=== PATIENT | female | born 1950 | race Caucasian/White ===

== ENCOUNTER 2016-06-28 10:01 | Inpatient (IN) | payer MEDICARE, MEDICAID ==
[~2016-06-28] VITALS: Ht 152.4 cm; Wt 51.6 kg
[~2016-06-28 10:01] MED LIST: /ALEN7SOL; /BACL20TA; /BACL20TA OR; /CARB20TAB; /CARB20TAB PO; /CARBXR20T PO; /LORA10TA PO; /PANT40TA; ACET650S; BACL10TA PO; BISA10SU PR; CALCCHW12; CALCCHW12 PO; CARB PO; CARB300C; CLAR5CHW OR; DULCOLAX; DULCOLAX SUPP PR; FERR325T; FERR325T OR; FLEEENE4; FLEETS ENEMA PR; JANU100T PO; KEPP250T PO; KEPPRA; KEPPRA PO; LACT10SO8; MILKSUS; MILKSUS OR; MIRALAX; MIRALEX PO; MULTTAB4 PO; MVI OR; PREV30CA6 PO; PREVACID SOLUTAB PO; SENN8.6T14; SENO8.6T5 PO; SYNT75TA; SYNT75TA OR; TETR250C; TETR250C OR; THERGRAN; VITA400C29 PO; VITAMIN D; VYTO10TA5; VYTO10TA5 OR; ZANA4CAP; ZANA4CAP OR; [UNRECOGNIZED DRUG - OTHER]; [UNRECOGNIZED DRUG - OTHER] OR
[2016-06-28 10:45] VITALS: BP 173/89
[2016-06-28] MEDS ORDERED: ONDANSETRON 4MG/2ML VIAL (J2405) IV PRN (11:30)
[2016-06-28] MEDS ORDERED: ACETAMINOPHEN TAB 650MG DOSE (2X325MG) PO PRN (11:30)
[2016-06-28] MEDS ORDERED: NORC5TAB PO (12:23)
[2016-06-28] MEDS ORDERED: LANS30CA PO (12:23)
[2016-06-28] MEDS ORDERED: LORATAB PO (12:23)
[2016-06-28] MEDS ORDERED: FERR325T PO (12:23)
[2016-06-28] MEDS ORDERED: AQUAOIN2 TOP (12:23)
[2016-06-28] MEDS ORDERED: CARB10TACH PO ×2 (12:23)
[2016-06-28] MEDS ORDERED: MIRA33504 PO (12:23)
[2016-06-28] MEDS ORDERED: DOXY100T PO (12:23)
[2016-06-28] MEDS ORDERED: FLEEENE4 PR (12:23)
[2016-06-28] MEDS ORDERED: ZETI10TA2 PO (12:23)
[2016-06-28] MEDS ORDERED: CRES20TA PO (12:23)
[2016-06-28] MEDS ORDERED: CALCTAB43 PO (12:23)
[2016-06-28] MEDS ORDERED: LEVO100T5 PO (12:23)
[2016-06-28] MEDS ORDERED: VITMTA PO (12:23)
[2016-06-28 12:43] LABS: BASO % 0.6 % (0.0-1.0); EOS # 0.2 K/mm3 (0.0-0.50); EOS % 3.9 % (0.0-3.0); LARGE UNSTAINED CELL # 0.1 K/mm3 (0.0-0.4); LARGE UNSTAINED CELL % 1.4 % (0.0-4.0); LYMPH # 1.3 K/mm3 (1.5-4.5); LYMPH % 32.7 % (24.0-44.0); MEAN CORPUSCULAR HEMOGLOBIN 30.3 pg (27.0-33.0); MEAN CORPUSCULAR HGB CONC 32.3 g/dl (32.0-36.5); MEAN CORPUSCULAR VOLUME 93.7 fl (80.0-96.0); MONO # 0.2 K/mm3 (0.0-0.8); MONO % 4.4 % (0.0-5.0); NEUTROPHILS # 2.3 K/mm3 (1.8-7.7); RED CELL DISTRIBUTION WIDTH 14.6 % (11.5-14.5)
[2016-06-28 12:55] LABS: PLATELET COUNT, AUTOMATED 51 k/mm3 (150-450)
[2016-06-28] MEDS: BACLOFEN 10 MG TAB PO SCH ×3 (13:00→20:38)
[2016-06-28 13:09] LABS: INR 0.99
[2016-06-28 13:09] LABS: ALBUMIN 3.2 GM/DL (3.2-5.2); ALBUMIN/GLOBULIN RATIO 0.76 (1.00-1.93); ALKALINE PHOSPHATASE 128 U/L (45-117); ALT/SGPT 103 U/L (12-78); ANION GAP 8 MEQ/L (8-16); AST/SGOT 93 U/L (15-37); BILIRUBIN,TOTAL 0.2 MG/DL (0.2-1.0); BLOOD UREA NITROGEN 23 MG/DL (7-18); CALCIUM LEVEL 9.2 MG/DL (8.8-10.2); CARBON DIOXIDE LEVEL 32 MEQ/L (21-32); CHLORIDE LEVEL 106 MEQ/L (98-107); CHOLESTEROL LEVEL 161 MG/DL (< 200); CREATININE FOR GFR 0.53 MG/DL (0.55-1.02); GLOMERULAR FILTRATION RATE > 60.0 (>45); GLUCOSE, FASTING 83 MG/DL (80-110); MAGNESIUM LEVEL 2.1 MG/DL (1.8-2.4); POTASSIUM SERUM 3.8 MEQ/L (3.5-5.1); SODIUM LEVEL 146 MEQ/L (136-145); TOTAL PROTEIN 7.4 GM/DL (6.4-8.2); TRIGLYCERIDES LEVEL 49 MG/DL (<150)
--- NOTE | 2016-06-28 13:12 | REP ---
Head CT without contrast: History: Anorexia. Comparison study February 28, 2016. Findings: Digital banquet server radiograph plus axial CT images at bone window settings demonstrate marked diffuse calvarial thickening. There is over pneumatization of the frontal and to a lesser extent ethmoid and sphenoid sinuses. There is extensive benign plaque-like dural calcification bilaterally. These findings are all unchanged. Soft tissue windows demonstrate marked diffuse cerebral atrophy. This is most pronounced in the left occipital lobe. There is marked dilation of the occipital horn of the left lateral ventricle and moderate dilation of the lateral ventricles is seen bilaterally. The third ventricle and fourth ventricles are somewhat dilated. There is no evidence of midline shift. No intracranial mass, new extra-axial fluid collection, or midline shift is seen. Impression: Extensive chronic and developmental changes as above. Findings are status well from the February 28, 2016 prior study. No acute intracranial abnormality is seen. Signed by Sony Mckay MD 06/28/2016 02:43 P
[2016-06-28] MEDS ORDERED: DRIS50002 PO (13:26)
[2016-06-28] MEDS: NS 1,000 ML IV SCH ×2 (13:28→20:37)
[2016-06-28] MEDS ORDERED: [UNRECOGNIZED DRUG - CODE] TOP (13:29)
[2016-06-28] MEDS ORDERED: BACL-67 PO (13:30)
[2016-06-28] MEDS ORDERED: TIZA4CAP3 PO (13:30)
[2016-06-28] MEDS ORDERED: DANT25CA2 PO (13:32)
[2016-06-28] MEDS ORDERED: MILKSUS PO (13:35)
[2016-06-28] MEDS ORDERED: SENO8.6T2 PO (13:35)
[2016-06-28] MEDS ORDERED: KEPP250T5 PO (13:35)
[2016-06-28] MEDS ORDERED: DULC10SU2 PR (13:36)
[2016-06-28] MEDS ORDERED: ENEM1ENE4 PR (13:37)
[2016-06-28 14:00] VITALS: BP 102/56
--- NOTE | 2016-06-28 15:00 | REP ---
SINGLE SUPINE AP VIEW OF THE ABDOMEN: Comparison is a CT abdomen and pelvis dated 02/28/2016. There is a large fecal bolus in the rectal ampulla, likely an impaction. There is mild distension of large and small bowel loops in a nonspecific pattern. There are no unusual calcifications. There is lumbar scoliosis convex right, unchanged. IMPRESSION: Probable fecal impaction. Unreviewed
[2016-06-28] MEDS ORDERED: carBAMazepine 200 MG TAB PO SCH (16:00)
[2016-06-28] MEDS: DANTROLENE 25 MG CAP PO SCH ×2 (16:14→20:38)
[2016-06-28] MEDS: carBAMazepine 200 MG TAB PO SCH ×2 (16:14→20:39)
[2016-06-28 18:00] VITALS: BP 151/74
[2016-06-28] MEDS: LEVETIRACETAM IV SCH (20:37)
[2016-06-28] MEDS: D5W MINI IV SCH (20:37)
[2016-06-28] MEDS: SENNA 8.6 MG TAB (SENOKOT) PO SCH (20:38)
[2016-06-28] MEDS: ROSUVASTATIN 10 MG TAB (CRESTOR) PO SCH (20:38)
[2016-06-28] MEDS ORDERED: levETIRAcetam 250MG TABLET (KEPPRA) PO SCH (21:00)
[2016-06-28 22:00] VITALS: BP 100/52
[2016-06-29 02:00] VITALS: BP 151/68
[2016-06-29 04:18] LABS: CALCIUM OXALATE CRYSTALS SMALL
[2016-06-29] MEDS ORDERED: cefTRIAXone SOD 1 GM in D5W MINI-BAG PLUS 50 ML IV ONE (04:45)
[2016-06-29] MEDS: NS 1,000 ML IV SCH ×3 (05:00→23:50)
[2016-06-29] MEDS: LEVOTHYROXINE 0.1 MG TAB (100 MCG) PO SCH (05:00)
[2016-06-29 06:00] VITALS: BP 145/61
[2016-06-29 06:39] LABS: MEAN CORPUSCULAR HEMOGLOBIN 30.5 pg (27.0-33.0); MEAN CORPUSCULAR HGB CONC 32.4 g/dl (32.0-36.5); MEAN CORPUSCULAR VOLUME 94.3 fl (80.0-96.0); RED CELL DISTRIBUTION WIDTH 15.5 % (11.5-14.5); WHITE BLOOD COUNT 6.4 K/mm3 (4.0-10.0)
[2016-06-29 06:56] LABS: ALBUMIN 2.7 GM/DL (3.2-5.2); ALBUMIN/GLOBULIN RATIO 0.73 (1.00-1.93); ALKALINE PHOSPHATASE 122 U/L (45-117); ALT/SGPT 99 U/L (12-78); ANION GAP 7 MEQ/L (8-16); AST/SGOT 87 U/L (15-37); BILIRUBIN,TOTAL 0.1 MG/DL (0.2-1.0); BLOOD UREA NITROGEN 21 MG/DL (7-18); CALCIUM LEVEL 8.7 MG/DL (8.8-10.2); CARBON DIOXIDE LEVEL 30 MEQ/L (21-32); CHLORIDE LEVEL 111 MEQ/L (98-107); CREATININE FOR GFR 0.51 MG/DL (0.55-1.02); GLOMERULAR FILTRATION RATE > 60.0 (>45); GLUCOSE, FASTING 84 MG/DL (80-110); POTASSIUM SERUM 4.2 MEQ/L (3.5-5.1); SODIUM LEVEL 148 MEQ/L (136-145); TOTAL PROTEIN 6.4 GM/DL (6.4-8.2)
[2016-06-29 07:10] LABS: EOSINOPHILS 2 % (0-5)
[2016-06-29] MEDS: LANSOPRAZOLE SUSPENSION 30 MG/10 ML ORAL SYRINGE (FIRST-LANSOPRAZOLE) PO SCH (09:00)
[2016-06-29] MEDS: BACLOFEN 10 MG TAB PO SCH ×4 (09:00→21:00)
[2016-06-29] MEDS: SENNA 8.6 MG TAB (SENOKOT) PO SCH ×2 (09:00→21:00)
[2016-06-29] MEDS: DANTROLENE 25 MG CAP PO SCH ×3 (09:00→21:00)
[2016-06-29] MEDS: carBAMazepine 200 MG TAB PO SCH ×3 (09:00→21:00)
[2016-06-29] MEDS: LEVETIRACETAM IV SCH ×2 (09:36→23:49)
[2016-06-29] MEDS: D5W MINI IV SCH ×2 (09:36→23:49)
[2016-06-29 10:00] VITALS: BP 158/71
[2016-06-29 14:00] VITALS: BP 162/77
--- NOTE | 2016-06-29 14:03 | IPNPDOC ---
Assessment/Plan Date Seen The patient was seen on 06/29/16. Problems Problems: (1) Hypothermia Status: Chronic Response to Treatment: Stable Problem Text: Presented with temp of 91.5. Chronic hypothermia with temp usually 94-96. No signs of infection. Poss due to chronic anorexia. -TSH -Swallow eval -dietary consulted with recommendations for ST and attempt at adequate PO within 5 days - consider TPN vs feeding tube if not improving (2) Thrombocytopenia Status: Chronic Problem Text: Baseline is near 100. Pt not on heparin. No signs of bleeding or acute clot. - monitor - no heparin (3) Macroglossia Status: Chronic Problem Text: Acute vs chronic. May be contributory to feeding difficulty. Pt not taking good PO. Losing wt. Presented with hypothermia. - TSH, B12 - swallow eval pending - TPN vs tube feed if pt not improving (4) Anorexia Status: Chronic Problem Text: See above (5) Dysphagia Status: Acute Problem Specific Plan: Consult Specialist Problem Text: Swallow eval pending. (6) Seizure disorder Status: Acute Problem Text: IV carbamazepine. Pt unable to take her oral medications. - lorazepam 2 mg IV once for seizure activity Plan / VTE VTE Prophylaxis Ordered?: Yes VTE Exclusion Pharmacological: Bleeding Risk Plan IVF: Continue Medications: Change to IV Diagnostics: Check Labs Disposition Cont inpt care for swallow eval and poss feeding tube Subjective Review of Systems CC/HPI The patient is a 65-year-old female admitted with a reason for visit of Dehydration, Anorexia. Events since last encounter Unable to obtain a hx as pt is non-verbal. Per pts PCP, pt has been eating very little and losing wt. Direct admit for hypothermia. General: Reports: ROS Unobtainable Constitutional: Denies: Fever Pulmonary: Denies: Cough Objective Physical Examination General Exam: Positive: Alert, Negative: No Acute Distress Eye Exam: Positive: Conjunctiva & lids normal ENT Exam: Positive: Atraumatic, Mucous membr. moist/pink, Other ENT ( macroglossia), Tongue Midline Neck Exam: Positive: Supple, Negative: JVD, thyromegaly Chest Exam: Positive: Clear to auscultation, Diminished, Normal air movement, Negative: Rales, Rhonchi, Wheezing Heart Exam: Positive: Normal S1, Normal S2, Rate Normal, Negative: Murmurs, Rubs Abdomen Exam: Positive: Normal bowel sounds, Soft, Negative: Hepatospenomegaly, Tenderness Extremity Exam: Negative: Clubbing, Cyanosis, Edema Skin Exam: Positive: Nl turgor and temperature, Negative: Breakdown, Rash Vital Signs/I&O Vital Signs Date Time Temp Pulse Resp B/P Pulse Ox O2 Delivery O2 Flow Rate FiO2 06/29/16 10:00 96.0 79 18 158/71 99 06/29/16 09:35 Room Air I&O- Last 24 Hours up to 6 AM 06/29/16 06:00 Intake Total 102.5 ml Output Total 0 ml Balance 102.5 ml Laboratory Data Labs 24H Laboratory Tests 2 06/29/16 03:53: Urine Amorphous Sediment , Urine Appearance HAZY, Urine Color YELLOW, Urine pH 6.0, Urine Specific [place] 1.014, Urine Protein NEGATIVE, Urine Glucose (UA) NEGATIVE, Urine Ketones NEGATIVE, Urine Urobilinogen 0.2, Urine Bilirubin NEGATIVE, Urine Leukocyte Esterase 1+H, Urine Bacteria (Auto) 1+H, Urine Blood NEGATIVE, Urine Calcium Carbonate Cryst(Auto) , Urine Calcium Oxalate Cryst ( Auto) SMALL, Urine Calcium Phosphate [place] (Auto) , Urine Cellular Casts , Urine Cystine Crystals , Urine Granular Casts (Auto) , Urine Hyaline Casts (Auto) 0, Urine Leucine Crystals , Urine Mucus (Auto) SMALL, Urine Nitrite POSITIVE, Urine Oval Fat Bodies (Auto) , Urine RBC (Auto) 4H, Urine Renal Epithelial Cells , Urine Sperm (Auto) , Urine Squamous Epithelial Cells 0, Urine Transitional Epithelial Cells , Urine Trichomonas (Auto) , Urine Triple Phosphate Cryst (Auto) , Urine Tyrosine Crystals , Urine Uric Acid Crystals ( Auto) , Urine WBC (Auto) 12H, Urine Waxy Casts (Auto) , Urine Yeast-Like Cells ( Auto) 06/29/16 06:04: Blood Urea Nitrogen 21H, Creatinine 0.51L, Sodium Level 148H, Potassium Level 4.2, Chloride Level 111H, Carbon Dioxide Level 30, Calcium Level 8.7L, Aspartate Amino Transf (AST/SGOT) 87H, Alanine Aminotransferase (ALT/SGPT) 99H, Alkaline Phosphatase 122H, Total Bilirubin 0.1L, Total Protein 6.4, Albumin 2.7L , Albumin/Globulin Ratio 0.73L, Anion Gap 7L, Eosinophils (Manual) 2, Glomerular Filtration Rate > 60.0, Lymphocytes (Manual) 27, Monocytes (Manual) 2 , Neutrophils 69, Platelet Estimate DECREASED, Red Blood Cell Morphology NORMAL CBC/BMP Laboratory Tests 06/29/16 06:04 Calcium Level 8.7 L, Aspartate Amino Transf (AST/SGOT) 87 H, Alanine Aminotransferase (ALT/SGPT) 99 H, Alkaline Phosphatase 122 H, Total Bilirubin 0.1 L, Total Protein 6.4, Albumin 2.7 L Microbiology Microbiology 06/28/16 Blood Culture - Preliminary, Resulted No growth after 24 hours . All specim... 06/28/16 Blood Culture - Preliminary, Resulted No growth after 24 hours . All specim... 06/29/16 Urine Culture, Received Pending HU DOAN MD Jun 29, 2016 14:03
[2016-06-29] MEDS ORDERED: LORazepam 2 MG/ML VIAL (J2060) IV PRN (15:00)
--- NOTE | 2016-06-29 15:00 | ECGEPIP ---
Stationary ECG Study [facility] Test Date: 2016-06-28 Pat Name: NIDIA JOY Department: Room: [place] [address] Gender: F [employer]ician: [place] : 1950 Requested By: Xavier ROMERO Order Number: [id number] Reading MD: Binu Jordan Measurements Intervals [place] Rate: 66 P: 64 IA: 180 QRS: 38 QRSD: 100 T: 93 QT: 372 QTc: 390 Interpretive Statements SINUS RHYTHM NONSPECIFIC T-WAVE ABNORMALITY NO PRIOR TRACING ON THE SYSTEM Electronically Signed On 06-29-2016 14:59:58 EST by Binu Jordan
[2016-06-29 16:31] LABS: FREE T4 1.05 NG/DL (0.76-1.46)
[2016-06-29 18:00] VITALS: BP 152/68
[2016-06-29] MEDS: ROSUVASTATIN 10 MG TAB (CRESTOR) PO SCH (21:00)
[2016-06-29 22:00] VITALS: BP 154/76
[2016-06-30] VITALS (8 sets, daily range): BP systolic 140–198; BP diastolic 70–95
[2016-06-30] MEDS: LEVOTHYROXINE 0.1 MG TAB (100 MCG) PO SCH (07:32)
--- NOTE | 2016-06-30 08:31 | IPNPDOC ---
Assessment/Plan Date Seen The patient was seen on 06/30/16. Problems Problems: (1) Hypothermia Status: Chronic Response to Treatment: Stable Problem Text: Presented with temp of 91.5. Chronic hypothermia with temp usually 94-96. No signs of infection. Poss due to chronic anorexia. -TSH -Swallow eval -dietary consulted with recommendations for ST and attempt at adequate PO within 5 days - consider TPN vs feeding tube if not improving (2) Thrombocytopenia Status: Chronic Problem Text: Baseline is near 100. Pt not on heparin. No signs of bleeding or acute clot. - monitor - no heparin (3) Macroglossia Status: Chronic Problem Text: Acute vs chronic. May be contributory to feeding difficulty. Pt not taking good PO. Losing wt. Presented with hypothermia. - TSH, B12 - swallow eval pending - TPN vs tube feed if pt not improving (4) Anorexia Status: Chronic Problem Text: See above (5) Dysphagia Status: Acute Problem Specific Plan: Consult Specialist Problem Text: Swallow eval pending. (6) Seizure disorder Status: Acute Problem Text: IV carbamazepine. Pt unable to take her oral medications. - lorazepam 2 mg IV once for seizure activity Plan / VTE VTE Prophylaxis Ordered?: Yes VTE Exclusion Pharmacological: Bleeding Risk Plan IVF: Continue Medications: Change to IV Diagnostics: Check Labs Subjective Review of Systems CC/HPI The patient is a 65-year-old female admitted with a reason for visit of Dehydration, Anorexia. Events since last encounter Pt nonverbal. [facility] staff member at bedside. General: Reports: ROS Unobtainable Objective Physical Examination General Exam: Positive: Alert, Negative: No Acute Distress Eye Exam: Positive: Conjunctiva & lids normal ENT Exam: Positive: Atraumatic, Mucous membr. moist/pink, Other ENT ( macroglossia), Tongue Midline Neck Exam: Positive: Supple, Negative: JVD, thyromegaly Chest Exam: Positive: Clear to auscultation, Diminished, Normal air movement, Negative: Rales, Rhonchi, Wheezing Heart Exam: Positive: Normal S1, Normal S2, Rate Normal, Negative: Murmurs, Rubs Abdomen Exam: Positive: Normal bowel sounds, Soft, Negative: Hepatospenomegaly, Tenderness Extremity Exam: Negative: Clubbing, Cyanosis, Edema Skin Exam: Positive: Nl turgor and temperature, Negative: Breakdown, Rash Vital Signs/I&O Vital Signs Date Time Temp Pulse Resp B/P Pulse Ox O2 Delivery O2 Flow Rate FiO2 06/30/16 06:00 96.0 66 16 157/76 92 Room Air I&O- Last 24 Hours up to 6 AM 06/30/16 05:59 Intake Total 3754 ml Output Total 0 ml Balance 3754 ml Laboratory Data Labs 24H Laboratory Tests 2 06/29/16 15:42: Free Thyroxine 1.05, Thyroid Stimulating Hormone (TSH) 1.600 Microbiology Microbiology 06/28/16 Blood Culture - Preliminary, Resulted No growth after 24 hours . All specim... 06/28/16 Blood Culture - Preliminary, Resulted No growth after 24 hours . All specim... 06/29/16 Urine Culture, Received Pending Alvaro Joshi Jun 30, 2016 08:31
[2016-06-30] MEDS: carBAMazepine 200 MG TAB PO SCH ×3 (09:00→21:00)
[2016-06-30] MEDS: BACLOFEN 10 MG TAB PO SCH ×4 (09:00→21:00)
[2016-06-30] MEDS: DANTROLENE 25 MG CAP PO SCH ×3 (09:00→21:00)
[2016-06-30] MEDS: SENNA 8.6 MG TAB (SENOKOT) PO SCH ×2 (09:00→21:00)
[2016-06-30] MEDS: LANSOPRAZOLE SUSPENSION 30 MG/10 ML ORAL SYRINGE (FIRST-LANSOPRAZOLE) PO SCH (09:00)
[2016-06-30] MEDS: NS 1,000 ML IV SCH ×3 (09:06→21:40)
[2016-06-30] MEDS: LEVETIRACETAM IV SCH ×2 (09:06→21:40)
[2016-06-30] MEDS: D5W MINI IV SCH ×2 (09:06→21:40)
[2016-06-30] MEDS: ROSUVASTATIN 10 MG TAB (CRESTOR) PO SCH (21:00)
[2016-07-01 02:00] VITALS: BP 146/60
[2016-07-01 06:00] VITALS: BP 140/62
[2016-07-01] MEDS: LEVOTHYROXINE 0.1 MG TAB (100 MCG) PO SCH (06:00)
[2016-07-01 06:01] LABS: BASO % 0.5 % (0.0-1.0); EOS # 0.2 K/mm3 (0.0-0.50); EOS % 4.6 % (0.0-3.0); LARGE UNSTAINED CELL # 0.1 K/mm3 (0.0-0.4); LARGE UNSTAINED CELL % 2.3 % (0.0-4.0); LYMPH # 1.3 K/mm3 (1.5-4.5); MEAN CORPUSCULAR HEMOGLOBIN 30.6 pg (27.0-33.0); MEAN CORPUSCULAR HGB CONC 32.9 g/dl (32.0-36.5); MEAN CORPUSCULAR VOLUME 92.8 fl (80.0-96.0); MONO # 0.2 K/mm3 (0.0-0.8); MONO % 4.3 % (0.0-5.0); NEUTROPHILS # 3.4 K/mm3 (1.8-7.7); NEUTROPHILS % 63.3 % (36.0-66.0); RED CELL DISTRIBUTION WIDTH 14.6 % (11.5-14.5); WHITE BLOOD COUNT 5.3 K/mm3 (4.0-10.0)
[2016-07-01 06:03] LABS: PLATELET COUNT, AUTOMATED 54 k/mm3 (150-450)
[2016-07-01 06:20] LABS: ALBUMIN 2.7 GM/DL (3.2-5.2); ALBUMIN/GLOBULIN RATIO 0.77 (1.00-1.93); ALKALINE PHOSPHATASE 117 U/L (45-117); ALT/SGPT 62 U/L (12-78); ANION GAP 9 MEQ/L (8-16); AST/SGOT 52 U/L (15-37); BILIRUBIN,TOTAL 0.3 MG/DL (0.2-1.0); BLOOD UREA NITROGEN 5 MG/DL (7-18); CARBON DIOXIDE LEVEL 27 MEQ/L (21-32); CHLORIDE LEVEL 110 MEQ/L (98-107); CREATININE FOR GFR 0.36 MG/DL (0.55-1.02); GLOMERULAR FILTRATION RATE > 60.0 (>45); GLUCOSE, FASTING 68 MG/DL (80-110); POTASSIUM SERUM 3.5 MEQ/L (3.5-5.1); SODIUM LEVEL 146 MEQ/L (136-145); TOTAL PROTEIN 6.2 GM/DL (6.4-8.2)
[2016-07-01] MEDS: NS 1,000 ML IV SCH ×3 (06:39→20:28)
--- NOTE | 2016-07-01 07:40 | IPNPDOC ---
Assessment/Plan Date Seen The patient was seen on 07/01/16. Problems Problems: (1) Hypothermia Status: Chronic Response to Treatment: Stable Problem Text: Presented with temp of 91.5. Chronic hypothermia with temp usually 94-96. No signs of infection. Poss due to chronic anorexia. -TSH -Swallow eval -dietary consulted with recommendations for ST and attempt at adequate PO within 5 days - consider TPN vs feeding tube if not improving 07/01/16 - Temps have been stable around 96 for past several days. Pt NPO. Swallow eval pending. (2) Thrombocytopenia Status: Chronic Problem Text: Baseline is near 100. Pt not on heparin. No signs of bleeding or acute clot. - monitor - no heparin (3) Macroglossia Status: Chronic Problem Text: Acute vs chronic. May be contributory to feeding difficulty. Pt not taking good PO. Losing wt. Presented with hypothermia. - TSH, B12 - swallow eval pending - TPN vs tube feed if pt not improving (4) Anorexia Status: Chronic Problem Text: See above (5) Dysphagia Status: Acute Problem Specific Plan: Consult Specialist Problem Text: Swallow eval pending. (6) Seizure disorder Status: Acute Problem Text: IV levetiracetam. Pt unable to take her oral medications - Tegretol. - lorazepam 2 mg IV once for seizure activity Plan / VTE VTE Prophylaxis Ordered?: Yes VTE Exclusion Pharmacological: Bleeding Risk Plan IVF: Continue Medications: Change to IV Diagnostics: Check Labs Plan Text Attending attestation: I saw and evaluated the patient, and agree with the plan of care as discussed and documented above. Subjective Review of Systems CC/HPI The patient is a 65-year-old female admitted with a reason for visit of Dehydration, Anorexia. Events since last encounter Pt nonverbal. General: Reports: ROS Unobtainable Objective Physical Examination General Exam: Positive: Alert, Negative: No Acute Distress Eye Exam: Positive: Conjunctiva & lids normal ENT Exam: Positive: Atraumatic, Mucous membr. moist/pink, Other ENT ( macroglossia), Tongue Midline Neck Exam: Positive: Supple, Negative: JVD, thyromegaly Chest Exam: Positive: Clear to auscultation, Diminished, Normal air movement, Negative: Rales, Rhonchi, Wheezing Heart Exam: Positive: Normal S1, Normal S2, Rate Normal, Negative: Murmurs, Rubs Abdomen Exam: Positive: Normal bowel sounds, Soft, Negative: Hepatospenomegaly, Tenderness Extremity Exam: Negative: Clubbing, Cyanosis, Edema Skin Exam: Positive: Nl turgor and temperature, Negative: Breakdown, Rash Vital Signs/I&O Vital Signs Date Time Temp Pulse Resp B/P Pulse Ox O2 Delivery O2 Flow Rate FiO2 07/01/16 06:00 96.5 88 19 140/62 100 Room Air I&O- Last 24 Hours up to 6 AM 07/01/16 06:00 Intake Total 3130 ml Output Total 0 ml Balance 3130 ml Laboratory Data Labs 24H Laboratory Tests 2 07/01/16 05:32: Blood Urea Nitrogen 5#L, Creatinine 0.36L, Sodium Level 146H, Potassium Level 3.5, Chloride Level 110H, Carbon Dioxide Level 27, Calcium Level 8.0L, Aspartate Amino Transf (AST/SGOT) 52H, Alanine Aminotransferase (ALT/SGPT) 62, Alkaline Phosphatase 117, Total Bilirubin 0.3#, Total Protein 6.2L, Albumin 2.7L , Albumin/Globulin Ratio 0.77L, Anion Gap 9, White Blood Count 5.3, Red Blood Count 3.91L, Hemoglobin 11.9L, Hematocrit 36.3, Mean Corpuscular Volume 92.8, Mean Corpuscular Hemoglobin 30.6, Mean Corpuscular Hemoglobin Concent 32.9, Red Cell Distribution Width 14.6H, Platelet Count 54L, Neutrophils (%) (Auto) 63.3, Lymphocytes (%) (Auto) 25.0, Monocytes (%) (Auto) 4.3, Eosinophils (%) (Auto) 4.6H, Basophils (%) (Auto) 0.5, Neutrophils # (Auto) 3.4, Lymphocytes # (Auto) 1.3L, Monocytes # (Auto) 0.2, Eosinophils # (Auto) 0.2, Basophils # (Auto) 0.0, Glomerular Filtration Rate > 60.0, Large Unclassified Cells # 0.1, Large Unclassified Cells % 2.3 CBC/BMP Laboratory Tests 07/01/16 05:32 Calcium Level 8.0 L, Aspartate Amino Transf (AST/SGOT) 52 H, Alanine Aminotransferase (ALT/SGPT) 62, Alkaline Phosphatase 117, Total Bilirubin 0.3 # , Total Protein 6.2 L, Albumin 2.7 L, Red Blood Count 3.91 L, Mean Corpuscular Volume 92.8, Mean Corpuscular Hemoglobin 30.6, Mean Corpuscular Hemoglobin Concent 32.9, Red Cell Distribution Width 14.6 H, Neutrophils (%) (Auto) 63.3, Lymphocytes (%) (Auto) 25.0, Monocytes (%) (Auto) 4.3, Eosinophils (%) (Auto) 4.6 H, Basophils (%) (Auto) 0.5, Neutrophils # (Auto) 3.4, Lymphocytes # (Auto) 1.3 L, Monocytes # (Auto) 0.2, Eosinophils # (Auto) 0.2, Basophils # (Auto) 0.0 Microbiology Microbiology 06/28/16 Blood Culture - Preliminary, Resulted No Growth after 48 hours. All Specime... 06/28/16 Blood Culture - Preliminary, Resulted No Growth after 48 hours. All Specime... 06/29/16 Urine Culture, Received Pending Alvaro Joshi Jul 01, 2016 07:40 HU DOAN MD Jul 01, 2016 12:12
[2016-07-01] MEDS: DANTROLENE 25 MG CAP PO SCH ×3 (07:55→20:16)
[2016-07-01] MEDS: carBAMazepine 200 MG TAB PO SCH ×3 (07:56→20:17)
[2016-07-01] MEDS: BACLOFEN 10 MG TAB PO SCH ×4 (07:56→20:17)
[2016-07-01] MEDS: SENNA 8.6 MG TAB (SENOKOT) PO SCH ×2 (07:56→20:17)
[2016-07-01] MEDS: LANSOPRAZOLE SUSPENSION 30 MG/10 ML ORAL SYRINGE (FIRST-LANSOPRAZOLE) PO SCH (07:56)
[2016-07-01] MEDS: LEVETIRACETAM IV SCH ×2 (08:00→20:28)
[2016-07-01] MEDS: D5W MINI IV SCH ×2 (08:00→20:28)
[2016-07-01 11:04] VITALS: BP 140/76
[2016-07-01] MEDS: cefTRIAXone SOD 1 GM in D5W MINI-BAG PLUS 50 ML IV SCH (13:43)
[2016-07-01 14:00] VITALS: BP 149/77
[2016-07-01 18:00] VITALS: BP 134/92
[2016-07-01] MEDS: ROSUVASTATIN 10 MG TAB (CRESTOR) PO SCH (20:16)
[2016-07-01] MEDS: PANTOPRAZOLE 40MG INJ (PROTONIX) (C9113) IV SCH (21:40)
[2016-07-01 22:00] VITALS: BP 150/61
[2016-07-02] VITALS (7 sets, daily range): BP systolic 130–194; BP diastolic 68–82
[2016-07-02] MEDS: NS 1,000 ML IV SCH ×3 (03:33→20:01)
[2016-07-02 06:31] LABS: BASO % 0.4 % (0.0-1.0); EOS # 0.2 K/mm3 (0.0-0.50); LARGE UNSTAINED CELL # 0.2 K/mm3 (0.0-0.4); LARGE UNSTAINED CELL % 2.3 % (0.0-4.0); LYMPH # 1.3 K/mm3 (1.5-4.5); LYMPH % 17.6 % (24.0-44.0); MEAN CORPUSCULAR HEMOGLOBIN 30.2 pg (27.0-33.0); MEAN CORPUSCULAR HGB CONC 31.9 g/dl (32.0-36.5); MEAN CORPUSCULAR VOLUME 94.6 fl (80.0-96.0); MONO # 0.3 K/mm3 (0.0-0.8); NEUTROPHILS # 5.5 K/mm3 (1.8-7.7); NEUTROPHILS % 72.8 % (36.0-66.0); RED CELL DISTRIBUTION WIDTH 14.5 % (11.5-14.5); WHITE BLOOD COUNT 7.6 K/mm3 (4.0-10.0)
[2016-07-02 06:32] LABS: PLATELET COUNT, AUTOMATED 54 k/mm3 (150-450)
[2016-07-02 06:53] LABS: ALBUMIN 2.7 GM/DL (3.2-5.2); ALBUMIN/GLOBULIN RATIO 0.73 (1.00-1.93); ALKALINE PHOSPHATASE 123 U/L (45-117); ALT/SGPT 65 U/L (12-78); ANION GAP 10 MEQ/L (8-16); AST/SGOT 59 U/L (15-37); BILIRUBIN,TOTAL 0.4 MG/DL (0.2-1.0); BLOOD UREA NITROGEN 4 MG/DL (7-18); CALCIUM LEVEL 8.2 MG/DL (8.8-10.2); CARBON DIOXIDE LEVEL 25 MEQ/L (21-32); CHLORIDE LEVEL 110 MEQ/L (98-107); CREATININE FOR GFR 0.42 MG/DL (0.55-1.02); GLOMERULAR FILTRATION RATE > 60.0 (>45); GLUCOSE, FASTING 67 MG/DL (80-110); SODIUM LEVEL 145 MEQ/L (136-145); TOTAL PROTEIN 6.4 GM/DL (6.4-8.2)
[2016-07-02] MEDS: BACLOFEN 10 MG TAB PO SCH ×4 (08:00→19:42)
[2016-07-02] MEDS: DANTROLENE 25 MG CAP PO SCH ×3 (08:00→19:41)
[2016-07-02] MEDS: SENNA 8.6 MG TAB (SENOKOT) PO SCH ×2 (08:00→19:42)
[2016-07-02] MEDS: carBAMazepine 200 MG TAB PO SCH ×3 (08:01→19:42)
[2016-07-02] MEDS: D5W MINI IV SCH ×2 (08:19→20:01)
[2016-07-02] MEDS: LEVOTHYROXINE 100 MCG (0.1MG) VIAL IV SCH (08:19)
[2016-07-02] MEDS: LEVETIRACETAM IV SCH ×2 (08:19→20:01)
--- NOTE | 2016-07-02 09:49 | IPNPDOC ---
Assessment/Plan Date Seen The patient was seen on 07/02/16. Problems Problems: (1) Dysphagia Status: Acute Problem Specific Plan: Consult Specialist Problem Text: 07/02 - Swallow eval recommends NPO, PEG placement pending. (2) Anorexia Status: Chronic Problem Text: See above (3) Hypothermia Status: Chronic Response to Treatment: Stable Problem Text: Presented with temp of 91.5. Chronic hypothermia with temp usually 94-96. No signs of infection. Poss due to chronic anorexia. -TSH -Swallow eval -dietary consulted with recommendations for ST and attempt at adequate PO within 5 days - consider TPN vs feeding tube if not improving 07/01/16 - Temps have been stable around 96 for past several days. Pt NPO. Swallow eval pending. 07/02 - Swallow eval recommends NPO, have spoken with Luis Pedersen's Nephew/Guardian he consents to placement of PEG for feedings and hydration. Will consult IR for PEG placement. (4) Thrombocytopenia Status: Chronic Problem Text: Baseline is near 100. Pt not on heparin. No signs of bleeding or acute clot. - monitor - no heparin (5) Macroglossia Status: Chronic Problem Text: Chronic. May be contributory to feeding difficulty. Pt not taking good PO. Losing wt. Presented with hypothermia. - TSH and B12 normal - IV levothyroxine until PEG placed (6) Seizure disorder Status: Acute Problem Text: IV levetiracetam. Pt unable to take her oral medications - Tegretol. - lorazepam 2 mg IV once for seizure activity Plan / VTE VTE Prophylaxis Ordered?: Yes VTE Exclusion Pharmacological: Bleeding Risk Plan IVF: Continue Medications: Change to IV Diagnostics: Check Labs Plan Text Attending Note: I saw and evaluated the patient, and I agree with the plan of care as discussed and documented above. Health proxy to consent for PEG. Discharge planning after PEG. Suraj Hernandez MD Subjective Review of Systems CC/HPI Nursing without new concerns. Events since last encounter Health proxy would like to proceed with PEG. Pt not taking PO. Did not pass swallow eval. General: Reports: ROS Unobtainable Objective Physical Examination General Exam: Positive: Alert, Negative: No Acute Distress ENT Exam: Positive: Atraumatic, Mucous membr. moist/pink, Other ENT ( macroglossia) Neck Exam: Positive: Supple, Negative: JVD, thyromegaly Chest Exam: Positive: Clear to auscultation, Diminished, Normal air movement, Negative: Rales, Rhonchi, Wheezing Heart Exam: Positive: Normal S1, Normal S2, Rate Normal, Negative: Murmurs, Rubs Abdomen Exam: Positive: Normal bowel sounds, Soft, Negative: Hepatospenomegaly, Tenderness Extremity Exam: Negative: Clubbing, Cyanosis, Edema Skin Exam: Positive: Nl turgor and temperature, Negative: Breakdown, Rash Vital Signs/I&O Vital Signs Date Time Temp Pulse Resp B/P Pulse Ox O2 Delivery O2 Flow Rate FiO2 07/02/16 08:30 Room Air 07/02/16 06:00 96.9 62 19 149/72 96 I&O- Last 24 Hours up to 6 AM 07/02/16 06:00 Intake Total 1477.5 ml Balance 1477.5 ml Laboratory Data Labs 24H Laboratory Tests 2 07/02/16 05:56: Blood Urea Nitrogen 4L, Creatinine 0.42L, Sodium Level 145, Potassium Level 4.0 , Chloride Level 110H, Carbon Dioxide Level 25, Calcium Level 8.2L, Aspartate Amino Transf (AST/SGOT) 59H, Alanine Aminotransferase (ALT/SGPT) 65, Alkaline Phosphatase 123H, Total Bilirubin 0.4, Total Protein 6.4, Albumin 2.7L, Albumin/ Globulin Ratio 0.73L, Anion Gap 10, White Blood Count 7.6, Red Blood Count 4.03 , Hemoglobin 12.2, Hematocrit 38.1, Mean Corpuscular Volume 94.6, Mean Corpuscular Hemoglobin 30.2, Mean Corpuscular Hemoglobin Concent 31.9L, Red Cell Distribution Width 14.5, Platelet Count 54L, Neutrophils (%) (Auto) 72.8H, Lymphocytes (%) (Auto) 17.6L, Monocytes (%) (Auto) 4.0, Eosinophils (%) (Auto) 3.0, Basophils (%) (Auto) 0.4, Neutrophils # (Auto) 5.5, Lymphocytes # (Auto) 1.3L, Monocytes # (Auto) 0.3, Eosinophils # (Auto) 0.2, Basophils # (Auto) 0.0, Glomerular Filtration Rate > 60.0, Large Unclassified Cells # 0.2, Large Unclassified Cells % 2.3 CBC/BMP Laboratory Tests 07/02/16 05:56 Calcium Level 8.2 L, Aspartate Amino Transf (AST/SGOT) 59 H, Alanine Aminotransferase (ALT/SGPT) 65, Alkaline Phosphatase 123 H, Total Bilirubin 0.4 , Total Protein 6.4, Albumin 2.7 L, Red Blood Count 4.03, Mean Corpuscular Volume 94.6, Mean Corpuscular Hemoglobin 30.2, Mean Corpuscular Hemoglobin Concent 31.9 L, Red Cell Distribution Width 14.5, Neutrophils (%) (Auto) 72.8 H , Lymphocytes (%) (Auto) 17.6 L, Monocytes (%) (Auto) 4.0, Eosinophils (%) (Auto ) 3.0, Basophils (%) (Auto) 0.4, Neutrophils # (Auto) 5.5, Lymphocytes # (Auto) 1.3 L, Monocytes # (Auto) 0.3, Eosinophils # (Auto) 0.2, Basophils # (Auto) 0.0 Microbiology Microbiology 06/28/16 Blood Culture - Preliminary, Resulted No Growth after 72 hours. All specime... 06/28/16 Blood Culture - Preliminary, Resulted No Growth after 72 hours. All specime... 06/29/16 Urine Culture - Final, Complete Escherichia Coli HENRY SOTOMAYOR PA-C Jul 02, 2016 09:49 SURAJ HERNANDEZ MD Jul 02, 2016 09:55
[2016-07-02] MEDS ORDERED: SODIUM BICARBONATE 8.4% INJ 50MEQ 50 ML VIAL As Ordered ONE (12:28)
[2016-07-02] MEDS ORDERED: ISOVUE-300 61% 50ML VIAL (Q9967) As Ordered ONE (12:29)
[2016-07-02] MEDS: cefTRIAXone SOD 1 GM in D5W MINI-BAG PLUS 50 ML IV SCH (13:09)
--- NOTE | 2016-07-02 17:11 | REPKIM ---
CLINICAL HISTORY: Patient with macroglossia and dysphagia was referred to IR for a percutaneous gastrostomy feeding tube placement. PROCEDURE: FLUOROSCOPY Single supine AP view of the abdomen IMPRESSION: Preprocedure fluoroscopy of the abdomen demonstrates distension of small and large bowel in a nonspecific pattern. Air filled small and large bowel obscuring the percutaneous gastrostomy window. For this reason percutaneous gastrostomy tube cannot be placed safely at this time. Findings discussed via phone with clinical staff managing the patient. cc: JESUS Reed
[2016-07-02] MEDS: ROSUVASTATIN 10 MG TAB (CRESTOR) PO SCH (19:41)
[2016-07-02] MEDS: PANTOPRAZOLE 40MG INJ (PROTONIX) (C9113) IV SCH (20:02)
[2016-07-03 02:00] VITALS: BP 154/82
[2016-07-03] MEDS: D5W/0.9% SODIUM CHLORIDE 1,000 ML IV SCH ×3 (02:45→18:54)
[2016-07-03] MEDS ORDERED: DEXTROSE 50% 50 ML SYRINGE IV ONE (02:45)
[2016-07-03 06:00] VITALS: BP 159/88
--- NOTE | 2016-07-03 07:24 | IPNPDOC ---
Assessment/Plan Date Seen The patient was seen on 07/03/16. Problems Problems: (1) Dysphagia Status: Acute Problem Specific Plan: Consult Specialist Problem Text: - Swallow eval recommends NPO, PEG placement pending. 07/03/2016 -- NG tube ordered as radiology anticipated it could be a few days before her PEG could be performed (2) Anorexia Status: Chronic Problem Text: See above (3) Hypothermia Status: Chronic Response to Treatment: Stable Problem Text: Presented with temp of 91.5. Chronic hypothermia with temp usually 94-96. No signs of infection. Poss due to chronic anorexia. -TSH -Swallow eval -dietary consulted with recommendations for ST and attempt at adequate PO within 5 days - consider TPN vs feeding tube if not improving 07/01/16 - Temps have been stable around 96 for past several days. Pt NPO. Swallow eval pending. 07/02 - Swallow eval recommends NPO, have spoken with Luis Briellerakesh Peedrsen's Nephew/Guardian he consents to placement of PEG for feedings and hydration. Will consult IR for PEG placement. 07/03/2015: PEG not placed secondary to air in abdomen. Scheduled for repeat KUB this am (4) Thrombocytopenia Status: Chronic Problem Text: Baseline is near 100. Pt not on heparin. No signs of bleeding or acute clot. - monitor - no heparin (5) Macroglossia Status: Chronic Problem Text: Chronic. May be contributory to feeding difficulty. Pt not taking good PO. Losing wt. Presented with hypothermia. - TSH and B12 normal - IV levothyroxine until PEG placed (6) Seizure disorder Status: Acute Problem Text: IV levetiracetam. Pt unable to take her oral medications - Tegretol. - lorazepam 2 mg IV once for seizure activity (7) Functional quadriplegia Status: Chronic Problem Text: [facility] client. Routine equipment, wheechair in room. (8) Severe protein-calorie malnutrition Status: Acute Problem Specific Plan: Monitor Clinically (9) Profound mental handicap Status: Chronic (10) Diabetes mellitus type 2 in nonobese Status: Chronic Problem Text: Well-controlled per last A1C (11) Constipation Status: Acute Problem Text: Fleet's enemas ordered Plan / VTE VTE Prophylaxis Ordered?: Yes VTE Exclusion Pharmacological: Bleeding Risk Plan IVF: Continue Medications: Change to IV Diagnostics: Check Labs Subjective Review of Systems CC/HPI The patient is a 65-year-old female admitted with a reason for visit of Dehydration, Anorexia. Events since last encounter PEG not placed secondary to air in abdomen. Scheduled for repeat KUB this am. General: Reports: ROS Unobtainable Objective Physical Examination General Exam: Positive: Alert, Negative: No Acute Distress ENT Exam: Positive: Atraumatic, Mucous membr. moist/pink, Other ENT ( macroglossia) Neck Exam: Positive: Supple, Negative: JVD, thyromegaly Chest Exam: Positive: Clear to auscultation, Normal air movement, Negative: Rales, Rhonchi, Wheezing Heart Exam: Positive: Normal S1, Normal S2, Rate Normal, Negative: Murmurs, Rubs Abdomen Exam: Positive: Normal bowel sounds, Soft, Negative: Hepatospenomegaly, Tenderness Extremity Exam: Negative: Clubbing, Cyanosis, Edema Skin Exam: Positive: Nl turgor and temperature, Negative: Breakdown, Rash Vital Signs/I&O Vital Signs Date Time Temp Pulse Resp B/P Pulse Ox O2 Delivery O2 Flow Rate FiO2 07/03/16 06:00 97.3 79 15 159/88 93 Room Air I&O- Last 24 Hours up to 6 AM 07/03/16 06:00 Intake Total 3069 ml Balance 3069 ml Laboratory Data Labs 24H Laboratory Tests 2 07/03/16 01:22: Bedside Glucose (Misc Panel) 65L 07/03/16 03:32: Bedside Glucose (Misc Panel) 179H 07/03/16 06:08: Bedside Glucose (Misc Panel) 160H FSBS Laboratory Tests Test 07/03/16 01:22 07/03/16 03:32 07/03/16 06:08 Range/Units Bedside Glucose (Misc Panel) 65 179 160 80-115 MG/DL Microbiology Microbiology 06/28/16 Blood Culture - Preliminary, Resulted No Growth after 72 hours. All specime... 06/28/16 Blood Culture - Preliminary, Resulted No Growth after 72 hours. All specime... 06/29/16 Urine Culture - Final, Complete Escherichia Coli Martha JorgeP Jul 03, 2016 07:24 [place]AN[place] ARANA DO Jul 03, 2016 10:44
[2016-07-03] MEDS: DANTROLENE 25 MG CAP PO SCH ×3 (09:00→20:51)
[2016-07-03] MEDS: BACLOFEN 10 MG TAB PO SCH ×4 (09:00→20:53)
[2016-07-03] MEDS: SENNA 8.6 MG TAB (SENOKOT) PO SCH ×2 (09:00→20:53)
[2016-07-03] MEDS: carBAMazepine 200 MG TAB PO SCH ×3 (09:00→20:51)
--- NOTE | 2016-07-03 09:19 | REP ---
KUB ABDOMEN AND PELVIS: KUB film of the abdomen and pelvis is performed and compared to a prior study of 06/28/2016. A large amount of fecal material is again see in the rectum. Air is scattered throughout the colon. There appear to be a few mildly dilated small bowel loops in the left abdomen. The bowel gas pattern is nonspecific. The findings are similar to the prior exam of 06/28/2016. There is curvature of the spine towards the right. IMPRESSION: Large amount of fecal material in the rectum. Nonspecific bowel gas pattern similar to the prior exam of 06/28/2016. Signed by Hardy Isabel MD 07/03/2016 05:19 P
[2016-07-03 10:00] VITALS: BP 125/60
[2016-07-03] MEDS ORDERED: FLEET ENEMA PR PRN (10:15)
[2016-07-03] MEDS: LEVETIRACETAM IV SCH ×2 (10:18→20:54)
[2016-07-03] MEDS: D5W MINI IV SCH ×2 (10:18→20:54)
[2016-07-03] MEDS: LEVOTHYROXINE 100 MCG (0.1MG) VIAL IV SCH (10:19)
[2016-07-03] MEDS: cefTRIAXone SOD 1 GM in D5W MINI-BAG PLUS 50 ML IV SCH (13:13)
[2016-07-03 14:00] VITALS: BP 167/73
--- NOTE | 2016-07-03 15:12 | REP ---
Chest one-view HISTORY: Feeding tube placement Comparison: 02:40 p.m. 07/03/16 The lungs are clear. The heart is normal in size. The pulmonary vasculature is normal in appearance. A feeding tube is present in the region of the fundus of the stomach. Impression: A feeding tube is present in the region of the fundus of the stomach. Signed by Dean August MD 07/03/2016 03:04 P
--- NOTE | 2016-07-03 15:12 | REP ---
PORTABLE CHEST, 2:40 P.M.: AP portable view of the chest is performed. COMPARISON: 02/12/2016 There is a nasogastric tube. The distal end is coiled in the region of the stomach. No acute infiltrate is seen in either lung. The heart appears normal in size. IMPRESSION: Nasogastric tube, distal end coiled in the region of the stomach. Signed by Hardy Isabel MD 07/03/2016 05:23 P
[2016-07-03 18:00] VITALS: BP 141/75
[2016-07-03] MEDS: ROSUVASTATIN 10 MG TAB (CRESTOR) PO SCH (20:51)
[2016-07-03] MEDS: PANTOPRAZOLE 40MG INJ (PROTONIX) (C9113) IV SCH (20:53)
[2016-07-03 22:00] VITALS: BP 153/76
[2016-07-04 02:00] VITALS: BP 138/70
[2016-07-04] MEDS: D5W/0.9% SODIUM CHLORIDE 1,000 ML IV SCH (02:49)
[2016-07-04 06:00] VITALS: BP 149/70
[2016-07-04 07:22] LABS: BASO % 0.3 % (0.0-1.0); EOS # 0.3 K/mm3 (0.0-0.50); EOS % 6.9 % (0.0-3.0); LARGE UNSTAINED CELL # 0.1 K/mm3 (0.0-0.4); LYMPH % 20.2 % (24.0-44.0); MEAN CORPUSCULAR HEMOGLOBIN 30.1 pg (27.0-33.0); MEAN CORPUSCULAR HGB CONC 32.6 g/dl (32.0-36.5); MEAN CORPUSCULAR VOLUME 92.1 fl (80.0-96.0); MONO # 0.3 K/mm3 (0.0-0.8); NEUTROPHILS # 3.2 K/mm3 (1.8-7.7); NEUTROPHILS % 64.5 % (36.0-66.0); RED CELL DISTRIBUTION WIDTH 14.9 % (11.5-14.5); WHITE BLOOD COUNT 4.9 K/mm3 (4.0-10.0)
[2016-07-04 07:23] LABS: PLATELET COUNT, AUTOMATED 66 k/mm3 (150-450)
[2016-07-04 07:25] LABS: ALBUMIN 2.5 GM/DL (3.2-5.2); ALBUMIN/GLOBULIN RATIO 0.71 (1.00-1.93); ALKALINE PHOSPHATASE 119 U/L (45-117); ALT/SGPT 106 U/L (12-78); ANION GAP 10 MEQ/L (8-16); AST/SGOT 146 U/L (15-37); BILIRUBIN,TOTAL 0.4 MG/DL (0.2-1.0); BLOOD UREA NITROGEN 5 MG/DL (7-18); CARBON DIOXIDE LEVEL 26 MEQ/L (21-32); CHLORIDE LEVEL 112 MEQ/L (98-107); CREATININE FOR GFR 0.39 MG/DL (0.55-1.02); GLOMERULAR FILTRATION RATE > 60.0 (>45); GLUCOSE, FASTING 125 MG/DL (80-110); POTASSIUM SERUM 2.9 MEQ/L (3.5-5.1); SODIUM LEVEL 148 MEQ/L (136-145)
--- NOTE | 2016-07-04 07:37 | IPNPDOC ---
Assessment/Plan Date Seen The patient was seen on 07/04/16. Problems Problems: (1) Dysphagia Status: Acute Problem Specific Plan: Consult Specialist Problem Text: - Swallow eval recommends NPO, PEG placement pending. 07/03/2016 -- NG tube ordered as radiology anticipated it could be a few days before her PEG could be performed 07/04/2015: noted rhonchi on exam to left lung. Will deep suction prn with respiratory. Eval CXR to r/o aspiration. Continue with bowel meds. (2) Anorexia Status: Chronic Problem Text: See above (3) Hypothermia Status: Chronic Response to Treatment: Stable Problem Text: Presented with temp of 91.5. Chronic hypothermia with temp usually 94-96. No signs of infection. Poss due to chronic anorexia. -TSH -Swallow eval -dietary consulted with recommendations for ST and attempt at adequate PO within 5 days - consider TPN vs feeding tube if not improving 07/01/16 - Temps have been stable around 96 for past several days. Pt NPO. Swallow eval pending. 07/02 - Swallow eval recommends NPO, have spoken with Luis Pedersen's Nephew/Guardian he consents to placement of PEG for feedings and hydration. Will consult IR for PEG placement. 07/03/2015: PEG not placed secondary to air in abdomen. Scheduled for repeat KUB this am (4) Thrombocytopenia Status: Chronic Problem Text: Baseline is near 100. Pt not on heparin. No signs of bleeding or acute clot. - monitor - no heparin (5) Macroglossia Status: Chronic Problem Text: Chronic. May be contributory to feeding difficulty. Pt not taking good PO. Losing wt. Presented with hypothermia. - TSH and B12 normal - IV levothyroxine until PEG placed (6) Seizure disorder Status: Acute Problem Text: IV levetiracetam. Pt unable to take her oral medications - Tegretol. - lorazepam 2 mg IV once for seizure activity (7) Functional quadriplegia Status: Chronic Problem Text: [facility] client. Routine equipment, wheechair in room. (8) Severe protein-calorie malnutrition Status: Acute Problem Specific Plan: Monitor Clinically (9) Profound mental handicap Status: Chronic (10) Diabetes mellitus type 2 in nonobese Status: Chronic Problem Text: Well-controlled per last A1C (11) Constipation Status: Acute Problem Text: Fleet's enemas ordered (12) Hypokalemia Status: Acute Problem Text: K+ 2.9 this am. will order supplementation. Plan / VTE VTE Prophylaxis Ordered?: Yes VTE Exclusion Pharmacological: Bleeding Risk Plan IVF: Continue Medications: Change to IV Diagnostics: Check Labs Subjective Review of Systems CC/HPI The patient is a 65-year-old female admitted with a reason for visit of Dehydration, Anorexia. Events since last encounter NGT for tube feeds placed. Found this am laying flat with adventitious breath sounds. General: Reports: ROS Unobtainable Objective Physical Examination General Exam: Positive: Alert, Cooperative, Negative: No Acute Distress ENT Exam: Positive: Atraumatic, Mucous membr. moist/pink, Other ENT ( macroglossia) Neck Exam: Positive: Supple, Negative: JVD, thyromegaly Chest Exam: Positive: Clear to auscultation, Normal air movement, Rhonchi ( LEFT mid lobe), Negative: Rales, Wheezing Heart Exam: Positive: Normal S1, Normal S2, Rate Normal, Negative: Murmurs, Rubs Abdomen Exam: Positive: Normal bowel sounds, Soft, Negative: Hepatospenomegaly, Tenderness Extremity Exam: Negative: Clubbing, Cyanosis, Edema Skin Exam: Positive: Nl turgor and temperature, Negative: Breakdown, Rash Vital Signs/I&O Vital Signs Date Time Temp Pulse Resp B/P Pulse Ox O2 Delivery O2 Flow Rate FiO2 07/04/16 06:00 98.4 67 18 149/70 95 07/03/16 21:00 Room Air I&O- Last 24 Hours up to 6 AM 07/04/16 06:00 Intake Total 875 ml Output Total 0 ml Balance 875 ml Laboratory Data Labs 24H Laboratory Tests 2 07/03/16 12:29: Bedside Glucose (Misc Panel) 132H 07/03/16 18:26: Bedside Glucose (Misc Panel) 119H 07/03/16 23:40: Bedside Glucose (Misc Panel) 113 07/04/16 05:44: Bedside Glucose (Misc Panel) 152H 07/04/16 06:25: Blood Urea Nitrogen 5L, Creatinine 0.39L, Sodium Level 148H, Potassium Level 2.9 #*L, Chloride Level 112H, Carbon Dioxide Level 26, Calcium Level 7.0L, Aspartate Amino Transf (AST/SGOT) 146H, Alanine Aminotransferase (ALT/SGPT) 106H , Alkaline Phosphatase 119H, Total Bilirubin 0.4, Total Protein 6.0L, Albumin 2.5L, Albumin/Globulin Ratio 0.71L, Anion Gap 10, White Blood Count 4.9, Red Blood Count 3.76L, Hemoglobin 11.3L, Hematocrit 34.7L, Mean Corpuscular Volume 92.1, Mean Corpuscular Hemoglobin 30.1, Mean Corpuscular Hemoglobin Concent 32.6 , Red Cell Distribution Width 14.9H, Platelet Count 66L, Neutrophils (%) (Auto) 64.5, Lymphocytes (%) (Auto) 20.2L, Monocytes (%) (Auto) 6.0H, Eosinophils (%) ( Auto) 6.9H, Basophils (%) (Auto) 0.3, Neutrophils # (Auto) 3.2, Lymphocytes # ( Auto) 1.0L, Monocytes # (Auto) 0.3, Eosinophils # (Auto) 0.3, Basophils # (Auto ) 0.0, Glomerular Filtration Rate > 60.0, Large Unclassified Cells # 0.1, Large Unclassified Cells % 2.0 CBC/BMP Laboratory Tests 07/04/16 06:25 Calcium Level 7.0 L, Aspartate Amino Transf (AST/SGOT) 146 H, Alanine Aminotransferase (ALT/SGPT) 106 H, Alkaline Phosphatase 119 H, Total Bilirubin 0.4, Total Protein 6.0 L, Albumin 2.5 L, Red Blood Count 3.76 L, Mean Corpuscular Volume 92.1, Mean Corpuscular Hemoglobin 30.1, Mean Corpuscular Hemoglobin Concent 32.6, Red Cell Distribution Width 14.9 H, Neutrophils (%) ( Auto) 64.5, Lymphocytes (%) (Auto) 20.2 L, Monocytes (%) (Auto) 6.0 H, Eosinophils (%) (Auto) 6.9 H, Basophils (%) (Auto) 0.3, Neutrophils # (Auto) 3.2 , Lymphocytes # (Auto) 1.0 L, Monocytes # (Auto) 0.3, Eosinophils # (Auto) 0.3, Basophils # (Auto) 0.0 FSBS Laboratory Tests Test 07/03/16 12:29 07/03/16 18:26 07/03/16 23:40 07/04/16 05:44 Range/Units Bedside Glucose (Misc Panel) 132 119 113 152 80-115 MG/DL Microbiology Microbiology 06/28/16 Blood Culture - Final, Complete NO GROWTH AFTER 5 DAYS 06/28/16 Blood Culture - Final, Complete NO GROWTH AFTER 5 DAYS 06/29/16 Urine Culture - Final, Complete Escherichia Coli Martha Jorge [facility] Jul 04, 2016 07:37
[2016-07-04] MEDS: KCL 10MEQ IN 100ML SWI (KRUN) 10 MEQ in APPROPRIATE DILUENT 1 EA IV SCH ×4 (07:51→09:09)
[2016-07-04] MEDS: SENNA 8.6 MG TAB (SENOKOT) PO SCH ×2 (09:00→21:21)
[2016-07-04] MEDS: LEVOTHYROXINE 100 MCG (0.1MG) VIAL IV SCH (09:09)
[2016-07-04] MEDS: DANTROLENE 25 MG CAP PO SCH ×3 (09:09→21:19)
[2016-07-04] MEDS: carBAMazepine 200 MG TAB PO SCH ×3 (09:09→21:20)
[2016-07-04] MEDS: BACLOFEN 10 MG TAB PO SCH ×4 (09:09→21:20)
[2016-07-04 10:00] VITALS: BP 136/80
[2016-07-04] MEDS: D5W MINI IV SCH ×2 (10:38→21:19)
[2016-07-04] MEDS: LEVETIRACETAM IV SCH ×2 (10:38→21:19)
--- NOTE | 2016-07-04 10:40 | REP ---
Chest two views HISTORY: Rhonchi Comparison: 07/03/2016 The lungs are clear. The heart is normal in size. The pulmonary vasculature is normal in appearance. Degenerative changes present in the left shoulder. IMPRESSION: No acute disease. Signed by Dean August MD 07/04/2016 10:32 A
[2016-07-04 11:20] LABS: ANION GAP 8 MEQ/L (8-16); BLOOD UREA NITROGEN 5 MG/DL (7-18); CALCIUM LEVEL 7.3 MG/DL (8.8-10.2); CARBON DIOXIDE LEVEL 28 MEQ/L (21-32); CHLORIDE LEVEL 113 MEQ/L (98-107); CREATININE FOR GFR 0.39 MG/DL (0.55-1.02); GLOMERULAR FILTRATION RATE > 60.0 (>45); GLUCOSE, FASTING 101 MG/DL (80-110); POTASSIUM SERUM 3.8 MEQ/L (3.5-5.1); SODIUM LEVEL 149 MEQ/L (136-145)
[2016-07-04] MEDS: cefTRIAXone SOD 1 GM in D5W MINI-BAG PLUS 50 ML IV SCH (12:26)
[2016-07-04] MEDS ORDERED: D5W/0.45% SODIUM CHLORIDE 1,000 ML IV SCH (13:30)
[2016-07-04 14:00] VITALS: BP 143/69
--- NOTE | 2016-07-04 15:07 | REP ---
Chest one-view HISTORY: Feeding tube placement Comparison: 08:50 a.m. 07/04/2016 The lungs are clear. The heart is normal in size. The pulmonary vasculature is normal in appearance. A feeding tube is present in the region of the fundus of the stomach. Impression: A feeding tube is present in the region of the fundus of the stomach. Signed by Dean August MD 07/04/2016 02:58 P
[2016-07-04 18:00] VITALS: BP 138/73
[2016-07-04] MEDS: PANTOPRAZOLE 40MG INJ (PROTONIX) (C9113) IV SCH (21:19)
[2016-07-04] MEDS: ROSUVASTATIN 10 MG TAB (CRESTOR) PO SCH (21:21)
[2016-07-04 22:00] VITALS: BP 130/75
[2016-07-05 02:00] VITALS: BP 130/76
[2016-07-05 06:00] VITALS: BP 100/52
[2016-07-05 06:39] LABS: BASO % 0.2 % (0.0-1.0); EOS # 0.3 K/mm3 (0.0-0.50); EOS % 3.9 % (0.0-3.0); LARGE UNSTAINED CELL # 0.1 K/mm3 (0.0-0.4); LARGE UNSTAINED CELL % 1.1 % (0.0-4.0); LYMPH # 0.8 K/mm3 (1.5-4.5); LYMPH % 10.4 % (24.0-44.0); MEAN CORPUSCULAR HEMOGLOBIN 30.9 pg (27.0-33.0); MEAN CORPUSCULAR HGB CONC 33.5 g/dl (32.0-36.5); MEAN CORPUSCULAR VOLUME 92.3 fl (80.0-96.0); MONO # 0.3 K/mm3 (0.0-0.8); MONO % 4.1 % (0.0-5.0); NEUTROPHILS % 80.4 % (36.0-66.0); WHITE BLOOD COUNT 7.5 K/mm3 (4.0-10.0)
[2016-07-05 06:57] LABS: PLATELET COUNT, AUTOMATED 74 k/mm3 (150-450)
[2016-07-05 06:58] LABS: ALBUMIN 2.3 GM/DL (3.2-5.2); ALKALINE PHOSPHATASE 123 U/L (45-117); ALT/SGPT 97 U/L (12-78); ANION GAP 7 MEQ/L (8-16); AST/SGOT 85 U/L (15-37); BILIRUBIN,TOTAL 0.3 MG/DL (0.2-1.0); BLOOD UREA NITROGEN 8 MG/DL (7-18); CALCIUM LEVEL 7.2 MG/DL (8.8-10.2); CARBON DIOXIDE LEVEL 30 MEQ/L (21-32); CHLORIDE LEVEL 110 MEQ/L (98-107); CREATININE FOR GFR 0.45 MG/DL (0.55-1.02); GLOMERULAR FILTRATION RATE > 60.0 (>45); GLUCOSE, FASTING 143 MG/DL (80-110); POTASSIUM SERUM 3.5 MEQ/L (3.5-5.1); SODIUM LEVEL 147 MEQ/L (136-145); TOTAL PROTEIN 5.6 GM/DL (6.4-8.2)
[2016-07-05 09:36] VITALS: BP 123/69
--- NOTE | 2016-07-05 09:42 | IPNPDOC ---
Assessment/Plan Date Seen The patient was seen on 07/05/16. Problems Problems: (1) Dysphagia Status: Acute Problem Specific Plan: Consult Specialist Problem Text: - Swallow eval recommends NPO, PEG placement pending. 07/03/2016 -- NG tube ordered as radiology anticipated it could be a few days before her PEG could be performed 07/04/2015: noted rhonchi on exam to left lung. Will deep suction prn with respiratory. Eval CXR to r/o aspiration. Continue with bowel meds. 07/05 - NG tube appears to be in place. Lung sounds are clear and without rhonchi today. Continue NG tube feedings at this time. Awaiting IR to place a PEG tube, likely will not be done before friday. (2) Anorexia Status: Chronic Problem Text: See above (3) Hypothermia Status: Chronic Response to Treatment: Stable Problem Text: Presented with temp of 91.5. Chronic hypothermia with temp usually 94-96. No signs of infection. Poss due to chronic anorexia. -TSH -Swallow eval -dietary consulted with recommendations for ST and attempt at adequate PO within 5 days - consider TPN vs feeding tube if not improving 07/01/16 - Temps have been stable around 96 for past several days. Pt NPO. Swallow eval pending. 07/02 - Swallow eval recommends NPO, have spoken with Luis Brielle Nuvia's Nephew/Guardian he consents to placement of PEG for feedings and hydration. Will consult IR for PEG placement. 07/03/2015: PEG not placed secondary to air in abdomen. Scheduled for repeat KUB this am 07/05 - Temp dropped to 96.2 once in last 24 hours, otherwise has stayed in the 98.x range. Will continue to monitor. (4) Thrombocytopenia Status: Chronic Problem Text: Baseline is near 100. Pt not on heparin. No signs of bleeding or acute clot. - monitor - no heparin (5) Macroglossia Status: Chronic Problem Text: Chronic. May be contributory to feeding difficulty. Pt not taking good PO. Losing wt. Presented with hypothermia. - TSH and B12 normal - IV levothyroxine until PEG placed (6) Seizure disorder Status: Acute Problem Text: IV levetiracetam. Pt unable to take her oral medications - Tegretol. - lorazepam 2 mg IV once for seizure activity (7) Functional quadriplegia Status: Chronic Problem Text: [facility] client. Routine equipment, wheechair in room. (8) Severe protein-calorie malnutrition Status: Acute Problem Specific Plan: Monitor Clinically (9) Profound mental handicap Status: Chronic (10) Diabetes mellitus type 2 in nonobese Status: Chronic Problem Text: Well-controlled per last A1C (11) Constipation Status: Acute Problem Text: Fleet's enemas ordered (12) Hypokalemia Status: Acute Problem Text: K+ 2.9 this am. will order supplementation. Plan / VTE VTE Prophylaxis Ordered?: Yes VTE Exclusion Pharmacological: Bleeding Risk Plan IVF: Continue Medications: Change to IV Diagnostics: Check Labs Subjective Review of Systems CC/HPI The patient is a 65-year-old female admitted with a reason for visit of Dehydration, Anorexia. Events since last encounter Patient seen at bedside today. There is no [facility] staff member at bedside to provide history or discussion. General: Reports: ROS Unobtainable Objective Physical Examination General Exam: Positive: No Acute Distress, Negative: Alert, Cooperative Eye Exam: Negative: Sclera icteric ENT Exam: Positive: Atraumatic, Mucous membr. moist/pink, Other ENT ( macroglossia, NG tube present) Neck Exam: Positive: Supple, Negative: JVD, thyromegaly Chest Exam: Positive: Clear to auscultation, Normal air movement, Negative: Rales, Rhonchi, Wheezing Heart Exam: Positive: Normal S1, Normal S2, Rate Normal, Negative: Murmurs, Rubs Abdomen Exam: Positive: Normal bowel sounds, Soft, Negative: Hepatospenomegaly, Tenderness Extremity Exam: Negative: Clubbing, Cyanosis, Edema Skin Exam: Positive: Nl turgor and temperature, Negative: Breakdown, Rash Vital Signs/I&O Vital Signs Date Time Temp Pulse Resp B/P Pulse Ox O2 Delivery O2 Flow Rate FiO2 07/05/16 06:00 99.7 75 18 100/52 94 07/04/16 21:20 Room Air I&O- Last 24 Hours up to 6 AM 07/05/16 06:00 Intake Total 2430 ml Output Total 0 ml Balance 2430 ml Laboratory Data Labs 24H Laboratory Tests 2 07/04/16 10:47: Anion Gap 8, Blood Urea Nitrogen 5L, Creatinine 0.39L, Sodium Level 149H, Potassium Level 3.8#, Chloride Level 113H, Carbon Dioxide Level 28, Calcium Level 7.3L, Glomerular Filtration Rate > 60.0 07/04/16 11:42: Bedside Glucose (Misc Panel) 100 07/04/16 18:04: Bedside Glucose (Misc Panel) 63L 07/04/16 23:51: Bedside Glucose (Misc Panel) 116H 07/05/16 06:17: Blood Urea Nitrogen 8#, Creatinine 0.45L, Sodium Level 147H, Potassium Level 3.5 , Chloride Level 110H, Carbon Dioxide Level 30, Calcium Level 7.2L, Aspartate Amino Transf (AST/SGOT) 85H, Alanine Aminotransferase (ALT/SGPT) 97H, Alkaline Phosphatase 123H, Total Bilirubin 0.3, Total Protein 5.6L, Albumin 2.3L, Albumin /Globulin Ratio 0.70L, Anion Gap 7L, White Blood Count 7.5, Red Blood Count 3.76L, Hemoglobin 11.6L, Hematocrit 34.7L, Mean Corpuscular Volume 92.3, Mean Corpuscular Hemoglobin 30.9, Mean Corpuscular Hemoglobin Concent 33.5, Red Cell Distribution Width 15.0H, Platelet Count 74L, Neutrophils (%) (Auto) 80.4H, Lymphocytes (%) (Auto) 10.4L, Monocytes (%) (Auto) 4.1, Eosinophils (%) (Auto) 3.9H, Basophils (%) (Auto) 0.2, Neutrophils # (Auto) 6.0, Lymphocytes # (Auto) 0.8L, Monocytes # (Auto) 0.3, Eosinophils # (Auto) 0.3, Basophils # (Auto) 0.0, Glomerular Filtration Rate > 60.0, Large Unclassified Cells # 0.1, Large Unclassified Cells % 1.1 CBC/BMP Laboratory Tests 07/04/16 10:47 Calcium Level 7.3 L 07/05/16 06:17 Calcium Level 7.2 L, Aspartate Amino Transf (AST/SGOT) 85 H, Alanine Aminotransferase (ALT/SGPT) 97 H, Alkaline Phosphatase 123 H, Total Bilirubin 0.3, Total Protein 5.6 L, Albumin 2.3 L, Red Blood Count 3.76 L, Mean Corpuscular Volume 92.3, Mean Corpuscular Hemoglobin 30.9, Mean Corpuscular Hemoglobin Concent 33.5, Red Cell Distribution Width 15.0 H, Neutrophils (%) ( Auto) 80.4 H, Lymphocytes (%) (Auto) 10.4 L, Monocytes (%) (Auto) 4.1, Eosinophils (%) (Auto) 3.9 H, Basophils (%) (Auto) 0.2, Neutrophils # (Auto) 6.0 , Lymphocytes # (Auto) 0.8 L, Monocytes # (Auto) 0.3, Eosinophils # (Auto) 0.3, Basophils # (Auto) 0.0 FSBS Laboratory Tests Test 07/04/16 11:42 07/04/16 18:04 07/04/16 23:51 Range/Units Bedside Glucose (Misc Panel) 100 63 116 80-115 MG/DL Microbiology Microbiology 06/28/16 Blood Culture - Final, Complete NO GROWTH AFTER 5 DAYS 06/28/16 Blood Culture - Final, Complete NO GROWTH AFTER 5 DAYS 06/29/16 Urine Culture - Final, Complete Escherichia Coli GME ATTESTATION GME ATTESTATION My preceptor for this patient encounter was physically present in the building during the encounter and was fully available. As needed, all aspects of the patient interview, examination, medical decision making process, and medical care plan development were reviewed and approved by the preceptor. Preceptor is aware and concurs with the plan as stated in the body of this note and will attest to such by his/her cosignature. CINDY FAJARDO DO Jul 05, 2016 09:42
[2016-07-05] MEDS: D5W MINI IV SCH ×2 (10:04→22:39)
[2016-07-05] MEDS: DANTROLENE 25 MG CAP PO SCH ×3 (10:04→22:38)
[2016-07-05] MEDS: LEVETIRACETAM IV SCH ×2 (10:04→22:39)
[2016-07-05] MEDS: carBAMazepine 200 MG TAB PO SCH ×3 (10:04→22:39)
[2016-07-05] MEDS: LEVOTHYROXINE 100 MCG (0.1MG) VIAL IV SCH (10:04)
[2016-07-05] MEDS: SENNA 8.6 MG TAB (SENOKOT) PO SCH ×2 (10:04→22:38)
[2016-07-05] MEDS: BACLOFEN 10 MG TAB PO SCH ×4 (10:05→22:39)
[2016-07-05] MEDS: cefTRIAXone SOD 1 GM in D5W MINI-BAG PLUS 50 ML IV SCH (12:42)
[2016-07-05 14:00] VITALS: BP 108/51
[2016-07-05 18:00] VITALS: BP 102/58
[2016-07-05 22:00] VITALS: BP 119/57
[2016-07-05] MEDS: ROSUVASTATIN 10 MG TAB (CRESTOR) PO SCH (22:38)
[2016-07-05] MEDS: PANTOPRAZOLE 40MG INJ (PROTONIX) (C9113) IV SCH (22:39)
[2016-07-06 02:00] VITALS: BP 117/72
[2016-07-06 06:00] VITALS: BP 132/61
[2016-07-06 06:55] LABS: BASO % 0.1 % (0.0-1.0); EOS # 0.2 K/mm3 (0.0-0.50); EOS % 2.8 % (0.0-3.0); LARGE UNSTAINED CELL # 0.2 K/mm3 (0.0-0.4); LARGE UNSTAINED CELL % 2.5 % (0.0-4.0); LYMPH % 13.6 % (24.0-44.0); MEAN CORPUSCULAR HEMOGLOBIN 30.5 pg (27.0-33.0); MEAN CORPUSCULAR HGB CONC 32.9 g/dl (32.0-36.5); MEAN CORPUSCULAR VOLUME 92.7 fl (80.0-96.0); MONO # 0.4 K/mm3 (0.0-0.8); MONO % 5.9 % (0.0-5.0); NEUTROPHILS # 5.3 K/mm3 (1.8-7.7); NEUTROPHILS % 75.1 % (36.0-66.0); RED CELL DISTRIBUTION WIDTH 15.1 % (11.5-14.5)
[2016-07-06 07:01] LABS: PLATELET COUNT, AUTOMATED 88 k/mm3 (150-450)
[2016-07-06 07:11] LABS: ALBUMIN 2.2 GM/DL (3.2-5.2); ALBUMIN/GLOBULIN RATIO 0.63 (1.00-1.93); ALKALINE PHOSPHATASE 117 U/L (45-117); ALT/SGPT 74 U/L (12-78); ANION GAP 8 MEQ/L (8-16); AST/SGOT 57 U/L (15-37); BILIRUBIN,TOTAL 0.3 MG/DL (0.2-1.0); BLOOD UREA NITROGEN 13 MG/DL (7-18); CALCIUM LEVEL 7.5 MG/DL (8.8-10.2); CARBON DIOXIDE LEVEL 27 MEQ/L (21-32); CHLORIDE LEVEL 110 MEQ/L (98-107); CREATININE FOR GFR 0.32 MG/DL (0.55-1.02); GLOMERULAR FILTRATION RATE > 60.0 (>45); GLUCOSE, FASTING 95 MG/DL (80-110); POTASSIUM SERUM 3.4 MEQ/L (3.5-5.1); SODIUM LEVEL 145 MEQ/L (136-145); TOTAL PROTEIN 5.7 GM/DL (6.4-8.2)
[2016-07-06 09:45] VITALS: BP 132/68
[2016-07-06] MEDS: LEVOTHYROXINE 100 MCG (0.1MG) VIAL IV SCH (09:45)
[2016-07-06] MEDS: LEVETIRACETAM IV SCH ×2 (09:45→21:48)
[2016-07-06] MEDS: D5W MINI IV SCH ×2 (09:45→21:48)
[2016-07-06] MEDS: SENNA 8.6 MG TAB (SENOKOT) PO SCH ×2 (09:46→21:47)
[2016-07-06] MEDS: carBAMazepine 200 MG TAB PO SCH ×3 (09:46→21:46)
[2016-07-06] MEDS: DANTROLENE 25 MG CAP PO SCH ×3 (09:46→21:47)
[2016-07-06] MEDS: BACLOFEN 10 MG TAB PO SCH ×4 (09:46→21:47)
[2016-07-06] MEDS ORDERED: POTASSIUM CHLORIDE 10% LIQ 20 MEQ/15 ML UDC PO ONE (11:00)
--- NOTE | 2016-07-06 12:15 | REP ---
Portable chest x-ray: Sitting AP view. History: Hypoxia. Check NG tube placement. Comparison chest x-ray is from July 04, 2016. Findings: A nasogastric feeding tube is seen with its metallic tip in the gastric fundus. The course of the catheter and its appearance in position are unchanged from 07/03/2016 study. Heart size is borderline. Vascular and interstitial markings are diffusely prominent consistent with pulmonary vascular congestion. No pleural effusion is seen. Signed by Sony Mckay MD 07/06/2016 02:06 P
[2016-07-06] MEDS: cefTRIAXone SOD 1 GM in D5W MINI-BAG PLUS 50 ML IV SCH (12:34)
[2016-07-06 14:00] VITALS: BP 127/81
--- NOTE | 2016-07-06 14:49 | IPNPDOC ---
Assessment/Plan Date Seen The patient was seen on 07/06/16. Problems Problems: (1) Dysphagia Status: Acute Problem Specific Plan: Consult Specialist Problem Text: - Swallow eval recommends NPO, PEG placement pending. 07/03/2016 -- NG tube ordered as radiology anticipated it could be a few days before her PEG could be performed 07/04/2015: noted rhonchi on exam to left lung. Will deep suction prn with respiratory. Eval CXR to r/o aspiration. Continue with bowel meds. 07/05 - NG tube appears to be in place. Lung sounds are clear and without rhonchi today. Continue NG tube feedings at this time. Awaiting IR to place a PEG tube, likely will not be done before friday. 07/06 - Tube feedings were stopped this morning after she had an episode of vomiting. Over night her residuals had been around 20cc. She was checked again at noon and found to have no residual. Tube feedings were restarted at noon with no adverse events over the last two hours. Will continue with tube feedings at this time. Awaiting PEG tube placement by IR, hopefully on friday. (2) Anorexia Status: Chronic Problem Text: See above (3) Hypothermia Status: Chronic Response to Treatment: Stable Problem Text: Presented with temp of 91.5. Chronic hypothermia with temp usually 94-96. No signs of infection. Poss due to chronic anorexia. -TSH -Swallow eval -dietary consulted with recommendations for ST and attempt at adequate PO within 5 days - consider TPN vs feeding tube if not improving 07/01/16 - Temps have been stable around 96 for past several days. Pt NPO. Swallow eval pending. 07/02 - Swallow eval recommends NPO, have spoken with Luis Pedersen's Nephew/Guardian he consents to placement of PEG for feedings and hydration. Will consult IR for PEG placement. 07/03/2015: PEG not placed secondary to air in abdomen. Scheduled for repeat KUB this am 07/05 - Temp dropped to 96.2 once in last 24 hours, otherwise has stayed in the 98.x range. Will continue to monitor. (4) Thrombocytopenia Status: Chronic Problem Text: Baseline is near 100. Pt not on heparin. No signs of bleeding or acute clot. - monitor - no heparin (5) Macroglossia Status: Chronic Problem Text: Chronic. May be contributory to feeding difficulty. Pt not taking good PO. Losing wt. Presented with hypothermia. - TSH and B12 normal - IV levothyroxine until PEG placed (6) Seizure disorder Status: Acute Problem Text: IV levetiracetam. Pt unable to take her oral medications - Tegretol. - lorazepam 2 mg IV once for seizure activity (7) Functional quadriplegia Status: Chronic Problem Text: [facility] [place] client. Routine equipment, wheechair in room. (8) Severe protein-calorie malnutrition Status: Acute Problem Specific Plan: Monitor Clinically (9) Profound mental handicap Status: Chronic (10) Diabetes mellitus type 2 in nonobese Status: Chronic Problem Text: Well-controlled per last A1C (11) Constipation Status: Acute Problem Text: Fleet's enemas ordered (12) Hypokalemia Status: Acute Problem Text: 3.4 on 07/06/16. 20 mEq KCl liquid ordered. Plan / VTE VTE Prophylaxis Ordered?: Yes VTE Exclusion Pharmacological: Bleeding Risk Plan IVF: Continue Medications: Change to IV Diagnostics: Check Labs Subjective Review of Systems CC/HPI The patient is a 65-year-old female admitted with a reason for visit of Dehydration, Anorexia. Events since last encounter Patient is nonverbal, ROS unobtainable. Patient discussed with her nurse. This morning she vomited quite a bit around 0830. General: Reports: ROS Unobtainable Objective Physical Examination General Exam: Positive: No Acute Distress, Negative: Alert, Cooperative Eye Exam: Negative: Sclera icteric ENT Exam: Positive: Atraumatic, Mucous membr. moist/pink, Other ENT ( macroglossia, NG tube present) Neck Exam: Positive: Supple, Negative: JVD, thyromegaly Chest Exam: Positive: Normal air movement, Rhonchi (RLL/RML), Negative: Rales, Wheezing Heart Exam: Positive: Normal S1, Normal S2, Rate Normal, Negative: Murmurs, Rubs Abdomen Exam: Positive: Normal bowel sounds, Soft, Negative: Hepatospenomegaly, Tenderness Extremity Exam: Negative: Clubbing, Cyanosis, Edema Skin Exam: Positive: Nl turgor and temperature, Negative: Breakdown, Rash Vital Signs/I&O Vital Signs Date Time Temp Pulse Resp B/P Pulse Ox O2 Delivery O2 Flow Rate FiO2 1/7/17 14:00 96.6 70 16 127/81 93 Room Air I&O- Last 24 Hours up to 6 AM 07/06/16 06:00 Intake Total 817.5 ml Output Total 0 ml Balance 817.5 ml Laboratory Data Labs 24H Laboratory Tests 2 07/05/16 16:42: Bedside Glucose (Misc Panel) 118H 07/06/16 00:26: Bedside Glucose (Misc Panel) 169H 07/06/16 06:23: Blood Urea Nitrogen 13#, Creatinine 0.32L, Sodium Level 145, Potassium Level 3.4L, Chloride Level 110H, Carbon Dioxide Level 27, Calcium Level 7.5L, Aspartate Amino Transf (AST/SGOT) 57H, Alanine Aminotransferase (ALT/SGPT) 74, Alkaline Phosphatase 117, Total Bilirubin 0.3, Total Protein 5.7L, Albumin 2.2L , Albumin/Globulin Ratio 0.63L, Anion Gap 8, White Blood Count 7.0, Red Blood Count 3.63L, Hemoglobin 11.1L, Hematocrit 33.6L, Mean Corpuscular Volume 92.7, Mean Corpuscular Hemoglobin 30.5, Mean Corpuscular Hemoglobin Concent 32.9, Red Cell Distribution Width 15.1H, Platelet Count 88L, Neutrophils (%) (Auto) 75.1H , Lymphocytes (%) (Auto) 13.6L, Monocytes (%) (Auto) 5.9H, Eosinophils (%) (Auto ) 2.8, Basophils (%) (Auto) 0.1, Neutrophils # (Auto) 5.3, Lymphocytes # (Auto) 1.0L, Monocytes # (Auto) 0.4, Eosinophils # (Auto) 0.2, Basophils # (Auto) 0.0, Glomerular Filtration Rate > 60.0, Large Unclassified Cells # 0.2, Large Unclassified Cells % 2.5 07/06/16 12:05: Bedside Glucose (Misc Panel) 158H CBC/BMP Laboratory Tests 07/06/16 06:23 Calcium Level 7.5 L, Aspartate Amino Transf (AST/SGOT) 57 H, Alanine Aminotransferase (ALT/SGPT) 74, Alkaline Phosphatase 117, Total Bilirubin 0.3, Total Protein 5.7 L, Albumin 2.2 L, Red Blood Count 3.63 L, Mean Corpuscular Volume 92.7, Mean Corpuscular Hemoglobin 30.5, Mean Corpuscular Hemoglobin Concent 32.9, Red Cell Distribution Width 15.1 H, Neutrophils (%) (Auto) 75.1 H , Lymphocytes (%) (Auto) 13.6 L, Monocytes (%) (Auto) 5.9 H, Eosinophils (%) ( Auto) 2.8, Basophils (%) (Auto) 0.1, Neutrophils # (Auto) 5.3, Lymphocytes # ( Auto) 1.0 L, Monocytes # (Auto) 0.4, Eosinophils # (Auto) 0.2, Basophils # (Auto ) 0.0 FSBS Laboratory Tests Test 07/05/16 16:42 07/06/16 00:26 07/06/16 12:05 Range/Units Bedside Glucose (Misc Panel) 118 169 158 80-115 MG/DL Microbiology Microbiology 06/28/16 Blood Culture - Final, Complete NO GROWTH AFTER 5 DAYS 06/28/16 Blood Culture - Final, Complete NO GROWTH AFTER 5 DAYS 06/29/16 Urine Culture - Final, Complete Escherichia Coli GME ATTESTATION GME ATTESTATION My preceptor for this patient encounter was physically present in the building during the encounter and was fully available. As needed, all aspects of the patient interview, examination, medical decision making process, and medical care plan development were reviewed and approved by the preceptor. Preceptor is aware and concurs with the plan as stated in the body of this note and will attest to such by his/her cosignature. CINDY FAJARDO DO Jul 06, 2016 14:49
[2016-07-06 18:00] VITALS: BP 130/78
[2016-07-06] MEDS: PANTOPRAZOLE 40MG INJ (PROTONIX) (C9113) IV SCH (21:46)
[2016-07-06] MEDS: ROSUVASTATIN 10 MG TAB (CRESTOR) PO SCH (21:47)
[2016-07-06 22:00] VITALS: BP 118/55
[2016-07-07 02:00] VITALS: BP 113/54
[2016-07-07 06:00] VITALS: BP 127/57
[2016-07-07 06:58] LABS: BASO % 0.4 % (0.0-1.0); EOS # 0.3 K/mm3 (0.0-0.50); EOS % 4.7 % (0.0-3.0); LARGE UNSTAINED CELL # 0.1 K/mm3 (0.0-0.4); LARGE UNSTAINED CELL % 2.4 % (0.0-4.0); LYMPH # 1.7 K/mm3 (1.5-4.5); LYMPH % 26.1 % (24.0-44.0); MEAN CORPUSCULAR HEMOGLOBIN 30.6 pg (27.0-33.0); MEAN CORPUSCULAR HGB CONC 32.7 g/dl (32.0-36.5); MEAN CORPUSCULAR VOLUME 93.6 fl (80.0-96.0); MONO # 0.3 K/mm3 (0.0-0.8); MONO % 5.1 % (0.0-5.0); NEUTROPHILS # 3.7 K/mm3 (1.8-7.7); NEUTROPHILS % 61.3 % (36.0-66.0); PLATELET COUNT, AUTOMATED 119 k/mm3 (150-450)
[2016-07-07 07:21] LABS: ALBUMIN 2.1 GM/DL (3.2-5.2); ALBUMIN/GLOBULIN RATIO 0.72 (1.00-1.93); ALKALINE PHOSPHATASE 110 U/L (45-117); ALT/SGPT 68 U/L (12-78); ANION GAP 8 MEQ/L (8-16); AST/SGOT 50 U/L (15-37); BILIRUBIN,TOTAL 0.2 MG/DL (0.2-1.0); BLOOD UREA NITROGEN 10 MG/DL (7-18); CALCIUM LEVEL 7.5 MG/DL (8.8-10.2); CARBON DIOXIDE LEVEL 28 MEQ/L (21-32); CHLORIDE LEVEL 110 MEQ/L (98-107); CREATININE FOR GFR 0.37 MG/DL (0.55-1.02); GLOMERULAR FILTRATION RATE > 60.0 (>45); GLUCOSE, FASTING 180 MG/DL (80-110); POTASSIUM SERUM 3.8 MEQ/L (3.5-5.1); SODIUM LEVEL 146 MEQ/L (136-145)
[2016-07-07] MEDS: D5W MINI IV SCH ×2 (09:12→20:18)
[2016-07-07] MEDS: LEVOTHYROXINE 100 MCG (0.1MG) VIAL IV SCH (09:12)
[2016-07-07] MEDS: LEVETIRACETAM IV SCH ×2 (09:12→20:18)
[2016-07-07] MEDS: SENNA 8.6 MG TAB (SENOKOT) PO SCH ×2 (09:12→20:19)
[2016-07-07] MEDS: carBAMazepine 200 MG TAB PO SCH ×3 (09:13→20:19)
[2016-07-07] MEDS: BACLOFEN 10 MG TAB PO SCH ×4 (09:13→20:19)
[2016-07-07] MEDS: DANTROLENE 25 MG CAP PO SCH ×3 (09:14→20:19)
[2016-07-07 10:00] VITALS: BP 101/53
[2016-07-07] MEDS: cefTRIAXone SOD 1 GM in D5W MINI-BAG PLUS 50 ML IV SCH (13:57)
[2016-07-07 14:00] VITALS: BP 122/63
--- NOTE | 2016-07-07 15:18 | IPNPDOC ---
Assessment/Plan Date Seen The patient was seen on 07/07/16. Problems Problems: (1) Dysphagia Status: Acute Problem Specific Plan: Consult Specialist Problem Text: Swallow eval recommends NPO, PEG placement pending. NG tube was placed 07/03/2016 due to delay in placement of PEG. Patient continues to have tube feeds, and has had some episodes of aspiration. However, she continues to remain stable, and is breathing room air. Nursing is checking residuals, and these have been minimal. -Awaiting IR to place a PEG tube 07/08/2016 -Discharge planning after PEG tube placement (2) Anorexia Status: Chronic Problem Text: See above (3) Hypothermia Status: Chronic Response to Treatment: Stable Problem Text: Presented with temp of 91.5. Chronic hypothermia with temp usually 94-96. No signs of infection. Poss due to chronic anorexia. TSH was normal. Speech therapy was recommending PEG tube for nutrition. Patient continues to wait for iron replacement PEG tube. - Hypothermia resolved, and chronic reduced body temperature has been stable around 96 (4) Thrombocytopenia Status: Chronic Problem Text: Baseline is near 100. Pt not on heparin. No signs of bleeding or acute clot. Platelets have been improving since admission, now currently 119. - monitor - no heparin (5) Macroglossia Status: Chronic Problem Text: Chronic. May be contributory to feeding difficulty. Pt not taking good PO. Losing wt. Presented with hypothermia. - TSH and B12 normal - IV levothyroxine until PEG placed (6) Seizure disorder Status: Acute Problem Text: IV levetiracetam. Pt unable to take her oral medications - Tegretol. - lorazepam 2 mg IV once for seizure activity (7) Functional quadriplegia Status: Chronic Problem Text: [facility] client. Routine equipment, wheechair in room. (8) Severe protein-calorie malnutrition Status: Acute Problem Specific Plan: Monitor Clinically (9) Profound mental handicap Status: Chronic (10) Diabetes mellitus type 2 in nonobese Status: Chronic Problem Text: Well-controlled per last A1C (11) Constipation Status: Acute Problem Text: Fleet's enemas ordered (12) Hypokalemia Status: Resolved Problem Text: Current resolved. -Monitor Plan / VTE VTE Prophylaxis Ordered?: Yes VTE Exclusion Pharmacological: Bleeding Risk Plan IVF: Continue Medications: Change to IV Diagnostics: Check Labs Disposition Plan for IR placement of PEG tube 07/08/2016, with discharge planning to follow Subjective Review of Systems CC/HPI The patient is a 65-year-old female admitted with a reason for visit of Dehydration, Anorexia. Events since last encounter Per nursing, patient has been doing well. They have not been getting residuals after tube feeds. Patient is still awaiting IR placement of PEG tube. No new concerns by nursing. Family is not present. General: Reports: ROS Unobtainable Constitutional: Denies: Fever Pulmonary: Denies: Cough, Dyspnea Gastrointestinal: Denies: Vomiting Other systems Review of systems is otherwise unobtainable Objective Physical Examination General Exam: Positive: No Acute Distress, Negative: Alert, Cooperative Eye Exam: Negative: Sclera icteric ENT Exam: Positive: Atraumatic, Mucous membr. moist/pink, Other ENT ( macroglossia, NG tube present) Neck Exam: Positive: Supple, Negative: JVD, thyromegaly Chest Exam: Positive: Normal air movement, Other (upper airway rhonchi), Negative: Rales, Rhonchi, Wheezing Heart Exam: Positive: Normal S1, Normal S2, Rate Normal, Negative: Murmurs, Rubs Abdomen Exam: Positive: Normal bowel sounds, Soft, Negative: Hepatospenomegaly, Tenderness Extremity Exam: Negative: Clubbing, Cyanosis, Edema Skin Exam: Positive: Nl turgor and temperature, Negative: Breakdown, Rash Vital Signs/I&O Vital Signs Date Time Temp Pulse Resp B/P Pulse Ox O2 Delivery O2 Flow Rate FiO2 07/07/16 14:00 99.9 78 16 122/63 95 Room Air I&O- Last 24 Hours up to 6 AM 07/07/16 06:00 Intake Total 1544.5 ml Output Total 0 ml Balance 1544.5 ml Laboratory Data Labs 24H Laboratory Tests 2 07/06/16 16:29: Bedside Glucose (Misc Panel) 129H 07/07/16 00:15: Bedside Glucose (Misc Panel) 139H 07/07/16 06:32: Blood Urea Nitrogen 10, Creatinine 0.37L, Sodium Level 146H, Potassium Level 3.8 , Chloride Level 110H, Carbon Dioxide Level 28, Calcium Level 7.5L, Aspartate Amino Transf (AST/SGOT) 50H, Alanine Aminotransferase (ALT/SGPT) 68, Alkaline Phosphatase 110, Total Bilirubin 0.2, Total Protein 5.0L, Albumin 2.1L, Albumin/ Globulin Ratio 0.72L, Anion Gap 8, White Blood Count 6.0, Red Blood Count 3.46L , Hemoglobin 10.6L, Hematocrit 32.4L, Mean Corpuscular Volume 93.6, Mean Corpuscular Hemoglobin 30.6, Mean Corpuscular Hemoglobin Concent 32.7, Red Cell Distribution Width 16.0H, Platelet Count 119L, Neutrophils (%) (Auto) 61.3, Lymphocytes (%) (Auto) 26.1, Monocytes (%) (Auto) 5.1H, Eosinophils (%) (Auto) 4.7H, Basophils (%) (Auto) 0.4, Neutrophils # (Auto) 3.7, Lymphocytes # (Auto) 1.7, Monocytes # (Auto) 0.3, Eosinophils # (Auto) 0.3, Basophils # (Auto) 0.0, Glomerular Filtration Rate > 60.0, Large Unclassified Cells # 0.1, Large Unclassified Cells % 2.4 07/07/16 11:38: Bedside Glucose (Misc Panel) 151H CBC/BMP Laboratory Tests 07/07/16 06:32 Calcium Level 7.5 L, Aspartate Amino Transf (AST/SGOT) 50 H, Alanine Aminotransferase (ALT/SGPT) 68, Alkaline Phosphatase 110, Total Bilirubin 0.2, Total Protein 5.0 L, Albumin 2.1 L, Red Blood Count 3.46 L, Mean Corpuscular Volume 93.6, Mean Corpuscular Hemoglobin 30.6, Mean Corpuscular Hemoglobin Concent 32.7, Red Cell Distribution Width 16.0 H, Neutrophils (%) (Auto) 61.3, Lymphocytes (%) (Auto) 26.1, Monocytes (%) (Auto) 5.1 H, Eosinophils (%) (Auto) 4.7 H, Basophils (%) (Auto) 0.4, Neutrophils # (Auto) 3.7, Lymphocytes # (Auto) 1.7, Monocytes # (Auto) 0.3, Eosinophils # (Auto) 0.3, Basophils # (Auto) 0.0 FSBS Laboratory Tests Test 07/06/16 16:29 07/07/16 00:15 07/07/16 11:38 Range/Units Bedside Glucose (Misc Panel) 129 139 151 80-115 MG/DL Microbiology Microbiology 06/28/16 Blood Culture - Final, Complete NO GROWTH AFTER 5 DAYS 06/28/16 Blood Culture - Final, Complete NO GROWTH AFTER 5 DAYS 06/29/16 Urine Culture - Final, Complete Escherichia Coli HU DOAN MD Jul 07, 2016 15:18
[2016-07-07 18:00] VITALS: BP 116/67
[2016-07-07] MEDS: PANTOPRAZOLE 40MG INJ (PROTONIX) (C9113) IV SCH (20:18)
[2016-07-07] MEDS: ROSUVASTATIN 10 MG TAB (CRESTOR) PO SCH (20:19)
[2016-07-07 22:00] VITALS: BP 138/65
[2016-07-08 02:00] VITALS: BP 147/64
[2016-07-08 06:00] VITALS: BP 126/58
[2016-07-08 07:03] LABS: BASO % 0.3 % (0.0-1.0); EOS # 0.3 K/mm3 (0.0-0.50); EOS % 4.7 % (0.0-3.0); LARGE UNSTAINED CELL # 0.2 K/mm3 (0.0-0.4); LYMPH # 1.8 K/mm3 (1.5-4.5); LYMPH % 29.3 % (24.0-44.0); MEAN CORPUSCULAR HEMOGLOBIN 31.4 pg (27.0-33.0); MEAN CORPUSCULAR HGB CONC 33.7 g/dl (32.0-36.5); MEAN CORPUSCULAR VOLUME 93.2 fl (80.0-96.0); MONO # 0.3 K/mm3 (0.0-0.8); NEUTROPHILS # 3.6 K/mm3 (1.8-7.7); NEUTROPHILS % 57.8 % (36.0-66.0); PLATELET COUNT, AUTOMATED 156 k/mm3 (150-450); RED CELL DISTRIBUTION WIDTH 15.1 % (11.5-14.5); WHITE BLOOD COUNT 6.3 K/mm3 (4.0-10.0)
[2016-07-08 07:25] LABS: ALBUMIN 2.3 GM/DL (3.2-5.2); ALBUMIN/GLOBULIN RATIO 0.58 (1.00-1.93); ALKALINE PHOSPHATASE 115 U/L (45-117); ALT/SGPT 65 U/L (12-78); ANION GAP 7 MEQ/L (8-16); AST/SGOT 43 U/L (15-37); BILIRUBIN,TOTAL 0.4 MG/DL (0.2-1.0); BLOOD UREA NITROGEN 7 MG/DL (7-18); CALCIUM LEVEL 8.3 MG/DL (8.8-10.2); CARBON DIOXIDE LEVEL 29 MEQ/L (21-32); CHLORIDE LEVEL 108 MEQ/L (98-107); CREATININE FOR GFR 0.39 MG/DL (0.55-1.02); GLOMERULAR FILTRATION RATE > 60.0 (>45); GLUCOSE, FASTING 96 MG/DL (80-110); POTASSIUM SERUM 4.5 MEQ/L (3.5-5.1); SODIUM LEVEL 144 MEQ/L (136-145); TOTAL PROTEIN 6.3 GM/DL (6.4-8.2)
[2016-07-08] MEDS: SENNA 8.6 MG TAB (SENOKOT) PO SCH ×2 (08:21→21:40)
[2016-07-08] MEDS: DANTROLENE 25 MG CAP PO SCH ×3 (08:21→21:40)
[2016-07-08] MEDS: BACLOFEN 10 MG TAB PO SCH ×4 (08:21→21:40)
[2016-07-08] MEDS: LEVOTHYROXINE 100 MCG (0.1MG) VIAL IV SCH (08:22)
[2016-07-08] MEDS: carBAMazepine 200 MG TAB PO SCH ×3 (08:22→21:40)
--- NOTE | 2016-07-08 09:19 | REP ---
KUB: Single view. HISTORY: Possible peg tube placement. FINDINGS: Supine view of the abdomen is presented. A nasogastric feeding tube tip is seen in the upper abdomen. Not all of the stomach is included in the field of view. There is a moderate dextroconvex curvature in the lumbar spine. There is formed stool distending the rectum consistent with some degree of constipation. Scattered small and large bowel loops are seen. IMPRESSION: Constipation obstipation pattern. NG feeding tube noted in the stomach at the very top of the imaging field of view. Not all of the gastric silhouette is included in the field of view. Signed by Sony Mckay MD 07/08/2016 10:31 A
[2016-07-08] MEDS: D5W MINI IV SCH ×2 (09:44→21:39)
[2016-07-08] MEDS: LEVETIRACETAM IV SCH ×2 (09:44→21:39)
[2016-07-08 10:00] VITALS: BP 147/67
--- NOTE | 2016-07-08 10:24 | IPNPDOC ---
Assessment/Plan Date Seen The patient was seen on 07/08/16. Family Medicine Attending Note: Patient seen and examined; d/w GENEVIEVE Reed and I agree with her note below. Patient is currently stable and awaiting PEG placement. I d/w Dr. Mccullough this morning, who states that based on today's KUB, she should be able to have her PEG placed tomorrow morning. I restarted her NG tube feeds today and made her NPO after midnight for PEG placement tomorrow. ( KES) Problems Problems: (1) Dysphagia Status: Acute Problem Specific Plan: Consult Specialist Problem Text: Swallow eval recommends NPO, PEG placement pending. NG tube was placed 07/03/2016 due to delay in placement of PEG. Patient continues to have tube feeds, and has had some episodes of aspiration. However, she continues to remain stable, and is breathing room air. Nursing is checking residuals, and these have been minimal. -Awaiting IR to place a PEG tube 07/08/2016 -Discharge planning after PEG tube placement 07/08 KUB today, will await whether Dr Mccullough feels a PEG can be placed. (2) Anorexia Status: Chronic Problem Text: See above (3) Hypothermia Status: Chronic Response to Treatment: Stable Problem Text: Presented with temp of 91.5. Chronic hypothermia with temp usually 94-96. No signs of infection. Poss due to chronic anorexia. TSH was normal. Speech therapy was recommending PEG tube for nutrition. Patient continues to wait for iron replacement PEG tube. 07/08/16: Hypothermia resolved, and chronic reduced body temperature has been stable around 96 (4) Thrombocytopenia Status: Chronic Problem Text: Baseline is near 100. Pt not on heparin. No signs of bleeding or acute clot. Platelets have been improving since admission, now currently 156. - monitor - no heparin (5) Macroglossia Status: Chronic Problem Text: Chronic. May be contributory to feeding difficulty. Pt not taking good PO. Losing wt. Presented with hypothermia. - TSH and B12 normal - IV levothyroxine until PEG placed (6) Seizure disorder Status: Chronic Problem Text: IV levetiracetam. Pt unable to take her oral medications - Tegretol. - lorazepam 2 mg IV once for seizure activity (7) Functional quadriplegia Status: Chronic Problem Text: [facility] client. Routine equipment, wheechair in room. (8) Severe protein-calorie malnutrition Status: Acute Problem Specific Plan: Monitor Clinically (9) Profound mental handicap Status: Chronic (10) Diabetes mellitus type 2 in nonobese Status: Chronic Problem Text: Well-controlled per last A1C (11) Constipation Status: Acute Problem Text: Fleet's enemas ordered (12) Hypokalemia Status: Resolved Problem Text: Current resolved. -Monitor Plan / VTE VTE Prophylaxis Ordered?: Yes VTE Exclusion Pharmacological: Bleeding Risk Plan IVF: Continue Medications: Change to IV Diagnostics: Check Labs Subjective Review of Systems CC/HPI Pt nonverbal. Await window for placement of PEG tube. General: Reports: ROS Unobtainable Objective Physical Examination General Exam: Positive: Alert, No Acute Distress Eye Exam: Negative: Sclera icteric ENT Exam: Positive: Atraumatic, Mucous membr. moist/pink, Other ENT ( macroglossia, NG tube present) Neck Exam: Positive: Supple, Negative: JVD, thyromegaly Chest Exam: Positive: Normal air movement, Other (upper airway rhonchi), Negative: Rales, Rhonchi, Wheezing Heart Exam: Positive: Normal S1, Normal S2, Rate Normal, Negative: Murmurs, Rubs Abdomen Exam: Positive: Normal bowel sounds, Soft, Negative: Hepatospenomegaly, Tenderness Extremity Exam: Negative: Clubbing, Cyanosis, Edema Skin Exam: Positive: Nl turgor and temperature, Negative: Breakdown, Rash Vital Signs/I&O Vital Signs Date Time Temp Pulse Resp B/P Pulse Ox O2 Delivery O2 Flow Rate FiO2 07/08/16 06:00 96.9 63 18 126/58 99 Room Air I&O- Last 24 Hours up to 6 AM 07/08/16 06:00 Intake Total 242.5 ml Output Total 0 ml Balance 242.5 ml Laboratory Data Labs 24H Laboratory Tests 2 07/07/16 11:38: Bedside Glucose (Misc Panel) 151H 07/07/16 16:33: Bedside Glucose (Misc Panel) 124H 07/08/16 02:59: Bedside Glucose (Misc Panel) 83 07/08/16 06:33: Bedside Glucose (Misc Panel) 83 07/08/16 06:44: Blood Urea Nitrogen 7, Creatinine 0.39L, Sodium Level 144, Potassium Level 4.5, Chloride Level 108H, Carbon Dioxide Level 29, Calcium Level 8.3L, Aspartate Amino Transf (AST/SGOT) 43H, Alanine Aminotransferase (ALT/SGPT) 65, Alkaline Phosphatase 115, Total Bilirubin 0.4#, Total Protein 6.3#L, Albumin 2.3L, Albumin/Globulin Ratio 0.58L, Anion Gap 7L, White Blood Count 6.3, Red Blood Count 3.66L, Hemoglobin 11.5L, Hematocrit 34.1L, Mean Corpuscular Volume 93.2, Mean Corpuscular Hemoglobin 31.4, Mean Corpuscular Hemoglobin Concent 33.7, Red Cell Distribution Width 15.1H, Platelet Count 156, Neutrophils (%) (Auto) 57.8, Lymphocytes (%) (Auto) 29.3, Monocytes (%) (Auto) 5.0, Eosinophils (%) (Auto) 4.7H, Basophils (%) (Auto) 0.3, Neutrophils # (Auto) 3.6, Lymphocytes # (Auto) 1.8, Monocytes # (Auto) 0.3, Eosinophils # (Auto) 0.3, Basophils # (Auto) 0.0, Glomerular Filtration Rate > 60.0, Large Unclassified Cells # 0.2, Large Unclassified Cells % 3.0 CBC/BMP Laboratory Tests 07/08/16 06:44 Calcium Level 8.3 L, Aspartate Amino Transf (AST/SGOT) 43 H, Alanine Aminotransferase (ALT/SGPT) 65, Alkaline Phosphatase 115, Total Bilirubin 0.4 # , Total Protein 6.3 #L, Albumin 2.3 L, Red Blood Count 3.66 L, Mean Corpuscular Volume 93.2, Mean Corpuscular Hemoglobin 31.4, Mean Corpuscular Hemoglobin Concent 33.7, Red Cell Distribution Width 15.1 H, Neutrophils (%) (Auto) 57.8, Lymphocytes (%) (Auto) 29.3, Monocytes (%) (Auto) 5.0, Eosinophils (%) (Auto) 4.7 H, Basophils (%) (Auto) 0.3, Neutrophils # (Auto) 3.6, Lymphocytes # (Auto) 1.8, Monocytes # (Auto) 0.3, Eosinophils # (Auto) 0.3, Basophils # (Auto) 0.0 FSBS Laboratory Tests Test 1/8/17 11:38 07/07/16 16:33 07/08/16 02:59 07/08/16 06:33 Range/Units Bedside Glucose (Misc Panel) 151 124 83 83 80-115 MG/DL Microbiology Microbiology 06/28/16 Blood Culture - Final, Complete NO GROWTH AFTER 5 DAYS 06/28/16 Blood Culture - Final, Complete NO GROWTH AFTER 5 DAYS 06/29/16 Urine Culture - Final, Complete Escherichia Coli HENRY SOTOMAYOR PA-C Jul 08, 2016 10:24 JAZZ ZULUAGA MD Jul 08, 2016 12:58
[2016-07-08] MEDS: cefTRIAXone SOD 1 GM in D5W MINI-BAG PLUS 50 ML IV SCH (13:30)
[2016-07-08 14:00] VITALS: BP 148/67
[2016-07-08 18:00] VITALS: BP 144/66
[2016-07-08] MEDS: PANTOPRAZOLE 40MG INJ (PROTONIX) (C9113) IV SCH (21:38)
[2016-07-08] MEDS: ROSUVASTATIN 10 MG TAB (CRESTOR) PO SCH (21:39)
[2016-07-08 22:00] VITALS: BP 131/58
[2016-07-09 02:00] VITALS: BP 121/56
[2016-07-09 06:00] VITALS: BP 125/58
[2016-07-09 06:54] LABS: BASO % 0.3 % (0.0-1.0); EOS # 0.3 K/mm3 (0.0-0.50); EOS % 5.1 % (0.0-3.0); LARGE UNSTAINED CELL # 0.1 K/mm3 (0.0-0.4); LARGE UNSTAINED CELL % 2.1 % (0.0-4.0); LYMPH # 1.5 K/mm3 (1.5-4.5); LYMPH % 26.7 % (24.0-44.0); MEAN CORPUSCULAR HGB CONC 33.3 g/dl (32.0-36.5); MEAN CORPUSCULAR VOLUME 93.1 fl (80.0-96.0); MONO # 0.3 K/mm3 (0.0-0.8); MONO % 5.4 % (0.0-5.0); NEUTROPHILS # 3.4 K/mm3 (1.8-7.7); NEUTROPHILS % 60.3 % (36.0-66.0); PLATELET COUNT, AUTOMATED 190 k/mm3 (150-450); WHITE BLOOD COUNT 5.6 K/mm3 (4.0-10.0)
[2016-07-09 07:15] LABS: ALBUMIN 2.3 GM/DL (3.2-5.2); ALBUMIN/GLOBULIN RATIO 0.59 (1.00-1.93); ALKALINE PHOSPHATASE 125 U/L (45-117); ALT/SGPT 58 U/L (12-78); ANION GAP 8 MEQ/L (8-16); AST/SGOT 38 U/L (15-37); BILIRUBIN,TOTAL 0.3 MG/DL (0.2-1.0); BLOOD UREA NITROGEN 9 MG/DL (7-18); CALCIUM LEVEL 8.5 MG/DL (8.8-10.2); CARBON DIOXIDE LEVEL 28 MEQ/L (21-32); CHLORIDE LEVEL 108 MEQ/L (98-107); CREATININE FOR GFR 0.34 MG/DL (0.55-1.02); GLOMERULAR FILTRATION RATE > 60.0 (>45); GLUCOSE, FASTING 92 MG/DL (80-110); POTASSIUM SERUM 4.1 MEQ/L (3.5-5.1); SODIUM LEVEL 144 MEQ/L (136-145); TOTAL PROTEIN 6.2 GM/DL (6.4-8.2)
[2016-07-09] MEDS: D5W MINI IV SCH ×2 (08:49→20:32)
[2016-07-09] MEDS: LEVETIRACETAM IV SCH ×2 (08:49→20:32)
[2016-07-09] MEDS: LEVOTHYROXINE 100 MCG (0.1MG) VIAL IV SCH (08:50)
[2016-07-09] MEDS: SENNA 8.6 MG TAB (SENOKOT) PO SCH ×2 (08:50→17:54)
[2016-07-09] MEDS: DANTROLENE 25 MG CAP PO SCH ×3 (08:50→17:56)
[2016-07-09] MEDS: carBAMazepine 200 MG TAB PO SCH ×3 (08:50→17:55)
[2016-07-09] MEDS: BACLOFEN 10 MG TAB PO SCH ×4 (08:50→17:56)
--- NOTE | 2016-07-09 11:07 | IPNPDOC ---
Assessment/Plan Date Seen The patient was seen on 07/09/16. Problems Problems: (1) E. coli UTI Status: Acute Response to Treatment: Improving Problem Text: Tim Kothari# 9 - D/C abx tomorrow (2) Dysphagia Status: Acute Problem Specific Plan: Consult Specialist Problem Text: Swallow eval recommends NPO, PEG placement pending. NG tube was placed 07/03/2016 due to delay in placement of PEG. Patient continues to have tube feeds, and has had some episodes of aspiration. However, she continues to remain stable, and is breathing room air. Nursing is checking residuals, and these have been minimal. -Awaiting IR to place a PEG tube 07/08/2016 -Discharge planning after PEG tube placement 07/08 KUB today, will await whether Dr Mccullough feels a PEG can be placed. 07/09 - plan for PEG today through IR (3) Anorexia Status: Chronic Problem Text: See above (4) Hypothermia Status: Chronic Response to Treatment: Stable Problem Text: Presented with temp of 91.5. Chronic hypothermia with temp usually 94-96. No signs of infection. Poss due to chronic anorexia. TSH was normal. Speech therapy was recommending PEG tube for nutrition. Patient continues to wait for iron replacement PEG tube. 07/08/16: Hypothermia resolved, and chronic reduced body temperature has been stable around 96 (5) Thrombocytopenia Status: Resolved Problem Text: Baseline is near 100. Pt not on heparin. No signs of bleeding or acute clot. Platelets have been improving since admission, now currently 156. - monitor - no heparin (6) Macroglossia Status: Chronic Problem Text: Chronic. May be contributory to feeding difficulty. Pt not taking good PO. Losing wt. Presented with hypothermia. - TSH and B12 normal - IV levothyroxine until PEG placed (7) Seizure disorder Status: Chronic Response to Treatment: Stable Problem Text: IV levetiracetam. Pt unable to take her oral medications - Tegretol. - lorazepam 2 mg IV once for seizure activity (8) Functional quadriplegia Status: Chronic Problem Text: [facility] client. Routine equipment, wheechair in room. (9) Severe protein-calorie malnutrition Status: Acute Problem Specific Plan: Monitor Clinically (10) Profound mental handicap Status: Chronic (11) Diabetes mellitus type 2 in nonobese Status: Chronic Problem Text: Well-controlled per last A1C (12) Constipation Status: Acute Problem Text: Fleet's enemas ordered (13) Hypokalemia Status: Resolved Problem Text: Current resolved. -Monitor Plan / VTE VTE Prophylaxis Ordered?: Yes VTE Exclusion Pharmacological: Bleeding Risk Plan IVF: Continue Medications: Change to IV Diagnostics: Check Labs Disposition D/C back to [facility] once PEG placed if tolerating feedings Subjective Review of Systems CC/HPI The patient is a 65-year-old female admitted with a reason for visit of Dehydration, Anorexia. Events since last encounter No new issues per nursing Constitutional: Denies: Chills, Fever Pulmonary: Denies: Cough, Dyspnea Cardiovascular: Denies: Chest Pain, Palpitations Gastrointestinal: Denies: Abdominal Pain, Constipation, Diarrhea, Nausea, Vomiting Objective Physical Examination General Exam: Positive: Alert, No Acute Distress Eye Exam: Negative: Sclera icteric ENT Exam: Positive: Atraumatic, Mucous membr. moist/pink, Other ENT ( macroglossia, NG tube present) Neck Exam: Positive: Supple, Negative: JVD, thyromegaly Chest Exam: Positive: Clear to auscultation, Normal air movement, Other, Negative: Rales, Rhonchi, Wheezing Heart Exam: Positive: Normal S1, Normal S2, Rate Normal, Negative: Murmurs, Rubs Abdomen Exam: Positive: Normal bowel sounds, Soft, Negative: Hepatospenomegaly, Tenderness Extremity Exam: Negative: Clubbing, Cyanosis, Edema Skin Exam: Positive: Nl turgor and temperature, Negative: Breakdown, Rash Vital Signs/I&O Vital Signs Date Time Temp Pulse Resp B/P Pulse Ox O2 Delivery O2 Flow Rate FiO2 07/09/16 08:50 Room Air 07/09/16 06:00 97.5 68 15 125/58 96 I&O- Last 24 Hours up to 6 AM 07/09/16 06:00 Intake Total 665.5 ml Balance 665.5 ml Laboratory Data Labs 24H Laboratory Tests 2 07/09/16 00:09: Bedside Glucose (Misc Panel) 103 07/09/16 05:54: Blood Urea Nitrogen 9, Creatinine 0.34L, Sodium Level 144, Potassium Level 4.1, Chloride Level 108H, Carbon Dioxide Level 28, Calcium Level 8.5L, Aspartate Amino Transf (AST/SGOT) 38H, Alanine Aminotransferase (ALT/SGPT) 58, Alkaline Phosphatase 125H, Total Bilirubin 0.3, Total Protein 6.2L, Albumin 2.3L, Albumin /Globulin Ratio 0.59L, Anion Gap 8, White Blood Count 5.6, Red Blood Count 3.57L , Hemoglobin 11.1L, Hematocrit 33.2L, Mean Corpuscular Volume 93.1, Mean Corpuscular Hemoglobin 31.0, Mean Corpuscular Hemoglobin Concent 33.3, Red Cell Distribution Width 15.0H, Platelet Count 190, Neutrophils (%) (Auto) 60.3, Lymphocytes (%) (Auto) 26.7, Monocytes (%) (Auto) 5.4H, Eosinophils (%) (Auto) 5.1H, Basophils (%) (Auto) 0.3, Neutrophils # (Auto) 3.4, Lymphocytes # (Auto) 1.5, Monocytes # (Auto) 0.3, Eosinophils # (Auto) 0.3, Basophils # (Auto) 0.0, Glomerular Filtration Rate > 60.0, Large Unclassified Cells # 0.1, Large Unclassified Cells % 2.1 CBC/BMP Laboratory Tests 07/09/16 05:54 Calcium Level 8.5 L, Aspartate Amino Transf (AST/SGOT) 38 H, Alanine Aminotransferase (ALT/SGPT) 58, Alkaline Phosphatase 125 H, Total Bilirubin 0.3 , Total Protein 6.2 L, Albumin 2.3 L, Red Blood Count 3.57 L, Mean Corpuscular Volume 93.1, Mean Corpuscular Hemoglobin 31.0, Mean Corpuscular Hemoglobin Concent 33.3, Red Cell Distribution Width 15.0 H, Neutrophils (%) (Auto) 60.3, Lymphocytes (%) (Auto) 26.7, Monocytes (%) (Auto) 5.4 H, Eosinophils (%) (Auto) 5.1 H, Basophils (%) (Auto) 0.3, Neutrophils # (Auto) 3.4, Lymphocytes # (Auto) 1.5, Monocytes # (Auto) 0.3, Eosinophils # (Auto) 0.3, Basophils # (Auto) 0.0 FSBS Laboratory Tests Test 07/09/16 00:09 Range/Units Bedside Glucose (Misc Panel) 103 80-115 MG/DL Microbiology Microbiology 06/29/16 Urine Culture - Final, Complete Escherichia Coli GLORIA DORADO PA-C Jul 09, 2016 11:06
[2016-07-09] MEDS: cefTRIAXone SOD 1 GM in D5W MINI-BAG PLUS 50 ML IV SCH (12:39)
[2016-07-09 14:00] VITALS: BP 118/59
[2016-07-09] MEDS ORDERED: SODIUM BICARBONATE 8.4% INJ 50MEQ 50 ML VIAL As Ordered ONE (15:45)
[2016-07-09] MEDS ORDERED: ISOVUE-300 61% 50ML VIAL (Q9967) As Ordered ONE ×2 (15:45→17:02)
[2016-07-09] MEDS ORDERED: LIDOCAINE 2% MDV 20 ML VIAL As Ordered ONE (15:45)
[2016-07-09] MEDS: ROSUVASTATIN 10 MG TAB (CRESTOR) PO SCH (17:54)
[2016-07-09] MEDS: PANTOPRAZOLE 40MG INJ (PROTONIX) (C9113) IV SCH (20:32)
[2016-07-09 22:00] VITALS: BP 132/59
[2016-07-10] VITALS (7 sets, daily range): BP systolic 121–133; BP diastolic 58–71
[2016-07-10 07:00] LABS: BASO % 0.1 % (0.0-1.0); EOS # 0.1 K/mm3 (0.0-0.50); EOS % 0.9 % (0.0-3.0); LARGE UNSTAINED CELL # 0.1 K/mm3 (0.0-0.4); LARGE UNSTAINED CELL % 1.2 % (0.0-4.0); LYMPH # 1.1 K/mm3 (1.5-4.5); LYMPH % 11.2 % (24.0-44.0); MEAN CORPUSCULAR HGB CONC 33.6 g/dl (32.0-36.5); MONO # 0.4 K/mm3 (0.0-0.8); MONO % 3.8 % (0.0-5.0); NEUTROPHILS # 7.9 K/mm3 (1.8-7.7); NEUTROPHILS % 82.8 % (36.0-66.0); PLATELET COUNT, AUTOMATED 236 k/mm3 (150-450); RED CELL DISTRIBUTION WIDTH 14.9 % (11.5-14.5); WHITE BLOOD COUNT 9.5 K/mm3 (4.0-10.0)
[2016-07-10 07:11] LABS: ALBUMIN 2.5 GM/DL (3.2-5.2); ALBUMIN/GLOBULIN RATIO 0.71 (1.00-1.93); ALKALINE PHOSPHATASE 118 U/L (45-117); ALT/SGPT 44 U/L (12-78); ANION GAP 8 MEQ/L (8-16); AST/SGOT 23 U/L (15-37); BILIRUBIN,TOTAL 0.5 MG/DL (0.2-1.0); BLOOD UREA NITROGEN 9 MG/DL (7-18); CALCIUM LEVEL 8.2 MG/DL (8.8-10.2); CARBON DIOXIDE LEVEL 28 MEQ/L (21-32); CHLORIDE LEVEL 105 MEQ/L (98-107); CREATININE FOR GFR 0.45 MG/DL (0.55-1.02); GLOMERULAR FILTRATION RATE > 60.0 (>45); GLUCOSE, FASTING 98 MG/DL (80-110); POTASSIUM SERUM 3.9 MEQ/L (3.5-5.1); SODIUM LEVEL 141 MEQ/L (136-145)
[2016-07-10] MEDS: LEVETIRACETAM IV SCH ×2 (09:44→21:56)
[2016-07-10] MEDS: D5W MINI IV SCH ×2 (09:44→21:56)
[2016-07-10] MEDS: BACLOFEN 10 MG TAB PO SCH ×4 (09:44→21:56)
[2016-07-10] MEDS: DANTROLENE 25 MG CAP PO SCH ×3 (09:45→21:56)
[2016-07-10] MEDS: SENNA 8.6 MG TAB (SENOKOT) PO SCH ×2 (09:45→21:56)
[2016-07-10] MEDS: carBAMazepine 200 MG TAB PO SCH ×3 (09:45→21:56)
[2016-07-10] MEDS: LEVOTHYROXINE 100 MCG (0.1MG) VIAL IV SCH (09:46)
--- NOTE | 2016-07-10 11:55 | IPN ---
DATE: 07/10/2016 Nuvia is seen [facility]. Had a PEG tube placed by interventional radiology yesterday. Dr. Mccullough ordered tube feedings started today. PHYSICAL EXAMINATION: VITAL SIGNS: Stable. GENERAL APPEARANCE: Resting comfortably in no distress. LUNGS: Clear. HEART: Regular rate and rhythm. ABDOMEN: Soft, nontender. LABORATORIES: CBC stable. CMP unremarkable. PLAN: 1. Dysphagia status post PEG tube. Tube feedings start today. Could be discharged tomorrow if tolerated. 2. E. coli urinary tract infection. Stop the Rocephin today. The rest of her medical problems are stable.
[2016-07-10] MEDS ORDERED: cefTRIAXone SOD 1 GM in D5W MINI-BAG PLUS 50 ML IV SCH (13:00)
[2016-07-10] MEDS: cefTRIAXone SOD 1 GM in D5W MINI-BAG PLUS 50 ML IV SCH (13:37)
--- NOTE | 2016-07-10 16:55 | REPKIM ---
PROCEDURE: Placement of percutaneous gastrostomy feeding tube under fluoroscopic guidance MEDICAL DIAGNOSIS/INDICATION: Patient with macroglossia and dysphagia was referred to IR for a percutaneous gastrostomy feeding tube placement. INTERVENTIONALIST: Edmund Mccullough MD MEDICATIONS: Local Lidocaine CONTRAST: 70 mL Isovue 300 EBL: 5 mL FLUORO TIME: 18.7 minutes DEVICE USED: 12F Matamoros Anderson Gastrostomy Catheter Lot#[id number] PROCEDURE: After the risks, benefits and alternatives of the procedure and associated intravenous sedation were discussed with Mr. Luis Hannah who is the legal guardian, informed phone consent was obtained and witnessed. The patient was brought to the interventional suite where a timeout procedure was performed. The patient was prepped and draped in sterile fashion. Air was introduced into the stomach through existing NG tube. Under real-time fluoroscopic guidance, a single gastropexy suture was utilized. Intragastric positing of the needle was confirmed with contrast. Following guide wire placement, puncture site dilation and catheter manipulation, access into the stomach was accomplished and a 12-German Matamoros Anderson gastrostomy tube was inserted successfully. Contrast was injected into the gastric port to confirm satisfactory course and position. The gastrostomy tube was secured to the abdominal wall using 2-0 prolene suture. The stomach was decompressed. The exiting nasogastric tube was removed. The patient tolerated the procedure well with no immediate complications. This procedure was performed using fluoroscopy. Dr. Mccullough was present. IMPRESSION: The gastrostomy tube is in an appropriate position. There is no leakage of contrast material into the peritoneal cavity. There is relatively significant hiatal hernia present. Plan: Because of hiatal hernia, keep the head of bed elevated for feeding. Flush the gastric port of the catheter with 30 mL of water TID and before/after each use. The feeding tube can be used starting tomorrow AM if no abdominal pain and bowel sounds are present. Post procedure orders were written. G to GJ conversion could be considered if clinically concerned. cc: MD NINFA Santos
[2016-07-10] MEDS: PANTOPRAZOLE 40MG INJ (PROTONIX) (C9113) IV SCH (21:55)
[2016-07-10] MEDS: ROSUVASTATIN 10 MG TAB (CRESTOR) PO SCH (21:56)
[2016-07-11 02:00] VITALS: BP 130/64
[2016-07-11 06:00] VITALS: BP 98/50
[2016-07-11] MEDS: DANTROLENE 25 MG CAP PO SCH (09:47)
[2016-07-11] MEDS: D5W MINI IV SCH (09:47)
[2016-07-11] MEDS: BACLOFEN 10 MG TAB PO SCH (09:47)
[2016-07-11] MEDS: LEVETIRACETAM IV SCH (09:47)
[2016-07-11] MEDS: carBAMazepine 200 MG TAB PO SCH (09:47)
[2016-07-11] MEDS: SENNA 8.6 MG TAB (SENOKOT) PO SCH (09:47)
[2016-07-11] MEDS: LEVOTHYROXINE 100 MCG (0.1MG) VIAL IV SCH (09:47)
[2016-07-11 10:00] VITALS: BP 121/54
--- NOTE | 2016-07-11 13:13 | DSES ---
DATE OF ADMISSION: 06/28/2016 DATE OF DISCHARGE: 07/11/2016 ATTENDING PHYSICIAN: Juan López MD BRIEF HISTORY AND PHYSICAL: The patient was evaluated by Dr. Coker at the office for poor by mouth. Took only 100-200 mL daily and no solids for the week leading up to the visit. Weight down 41 pounds since March of 2015. No vomiting, diarrhea, abdominal pain. Bowel movements were at baseline. The patient was admitted for dysphagia with poor oral intake and weight loss, and this was felt to be secondary to advanced dementia. She is normally on honey-thickened liquids with pureed solids but was not taking enough to sustain herself and so was admitted for intravenous (IV) fluid hydration with anticipation for percutaneous endoscopic gastrostomy (PEG) tube placement during the admission. PERTINENT LABORATORIES ON ADMISSION: White count 6, hemoglobin 12.6, platelets 63,000. Sodium 146, potassium 3.8, BUN 23, creatinine 0.5, glucose 183. HOSPITAL COURSE: The patient was admitted for dysphagia with poor oral intake and need for feeding tube placement, as well as incidental finding of hypothermia. 1. Dysphagia. Interventional radiology was consulted after swallowing evaluation, recommended nothing by mouth. Nasogastric (NG) tube was placed temporarily due to delay in PEG tube placement, and feedings were initiated through the NG. Interventional radiology placed a PEG tube on 07/09/2016. PEG tube feedings with Jevity 1.5 neymar at 40 an hour with 100 mL of free water every 4 hours has been initiated. She is tolerating it well without significant residuals, and her PEG site is clean. She will be discharged back to [facility] ([facility]) on that above-mentioned PEG tube feeding rate. 2. Escherichia (E.) coli urinary tract infection (UTI). She completed 10 days of Rocephin. She was somewhat hypothermic on admission, possibly related to the poor oral intake or the UTI, but her temperatures have normalized. 3. Thrombocytopenia. She has chronic thrombocytopenia with a baseline platelet count of 100. She was not on heparin. No signs of active bleeding. Her platelet count improved with nutrition and has actually normalized. 4. Macroglossia, chronic, likely contributing to some of her dysphagia. Thyroid-stimulating hormone (TSH) and B12 level are normal. 5. History of seizure disorder, chronic, stable on her usual medications. 6. Functional quadriplegia. She is a [facility] client and has regular equipment that they utilize, and this is unchanged. 7. Severe protein-calorie malnutrition secondary to poor oral intake. I suspect that this will improve with feedings. DISPOSITION: She is stable for discharge back to [facility]. Followup with Dr. Coker next week. Activity ad richard as previous. Diet: She is nothing by mouth, getting PEG tube feedings with Jevity 1.5 neymar at 40 an hour with 118 mL every 4 hours of free water. MEDICATIONS: Aquaphor ointment topically twice a day, baclofen 20 mg four times a day, Dulcolax 10 mg as directed for constipation, calcium plus D one tablet twice a day, carbamazepine 200 mg twice a day and 300 mg at bedtime, dantrolene sodium 25 mg three times a day diaper rash cream topically twice a day, enema as needed for constipation, lansoprazole 30 mg daily, Keppra 250 mg twice a day, levothyroxine 100 mcg daily, loratadine 10 mg daily, milk of magnesia 30 mL daily as needed for constipation, multivitamin daily, MiraLAX 17 grams daily, Crestor 20 mg at bedtime, senna two tablets twice a day, vitamin D 50,000 international units weekly. She has really not required much for pain, and so her hydrocodone was not giving during the hospitalization. DISCHARGE DIAGNOSES: 1. Dysphagia with secondary severe protein-calorie malnutrition and weight loss. 2. Severe protein-calorie malnutrition. 3. Weight loss. 4. Macroglossia 5. Escherichia (E.) coli urinary tract infection. 6. Advanced dementia. 7. Functional quadriplegia. 8. Seizure disorder. 9. Hypothyroidism.
== END 2016-07-11 12:15 | disposition home or self-care (01) | DRG 640 ==
LOC: M MSPAV 10:23
PROVIDERS: ADMIT Family Medicine; ATTEND Family Medicine
PROC: 0DH63UZ Insertion of Feeding Device into Stomach, Percutaneous Approach (ICD-10-PCS; principal; 2016-07-09)
DX: E43 Unspecified severe protein-calorie malnutrition (principal); R53.2 Functional quadriplegia; N39.0 Urinary tract infection, site not specified; F73 Profound intellectual disabilities; T68.XXXA Hypothermia, initial encounter; E11.9 Type 2 diabetes mellitus without complications; R13.10 Dysphagia, unspecified; K59.00 Constipation, unspecified; B96.20 Unspecified Escherichia coli [E. coli] as the cause of diseases classified elsewhere; F03.90 Unspecified dementia, unspecified severity, without behavioral disturbance, psychotic disturbance, mood disturbance, and anxiety; D69.6 Thrombocytopenia, unspecified; Q38.2 Macroglossia; G40.909 Epilepsy, unspecified, not intractable, without status epilepticus; E03.9 Hypothyroidism, unspecified; Z79.899 Other long term (current) drug therapy; E87.6 Hypokalemia

== ENCOUNTER 2016-07-12 09:13 | Emergency (ER) | payer MEDICARE, MEDICAID ==
[~2016-07-12 09:13] MED LIST changes: +AQUAOIN2 TOP; +BACL-67 PO; +CALCTAB43 PO; +CARB10TACH PO; +CRES20TA PO; +DANT25CA2 PO; +DOXY100T PO; +DRIS50002 PO; +DULC10SU2 PR; +ENEM1ENE4 PR; +FERR325T PO; +FLEEENE4 PR; +KEPP250T5 PO; +LANS30CA PO; +LEVO100T5 PO; +LORATAB PO; +MILKSUS PO; +MIRA33504 PO; +NORC5TAB PO; +SENO8.6T2 PO; +TIZA4CAP3 PO; +VITMTA PO; +ZETI10TA2 PO; +[UNRECOGNIZED DRUG - CODE] TOP
--- NOTE | 2016-07-12 10:37 | EDDOCDS ---
Physician Documentation [facility] Name: Nuvia Hannah Age: 65 yrs Sex: Female : 1950 Arrival Date: 07/12/2016 Time: 09:13 Bed I6 / 28 Private MD: Xavier Coker E. Disposition: 07/12/16 10:29 Discharged to Home/Self Care. 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 - Condition is Stable. - Discharge Instructions: PEG, Home Care, [id number]. - Medication Reconciliation, Local Pharmacy Hours form. - Follow up: Emergency Department; When: As needed; Reason: Worsening of conditions. Follow up: Xavier Coker; When: 2 - 3 days; Reason: Wound/Symptom Recheck, Recheck today's complaints, Continuance of care. - Problem is new. - Symptoms are resolved. - Notes: FOLLOW UP WITH DR. CASTELLANOS AT YOUR SCHEDULED VISIT. RETURN TO THE ER WITH ANY WORSENING SYMPTOMS. Historical: - Allergies: valporic acid; QUINOLONES; - Home Meds: 1. baclofen 20 mg Oral tab 1 tab 4 times per day 2. Calcium + Vitamin D Oral 600 mg daily 3. Claritin 10 mg Oral tab 1 tab once daily 4. Crestor 20 mg Oral tab 1 tab once daily 5. dantrolene 25 mg oral cap 1 cap once daily 6. Drisdol 50,000 unit Oral cap every other week 7. Keppra 250 mg Oral tab 2 times per day 8. Levoxyl 100 mcg Oral tab 1 tab once daily 9. Tegretol 200 mg Oral tab 1 tab twice a day 10. Tegretol 300mg Oral nightly 11. Prevacid 30 mg Oral cpDR 1 cap once daily 12. multivitamin Oral tab 1 tab daily 13. Miralax 17 gram/dose Oral powd once daily 14. Senna-Gen 8.6 mg oral tab 2 tabs once daily 15. enema as needed 16. Dulcolax (bisacodyl) 10 mg Rectal supp 1 suppository as needed 17. Milk of Magnesia 30ml Oral prn as directed - PMHx: Constipation, Chronic; Diabetes - NIDDM: controlled; GERD; Hypercholesterolemia; mental retardation; Seizure Disorder; difficulty swallowing; anorexia; - PSHx: peg tube placement; - Social history: Smoking status: Patient states was never smoker of tobacco. non verbal. - : The pt / caregiver states he / she is not on anticoagulants. Home medication list is obtained from the caregiver. - Exposure Risk Screening:: None identified. Vital Signs: 07/12 09:15 BP 149 / 73; Pulse 56; Resp 18; Temp 97.3(O); Pulse Ox 99% on R/A; Weight 53.52 kg / ct3 117.99 lbs (R); MDM: 10:18 ED course: SPOKE WITH DR. CASTELLANOS AT THIS TIME. STATES HE WILL COME DOWN SOON HE CAN dt4 TO SEE THIS PT. ADVISED NOT TO TAMPER WITH THE TUBING, IT WAS JUST PLACED 2 DAYS AGO AND THE TRACK IS TOO NEW TO TRY TO REPLACE. PT LAYING SUPINE IN EXAM BED AT THIS TIME IN NAD. STAFF MEMBER THAT PRESENTED TO THE ER WITH PT IN ROOM WITH PT AT THIS TIME. . 10:27 ED course: DR. CASTELLANOS IN TO SEE PT. STATES WHEN THE ADAPTER IS IN PLACE, IS CANNOT CREATE dt4 GOOD PRESSURE TO FLUSH TUBING. HE REMOVED THE ADAPTER AND WAS ABLE TO FLUSH THE TUBING SUCCESSFULLY. PT TOLERATED WELL.. Signatures: Misael Joshi,RN Elvira Graham RN Barbi Santos PA-C PA-C dt4 NINFA
--- NOTE | 2016-07-12 10:37 | EDDOCDS ---
Nurse's Notes [facility] Name: Nuvia Hannah Age: 65 yrs Sex: Female : 1950 Arrival Date: 07/12/2016 Time: 09:13 Bed I6 / 28 Private MD: Xavier Coker E. 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 just srm discharged from here yesterday. Adult Sepsis Screening: The patient does not have new or worsening altered mentation. Patient's respiratory rate is less than 22. Systolic blood pressure is greater than 100. Patient has a qSOFA score of 0- Negative Sepsis Screen. Suicide/Homicide risk assessment- the patient denies having any suicidal and/or homicidal ideations and does not present with any other emotional, behavioral or mental health complaints. Status: Patient is not a information services assistant or dependent. Transition of care: patient was received from [facility]. 09:16 Acuity: HARVINDER Level 4 [facility] 09:16 Method Of Arrival: Wheelchair [facility] Triage Assessment: 09:26 General: Appears in no apparent distress, Behavior is appropriate for age, cooperative. srm Pain: Unable to use pain scale. FLACC scale score is 0 out of 10. Historical: - Allergies: valporic acid; QUINOLONES; - Home Meds: 1. baclofen 20 mg Oral tab 1 tab 4 times per day 2. Calcium + Vitamin D Oral 600 mg daily 3. Claritin 10 mg Oral tab 1 tab once daily 4. Crestor 20 mg Oral tab 1 tab once daily 5. dantrolene 25 mg oral cap 1 cap once daily 6. Drisdol 50,000 unit Oral cap every other week 7. Keppra 250 mg Oral tab 2 times per day 8. Levoxyl 100 mcg Oral tab 1 tab once daily 9. Tegretol 200 mg Oral tab 1 tab twice a day 10. Tegretol 300mg Oral nightly 11. Prevacid 30 mg Oral cpDR 1 cap once daily 12. multivitamin Oral tab 1 tab daily 13. Miralax 17 gram/dose Oral powd once daily 14. Senna-Gen 8.6 mg oral tab 2 tabs once daily 15. enema as needed 16. Dulcolax (bisacodyl) 10 mg Rectal supp 1 suppository as needed 17. Milk of Magnesia 30ml Oral prn as directed - PMHx: Constipation, Chronic; Diabetes - NIDDM: controlled; GERD; Hypercholesterolemia; mental retardation; Seizure Disorder; difficulty swallowing; anorexia; - PSHx: peg tube placement; - Social history: Smoking status: Patient states was never smoker of tobacco. non verbal. - : The pt / caregiver states he / she is not on anticoagulants. Home medication list is obtained from the caregiver. - Exposure Risk Screening:: None identified. Screenin:35 Screening information is obtained from the caregiver. Fall risk: At risk due to [facility] apparent cognitive impairment. Assistance ADL's: Requires assistance with meal preparation, this assistance is provided by residence staff, bathing, assistance is provided by residence staff, dressing, assistance is provided by residence staff, toileting, assistance is provided by residence staff, ambulation, assistance is provided by residence staff, housework, assistance is provided by residence staff, medication administration, assistance is provided by residence staff. Abuse/DV Screen: The patient / caregiver reports he/she is: not in a situation that causes fear, pain or injury. Nutritional screening: No deficits noted. home support is adequate. Assessment: 09:59 General: attempted to irrigate with miri vito- not able to. milked what little tubing srm there is. cant feel any obstruction. PA aware. 10:13 General: Appears contently resting on stretcher. abd soft and non distended with bowel jmk sounds present x 4. [facility] worker attentive at side.. 10:28 General: Appears Dr abraham at bedside. Patency of tube accomplished by same.. [facility] Vital Signs: 09:15 BP 149 / 73; Pulse 56; Resp 18; Temp 97.3(O); Pulse Ox 99% on R/A; Weight 53.52 kg (R); ct3 Vitals: 09:15 Log In Time: July 12, 2016 at 09:12. ct3 ED Course: 09:15 Patient visited by Viviana Crockett PCA. ct3 09:15 Xavier Coker is Private Physician. ct3 09:15 Patient moved to Waiting ct3 09:16 Patient moved to Pre RCE ct3 09:17 Triage Initiated srm 09:27 Patient moved to Triage 2 srm 09:40 [facility] Sierra [facility] dt4 09:40 Tabby Vargas MD is Attending Physician. dt4 09:40 Patient visited by Barbi Sierra PA-C. dt4 09:50 Patient moved to dt4 10:14 Patient visited by Misael Joshi,RN. k 10:28 Xavier Coker is Referral Physician. dt4 Order Results: There are currently no results for this order. Outcome: 10:29 Discharge ordered by Provider. dt4 10:34 Discharge Assessment: Patient awake, alert and oriented x 3. No cognitive and/or k functional deficits noted. Patient verbalized understanding of disposition instructions. patient administered narcotics - no. The following High Risk Discharge criteria are identified: None. Discharged to home ambulatory. Condition: good. Discharge instructions given to accounts receivable manager, Instructed on discharge instructions, follow up and referral plans. medication usage, Demonstrated understanding of instructions, medications, No special radiology studies were completed. Property :Personal belongings accompany Pt. 10:36 Patient left the ED. [facility] Signatures: Misael Joshi,RN RN Elvira Hooper, LLOYD RN srm Crockett, Viviana, STOCK FEEDER STOCK FEEDER ct3 Barbi Sierra PA-C PA-C dt4 MTDD
--- NOTE | 2016-07-14 11:36 | EDDOCDS ---
Nurse's Notes [facility] Name: Nuvia Hannah Age: 65 yrs Sex: Female : 1950 Arrival Date: 07/12/2016 Time: 09:13 Bed I6 / 28 Private MD: Xavier Coker E. 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 just srm discharged from here yesterday. Adult Sepsis Screening: The patient does not have new or worsening altered mentation. Patient's respiratory rate is less than 22. Systolic blood pressure is greater than 100. Patient has a qSOFA score of 0- Negative Sepsis Screen. Suicide/Homicide risk assessment- the patient denies having any suicidal and/or homicidal ideations and does not present with any other emotional, behavioral or mental health complaints. 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 Transition of care: patient was received from [facility]. 09:16 Acuity: HARVINDER Level 4 [facility] 09:16 Method Of Arrival: Wheelchair [facility] Triage Assessment: 09:26 General: Appears in no apparent distress, Behavior is appropriate for age, cooperative. srm Pain: Unable to use pain scale. FLACC scale score is 0 out of 10. Historical: - Allergies: valporic acid; QUINOLONES; - Home Meds: 1. baclofen 20 mg Oral tab 1 tab 4 times per day 2. Calcium + Vitamin D Oral 600 mg daily 3. Claritin 10 mg Oral tab 1 tab once daily 4. Crestor 20 mg Oral tab 1 tab once daily 5. dantrolene 25 mg oral cap 1 cap once daily 6. Drisdol 50,000 unit Oral cap every other week 7. Keppra 250 mg Oral tab 2 times per day 8. Levoxyl 100 mcg Oral tab 1 tab once daily 9. Tegretol 200 mg Oral tab 1 tab twice a day 10. Tegretol 300mg Oral nightly 11. Prevacid 30 mg Oral cpDR 1 cap once daily 12. multivitamin Oral tab 1 tab daily 13. Miralax 17 gram/dose Oral powd once daily 14. Senna-Gen 8.6 mg oral tab 2 tabs once daily 15. enema as needed 16. Dulcolax (bisacodyl) 10 mg Rectal supp 1 suppository as needed 17. Milk of Magnesia 30ml Oral prn as directed - PMHx: Constipation, Chronic; Diabetes - NIDDM: controlled; GERD; Hypercholesterolemia; mental retardation; Seizure Disorder; difficulty swallowing; anorexia; - PSHx: peg tube placement; - Social history: Smoking status: Patient states was never smoker of tobacco. non verbal. - : The pt / caregiver states he / she is not on anticoagulants. Home medication list is obtained from the caregiver. - Exposure Risk Screening:: None identified. Screenin:35 Screening information is obtained from the caregiver. Fall risk: At risk due to [facility] apparent cognitive impairment. Assistance ADL's: Requires assistance with meal preparation, this assistance is provided by residence staff, bathing, assistance is provided by residence staff, dressing, assistance is provided by residence staff, toileting, assistance is provided by residence staff, ambulation, assistance is provided by residence staff, housework, assistance is provided by residence staff, medication administration, assistance is provided by residence staff. Abuse/DV Screen: The patient / caregiver reports he/she is: not in a situation that causes fear, pain or injury. Nutritional screening: No deficits noted. home support is adequate. Assessment: 09:59 General: attempted to irrigate with miri vito- not able to. milked what little tubing srm there is. cant feel any obstruction. PA aware. 10:13 General: Appears contently resting on stretcher. abd soft and non distended with bowel jmk sounds present x 4. [facility] worker attentive at side.. 10:28 General: Appears Dr abraham at bedside. Patency of tube accomplished by same.. [facility] Vital Signs: 09:15 BP 149 / 73; Pulse 56; Resp 18; Temp 97.3(O); Pulse Ox 99% on R/A; Weight 53.52 kg (R); ct3 Vitals: 09:15 Log In Time: July 12, 2016 at 09:12. ct3 ED Course: 09:15 Patient visited by Viviana Crockett PCA. ct3 09:15 Xavier Coker is Private Physician. ct3 09:15 Patient moved to Waiting ct3 09:16 Patient moved to Pre RCE ct3 09:17 Triage Initiated srm 09:27 Patient moved to Triage 2 srm 09:40 [facility] Sierra [facility]. dt4 09:40 Tabby Vargas MD is Attending Physician. dt4 09:40 Patient visited by Barbi Sierra PA-C. dt4 09:50 Patient moved to I dt4 10:14 Patient visited by Misael Joshi,RN. [email or web address] 10:28 Xavier Coker is Referral Physician. dt4 10:47 Patient name changed from Nuvia\S\\S\Brielle\S\ to Nuvia\S\ \S\Brielle. EDMS 14:26 T-Sheet-- Draft Copy was scanned into [employer] and attached to record. Order Results: There are currently no results for this order. Outcome: 10:29 Discharge ordered by Provider. dt4 10:34 Discharge Assessment: Patient awake, alert and oriented x 3. No cognitive and/or k functional deficits noted. Patient verbalized understanding of disposition instructions. patient administered narcotics - no. The following High Risk Discharge criteria are identified: None. Discharged to home ambulatory. Condition: good. Discharge instructions given to ski maker, Instructed on discharge instructions, follow up and referral plans. medication usage, Demonstrated understanding of instructions, medications, No special radiology studies were completed. Property :Personal belongings accompany Pt. 10:36 Patient left the ED. stacey Signatures: Dispatcher [employer] EDKY Misael Joshi,RN Elvira Graham RN RN [facility], Katina, Reg Reg gb Crockett, Viviana, DINING ROOM HOST DINING ROOM HOST ct3 Brabi Sierra PA-C PA-C dt4 Chart Complete MTDD
--- NOTE | 2016-07-14 11:36 | EDDOCDS ---
Physician Documentation [facility] Name: Nuvia Hannah Age: 65 yrs Sex: Female : 1950 Arrival Date: 07/12/2016 Time: 09:13 Bed I6 / 28 Private MD: Xavier Coker E. Disposition: 07/12/16 10:29 Discharged to Home/Self Care. 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 - Condition is Stable. - Discharge Instructions: PEG, Home Care, [id number]. - Medication Reconciliation, Local Pharmacy Hours form. - Follow up: Emergency Department; When: As needed; Reason: Worsening of conditions. Follow up: Xavier Coker; When: 2 - 3 days; Reason: Wound/Symptom Recheck, Recheck today's complaints, Continuance of care. - Problem is new. - Symptoms are resolved. - Notes: FOLLOW UP WITH DR. CASTELLANOS AT YOUR SCHEDULED VISIT. RETURN TO THE ER WITH ANY WORSENING SYMPTOMS. Historical: - Allergies: valporic acid; QUINOLONES; - Home Meds: 1. baclofen 20 mg Oral tab 1 tab 4 times per day 2. Calcium + Vitamin D Oral 600 mg daily 3. Claritin 10 mg Oral tab 1 tab once daily 4. Crestor 20 mg Oral tab 1 tab once daily 5. dantrolene 25 mg oral cap 1 cap once daily 6. Drisdol 50,000 unit Oral cap every other week 7. Keppra 250 mg Oral tab 2 times per day 8. Levoxyl 100 mcg Oral tab 1 tab once daily 9. Tegretol 200 mg Oral tab 1 tab twice a day 10. Tegretol 300mg Oral nightly 11. Prevacid 30 mg Oral cpDR 1 cap once daily 12. multivitamin Oral tab 1 tab daily 13. Miralax 17 gram/dose Oral powd once daily 14. Senna-Gen 8.6 mg oral tab 2 tabs once daily 15. enema as needed 16. Dulcolax (bisacodyl) 10 mg Rectal supp 1 suppository as needed 17. Milk of Magnesia 30ml Oral prn as directed - PMHx: Constipation, Chronic; Diabetes - NIDDM: controlled; GERD; Hypercholesterolemia; mental retardation; Seizure Disorder; difficulty swallowing; anorexia; - PSHx: peg tube placement; - Social history: Smoking status: Patient states was never smoker of tobacco. non verbal. - : The pt / caregiver states he / she is not on anticoagulants. Home medication list is obtained from the caregiver. - Exposure Risk Screening:: None identified. Vital Signs: 07/12 09:15 BP 149 / 73; Pulse 56; Resp 18; Temp 97.3(O); Pulse Ox 99% on R/A; Weight 53.52 kg / ct3 117.99 lbs (R); MDM: 10:18 ED course: SPOKE WITH DR. CASTELLANOS AT THIS TIME. STATES HE WILL COME DOWN SOON HE CAN dt4 TO SEE THIS PT. ADVISED NOT TO TAMPER WITH THE TUBING, IT WAS JUST PLACED 2 DAYS AGO AND THE TRACK IS TOO NEW TO TRY TO REPLACE. PT LAYING SUPINE IN EXAM BED AT THIS TIME IN NAD. STAFF MEMBER THAT PRESENTED TO THE ER WITH PT IN ROOM WITH PT AT THIS TIME. . 10:27 ED course: DR. CASTELLANOS IN TO SEE PT. STATES WHEN THE ADAPTER IS IN PLACE, IS CANNOT CREATE dt4 GOOD PRESSURE TO FLUSH TUBING. HE REMOVED THE ADAPTER AND WAS ABLE TO FLUSH THE TUBING SUCCESSFULLY. PT TOLERATED WELL.. 14:26 T-Sheet-- Draft Copy was scanned into [employer] and attached to record. 15:02 Financial registration complete. mm15 Signatures: Misael Joshi RN RN jmk Michelson, Staci, RN RN [facility] Katina Dye, Reg Reg gb Audelia Sheldon mm15 Barbi Sierra PA-C PA-C dt4 The chart was reviewed and I authenticate all verbal orders and agree with the evaluation and treatment provided.Attachments: 14:26 T-Sheet-- Draft Copy gb Chart Complete MTDD
--- NOTE | 2016-07-14 11:36 | EDDOCDS ---
Physician Documentation [facility] Name: Nuvia Hannah Age: 65 yrs Sex: Female : 1950 Arrival Date: 07/12/2016 Time: 09:13 Bed I6 / 28 Private MD: Xavier Coker E. Disposition: 07/12/16 10:29 Discharged to Home/Self Care. 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 - Condition is Stable. - Discharge Instructions: PEG, Home Care, [id number]. - Medication Reconciliation, Local Pharmacy Hours form. - Follow up: Emergency Department; When: As needed; Reason: Worsening of conditions. Follow up: Xavier Coker; When: 2 - 3 days; Reason: Wound/Symptom Recheck, Recheck today's complaints, Continuance of care. - Problem is new. - Symptoms are resolved. - Notes: FOLLOW UP WITH DR. CASTELLANOS AT YOUR SCHEDULED VISIT. RETURN TO THE ER WITH ANY WORSENING SYMPTOMS. Historical: - Allergies: valporic acid; QUINOLONES; - Home Meds: 1. baclofen 20 mg Oral tab 1 tab 4 times per day 2. Calcium + Vitamin D Oral 600 mg daily 3. Claritin 10 mg Oral tab 1 tab once daily 4. Crestor 20 mg Oral tab 1 tab once daily 5. dantrolene 25 mg oral cap 1 cap once daily 6. Drisdol 50,000 unit Oral cap every other week 7. Keppra 250 mg Oral tab 2 times per day 8. Levoxyl 100 mcg Oral tab 1 tab once daily 9. Tegretol 200 mg Oral tab 1 tab twice a day 10. Tegretol 300mg Oral nightly 11. Prevacid 30 mg Oral cpDR 1 cap once daily 12. multivitamin Oral tab 1 tab daily 13. Miralax 17 gram/dose Oral powd once daily 14. Senna-Gen 8.6 mg oral tab 2 tabs once daily 15. enema as needed 16. Dulcolax (bisacodyl) 10 mg Rectal supp 1 suppository as needed 17. Milk of Magnesia 30ml Oral prn as directed - PMHx: Constipation, Chronic; Diabetes - NIDDM: controlled; GERD; Hypercholesterolemia; mental retardation; Seizure Disorder; difficulty swallowing; anorexia; - PSHx: peg tube placement; - Social history: Smoking status: Patient states was never smoker of tobacco. non verbal. - : The pt / caregiver states he / she is not on anticoagulants. Home medication list is obtained from the caregiver. - Exposure Risk Screening:: None identified. Vital Signs: 07/12 09:15 BP 149 / 73; Pulse 56; Resp 18; Temp 97.3(O); Pulse Ox 99% on R/A; Weight 53.52 kg / ct3 117.99 lbs (R); MDM: 10:18 ED course: SPOKE WITH DR. CASTELLANOS AT THIS TIME. STATES HE WILL COME DOWN SOON HE CAN dt4 TO SEE THIS PT. ADVISED NOT TO TAMPER WITH THE TUBING, IT WAS JUST PLACED 2 DAYS AGO AND THE TRACK IS TOO NEW TO TRY TO REPLACE. PT LAYING SUPINE IN EXAM BED AT THIS TIME IN NAD. STAFF MEMBER THAT PRESENTED TO THE ER WITH PT IN ROOM WITH PT AT THIS TIME. . 10:27 ED course: DR. CASTELLANOS IN TO SEE PT. STATES WHEN THE ADAPTER IS IN PLACE, IS CANNOT CREATE dt4 GOOD PRESSURE TO FLUSH TUBING. HE REMOVED THE ADAPTER AND WAS ABLE TO FLUSH THE TUBING SUCCESSFULLY. PT TOLERATED WELL.. 14:26 T-Sheet-- Draft Copy was scanned into [employer] and attached to record. 15:02 Financial registration complete. mm15 Signatures: Misael Joshi RN RN jmk Michelson, Staci, RN RN [facility] Katina Dye, Reg Reg gb Audelia Sheldon mm15 Barbi Sierra PA-C PA-C dt4 The chart was reviewed and I authenticate all verbal orders and agree with the evaluation and treatment provided.Attachments: 14:26 T-Sheet-- Draft Copy gb Chart Complete MTDD
== END 2016-07-12 10:36 | disposition home or self-care (01) ==
LOC: M ED 09:13
DX: K94.29 Other complications of gastrostomy (principal); E11.9 Type 2 diabetes mellitus without complications; G40.909 Epilepsy, unspecified, not intractable, without status epilepticus; R63.0 Anorexia; K59.09 Other constipation; F79 Unspecified intellectual disabilities; K21.9 Gastro-esophageal reflux disease without esophagitis; E78.00 Pure hypercholesterolemia, unspecified; Z79.899 Other long term (current) drug therapy; Z88.8 Allergy status to other drugs, medicaments and biological substances

== ENCOUNTER → 2016-07-19 | Outpatient (REF) | payer MEDICARE, MEDICAID ==
[2016-07-19 15:53] LABS: BASO # 0.1 K/mm3 (0.0-0.2); BASO % 1.4 % (0.0-1.0); EOS # 0.5 K/mm3 (0.0-0.50); EOS % 5.3 % (0.0-3.0); LARGE UNSTAINED CELL # 0.2 K/mm3 (0.0-0.4); LARGE UNSTAINED CELL % 1.7 % (0.0-4.0); LYMPH # 2.4 K/mm3 (1.5-4.5); MEAN CORPUSCULAR HEMOGLOBIN 30.4 pg (27.0-33.0); MEAN CORPUSCULAR HGB CONC 32.9 g/dl (32.0-36.5); MEAN CORPUSCULAR VOLUME 92.5 fl (80.0-96.0); MONO # 0.4 K/mm3 (0.0-0.8); MONO % 4.1 % (0.0-5.0); NEUTROPHILS # 5.6 K/mm3 (1.8-7.7); NEUTROPHILS % 62.6 % (36.0-66.0); PLATELET COUNT, AUTOMATED 227 k/mm3 (150-450); RED CELL DISTRIBUTION WIDTH 15.9 % (11.5-14.5); WHITE BLOOD COUNT 8.9 K/mm3 (4.0-10.0)
[2016-07-19 16:10] LABS: ALBUMIN 3.3 GM/DL (3.2-5.2); ALBUMIN/GLOBULIN RATIO 0.87 (1.00-1.93); ALKALINE PHOSPHATASE 122 U/L (45-117); ALT/SGPT 60 U/L (12-78); ANION GAP 11 MEQ/L (8-16); AST/SGOT 42 U/L (15-37); BILIRUBIN,TOTAL 0.3 MG/DL (0.2-1.0); BLOOD UREA NITROGEN 17 MG/DL (7-18); CALCIUM LEVEL 8.7 MG/DL (8.8-10.2); CARBAMAZEPINE (TEGRETOL) LEVEL 7.4 UG/ML (4.0-10.0); CARBON DIOXIDE LEVEL 27 MEQ/L (21-32); CHLORIDE LEVEL 102 MEQ/L (98-107); CHOLESTEROL LEVEL 176 MG/DL (<200); CREATININE FOR GFR 0.41 MG/DL (0.55-1.02); FREE T4 1.08 NG/DL (0.76-1.46); GLOMERULAR FILTRATION RATE > 60.0 (>45); GLUCOSE, FASTING 82 MG/DL (80-110); POTASSIUM SERUM 4.2 MEQ/L (3.5-5.1); SODIUM LEVEL 140 MEQ/L (136-145); TOTAL PROTEIN 7.1 GM/DL (6.4-8.2); TRIGLYCERIDES LEVEL 117 MG/DL (<150)
== END ==
LOC: M SFHCPLAZ 13:14
PROVIDERS: ATTEND Family Medicine
DX: G40.909 Epilepsy, unspecified, not intractable, without status epilepticus (principal); E03.9 Hypothyroidism, unspecified; E78.2 Mixed hyperlipidemia; E55.9 Vitamin D deficiency, unspecified
CPT/HCPCS: 36415; 80053; 80061; 80156; 80180; 82306; 83970; 84439; 84443; 85025; G0463

== ENCOUNTER 2016-07-27 14:20 | Emergency (ER) | payer MEDICARE, MEDICAID ==
[2016-07-27 15:32] LABS: BASO # 0.1 K/mm3 (0.0-0.2); BASO % 1.1 % (0.0-1.0); EOS # 0.4 K/mm3 (0.0-0.50); EOS % 5.6 % (0.0-3.0); LARGE UNSTAINED CELL # 0.1 K/mm3 (0.0-0.4); LARGE UNSTAINED CELL % 1.4 % (0.0-4.0); LYMPH # 1.5 K/mm3 (1.5-4.5); LYMPH % 19.9 % (24.0-44.0); MEAN CORPUSCULAR HEMOGLOBIN 30.7 pg (27.0-33.0); MEAN CORPUSCULAR HGB CONC 33.1 g/dl (32.0-36.5); MEAN CORPUSCULAR VOLUME 92.7 fl (80.0-96.0); MONO # 0.4 K/mm3 (0.0-0.8); NEUTROPHILS # 4.7 K/mm3 (1.8-7.7); PLATELET COUNT, AUTOMATED 170 k/mm3 (150-450)
[2016-07-27 15:44] LABS: ANION GAP 6 MEQ/L (8-16); BLOOD UREA NITROGEN 17 MG/DL (7-18); CALCIUM LEVEL 8.7 MG/DL (8.8-10.2); CARBON DIOXIDE LEVEL 33 MEQ/L (21-32); CHLORIDE LEVEL 102 MEQ/L (98-107); CREATININE FOR GFR 0.46 MG/DL (0.55-1.02); GLOMERULAR FILTRATION RATE > 60.0 (>45); GLUCOSE, FASTING 87 MG/DL (80-110); SODIUM LEVEL 141 MEQ/L (136-145)
--- NOTE | 2016-07-27 18:42 | EDDOCDS ---
Nurse's Notes [facility] Name: Nuvia Hannah Age: 65 yrs Sex: Female : 1950 Arrival Date: 07/27/2016 Time: 14:20 Bed 17 Private MD: Diagnosis: Tremor, unspecified Presentation: 07/27 14:25 Presenting complaint: EMS states: [facility] staff called EMS for possible stroke. L leg rs3 switching, tongue swtiching. Adult Sepsis Screening: The patient does not have new or worsening altered mentation. Patient's respiratory rate is less than 22. Systolic blood pressure is greater than 100. Patient has a qSOFA score of 0- Negative Sepsis Screen. Suicide/Homicide risk assessment- the patient denies having any suicidal and/or homicidal ideations and does not present with any other emotional, behavioral or mental health complaints. Status: Patient is not a technical services assistant or dependent. Transition of care: patient was not received from another setting of care. 14:25 Acuity: HARVINDER Level 3 rs3 14:25 Method Of Arrival: Ambulance rs3 Triage Assessment: 14:30 The patient is triaged at the bedside. See Assessment in Nurses Notes section of ED kc3 record. Neurological: Level of Consciousness is awake, Oriented to none pt is non-verbal. Respiratory: Airway is patent Respiratory effort is even, unlabored. Derm: Skin is pink, warm & dry. 15:36 General: Appears in no apparent distress, Behavior is cooperative. Pain: Unable to use kc3 pain scale. Does not appear to understand pain scale. Historical: - Allergies: QUINOLONES; valporic acid; - Home Meds: 1. Calcium + Vitamin D Oral 600 mg twice a day 2. Miralax 17 gram/dose Oral powd once daily 3. multivitamin Oral tab 1 tab daily 4. Levoxyl 100 mcg Oral tab 1 tab once daily 5. Tegretol 300mg Oral nightly 6. Tegretol 200 mg Oral tab 1 tab twice a day 7. baclofen 20 mg Oral tab 1 tab 4 times per day 8. dantrolene 25 mg oral cap 1 cap 3 times per day 9. Keppra 250 mg Oral tab 2 times per day 10. Senna-Gen 8.6 mg oral tab 2 tabs once daily 11. Drisdol 50,000 unit Oral cap every other week 12. Milk of Magnesia 30ml Oral prn as directed 13. Dulcolax (bisacodyl) 10 mg Rectal supp 1 suppository as needed 14. enema as needed 15. Claritin 10 mg Oral tab 1 tab once daily 16. Crestor 20 mg Oral tab 1 tab once daily 17. Prevacid 30 mg Oral cpDR 1 cap once daily - PMHx: anorexia; Constipation, Chronic; Diabetes - NIDDM: controlled; difficulty swallowing; GERD; Hypercholesterolemia; mental retardation; Seizure Disorder; - PSHx: peg tube placement; - Social history: Smoking status: Patient states was never smoker of tobacco. No barriers to communication noted, Speaks appropriately for age. - Family history: Not pertinent. - : The pt / caregiver states he / she is not on anticoagulants. Home medication list is obtained from the facility MAR. - Exposure Risk Screening:: None identified. Screenin:24 Screening information is obtained from the caregiver. Fall risk: At risk due to kc3 apparent cognitive impairment, gait disturbance, immobility, The following interventions are performed due to a positive Fall Risk Screen: Fall Risk is added to Special Handling on the patient Summary Screen. A Fall Risk Bracelet was applied to the patient. Side Rails are placed in the up position. A Call [place] is given with instruction to call for help when getting out of bed. Fall Alert bracelet is placed on the patient. Assistance ADL's: Requires assistance with meal preparation, this assistance is provided by residence staff, bathing, assistance is provided by residence staff, dressing, assistance is provided by residence staff, toileting, assistance is provided by residence staff, ambulation, assistance is provided by residence staff, housework, assistance is provided by residence staff, medication administration, assistance is provided by residence staff. Abuse/DV Screen: The patient / caregiver reports he/she is: not in a situation that causes fear, pain or injury. Nutritional screening: No deficits noted. home support is adequate. 18:38 Advance Directives: Currently, there is no health care proxy. kc3 Assessment: 15:40 General: Appears in no apparent distress, Caregiver at bedside. . Neurological: Level kc3 of Consciousness is awake, Pt is non-verbal. . Respiratory: Respiratory effort is even, unlabored, Respiratory pattern is regular, symmetrical. Derm: Skin is pink, warm & dry. Pt with upper and lower contractures to bilateral extremities. 16:35 General: Appears in no apparent distress, Caregiver at bedside. Updated on plan of kc3 care. Pt is awake and non-verbal. Respiratory effort even and unlabored. Skin is pink warm and dry. No change in pt status. . 17:48 General: Appears in no apparent distress, Caregiver at bedside. Pt is awake. Pt is kc3 non-verbal. Respiratory effort is even and unlabored. Skin is pink, warm and dry. No change in pt status. . 18:38 General: Appears in no apparent distress, Caregiver at bedside. Pt is awake and kc3 non-verbal. Respiratory effort is even and unlabored. Skin is pink, warm and dry. No change in pt status. . Vital Signs: 14:31 BP 134 / 78 LA Supine (auto/reg); Pulse 64; Resp 18; Temp 97.8; Pulse Ox 95% on R/A; jrd Weight 65.77 kg (R); Height 5 ft. 1 in. (154.94 cm) (R); 17:35 BP 158 / 90; Pulse 75; Resp 18; Temp 97.6(TE); Pulse Ox 96% ; nb2 18:40 BP 113 / 56; Pulse 60; Resp 18; Temp 97.3(TE); Pulse Ox 98% on R/A; kc3 14:31 Body Mass Index 27.40 (65.77 kg, 154.94 cm) jrd 14:31 Patient is unable to give pain scale rating jrd Vitals: 16:26 Log In Time N/A - ambulance arrival. kc3 ED Course: 14:21 Patient visited by Emmy Denson, Information Systems Professor. deg 14:21 Bernice Felix,LLOYD is Primary Nurse. deg 14:21 Patient moved to Waiting deg 14:21 Patient moved to 17 deg 14:27 Triage Initiated rs3 14:28 Coco Heaton MD is Attending Physician. fg 14:32 Patient visited by Juan Baron PCA. jrd 14:45 Patient visited by Coco Heaton MD. fg 15:10 Inserted saline lock: 20 gauge in right hand and blood collected. The patient tolerated kc3 the procedure well. 15:14 Patient visited by Bernice Felix RN. kc3 15:14 Keppra (short red top tube) Sent. kc3 15:14 CBC with Diff Sent. kc3 15:14 MED Profile Sent. kc3 15:14 Urinalysis Sent. kc3 15:30 Straight cath inserted 16 Fr. Specimen obtained. returned clear yellow urine. Patient kc3 tolerated well. 15:43 Patient visited by Bernice Felix RN. kc3 16:26 The patient / caregiver is instructed regarding the plan of care and ED course. kc3 16:27 Patient visited by Bernice Felix RN. kc3 16:52 [facility] Payment Agreement was scanned into [employer] and attached to record. zo 16:58 Patient name changed from Nuvia\S\\S\Brielle\S\ to Nuvia\S\ \S\Brielle. EDMS 17:12 Patient visited by Bernice Felix RN. kc3 17:35 Patient visited by Keila George. nb2 17:50 Patient visited by Bernice Felix RN. kc3 18:22 Christy Shine is Referral Physician. fg 18:39 Discontinued IV lock intact, bleeding controlled, pressure dressing applied, No kc3 redness/swelling at site. No procedures done that require assistance. Point of Care Testing: Blood Glucose: 16:26 Blood Glucose: 88 mg/dL; kc3 Ranges: Order Results: Lab Order: CBC with Diff; SPEC'M 07/27/16 15:10 Test: WHITE BLOOD COUNT; Value: 7.0; Range: 4.0-10.0; Units: K/mm3; Status: F Test: RED BLOOD COUNT; Value: 4.18; Range: 4.00-5.40; Units: M/mm3; Status: F Test: HEMOGLOBIN; Value: 12.8; Range: 12.0-16.0; Units: g/dl; Status: F Test: HEMATOCRIT; Value: 38.7; Range: 36.0-47.0; Units: %; Status: F Test: MEAN CORPUSCULAR VOLUME; Value: 92.7; Range: 80.0-96.0; Units: fl; Status: F Test: MEAN CORPUSCULAR HEMOGLOBIN; Value: 30.7; Range: 27.0-33.0; Units: pg; Status: F Test: MEAN CORPUSCULAR HGB CONC; Value: 33.1; Range: 32.0-36.5; Units: g/dl; Status: F Test: RED CELL DISTRIBUTION WIDTH; Value: 16.0; Range: 11.5-14.5; Abnormal: Above high normal; Units: %; Status: F Test: PLATELET COUNT, AUTOMATED; Value: 170; Range: 150-450; Units: k/mm3; Status: F Test: NEUTROPHILS %; Value: 67.0; Range: 36.0-66.0; Abnormal: Above high normal; Units: %; Status: F Test: LYMPH %; Value: 19.9; Range: 24.0-44.0; Abnormal: Below low normal; Units: %; Status: F Test: MONO %; Value: 5.0; Range: 0.0-5.0; Units: %; Status: F Test: EOS %; Value: 5.6; Range: 0.0-3.0; Abnormal: Above high normal; Units: %; Status: F Test: BASO %; Value: 1.1; Range: 0.0-1.0; Abnormal: Above high normal; Units: %; Status: F Test: LARGE UNSTAINED CELL %; Value: 1.4; Range: 0.0-4.0; Units: %; Status: F Test: NEUTROPHILS #; Value: 4.7; Range: 1.8-7.7; Units: K/mm3; Status: F Test: LYMPH #; Value: 1.5; Range: 1.5-4.5; Units: K/mm3; Status: F Test: MONO #; Value: 0.4; Range: 0.0-0.8; Units: K/mm3; Status: F Test: EOS #; Value: 0.4; Range: 0.0-0.50; Units: K/mm3; Status: F Test: BASO #; Value: 0.1; Range: 0.0-0.2; Units: K/mm3; Status: F Test: LARGE UNSTAINED CELL #; Value: 0.1; Range: 0.0-0.4; Units: K/mm3; Status: F Lab Order: [facility] Profile; SPEC'M 07/27/16 15:10 Test: GLUCOSE, FASTING; Value: 87; Range: 80-110; Units: MG/DL; Status: F Test: BLOOD UREA NITROGEN; Value: 17; Range: 7-18; Units: MG/DL; Status: F Test: CREATININE FOR GFR; Value: 0.46; Range: 0.55-1.02; Abnormal: Below low normal; Units: MG/DL; Status: F Test: GLOMERULAR FILTRATION RATE; Value: > 60.0; Range: >45; Status: F Test: SODIUM LEVEL; Value: 141; Range: 136-145; Units: MEQ/L; Status: F Test: POTASSIUM SERUM; Value: 4.0; Range: 3.5-5.1; Units: MEQ/L; Status: F Test: CHLORIDE LEVEL; Value: 102; Range: 98-107; Units: MEQ/L; Status: F Test: CARBON DIOXIDE LEVEL; Value: 33; Range: 21-32; Abnormal: Above high normal; Units: MEQ/L; Status: F Test: ANION GAP; Value: 6; Range: 8-16; Abnormal: Below low normal; Units: MEQ/L; Status: F Test: CALCIUM LEVEL; Value: 8.7; Range: 8.8-10.2; Abnormal: Below low normal; Units: MG/DL; Status: F Test Note: ; Units are mL/min/1.73 m2 Chronic Kidney Disease Staging per NKF: Stage I & II GFR >=60 Normal to Mildly Decreased Stage III GFR 30-59 Moderately Decreased Stage IV GFR 15-29 Severely Decreased Stage V GFR <15 Very Little GFR Left ESRD GFR <15 on GROMMET MAN Lab Order: Urinalysis; SPEC'M 07/27/16 15:10 Test: APPEARANCE, URINE; Value: TURBID; Range: CLEAR; Abnormal: Above high normal; Status: F Test: COLOR, URINE; Value: YELLOW; Range: YELLOW; Status: F Test: PH,URINE; Value: 8.0; Range: 5.0-9.0; Units: UNITS; Status: F Test: SPECIFIC GRAVITY URINE AUTO; Value: 1.013; Range: 1.002-1.035; Status: F Test: PROTEIN, URINE AUTO; Value: NEGATIVE; Range: NEGATIVE; Units: mg/dL; Status: F Test: GLUCOSE, URINE (UA) AUTO; Value: NEGATIVE; Range: NEGATIVE; Units: mg/dL; Status: F Test: KETONE, URINE AUTO; Value: NEGATIVE; Range: NEGATIVE; Units: mg/dL; Status: F Test: UROBILINOGEN, URINE AUTO; Value: 0.2; Range: 0.0-2.0; Units: mg/dL; Status: F Test: BILIRUBIN, URINE AUTO; Value: NEGATIVE; Range: NEGATIVE; Status: F Test: NITRITE, URINE AUTO; Value: NEGATIVE; Range: NEGATIVE; Status: F Test: LEUKOCYTE ESTERASE, URINE AUTO; Value: NEGATIVE; Range: NEGATIVE; Status: F Test: BLOOD, URINE BLOOD; Value: NEGATIVE; Range: NEGATIVE; Status: F Test: WBC, URINE AUTO; Value: 1; Range: 0-3; Units: /HPF; Status: F Test: RBC, URINE AUTO; Value: 0; Range: 0-3; Units: /HPF; Status: F Test: BACTERIA, URINE AUTO; Value: 1+; Range: NEGATIVE; Abnormal: Above high normal; Status: F Test: SQUAMOUS EPITHELIAL CELL UR AU; Value: 0; Range: 0-6; Units: /HPF; Status: F Test: MUCUS, URINE; Value: SMALL; Range: NEGATIVE; Status: F Test: HYALINE CAST, URINE AUTO; Value: 0; Range: 0-1; Units: /LPF; Status: F Test: AMORPHOUS SEDIMENT; Value: MODERATE; Range: NEGATIVE; Abnormal: Above high normal; Status: F Lab Order: Fingerstick Blood Sugar; SPEC'M 07/27/16 15:07 Test: BEDSIDE GLUCOSE; Value: 88; Range: 80-115; Units: MG/DL; Status: F Outcome: 16:26 CT Study completed. kc3 18:23 Discharge ordered by Provider. fg 18:39 Discharge Assessment: Patient awake, alert and oriented x 3. No cognitive and/or kc3 functional deficits noted. Patient verbalized understanding of disposition instructions. patient administered narcotics - no. The following High Risk Discharge criteria are identified: None. Discharged to home via wheelchair, with caregiver. Condition: stable. Discharge instructions given to patient, Instructed on discharge instructions, follow up and referral plans. Demonstrated understanding of instructions, Pt was receptive of discharge instructions/ teaching. Property :Personal belongings accompany Pt. 18:41 Patient left the ED. kc3 Signatures: Dispatcher [employer] EDMS Emmy Denson, Information Systems Professor [employer] Tierney RosemaryRN RN rs3 Juan Baron, ASSOCIATE PROFESSOR OF ANTHROPOLOGY ASSOCIATE PROFESSOR OF ANTHROPOLOGY d Coco Heaton MD MD fg Bernice Felix RN RN kc3 Keila George2 MTDD
--- NOTE | 2016-07-27 18:42 | EDDOCDS ---
Physician Documentation [facility] Name: Nuvia Hannah Age: 65 yrs Sex: Female : 1950 Arrival Date: 07/27/2016 Time: 14:20 Bed 17 Private MD: Disposition: 07/27/16 18:23 Discharged to Home/Self Care. Impression: Tremor, unspecified. - Condition is Stable. - Discharge Instructions: Tremor. - Medication Reconciliation, Local Pharmacy Hours form. - Follow up: Christy Shine; When: Call to arrange an appointment; Reason: Continuance of care. - Problem is chronic. - Symptoms are unchanged. Historical: - Allergies: QUINOLONES; valporic acid; - Home Meds: 1. Calcium + Vitamin D Oral 600 mg twice a day 2. Miralax 17 gram/dose Oral powd once daily 3. multivitamin Oral tab 1 tab daily 4. Levoxyl 100 mcg Oral tab 1 tab once daily 5. Tegretol 300mg Oral nightly 6. Tegretol 200 mg Oral tab 1 tab twice a day 7. baclofen 20 mg Oral tab 1 tab 4 times per day 8. dantrolene 25 mg oral cap 1 cap 3 times per day 9. Keppra 250 mg Oral tab 2 times per day 10. Senna-Gen 8.6 mg oral tab 2 tabs once daily 11. Drisdol 50,000 unit Oral cap every other week 12. Milk of Magnesia 30ml Oral prn as directed 13. Dulcolax (bisacodyl) 10 mg Rectal supp 1 suppository as needed 14. enema as needed 15. Claritin 10 mg Oral tab 1 tab once daily 16. Crestor 20 mg Oral tab 1 tab once daily 17. Prevacid 30 mg Oral cpDR 1 cap once daily - PMHx: anorexia; Constipation, Chronic; Diabetes - NIDDM: controlled; difficulty swallowing; GERD; Hypercholesterolemia; mental retardation; Seizure Disorder; - PSHx: peg tube placement; - Social history: Smoking status: Patient states was never smoker of tobacco. No barriers to communication noted, Speaks appropriately for age. - Family history: Not pertinent. - : The pt / caregiver states he / she is not on anticoagulants. Home medication list is obtained from the facility AUG. - Exposure Risk Screening:: None identified. Vital Signs: 01/28 14:31 BP 134 / 78 LA Supine (auto/reg); Pulse 64; Resp 18; Temp 97.8; Pulse Ox 95% on R/A; jrd Weight 65.77 kg / 145 lbs (R); Height 5 ft. 1 in. (154.94 cm) (R); 17:35 BP 158 / 90; Pulse 75; Resp 18; Temp 97.6(TE); Pulse Ox 96% ; nb2 18:40 BP 113 / 56; Pulse 60; Resp 18; Temp 97.3(TE); Pulse Ox 98% on R/A; kc3 14:31 Body Mass Index 27.40 (65.77 kg, 154.94 cm) jrd 14:31 Patient is unable to give pain scale rating jrd MDM: 14:47 Accucheck ordered. fg 14:47 IV Saline Lock ordered. fg 14:47 Oxygen at 4L/Min NC or Home dosage ordered. fg 14:48 CBC with Diff Ordered. EDMS 14:48 MED Profile Ordered. EDMS 14:48 Urinalysis Ordered. EDMS 14:48 Keppra (short red top tube) Ordered. EDMS 14:48 CT Head Without Contrast Ordered. EDMS 14:49 Chest, 1 View Ordered. EDMS 15:20 Fingerstick Blood Sugar Ordered. EDMS 15:25 Straight cath ordered. kc3 16:27 Financial registration complete. zo 16:52 [facility] Payment Agreement was scanned into [employer] and attached to record. zo Point of Care Testing: Blood Glucose: 16:26 Blood Glucose: 88 mg/dL; kc3 Ranges: Signatures: Dispatcher [employer] EDMS Shaw Galvin Rosemary, RN RN rs3 Coco Heaton MD MD Bernice Felix RN RN kc3 The chart was reviewed and I authenticate all verbal orders and agree with the evaluation and treatment provided.Corrections: (The following items were deleted from the chart) 15:19 14:47 Rhythm Strip to chart ordered. fg kc3 Attachments: 16:52 [facility] [place] Agreement zo MTDD
--- NOTE | 2016-07-29 11:03 | REP ---
CT of the brain without IV contrast: Comparisons of 06/28/2016 and 01/31/2015. Marked dilatation of the lateral ventricles is again noted, asymmetrically involving the occipital horn of the left lateral ventricle, unchanged. The third and fourth ventricles are mildly dilated. This is unchanged. Diffuse cerebral atrophy is again noted, unchanged. There is no hemorrhage, mass effect or midline shift. Chronic bilateral dural calcifications are again noted. Unchanged. Chronic diffuse calvarial thickening is again noted, unchanged. Impression: Extensive chronic changes. No change 2014. No acute intracranial abnormality is identified. Signed by Hardy Mora MD 07/27/2016 04:18 P
--- NOTE | 2016-07-29 11:04 | REP ---
Portable chest, single AP view, the patient supine: Comparison is 07/06/2016. Lung hardy are clear. The prominent interstitial markings that were present on the previous study are no longer present. There is a pigtail catheter superimposed over the upper abdomen, likely a drainage catheter, not present previously. The previous a feeding tube has been removed. Cardiac size is normal for positioning. Impression: No acute cardiopulmonary findings. There is catheter in the upper abdomen. Signed by Hardy Mora MD 07/27/2016 04:27 P
--- NOTE | 2016-07-29 19:42 | EDDOCDS ---
Nurse's Notes [facility] Name: Nuvia Hannah Age: 65 yrs Sex: Female : 1950 Arrival Date: 07/27/2016 Time: 14:20 Bed 17 Private MD: Diagnosis: Tremor, unspecified Presentation: 07/27 14:25 Presenting complaint: EMS states: [facility] staff called EMS for possible stroke. L leg rs3 switching, tongue swtiching. Adult Sepsis Screening: The patient does not have new or worsening altered mentation. Patient's respiratory rate is less than 22. Systolic blood pressure is greater than 100. Patient has a qSOFA score of 0- Negative Sepsis Screen. Suicide/Homicide risk assessment- the patient denies having any suicidal and/or homicidal ideations and does not present with any other emotional, behavioral or mental health complaints. 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 Transition of care: patient was not received from another setting of care. 14:25 Acuity: HARVINDER Level 3 rs3 14:25 Method Of Arrival: Ambulance rs3 Triage Assessment: 14:30 The patient is triaged at the bedside. See Assessment in Nurses Notes section of ED kc3 record. Neurological: Level of Consciousness is awake, Oriented to none pt is non-verbal. Respiratory: Airway is patent Respiratory effort is even, unlabored. Derm: Skin is pink, warm & dry. 15:36 General: Appears in no apparent distress, Behavior is cooperative. Pain: Unable to use kc3 pain scale. Does not appear to understand pain scale. Historical: - Allergies: QUINOLONES; valporic acid; - Home Meds: 1. Calcium + Vitamin D Oral 600 mg twice a day 2. Miralax 17 gram/dose Oral powd once daily 3. multivitamin Oral tab 1 tab daily 4. Levoxyl 100 mcg Oral tab 1 tab once daily 5. Tegretol 300mg Oral nightly 6. Tegretol 200 mg Oral tab 1 tab twice a day 7. baclofen 20 mg Oral tab 1 tab 4 times per day 8. dantrolene 25 mg oral cap 1 cap 3 times per day 9. Keppra 250 mg Oral tab 2 times per day 10. Senna-Gen 8.6 mg oral tab 2 tabs once daily 11. Drisdol 50,000 unit Oral cap every other week 12. Milk of Magnesia 30ml Oral prn as directed 13. Dulcolax (bisacodyl) 10 mg Rectal supp 1 suppository as needed 14. enema as needed 15. Claritin 10 mg Oral tab 1 tab once daily 16. Crestor 20 mg Oral tab 1 tab once daily 17. Prevacid 30 mg Oral cpDR 1 cap once daily - PMHx: anorexia; Constipation, Chronic; Diabetes - NIDDM: controlled; difficulty swallowing; GERD; Hypercholesterolemia; mental retardation; Seizure Disorder; - PSHx: peg tube placement; - Social history: Smoking status: Patient states was never smoker of tobacco. No barriers to communication noted, Speaks appropriately for age. - Family history: Not pertinent. - : The pt / caregiver states he / she is not on anticoagulants. Home medication list is obtained from the facility MAR. - Exposure Risk Screening:: None identified. Screenin:24 Screening information is obtained from the caregiver. Fall risk: At risk due to kc3 apparent cognitive impairment, gait disturbance, immobility, The following interventions are performed due to a positive Fall Risk Screen: Fall Risk is added to Special Handling on the patient Summary Screen. A Fall Risk Bracelet was applied to the patient. Side Rails are placed in the up position. A Call [place] is given with instruction to call for help when getting out of bed. Fall Alert bracelet is placed on the patient. Assistance ADL's: Requires assistance with meal preparation, this assistance is provided by residence staff, bathing, assistance is provided by residence staff, dressing, assistance is provided by residence staff, toileting, assistance is provided by residence staff, ambulation, assistance is provided by residence staff, housework, assistance is provided by residence staff, medication administration, assistance is provided by residence staff. Abuse/DV Screen: The patient / caregiver reports he/she is: not in a situation that causes fear, pain or injury. Nutritional screening: No deficits noted. home support is adequate. 18:38 Advance Directives: Currently, there is no health care proxy. kc3 Assessment: 15:40 General: Appears in no apparent distress, Caregiver at bedside. . Neurological: Level kc3 of Consciousness is awake, Pt is non-verbal. . Respiratory: Respiratory effort is even, unlabored, Respiratory pattern is regular, symmetrical. Derm: Skin is pink, warm & dry. Pt with upper and lower contractures to bilateral extremities. 16:35 General: Appears in no apparent distress, Caregiver at bedside. Updated on plan of kc3 care. Pt is awake and non-verbal. Respiratory effort even and unlabored. Skin is pink warm and dry. No change in pt status. . 17:48 General: Appears in no apparent distress, Caregiver at bedside. Pt is awake. Pt is kc3 non-verbal. Respiratory effort is even and unlabored. Skin is pink, warm and dry. No change in pt status. . 18:38 General: Appears in no apparent distress, Caregiver at bedside. Pt is awake and kc3 non-verbal. Respiratory effort is even and unlabored. Skin is pink, warm and dry. No change in pt status. . Vital Signs: 14:31 BP 134 / 78 LA Supine (auto/reg); Pulse 64; Resp 18; Temp 97.8; Pulse Ox 95% on R/A; jrd Weight 65.77 kg (R); Height 5 ft. 1 in. (154.94 cm) (R); 17:35 BP 158 / 90; Pulse 75; Resp 18; Temp 97.6(TE); Pulse Ox 96% ; nb2 18:40 BP 113 / 56; Pulse 60; Resp 18; Temp 97.3(TE); Pulse Ox 98% on R/A; kc3 14:31 Body Mass Index 27.40 (65.77 kg, 154.94 cm) jrd 14:31 Patient is unable to give pain scale rating jrd Vitals: 16:26 Log In Time N/A - ambulance arrival. kc3 ED Course: 14:21 Patient visited by Emmy Denson, Bible Teacher. deg 14:21 Bernice Felix,LLOYD is Primary Nurse. deg 14:21 Patient moved to Waiting deg 14:21 Patient moved to 17 deg 14:27 Triage Initiated rs3 14:28 Coco Heaton MD is Attending Physician. fg 14:32 Patient visited by Juan Baron PCA. jrd 14:45 Patient visited by Coco Heaton MD. fg 15:10 Inserted saline lock: 20 gauge in right hand and blood collected. The patient tolerated kc3 the procedure well. 15:14 Patient visited by Bernice Felix RN. kc3 15:14 Keppra (short red top tube) Sent. kc3 15:14 CBC with Diff Sent. kc3 15:14 MED Profile Sent. kc3 15:14 Urinalysis Sent. kc3 15:30 Straight cath inserted 16 Fr. Specimen obtained. returned clear yellow urine. Patient kc3 tolerated well. 15:43 Patient visited by Bernice Felix RN. kc3 16:26 The patient / caregiver is instructed regarding the plan of care and ED course. kc3 16:27 Patient visited by Bernice Felix RN. kc3 16:52 [facility] Agreement was scanned into [employer] and attached to record. zo 16:58 Patient name changed from Nuvia\S\\S\Brielle\S\ to Nuvia\S\ \S\Brielle. EDMS 17:12 Patient visited by Bernice Felix RN. kc3 17:35 Patient visited by Keila George. nb2 17:50 Patient visited by Bernice Felix RN. kc3 18:22 Christy Shine is Referral Physician. fg 18:39 Discontinued IV lock intact, bleeding controlled, pressure dressing applied, No kc3 redness/swelling at site. No procedures done that require assistance. 07/28 21:36 T-Sheet-- Draft Copy was scanned into [employer] and attached to record. klr 07/29 11:19 CT Head Without Contrast Returned. EDMS 11:19 Chest, 1 View Returned. EDMS Point of Care Testing: Blood Glucose: 07/27 16:26 Blood Glucose: 88 mg/dL; kc3 Ranges: Order Results: Lab Order: CBC with Diff; SPEC'M 07/27/16 15:10 Test: WHITE BLOOD COUNT; Value: 7.0; Range: 4.0-10.0; Units: K/mm3; Status: F Test: RED BLOOD COUNT; Value: 4.18; Range: 4.00-5.40; Units: M/mm3; Status: F Test: HEMOGLOBIN; Value: 12.8; Range: 12.0-16.0; Units: g/dl; Status: F Test: HEMATOCRIT; Value: 38.7; Range: 36.0-47.0; Units: %; Status: F Test: MEAN CORPUSCULAR VOLUME; Value: 92.7; Range: 80.0-96.0; Units: fl; Status: F Test: MEAN CORPUSCULAR HEMOGLOBIN; Value: 30.7; Range: 27.0-33.0; Units: pg; Status: F Test: MEAN CORPUSCULAR HGB CONC; Value: 33.1; Range: 32.0-36.5; Units: g/dl; Status: F Test: RED CELL DISTRIBUTION WIDTH; Value: 16.0; Range: 11.5-14.5; Abnormal: Above high normal; Units: %; Status: F Test: PLATELET COUNT, AUTOMATED; Value: 170; Range: 150-450; Units: k/mm3; Status: F Test: NEUTROPHILS %; Value: 67.0; Range: 36.0-66.0; Abnormal: Above high normal; Units: %; Status: F Test: LYMPH %; Value: 19.9; Range: 24.0-44.0; Abnormal: Below low normal; Units: %; Status: F Test: MONO %; Value: 5.0; Range: 0.0-5.0; Units: %; Status: F Test: EOS %; Value: 5.6; Range: 0.0-3.0; Abnormal: Above high normal; Units: %; Status: F Test: BASO %; Value: 1.1; Range: 0.0-1.0; Abnormal: Above high normal; Units: %; Status: F Test: LARGE UNSTAINED CELL %; Value: 1.4; Range: 0.0-4.0; Units: %; Status: F Test: NEUTROPHILS #; Value: 4.7; Range: 1.8-7.7; Units: K/mm3; Status: F Test: LYMPH #; Value: 1.5; Range: 1.5-4.5; Units: K/mm3; Status: F Test: MONO #; Value: 0.4; Range: 0.0-0.8; Units: K/mm3; Status: F Test: EOS #; Value: 0.4; Range: 0.0-0.50; Units: K/mm3; Status: F Test: BASO #; Value: 0.1; Range: 0.0-0.2; Units: K/mm3; Status: F Test: LARGE UNSTAINED CELL #; Value: 0.1; Range: 0.0-0.4; Units: K/mm3; Status: F Lab Order: MED Profile; SPEC'M 07/27/16 15:10 Test: GLUCOSE, FASTING; Value: 87; Range: 80-110; Units: MG/DL; Status: F Test: BLOOD UREA NITROGEN; Value: 17; Range: 7-18; Units: MG/DL; Status: F Test: CREATININE FOR GFR; Value: 0.46; Range: 0.55-1.02; Abnormal: Below low normal; Units: MG/DL; Status: F Test: GLOMERULAR FILTRATION RATE; Value: > 60.0; Range: >45; Status: F Test: SODIUM LEVEL; Value: 141; Range: 136-145; Units: MEQ/L; Status: F Test: POTASSIUM SERUM; Value: 4.0; Range: 3.5-5.1; Units: MEQ/L; Status: F Test: CHLORIDE LEVEL; Value: 102; Range: 98-107; Units: MEQ/L; Status: F Test: CARBON DIOXIDE LEVEL; Value: 33; Range: 21-32; Abnormal: Above high normal; Units: MEQ/L; Status: F Test: ANION GAP; Value: 6; Range: 8-16; Abnormal: Below low normal; Units: MEQ/L; Status: F Test: CALCIUM LEVEL; Value: 8.7; Range: 8.8-10.2; Abnormal: Below low normal; Units: MG/DL; Status: F Test Note: ; Units are mL/min/1.73 m2 Chronic Kidney Disease Staging per NKF: Stage I & II GFR >=60 Normal to Mildly Decreased Stage III GFR 30-59 Moderately Decreased Stage IV GFR 15-29 Severely Decreased Stage V GFR <15 Very Little GFR Left ESRD GFR <15 on SLAB INSTALLER Lab Order: Urinalysis; SPEC'M 07/27/16 15:10 Test: APPEARANCE, URINE; Value: TURBID; Range: CLEAR; Abnormal: Above high normal; Status: F Test: COLOR, URINE; Value: YELLOW; Range: YELLOW; Status: F Test: PH,URINE; Value: 8.0; Range: 5.0-9.0; Units: UNITS; Status: F Test: SPECIFIC GRAVITY URINE AUTO; Value: 1.013; Range: 1.002-1.035; Status: F Test: PROTEIN, URINE AUTO; Value: NEGATIVE; Range: NEGATIVE; Units: mg/dL; Status: F Test: GLUCOSE, URINE (UA) AUTO; Value: NEGATIVE; Range: NEGATIVE; Units: mg/dL; Status: F Test: KETONE, URINE AUTO; Value: NEGATIVE; Range: NEGATIVE; Units: mg/dL; Status: F Test: UROBILINOGEN, URINE AUTO; Value: 0.2; Range: 0.0-2.0; Units: mg/dL; Status: F Test: BILIRUBIN, URINE AUTO; Value: NEGATIVE; Range: NEGATIVE; Status: F Test: NITRITE, URINE AUTO; Value: NEGATIVE; Range: NEGATIVE; Status: F Test: LEUKOCYTE ESTERASE, URINE AUTO; Value: NEGATIVE; Range: NEGATIVE; Status: F Test: BLOOD, URINE BLOOD; Value: NEGATIVE; Range: NEGATIVE; Status: F Test: WBC, URINE AUTO; Value: 1; Range: 0-3; Units: /HPF; Status: F Test: RBC, URINE AUTO; Value: 0; Range: 0-3; Units: /HPF; Status: F Test: BACTERIA, URINE AUTO; Value: 1+; Range: NEGATIVE; Abnormal: Above high normal; Status: F Test: SQUAMOUS EPITHELIAL CELL UR AU; Value: 0; Range: 0-6; Units: /HPF; Status: F Test: MUCUS, URINE; Value: SMALL; Range: NEGATIVE; Status: F Test: HYALINE CAST, URINE AUTO; Value: 0; Range: 0-1; Units: /LPF; Status: F Test: AMORPHOUS SEDIMENT; Value: MODERATE; Range: NEGATIVE; Abnormal: Above high normal; Status: F Lab Order: Fingerstick Blood Sugar; SPEC'M 07/27/16 15:07 Test: BEDSIDE GLUCOSE; Value: 88; Range: 80-115; Units: MG/DL; Status: F Radiology Order: CT Head Without Contrast Test: CT Head Without Contrast REASON FOR EXAMINATION: ams vs seizure; CT of the brain without IV contrast:; ; Comparisons of 06/28/2016 and 01/31/2015.; ; Marked dilatation of the lateral ventricles is again noted, asymmetrically; involving the occipital horn of the left lateral ventricle, unchanged. The third; and fourth ventricles are mildly dilated. This is unchanged. Diffuse cerebral; atrophy is again noted, unchanged.; ; There is no hemorrhage, mass effect or midline shift.; ; Chronic bilateral dural calcifications are again noted. Unchanged.; ; Chronic diffuse calvarial thickening is again noted, unchanged.; ; Impression:; ; Extensive chronic changes. No change 2014. No acute intracranial; abnormality is identified.; ; ; Signed by; Hardy Mora MD 07/27/2016 04:18 P; Radiology Order: Chest, 1 View Test: Chest, 1 View REASON FOR EXAMINATION: Cough; Portable chest, single AP view, the patient supine:; ; Comparison is 07/06/2016.; ; Lung hardy are clear. The prominent interstitial markings that were present on; the previous study are no longer present.; ; There is a pigtail catheter superimposed over the upper abdomen, likely a; drainage catheter, not present previously.; ; The previous a feeding tube has been removed.; ; Cardiac size is normal for positioning.; ; Impression:; ; No acute cardiopulmonary findings.; ; There is catheter in the upper abdomen.; ; ; Signed by; Hardy Mora MD 07/27/2016 04:27 P; Outcome: 16:26 CT Study completed. kc3 18:23 Discharge ordered by Provider. fg 18:39 Discharge Assessment: Patient awake, alert and oriented x 3. No cognitive and/or kc3 functional deficits noted. Patient verbalized understanding of disposition instructions. patient administered narcotics - no. The following High Risk Discharge criteria are identified: None. Discharged to home via wheelchair, with caregiver. Condition: stable. Discharge instructions given to patient, Instructed on discharge instructions, follow up and referral plans. Demonstrated understanding of instructions, Pt was receptive of discharge instructions/ teaching. Property :Personal belongings accompany Pt. 18:41 Patient left the ED. kc3 Signatures: Dispatcher [employer] EDEmmy Lieberman, Bible Teacher Unit deg Shaw Galvin Rosemary,RN RN rs3 Juan Baron, GIOVANNA TAX ATTORNEY Coco Chaudhry MD MD fg Crane, Kelsi, RN RN kc3 Mojgan Leo Nicole nb2 Chart Complete MTDD
--- NOTE | 2016-07-29 19:42 | EDDOCDS ---
Physician Documentation [facility] Name: Nuvia Hannah Age: 65 yrs Sex: Female : 1950 Arrival Date: 07/27/2016 Time: 14:20 Bed 17 Private MD: Disposition: 07/27/16 18:23 Discharged to Home/Self Care. Impression: Tremor, unspecified. - Condition is Stable. - Discharge Instructions: Tremor. - Medication Reconciliation, Local Pharmacy Hours form. - Follow up: Christy Shine; When: Call to arrange an appointment; Reason: Continuance of care. - Problem is chronic. - Symptoms are unchanged. Historical: - Allergies: QUINOLONES; valporic acid; - Home Meds: 1. Calcium + Vitamin D Oral 600 mg twice a day 2. Miralax 17 gram/dose Oral powd once daily 3. multivitamin Oral tab 1 tab daily 4. Levoxyl 100 mcg Oral tab 1 tab once daily 5. Tegretol 300mg Oral nightly 6. Tegretol 200 mg Oral tab 1 tab twice a day 7. baclofen 20 mg Oral tab 1 tab 4 times per day 8. dantrolene 25 mg oral cap 1 cap 3 times per day 9. Keppra 250 mg Oral tab 2 times per day 10. Senna-Gen 8.6 mg oral tab 2 tabs once daily 11. Drisdol 50,000 unit Oral cap every other week 12. Milk of Magnesia 30ml Oral prn as directed 13. Dulcolax (bisacodyl) 10 mg Rectal supp 1 suppository as needed 14. enema as needed 15. Claritin 10 mg Oral tab 1 tab once daily 16. Crestor 20 mg Oral tab 1 tab once daily 17. Prevacid 30 mg Oral cpDR 1 cap once daily - PMHx: anorexia; Constipation, Chronic; Diabetes - NIDDM: controlled; difficulty swallowing; GERD; Hypercholesterolemia; mental retardation; Seizure Disorder; - PSHx: peg tube placement; - Social history: Smoking status: Patient states was never smoker of tobacco. No barriers to communication noted, Speaks appropriately for age. - Family history: Not pertinent. - : The pt / caregiver states he / she is not on anticoagulants. Home medication list is obtained from the facility AUG. - Exposure Risk Screening:: None identified. Vital Signs: 07/27 14:31 BP 134 / 78 LA Supine (auto/reg); Pulse 64; Resp 18; Temp 97.8; Pulse Ox 95% on R/A; jrd Weight 65.77 kg / 145 lbs (R); Height 5 ft. 1 in. (154.94 cm) (R); 17:35 BP 158 / 90; Pulse 75; Resp 18; Temp 97.6(TE); Pulse Ox 96% ; nb2 18:40 BP 113 / 56; Pulse 60; Resp 18; Temp 97.3(TE); Pulse Ox 98% on R/A; kc3 14:31 Body Mass Index 27.40 (65.77 kg, 154.94 cm) jrd 14:31 Patient is unable to give pain scale rating jrd MDM: 14:47 Accucheck ordered. fg 14:47 IV Saline Lock ordered. fg 14:47 Oxygen at 4L/Min NC or Home dosage ordered. fg 14:48 CBC with Diff Ordered. EDMS 14:48 MED Profile Ordered. EDMS 14:48 Urinalysis Ordered. EDMS 14:48 Keppra (short red top tube) Ordered. EDMS 14:48 CT Head Without Contrast Ordered. EDMS 14:49 Chest, 1 View Ordered. EDMS 15:20 Fingerstick Blood Sugar Ordered. EDMS 15:25 Straight cath ordered. kc3 16:27 Financial registration complete. zo 16:52 [facility] Payment Agreement was scanned into [email or web address] and attached to record. zo 07/28 21:36 T-Sheet-- Draft Copy was scanned into [email or web address] and attached to record. klr Point of Care Testing: Blood Glucose: 07/27 16:26 Blood Glucose: 88 mg/dL; kc3 Ranges: Signatures: Dispatcher [employer] EDMS Shaw Galvin RosemaryRN RN rs3 oCco Heaton MD MD fg Crane, Kelsi, RN RN kc3 Mojgan Leo The chart was reviewed and I authenticate all verbal orders and agree with the evaluation and treatment provided.Corrections: (The following items were deleted from the chart) 15:19 14:47 Rhythm Strip to chart ordered. fg kc3 Attachments: 16:52 [facility] [place] Payment Agreement zo 07/28 21:36 T-Sheet-- Draft Copy klr Chart Complete MTDD
--- NOTE | 2016-07-29 19:42 | EDDOCDS ---
Physician Documentation [facility] Name: Nuvia Hannah Age: 65 yrs Sex: Female : 1950 Arrival Date: 07/27/2016 Time: 14:20 Bed 17 Private MD: Disposition: 07/27/16 18:23 Discharged to Home/Self Care. Impression: Tremor, unspecified. - Condition is Stable. - Discharge Instructions: Tremor. - Medication Reconciliation, Local Pharmacy Hours form. - Follow up: Christy Shine; When: Call to arrange an appointment; Reason: Continuance of care. - Problem is chronic. - Symptoms are unchanged. Historical: - Allergies: QUINOLONES; valporic acid; - Home Meds: 1. Calcium + Vitamin D Oral 600 mg twice a day 2. Miralax 17 gram/dose Oral powd once daily 3. multivitamin Oral tab 1 tab daily 4. Levoxyl 100 mcg Oral tab 1 tab once daily 5. Tegretol 300mg Oral nightly 6. Tegretol 200 mg Oral tab 1 tab twice a day 7. baclofen 20 mg Oral tab 1 tab 4 times per day 8. dantrolene 25 mg oral cap 1 cap 3 times per day 9. Keppra 250 mg Oral tab 2 times per day 10. Senna-Gen 8.6 mg oral tab 2 tabs once daily 11. Drisdol 50,000 unit Oral cap every other week 12. Milk of Magnesia 30ml Oral prn as directed 13. Dulcolax (bisacodyl) 10 mg Rectal supp 1 suppository as needed 14. enema as needed 15. Claritin 10 mg Oral tab 1 tab once daily 16. Crestor 20 mg Oral tab 1 tab once daily 17. Prevacid 30 mg Oral cpDR 1 cap once daily - PMHx: anorexia; Constipation, Chronic; Diabetes - NIDDM: controlled; difficulty swallowing; GERD; Hypercholesterolemia; mental retardation; Seizure Disorder; - PSHx: peg tube placement; - Social history: Smoking status: Patient states was never smoker of tobacco. No barriers to communication noted, Speaks appropriately for age. - Family history: Not pertinent. - : The pt / caregiver states he / she is not on anticoagulants. Home medication list is obtained from the facility AUG. - Exposure Risk Screening:: None identified. Vital Signs: 07/27 14:31 BP 134 / 78 LA Supine (auto/reg); Pulse 64; Resp 18; Temp 97.8; Pulse Ox 95% on R/A; jrd Weight 65.77 kg / 145 lbs (R); Height 5 ft. 1 in. (154.94 cm) (R); 17:35 BP 158 / 90; Pulse 75; Resp 18; Temp 97.6(TE); Pulse Ox 96% ; nb2 18:40 BP 113 / 56; Pulse 60; Resp 18; Temp 97.3(TE); Pulse Ox 98% on R/A; kc3 14:31 Body Mass Index 27.40 (65.77 kg, 154.94 cm) jrd 14:31 Patient is unable to give pain scale rating jrd MDM: 14:47 Accucheck ordered. fg 14:47 IV Saline Lock ordered. fg 14:47 Oxygen at 4L/Min NC or Home dosage ordered. fg 14:48 CBC with Diff Ordered. EDMS 14:48 MED Profile Ordered. EDMS 14:48 Urinalysis Ordered. EDMS 14:48 Keppra (short red top tube) Ordered. EDMS 14:48 CT Head Without Contrast Ordered. EDMS 14:49 Chest, 1 View Ordered. EDMS 15:20 Fingerstick Blood Sugar Ordered. EDMS 15:25 Straight cath ordered. kc3 16:27 Financial registration complete. zo 16:52 [facility] Payment Agreement was scanned into [employer] and attached to record. zo 07/28 21:36 T-Sheet-- Draft Copy was scanned into [employer] and attached to record. klr Point of Care Testing: Blood Glucose: 07/27 16:26 Blood Glucose: 88 mg/dL; kc3 Ranges: Signatures: Dispatcher [employer] EDMS Shaw Galvin RosemaryRN RN rs3 Coco Heaton MD MD fg Crane, Kelsi, RN RN kc3 Mojgan Leo The chart was reviewed and I authenticate all verbal orders and agree with the evaluation and treatment provided.Corrections: (The following items were deleted from the chart) 15:19 14:47 Rhythm Strip to chart ordered. fg kc3 Attachments: 16:52 [facility] [place] Agreement zo 07/28 21:36 T-Sheet-- Draft Copy klr Chart Complete MTDD
== END 2016-07-27 18:41 | disposition home or self-care (01) ==
LOC: M ED 14:20
DX: R41.82 Altered mental status, unspecified (principal); R25.1 Tremor, unspecified; G40.909 Epilepsy, unspecified, not intractable, without status epilepticus; K59.00 Constipation, unspecified; E11.9 Type 2 diabetes mellitus without complications; K21.9 Gastro-esophageal reflux disease without esophagitis; E78.00 Pure hypercholesterolemia, unspecified; F79 Unspecified intellectual disabilities; R63.0 Anorexia; Z79.899 Other long term (current) drug therapy; Z88.8 Allergy status to other drugs, medicaments and biological substances

== ENCOUNTER → 2016-07-31 | Outpatient (CLI) | payer MEDICARE, MEDICAID ==
[~2016-07-31] MED LIST changes: +ISOVUE-300 61% 50ML VIAL (Q9967) As Ordered ONE; +LIDOCAINE 2% MDV 20 ML VIAL As Ordered ONE; +SODIUM BICARBONATE 8.4% INJ 50MEQ 50 ML VIAL As Ordered ONE
--- NOTE | 2016-07-31 17:41 | REPKIM ---
CLINICAL HISTORY: Patient with macroglossia and dysphagia has a 12F [place] Amanda gastrostomy tube because of inability to tolerate oral intake needing enteral support. The patient presents because of severe hiatal hernia/ aspiration precautions needing conversion of the percutaneous gastrostomy tube to a gastrojejunostomy tube. PROCEDURE PERFORMED: Conversion of Gastrostomy Tube to Gastrojejunostomy Tube INTERVENTIONALIST: Edmund Mccullough MD CONSENT: The risks, benefits and alternatives to the procedure were discussed with Mr. Luis Hannah who is the legal guardian, informed phone consent was obtained and witnessed. MEDICATIONS: Local Lidocaine 2% CONTRAST: 87 mL Isovue 300 EBL: 5 mL FLUORO TIME: 19.8 minutes DEVICE USED: 16.5F CAC Gastrojejunostomy Tube PROCEDURE/FINDINGS: The patient was brought to the interventional radiology suite where a timeout procedure was performed. The patient was placed in the supine position with head of bed elevated. The abdomen and indwelling catheter prepped and draped in a sterile fashion. Contrast was injected into the existing 12-Swiss gastrostomy tube showing its tip to be in the stomach. This also showed severe hiatal hernia. A guidewire was coaxially advanced through the tube and coiled within the stomach. The existing tube was removed and an 8-Swiss sheath was introduced over the guidewire. A Kumpe catheter was then coaxially advanced into the stomach. Then using a hydrophilic guidewire, the catheter-guidewire combination was advanced under fluoroscopy through the pyloric canal, duodenal sweep and into the proximal jejunum. Wire exchange was performed and a stiff guidewire was introduced. Over the guidewire, a 16.5-Swiss CAC gastrojejunostomy feeding tube was introduced and advanced after serial dilation of its tract. The Friction-Lock malecot was formed in the gastric lumen. The feeding tube butterfly wing was then secured to the abdominal wall using 0 silk suture. Contrast was injected into both the gastric and jejunal ports to confirm satisfactory course and position. Post procedure radiograph shows the tip of the feeding tube in the proximal jejunum. The patient tolerated the procedure well with no immediate complications. This procedure was performed using fluoroscopy. Dr. Mccullough was present. IMPRESSION: Successful conversion of 12-F gastrostomy tube to 16.5-Swiss CAC gastrojejunostomy feeding tube as discussed above. The gastrojejunostomy feeding tube tip is in the proximal jejunum. Plan: The feeding tube is ready for use. Flush the jejunal (red) port with 30 mL water every 6 hours during continuous feeding, before and after every intermittent or bolus feeding, or at least every 8 hours if the tube is not being used. When flushing a tube, use water and a 30cc catheter tip syringe. Please give medications via the gastric (white) port. The gastric port should also be flushed with 30mL water before and after administration of medications. The tube should be changed by Interventional Radiology in 6 months as part of preventive maintenance. cc: Xavier Coker MD [facility]
== END | disposition home or self-care (01) ==
LOC: M IRPRO 09:44
DX: R63.0 Anorexia (principal); E86.0 Dehydration; K44.9 Diaphragmatic hernia without obstruction or gangrene
CPT/HCPCS: 49446; C1729; C1769; C1887; C1894; Q9967

== ENCOUNTER 2016-08-05 11:58 | Emergency (ER) | payer MEDICARE, MEDICAID ==
[~2016-08-05 11:58] MED LIST changes: -ISOVUE-300 61% 50ML VIAL (Q9967) As Ordered ONE; -LIDOCAINE 2% MDV 20 ML VIAL As Ordered ONE; -SODIUM BICARBONATE 8.4% INJ 50MEQ 50 ML VIAL As Ordered ONE
--- NOTE | 2016-08-05 13:21 | EDDOCDS ---
Nurse's Notes 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 Presents with ead request for medical treatment stating "j-part is clogged, g-tue is flushing, have tried repositioning.". Adult Sepsis Screening: The patient does not have new or worsening altered mentation. Patient's respiratory rate is less than 22. Systolic blood pressure is greater than 100. Patient has a qSOFA score of 0- Negative Sepsis Screen. Suicide/Homicide risk assessment- Unable to assess, due to patient's chronic mental disability. Status: Patient is not a food service order clerk or dependent. Transition of care: patient was received from [facility]. 12:04 Acuity: HARVINDER Level 3 ead 12:04 Method Of Arrival: Wheelchair ead Triage Assessment: 12:10 General: Appears in no apparent distress, comfortable. Pain: Unable to use pain scale. ead Does not appear to understand pain scale. GI: Parent/caregiver reports the patient having [facility] staff report clogged tube feeding. Derm: Skin is pink, warm & dry. Historical: - Allergies: valporic acid; QUINOLONES; - Home Meds: 1. Calcium + Vitamin D 600/400 Oral 600 mg twice a day 2. Miralax 17 gram/dose Oral powd once daily 3. multivitamin Oral tab 1 tab daily 4. Levoxyl 100 mcg Oral tab 1 tab once daily 5. Tegretol 300 mg Oral tab 1 tab HS 6. Tegretol 300mg Oral 2 tablets crushed po in AM and noon 7. baclofen 20 mg Oral tab 1 tab 4 times per day 8. dantrolene 25 mg oral cap 1 cap 3 times per day 9. Keppra 250 mg Oral tab 2 times per day 10. Senna-Gen 8.6 mg oral tab 2 tabs once daily 11. Vitamin D Oral 50,000 unit one capsule every 2 weeks 12. Dulcolax (bisacodyl) 10 mg Rectal supp 1 suppository as needed 13. enema as needed 14. Claritin 10 mg Oral tab 1 tab once daily 15. Crestor 20 mg Oral tab 1 tab once daily 16. Prevacid 30 mg Oral cpDR 1 cap once daily 17. Milk of Magnesia 30ml Oral prn as directed - PMHx: Seizure Disorder; mental retardation; GERD; Diabetes - NIDDM: controlled; Constipation, Chronic; Hypercholesterolemia; difficulty swallowing; anorexia; - PSHx: peg tube placement; - Social history: Smoking status: unknown if patient ever smoked tobacco. Patient is speech impaired. - : The pt / caregiver states he / she is not on anticoagulants. Home medication list is obtained from the facility MAR. - Exposure Risk Screening:: None identified. Screenin:00 Fall Risk. jjr 13:18 Screening information is obtained from residence staff. Fall risk: At risk due to gait jjr disturbance, The following interventions are performed due to a positive Fall Risk Screen: added to special handling. Assistance ADL's: Requires assistance with bathing, assistance is provided by residence staff, dressing, assistance is provided by residence staff, toileting, assistance is provided by residence staff, housework, assistance is provided by residence staff, medication administration, assistance is provided by residence staff. Abuse/DV Screen: The patient / caregiver reports he/she is: pt cannot be assessed for living situation at this time. Nutritional screening: On tube feedings. Advance Directives: Advance directive information does not know if advance directives have been placed in a prior [facility] medical record. home support is adequate. Assessment: 12:57 General: Appears in no apparent distress, well nourished, well groomed, Behavior is jjr inappropriate for age. General: pt presents in wheelchair with employee of day program from [facility]. Neurological: Level of Consciousness is awake, Oriented to none. Respiratory: Airway is patent Respiratory effort is even, unlabored, Respiratory pattern is regular. GI: Abdomen is non- distended PEG tube in place, 2 ports, port labeled for medication administration flushes easily, red port for tube feedings not able to aspirate or flush with tap water. 13:19 General: MLowe RN able to flush port with gingerale and piston syringe. jjr Vital Signs: 12:00 BP 134 / 72; Pulse 62; Resp 18; Temp 98.5(T); Pulse Ox 97% on R/A; Weight 50.8 kg; dem1 Height 5 ft. 2 in. (157.48 cm); 12:00 Body Mass Index 20.48 (50.80 kg, 157.48 cm) dem1 Vitals: 12:00 Log In Time: August 05, 2016 at 11:58. dem1 ED Course: 11:59 Patient visited by Rui Olivas. dem1 11:59 Patient moved to Waiting dem1 12:00 Unknown, Family Dr is Private Physician. dem1 12:03 Patient visited by Rui Olivas. dem1 12:03 Patient moved to Pre RCE dem1 12:05 Triage Initiated ead 12:31 Miranda Pickett, RN is Primary Nurse. ar3 12:31 Patient moved to Triage 1 ar3 12:31 Patient moved to I5 / M5 ar3 12:53 Adam Mccall PA-C is PHCP. cc10 12:53 Elida Jarquin MD is Attending Physician. cc10 12:59 Patient visited by Adam Mccall PA-C. cc10 12:59 Patient visited by Adam Mccall PA-C. cc10 13:00 Patient visited by Miranda Pickett RN. jjr 13:00 The patient / caregiver is instructed regarding the plan of care and ED course. jjr 13:18 No IV's were initiated during this patient's visit. No procedures done that require jjr assistance. Order Results: There are currently no results for this order. Outcome: 13:10 Discharge ordered by Provider. cc10 13:19 Discharge Assessment: patient administered narcotics - no. The following High Risk jjr Discharge criteria are identified: None. Discharged to Extended Care Facility [facility] staff with patient. Condition: stable. Discharge instructions given to automotive accessory installer, Instructed on discharge instructions, follow up and referral plans. Demonstrated understanding of instructions. No special radiology studies were completed. Property sent home with patient. 13:20 Patient left the ED. jjr Signatures: Miranda Pickett, LLOYD RN jjr Mari Andrade, HOLTER TECHNICIAN HOLTER TECHNICIAN ar3 Rui Olivas dem1 Ravinder,Reba,RN RN ead Coniski, Adam, PA-C PA-C cc10 MTDD
--- NOTE | 2016-08-05 13:21 | EDDOCDS ---
Physician Documentation [facility] Name: Nuvia Hannah Age: 65 yrs Sex: Female : 1950 Arrival Date: 08/05/2016 Time: 11:58 Bed I5 / M5 Private MD: Unknown, Family Dr Disposition: 08/05/16 13:10 Discharged to Home/Self Care. 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 - Condition is Stable. - Discharge Instructions: Gastrostomy Tube Home Guide, Adult. - Medication Reconciliation form. - Follow up: Private Physician; When: As needed. - Problem is new. - Symptoms are resolved. Historical: - Allergies: valporic acid; QUINOLONES; - Home Meds: 1. Calcium + Vitamin D 600/400 Oral 600 mg twice a day 2. Miralax 17 gram/dose Oral powd once daily 3. multivitamin Oral tab 1 tab daily 4. Levoxyl 100 mcg Oral tab 1 tab once daily 5. Tegretol 300 mg Oral tab 1 tab HS 6. Tegretol 300mg Oral 2 tablets crushed po in AM and noon 7. baclofen 20 mg Oral tab 1 tab 4 times per day 8. dantrolene 25 mg oral cap 1 cap 3 times per day 9. Keppra 250 mg Oral tab 2 times per day 10. Senna-Gen 8.6 mg oral tab 2 tabs once daily 11. Vitamin D Oral 50,000 unit one capsule every 2 weeks 12. Dulcolax (bisacodyl) 10 mg Rectal supp 1 suppository as needed 13. enema as needed 14. Claritin 10 mg Oral tab 1 tab once daily 15. Crestor 20 mg Oral tab 1 tab once daily 16. Prevacid 30 mg Oral cpDR 1 cap once daily 17. Milk of Magnesia 30ml Oral prn as directed - PMHx: Seizure Disorder; mental retardation; GERD; Diabetes - NIDDM: controlled; Constipation, Chronic; Hypercholesterolemia; difficulty swallowing; anorexia; - PSHx: peg tube placement; - Social history: Smoking status: unknown if patient ever smoked tobacco. Patient is speech impaired. - : The pt / caregiver states he / she is not on anticoagulants. Home medication list is obtained from the facility AUG. - Exposure Risk Screening:: None identified. Vital Signs: 08/05 12:00 BP 134 / 72; Pulse 62; Resp 18; Temp 98.5(T); Pulse Ox 97% on R/A; Weight 50.8 kg / dem1 111.99 lbs; Height 5 ft. 2 in. (157.48 cm); 12:00 Body Mass Index 20.48 (50.80 kg, 157.48 cm) dem1 Signatures: Miranda Pickett RN RN Reba Monique RN RN ead Coniski, Colin, PAJenniC PA-C cc10 MTDD
--- NOTE | 2016-08-07 14:21 | EDDOCDS ---
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 Presents with ead request for medical treatment stating "j-part is clogged, g-tue is flushing, have tried repositioning.". Adult Sepsis Screening: The patient does not have new or worsening altered mentation. Patient's respiratory rate is less than 22. Systolic blood pressure is greater than 100. Patient has a qSOFA score of 0- Negative Sepsis Screen. Suicide/Homicide risk assessment- Unable to assess, due to patient's chronic mental disability. Status: Patient is not a branch service specialist or dependent. Transition of care: patient was received from [facility]. 12:04 Acuity: HARVINDER Level 3 ead 12:04 Method Of Arrival: Wheelchair ead Triage Assessment: 12:10 General: Appears in no apparent distress, comfortable. Pain: Unable to use pain scale. ead Does not appear to understand pain scale. GI: Parent/caregiver reports the patient having [facility] staff report clogged tube feeding. Derm: Skin is pink, warm & dry. Historical: - Allergies: valporic acid; QUINOLONES; - Home Meds: 1. Calcium + Vitamin D 600/400 Oral 600 mg twice a day 2. Miralax 17 gram/dose Oral powd once daily 3. multivitamin Oral tab 1 tab daily 4. Levoxyl 100 mcg Oral tab 1 tab once daily 5. Tegretol 300 mg Oral tab 1 tab HS 6. Tegretol 300mg Oral 2 tablets crushed po in AM and noon 7. baclofen 20 mg Oral tab 1 tab 4 times per day 8. dantrolene 25 mg oral cap 1 cap 3 times per day 9. Keppra 250 mg Oral tab 2 times per day 10. Senna-Gen 8.6 mg oral tab 2 tabs once daily 11. Vitamin D Oral 50,000 unit one capsule every 2 weeks 12. Dulcolax (bisacodyl) 10 mg Rectal supp 1 suppository as needed 13. enema as needed 14. Claritin 10 mg Oral tab 1 tab once daily 15. Crestor 20 mg Oral tab 1 tab once daily 16. Prevacid 30 mg Oral cpDR 1 cap once daily 17. Milk of Magnesia 30ml Oral prn as directed - PMHx: Seizure Disorder; mental retardation; GERD; Diabetes - NIDDM: controlled; Constipation, Chronic; Hypercholesterolemia; difficulty swallowing; anorexia; - PSHx: peg tube placement; - Social history: Smoking status: unknown if patient ever smoked tobacco. Patient is speech impaired. - : The pt / caregiver states he / she is not on anticoagulants. Home medication list is obtained from the facility MAR. - Exposure Risk Screening:: None identified. Screenin:00 Fall Risk. jjr 13:18 Screening information is obtained from residence staff. Fall risk: At risk due to gait jjr disturbance, The following interventions are performed due to a positive Fall Risk Screen: added to special handling. Assistance ADL's: Requires assistance with bathing, assistance is provided by residence staff, dressing, assistance is provided by residence staff, toileting, assistance is provided by residence staff, housework, assistance is provided by residence staff, medication administration, assistance is provided by residence staff. Abuse/DV Screen: The patient / caregiver reports he/she is: pt cannot be assessed for living situation at this time. Nutritional screening: On tube feedings. Advance Directives: Advance directive information does not know if advance directives have been placed in a prior [facility] medical record. home support is adequate. Assessment: 12:57 General: Appears in no apparent distress, well nourished, well groomed, Behavior is jjr inappropriate for age. General: pt presents in wheelchair with employee of day program from [facility]. Neurological: Level of Consciousness is awake, Oriented to none. Respiratory: Airway is patent Respiratory effort is even, unlabored, Respiratory pattern is regular. GI: Abdomen is non- distended PEG tube in place, 2 ports, port labeled for medication administration flushes easily, red port for tube feedings not able to aspirate or flush with tap water. 13:19 General: MLowe RN able to flush port with gingerale and piston syringe. jjr Vital Signs: 12:00 BP 134 / 72; Pulse 62; Resp 18; Temp 98.5(T); Pulse Ox 97% on R/A; Weight 50.8 kg; dem1 Height 5 ft. 2 in. (157.48 cm); 12:00 Body Mass Index 20.48 (50.80 kg, 157.48 cm) [facility] Vitals: 12:00 Log In Time: August 05, 2016 at 11:58. dem1 ED Course: 11:59 Patient visited by Rui Olivas. dem1 11:59 Patient moved to Waiting dem1 12:00 Unknown, Family is Private Physician. dem1 12:03 Patient visited by Rui Olivas. dem1 12:03 Patient moved to Pre RCE dem1 12:05 Triage Initiated ead 12:31 Miranda Pickett, RN is Primary Nurse. ar3 12:31 Patient moved to Triage 1 ar3 12:31 Patient moved to I5 / M5 ar3 12:53 Adam Mccall PA-C is PHCP. cc10 12:53 Elida Jarquin MD is Attending Physician. cc10 12:59 Patient visited by Adam Mccall PA-C. cc10 12:59 Patient visited by Adam Mccall PA-C. cc10 13:00 Patient visited by Miranda Pickett, LLOYD. jjr 13:00 The patient / caregiver is instructed regarding the plan of care and ED course. jjr 13:18 No IV's were initiated during this patient's visit. No procedures done that require jjr assistance. 13:29 [facility] Payment Agreement was scanned into [employer] and attached to record. jp5 15:38 Patient name changed from Nuvia\\S\\\\S\\Brielle\\S\\ to Nuvia\\S\\ \\S\\Mobile. EDMS 15:58 T-Sheet-- Draft Copy was scanned into [employer] and attached to record. klr Order Results: There are currently no results for this order. Outcome: 13:10 Discharge ordered by Provider. cc10 13:19 Discharge Assessment: patient administered narcotics - no. The following High Risk jjr Discharge criteria are identified: None. Discharged to Extended Care Facility [facility] staff with patient. Condition: stable. Discharge instructions given to fly worker, Instructed on discharge instructions, follow up and referral plans. Demonstrated understanding of instructions. No special radiology studies were completed. Property sent home with patient. 13:20 Patient left the ED. scarjr Signatures: Dispatcher [employer] Miranda Matt, RN RN Mari James, METEOROLOGIST LIAISON METEOROLOGIST LIAISON ar3 Rui Olivas1 Reba Castellon,RN RN Adam Levine PA-C PA-C cc10 Aileen Abernathy jp5 Mojgan Leo Chart Complete [facility]
--- NOTE | 2016-08-07 14:21 | EDDOCDS ---
Physician Documentation [facility] Name: Nuvia Hannah Age: 65 yrs Sex: Female : 1950 Arrival Date: 08/05/2016 Time: 11:58 Bed I5 / M5 Private MD: Unknown, Family Dr Disposition: 08/05/16 13:10 Discharged to Home/Self Care. 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 - Condition is Stable. - Discharge Instructions: Gastrostomy Tube Home Guide, Adult. - Medication Reconciliation form. - Follow up: Private Physician; When: As needed. - Problem is new. - Symptoms are resolved. Historical: - Allergies: valporic acid; QUINOLONES; - Home Meds: 1. Calcium + Vitamin D 600/400 Oral 600 mg twice a day 2. Miralax 17 gram/dose Oral powd once daily 3. multivitamin Oral tab 1 tab daily 4. Levoxyl 100 mcg Oral tab 1 tab once daily 5. Tegretol 300 mg Oral tab 1 tab HS 6. Tegretol 300mg Oral 2 tablets crushed po in AM and noon 7. baclofen 20 mg Oral tab 1 tab 4 times per day 8. dantrolene 25 mg oral cap 1 cap 3 times per day 9. Keppra 250 mg Oral tab 2 times per day 10. Senna-Gen 8.6 mg oral tab 2 tabs once daily 11. Vitamin D Oral 50,000 unit one capsule every 2 weeks 12. Dulcolax (bisacodyl) 10 mg Rectal supp 1 suppository as needed 13. enema as needed 14. Claritin 10 mg Oral tab 1 tab once daily 15. Crestor 20 mg Oral tab 1 tab once daily 16. Prevacid 30 mg Oral cpDR 1 cap once daily 17. Milk of Magnesia 30ml Oral prn as directed - PMHx: Seizure Disorder; mental retardation; GERD; Diabetes - NIDDM: controlled; Constipation, Chronic; Hypercholesterolemia; difficulty swallowing; anorexia; - PSHx: peg tube placement; - Social history: Smoking status: unknown if patient ever smoked tobacco. Patient is speech impaired. - : The pt / caregiver states he / she is not on anticoagulants. Home medication list is obtained from the facility AUG. - Exposure Risk Screening:: None identified. Vital Signs: 08/05 12:00 BP 134 / 72; Pulse 62; Resp 18; Temp 98.5(T); Pulse Ox 97% on R/A; Weight 50.8 kg / dem1 111.99 lbs; Height 5 ft. 2 in. (157.48 cm); 12:00 Body Mass Index 20.48 (50.80 kg, 157.48 cm) dem1 MDM: 13:29 [facility] Payment Agreement was scanned into [employer] and attached to record. 5 13:29 Financial registration complete. jp5 15:58 T-Sheet-- Draft Copy was scanned into [employer] and attached to record. klr Signatures: Miranda Pickett, RN RN Reba MoniqueRN RN Adam Levine, PAJenniC PA-C cc10 Aileen Abernathy Kathie klr The chart was reviewed and I authenticate all verbal orders and agree with the evaluation and treatment provided.Attachments: 13:29 [facility] Payment Agreement 5 :58 T-Sheet-- Draft Copy klr Chart Complete MTDD
--- NOTE | 2016-08-07 14:21 | EDDOCDS ---
Physician Documentation [facility] Name: Nuvia Hannah Age: 65 yrs Sex: Female : 1950 Arrival Date: 08/05/2016 Time: 11:58 Bed I5 / M5 Private MD: Unknown, Family Dr Disposition: 08/05/16 13:10 Discharged to Home/Self Care. 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 - Condition is Stable. - Discharge Instructions: Gastrostomy Tube Home Guide, Adult. - Medication Reconciliation form. - Follow up: Private Physician; When: As needed. - Problem is new. - Symptoms are resolved. Historical: - Allergies: valporic acid; QUINOLONES; - Home Meds: 1. Calcium + Vitamin D 600/400 Oral 600 mg twice a day 2. Miralax 17 gram/dose Oral powd once daily 3. multivitamin Oral tab 1 tab daily 4. Levoxyl 100 mcg Oral tab 1 tab once daily 5. Tegretol 300 mg Oral tab 1 tab HS 6. Tegretol 300mg Oral 2 tablets crushed po in AM and noon 7. baclofen 20 mg Oral tab 1 tab 4 times per day 8. dantrolene 25 mg oral cap 1 cap 3 times per day 9. Keppra 250 mg Oral tab 2 times per day 10. Senna-Gen 8.6 mg oral tab 2 tabs once daily 11. Vitamin D Oral 50,000 unit one capsule every 2 weeks 12. Dulcolax (bisacodyl) 10 mg Rectal supp 1 suppository as needed 13. enema as needed 14. Claritin 10 mg Oral tab 1 tab once daily 15. Crestor 20 mg Oral tab 1 tab once daily 16. Prevacid 30 mg Oral cpDR 1 cap once daily 17. Milk of Magnesia 30ml Oral prn as directed - PMHx: Seizure Disorder; mental retardation; GERD; Diabetes - NIDDM: controlled; Constipation, Chronic; Hypercholesterolemia; difficulty swallowing; anorexia; - PSHx: peg tube placement; - Social history: Smoking status: unknown if patient ever smoked tobacco. Patient is speech impaired. - : The pt / caregiver states he / she is not on anticoagulants. Home medication list is obtained from the facility AUG. - Exposure Risk Screening:: None identified. Vital Signs: 08/05 12:00 BP 134 / 72; Pulse 62; Resp 18; Temp 98.5(T); Pulse Ox 97% on R/A; Weight 50.8 kg / dem1 111.99 lbs; Height 5 ft. 2 in. (157.48 cm); 12:00 Body Mass Index 20.48 (50.80 kg, 157.48 cm) dem1 MDM: 13:29 [facility] Payment Agreement was scanned into [employer] and attached to record. 5 13:29 Financial registration complete. jp5 15:58 T-Sheet-- Draft Copy was scanned into [employer] and attached to record. klr Signatures: Miranda Pickett, RN RN Reba MoniqueRN RN dAam Levine, PAJenniC PA-C cc10 Aileen Abernathy Kathie klr The chart was reviewed and I authenticate all verbal orders and agree with the evaluation and treatment provided.Attachments: 13:29 [facility] Payment Agreement 5 :58 T-Sheet-- Draft Copy klr Chart Complete MTDD
== END 2016-08-05 13:20 | disposition home or self-care (01) ==
LOC: M ED 11:58
DX: K94.29 Other complications of gastrostomy (principal); F79 Unspecified intellectual disabilities; G40.909 Epilepsy, unspecified, not intractable, without status epilepticus; K21.9 Gastro-esophageal reflux disease without esophagitis; E11.9 Type 2 diabetes mellitus without complications; K59.09 Other constipation; E78.00 Pure hypercholesterolemia, unspecified; R13.10 Dysphagia, unspecified; R63.0 Anorexia; Z79.899 Other long term (current) drug therapy; Z88.8 Allergy status to other drugs, medicaments and biological substances; Z88.1 Allergy status to other antibiotic agents

== ENCOUNTER 2016-08-20 13:29 | Outpatient (CLI) | payer MEDICARE, MEDICAID ==
[~2016-08-20] VITALS: Ht 152.4 cm; Wt 52.3 kg
[~2016-08-20 13:29] MED LIST changes: +ZOLEDRONIC ACID 5 MG in APPROPRIATE DILUENT 1 EA IV ONE
== END 2016-08-20 14:45 | disposition home or self-care (01) ==
LOC: M INFU 13:29
PROVIDERS: ATTEND Physician Assistant Medical
DX: M81.0 Age-related osteoporosis without current pathological fracture (principal); Z79.899 Other long term (current) drug therapy; Z88.8 Allergy status to other drugs, medicaments and biological substances
CPT/HCPCS: 96365; J3489

== ENCOUNTER 2016-09-14 08:15 | Emergency (ER) | payer MEDICARE, MEDICAID ==
[~2016-09-14] VITALS: Ht 154.9 cm; Wt 58.1 kg
[~2016-09-14 08:15] MED LIST changes: -ZOLEDRONIC ACID 5 MG in APPROPRIATE DILUENT 1 EA IV ONE
== END 2016-09-14 09:31 | disposition home or self-care (01) ==
LOC: M ED 09:17
DX: K94.23 Gastrostomy malfunction (principal)

== ENCOUNTER 2016-10-08 08:09 | Emergency (ER) | payer MEDICARE, MEDICAID ==
[~2016-10-08] VITALS: Ht 160 cm; Wt 54.4 kg
[~2016-10-08 08:09] MED LIST changes: +NORC1TAB4 PO; -NORC5TAB PO
[2016-10-08 08:10] VITALS: BP 184/92
== END 2016-10-08 09:38 | disposition home or self-care (01) ==
LOC: M ED 09:33
DX: K94.23 Gastrostomy malfunction (principal)

== ENCOUNTER 2016-10-15 18:38 | Emergency (ER) | payer MEDICARE, MEDICAID ==
[2016-10-15 21:09] VITALS: BP 164/88
== END 2016-10-15 21:55 | disposition home or self-care (01) ==
LOC: M ED 20:06
DX: K94.23 Gastrostomy malfunction (principal); G80.9 Cerebral palsy, unspecified; G40.909 Epilepsy, unspecified, not intractable, without status epilepticus; Z79.899 Other long term (current) drug therapy; Z88.8 Allergy status to other drugs, medicaments and biological substances; Z88.1 Allergy status to other antibiotic agents

== ENCOUNTER → 2016-10-21 | Outpatient (CLI) | payer MEDICARE, MEDICAID ==
[~2016-10-21] MED LIST changes: +ISOVUE-300 61% 50ML VIAL (Q9967) As Ordered ONE; +LIDOCAINE 2% MDV 20 ML VIAL As Ordered ONE; +SODIUM BICARBONATE 8.4% INJ 50MEQ 50 ML VIAL As Ordered ONE
--- NOTE | 2016-10-21 15:55 | REPKIM ---
CLINICAL HISTORY: Patient with macroglossia, dysphagia, severe hiatal hernia, GERD and history of aspiration pneumonia has a gastrojejunostomy feeding tube. The jejunal port is clogged. PROCEDURE PERFORMED: Gastrojejunostomy Feeding Tube Change/Upsize INTERVENTIONALIST: Edmund Mccullough MD CONSENT: The risks, benefits and alternatives to the procedure were discussed with Mr. Luis Hannah who is the legal guardian, informed phone consent was obtained and witnessed. MEDICATIONS: Local Lidocaine CONTRAST: 40 mL Isovue 300 EBL: less than 10 mL DEVICE USED: 22F JEMIMA Gastrojejunostomy Tube Lot#[id number] FLUORO TIME: 3.4 minutes PROCEDURE/FINDINGS: The patient was brought to the interventional radiology suite where a timeout procedure was performed. Contrast injection showed the feeding tube is patent in a satisfactory course and position. A guidewire was advanced through the existing 16.5F CAC jejunal port into the small bowel. The jejunal port of the CAC tube was confirmed to be completely clogged. A new 22-Tajik [JEMIMA] gastrojejunostomy feeding tube was then advanced over the guidewire after serial dilation of its tract. The retention balloon was inflated in the gastric lumen with approximately 9 mL dilute contrast/saline and retention disc was snugly secured to the abdominal wall using 2-0 sutures. Contrast was injected into both the gastric and jejunal ports to confirm satisfactory course and position. Post procedure radiograph shows the tip of the feeding tube in the proximal jejunum. The patient tolerated the procedure well with no immediate complications. This procedure was performed using fluoroscopy. Dr. Mccullough was present. IMPRESSION: Successful 22F JEMIMA gastrojejunostomy feeding tube replacement as discussed above. Plan: The new GJ feeding tube is ready for use. Flush the jejunal feeding port with 50mL water every 6 hours during continuous feeding, before and after every intermittent or bolus feeding, or at least every 8 hours if the tube is not being used. When flushing a tube, use water and a 30cc-60cc plunger syringe. Please give medications via the gastric port. The gastric port should also be flushed with 30-40mL water before and after administration of medications and after checking for stomach residuals. cc: Xavier Coker MD [facility]
== END | disposition home or self-care (01) ==
LOC: M IRPRO 07:29
DX: K94.29 Other complications of gastrostomy (principal)
CPT/HCPCS: 49452; C1729; C1769; C1887; C1894; Q9967

== ENCOUNTER 2017-01-03 15:36 | Emergency (ER) | payer MEDICARE, MEDICAID ==
[~2017-01-03] VITALS: Ht 157.5 cm; Wt 64.0 kg
[~2017-01-03 15:36] MED LIST changes: -BACL-67 PO; +BACL1TAB9; +BACL1TAB9 GT; -CALCTAB43 PO; +CALCTAB74 GT; +CARB10TACH; +CARB10TACH GT; -CARB10TACH PO; +CRES20TA GT; -CRES20TA PO; +DANT25CA2; +DANT25CA2 GT; -DANT25CA2 PO; +DRIS50002 GT; -DRIS50002 PO; +FERR1TAB8 PO; -FERR325T PO; -ISOVUE-300 61% 50ML VIAL (Q9967) As Ordered ONE; +KEPP250T5 GT; -KEPP250T5 PO; +LEVE250T5; +LEVO100T5; +LEVO100T5 GT; -LEVO100T5 PO; -LIDOCAINE 2% MDV 20 ML VIAL As Ordered ONE; +MILKSUS GT; -MILKSUS PO; +MIRA33504 GT; -MIRA33504 PO; +SENN-22; -SENO8.6T2 PO; -SODIUM BICARBONATE 8.4% INJ 50MEQ 50 ML VIAL As Ordered ONE; +VITA1CAP40; +VITMTA GT; -VITMTA PO; -ZETI10TA2 PO; +ZETI10TA30 PO
[2017-01-03 20:39] VITALS: BP 187/87
[2017-01-10] MEDS ORDERED: TYLE325T5 GT ×2 (10:06)
[2017-01-10] MEDS ORDERED: SENN15UDC GT (10:06)
== END 2017-01-03 20:43 | disposition short-term general hospital (02) ==
LOC: EDBD 15:36 → M ED 15:36
DX: T85.518A Breakdown (mechanical) of other gastrointestinal prosthetic devices, implants and grafts, initial encounter (principal); Y92.9 Unspecified place or not applicable; Y93.9 Activity, unspecified; R13.10 Dysphagia, unspecified; Z79.899 Other long term (current) drug therapy; Z88.8 Allergy status to other drugs, medicaments and biological substances

== ENCOUNTER → 2017-01-07 | Outpatient (REF) | payer MEDICARE, MEDICAID ==
[~2017-01-07] MED LIST changes: +CLEO150C PO; +JEVILIQ10 JT; +SENN15UDC GT; +TYLE325T5 GT
[2017-01-07 18:02] LABS: ALBUMIN 3.1 GM/DL (3.2-5.2); ALBUMIN/GLOBULIN RATIO 0.84 (1.00-1.93); ALKALINE PHOSPHATASE 146 U/L (45-117); ALT/SGPT 64 U/L (12-78); ANION GAP 7 MEQ/L (8-16); AST/SGOT 49 U/L (15-37); BILIRUBIN,TOTAL 0.2 MG/DL (0.2-1.0); BLOOD UREA NITROGEN 11 MG/DL (7-18); CALCIUM LEVEL 8.8 MG/DL (8.8-10.2); CARBAMAZEPINE (TEGRETOL) LEVEL 11.4 UG/ML (4.0-10.0); CARBON DIOXIDE LEVEL 28 MEQ/L (21-32); CHLORIDE LEVEL 101 MEQ/L (98-107); CREATININE FOR GFR 0.31 MG/DL (0.55-1.02); FERRITIN 478 NG/ML (8-252); GLOMERULAR FILTRATION RATE > 60.0 (>45); GLUCOSE, FASTING 65 MG/DL (80-110); PERCENT SATURATION 10.9 % (13.2-37.4); POTASSIUM SERUM 4.4 MEQ/L (3.5-5.1); SODIUM LEVEL 136 MEQ/L (136-145); TOTAL IRON BINDING CAPACITY 303 UG/DL (250-450); TOTAL PROTEIN 6.8 GM/DL (6.4-8.2)
[2017-01-07 18:21] LABS: INR 0.92
[2017-01-07 19:54] LABS: VITAMIN B12 LEVEL 802 PG/ML (247-911)
== END ==
LOC: M SFHCPLAZ 16:01
PROVIDERS: ATTEND Family Medicine
DX: G40.909 Epilepsy, unspecified, not intractable, without status epilepticus (principal); K75.9 Inflammatory liver disease, unspecified
CPT/HCPCS: 36415; 80053; 80156; 82607; 82728; 83550; 85610; 85730; G0463

== ENCOUNTER → 2017-01-14 | Outpatient (CLI) | payer MEDICARE, MEDICAID ==
[2017-01-14 20:13] LABS: ADD MANUAL DIFFER YES; MEAN CORPUSCULAR VOLUME 99.9 fl (80.0-96.0); PLATELET COUNT, AUTOMATED 104 k/mm3 (150-450); RED CELL DISTRIBUTION WIDTH 13.7 % (11.5-14.5); WHITE BLOOD COUNT 7.2 K/mm3 (4.0-10.0)
[2017-01-14 20:38] LABS: EOSINOPHILS 5 % (0-5)
== END ==
LOC: M WUC 15:46
PROVIDERS: ATTEND Family Medicine
DX: G40.909 Epilepsy, unspecified, not intractable, without status epilepticus (principal)

== ENCOUNTER → 2017-01-22 | Day surgery (SDC) | payer MEDICARE, MEDICAID ==
[~2017-01-22] VITALS: Ht 154.9 cm; Wt 56.7 kg
[~2017-01-22] MED LIST changes: +GLYCOPYRROLATE INJ 0.2 MG/ML 2 ML VIAL As Ordered ONE; +LIDOCAINE 1% MDV 20ML VIAL SC ONE; +LIDOCAINE 2% W/ EPINEPHRINE 1.7 ML DENTAL INJ As Ordered ONE; +LR 1,000 ML IV ONE; +LR 1,000 ML IV SCH; +METOCLOPRAMIDE INJ 10MG/2ML VIAL (J2765) As Ordered ONE; +MIDAZOLAM INJ 2 MG/2 ML VIAL (J2250) As Ordered ONE; +NEOSTIGMINE 1MG/ML 5 ML SYRINGE (J2710) As Ordered ONE; +ONDANSETRON 4MG/2ML VIAL (J2405) As Ordered ONE; +ONDANSETRON 4MG/2ML VIAL (J2405) IV PRN; +PHENYLephrine HCL 500 MCG/5 ML (100MCG/ML) SYRINGE (J2370) As Ordered ONE; +PROPOFOL 200 MG/20 ML VIAL As Ordered ONE; +ROCURONIUM BROMIDE 50 MG/5 ML VIAL/SYRINGE As Ordered ONE; +ePHEDrine SULFATE 25 MG/5 ML(5MG/ML) SYRINGE As Ordered ONE; +fentaNYL 100 MCG/2 ML INJECTION (J3010) IV PRN; +fentaNYL 250 MCG/5 ML INJECTION (J3010) As Ordered ONE
[2017-01-22 11:45] VITALS: BP 139/60
--- NOTE | 2017-01-23 23:17 | RO ---
DATE OF PROCEDURE: 01/22/2017 PREOPERATIVE DIAGNOSIS: Dental caries. POSTOPERATIVE DIAGNOSIS: Dental caries. PROCEDURE: extractions, fillings SURGEON: Peng Castro DDS [employer] PREPARATION: ANESTHESIA: General DESCRIPTION OF PROCEDURE: The patient, Nuvia Hannah was brought to the operating room and placed onto the operating room table in the supine position. After all monitoring equipment was attached to patient, vital signs were checked and general anesthetic medicaments were delivered via inhalation. Nasal intubation proceeded, and tube extension was secured into position after breathing was monitored. The patient was then prepped and draped for dental surgical procedures. The intraoral cavity was inspected and suctioned free of gross secretions. One large moist throat pack was placed. Mouth prop also placed. Perio charting completed. Full mouth radiographs taken. Comprehensive exam completed. Decay removal followed by composite condensation was completed on the distal occlusal, buccal and lingual surface of tooth #21. Mesial, distal and buccal surface of tooth #29. Distal and occlusal surface of tooth #31. Three carpules of 2% lidocaine with 1:100,000 epinephrine was administered. Extraction of teeth #8, 19 and 20 completed with a straight elevator and #150 and #151 forceps. Surgical extraction of teeth #9, 15 and 18 completed with high speed hand piece, straight elevator and 150 and 151 forceps. Gelfoam and 3.0 chromic gut sutures applied to newly edentulous areas. Hemostasis obtained prior to dismissal. Scaling and root planing of three quadrants completed. Varnish application completed on remaining dentition. Final removal of all gross fluids from both intraoral and extraoral structures. Mouth prop removed. Patient then left by dental team in the care of presiding anesthesiologist. Note, there was continuous removal of all gross fluids throughout the duration of all performed dental procedures. NINFA
== END | disposition home or self-care (01) ==
LOC: M SDC 06:26
PROVIDERS: ATTEND Dentist General Practice
DX: K02.9 Dental caries, unspecified (principal); E03.9 Hypothyroidism, unspecified; E78.5 Hyperlipidemia, unspecified; K44.9 Diaphragmatic hernia without obstruction or gangrene; D53.9 Nutritional anemia, unspecified; F73 Profound intellectual disabilities; G80.9 Cerebral palsy, unspecified; Z79.899 Other long term (current) drug therapy

== ENCOUNTER 2017-01-24 16:09 | Inpatient (IN) | payer MEDICARE, MEDICAID ==
[~2017-01-24 16:09] MED LIST changes: -CLEO150C PO; -GLYCOPYRROLATE INJ 0.2 MG/ML 2 ML VIAL As Ordered ONE; -JEVILIQ10 JT; -LIDOCAINE 1% MDV 20ML VIAL SC ONE; -LIDOCAINE 2% W/ EPINEPHRINE 1.7 ML DENTAL INJ As Ordered ONE; -LR 1,000 ML IV ONE; -LR 1,000 ML IV SCH; -METOCLOPRAMIDE INJ 10MG/2ML VIAL (J2765) As Ordered ONE; -MIDAZOLAM INJ 2 MG/2 ML VIAL (J2250) As Ordered ONE; -NEOSTIGMINE 1MG/ML 5 ML SYRINGE (J2710) As Ordered ONE; -ONDANSETRON 4MG/2ML VIAL (J2405) As Ordered ONE; -ONDANSETRON 4MG/2ML VIAL (J2405) IV PRN; -PHENYLephrine HCL 500 MCG/5 ML (100MCG/ML) SYRINGE (J2370) As Ordered ONE; -PROPOFOL 200 MG/20 ML VIAL As Ordered ONE; -ROCURONIUM BROMIDE 50 MG/5 ML VIAL/SYRINGE As Ordered ONE; -ePHEDrine SULFATE 25 MG/5 ML(5MG/ML) SYRINGE As Ordered ONE; -fentaNYL 100 MCG/2 ML INJECTION (J3010) IV PRN; -fentaNYL 250 MCG/5 ML INJECTION (J3010) As Ordered ONE
[2017-01-24] MEDS ORDERED: CLINDAMYCIN 900 MG in APPROPRIATE DILUENT 1 EA IV ONE (17:00)
[2017-01-24 17:01] LABS: BASO % 0.3 % (0.0-1.0); EOS # 0.2 K/mm3 (0.0-0.50); EOS % 1.8 % (0.0-3.0); LARGE UNSTAINED CELL # 0.2 K/mm3 (0.0-0.4); LARGE UNSTAINED CELL % 1.3 % (0.0-4.0); LYMPH # 0.9 K/mm3 (1.5-4.5); LYMPH % 7.9 % (24.0-44.0); MEAN CORPUSCULAR HEMOGLOBIN 33.2 pg (27.0-33.0); MEAN CORPUSCULAR HGB CONC 34.4 g/dl (32.0-36.5); MEAN CORPUSCULAR VOLUME 96.6 fl (80.0-96.0); MONO # 0.6 K/mm3 (0.0-0.8); MONO % 4.7 % (0.0-5.0); NEUTROPHILS # 10.1 K/mm3 (1.8-7.7); RED CELL DISTRIBUTION WIDTH 13.7 % (11.5-14.5)
[2017-01-24 17:02] LABS: PLATELET COUNT, AUTOMATED 75 k/mm3 (150-450)
[2017-01-24 18:05] LABS: ALBUMIN 2.6 GM/DL (3.2-5.2); ALBUMIN/GLOBULIN RATIO 0.76 (1.00-1.93); ALKALINE PHOSPHATASE 124 U/L (45-117); ALT/SGPT 62 U/L (12-78); ANION GAP 10 MEQ/L (8-16); AST/SGOT 58 U/L (15-37); BILIRUBIN,DIRECT 0.2 MG/DL (0.0-0.2); BILIRUBIN,TOTAL 0.4 MG/DL (0.2-1.0); BLOOD UREA NITROGEN 7 MG/DL (7-18); CALCIUM LEVEL 8.3 MG/DL (8.8-10.2); CARBAMAZEPINE (TEGRETOL) LEVEL 11.1 UG/ML (4.0-10.0); CARBON DIOXIDE LEVEL 26 MEQ/L (21-32); CHLORIDE LEVEL 97 MEQ/L (98-107); CREATININE FOR GFR 0.32 MG/DL (0.55-1.02); GLOMERULAR FILTRATION RATE > 60.0 (>45); GLUCOSE, FASTING 86 MG/DL (80-110); POTASSIUM SERUM 4.3 MEQ/L (3.5-5.1); SODIUM LEVEL 133 MEQ/L (136-145)
[2017-01-24] MEDS ORDERED: JEVILIQ10 JT (18:27)
[2017-01-24] MEDS ORDERED: NS 1,000 ML IV SCH (18:57)
[2017-01-24] MEDS ORDERED: ONDANSETRON 4MG/2ML VIAL (J2405) IV PRN (19:00)
[2017-01-24] MEDS ORDERED: MOM 30ML SUSPENSION UDC GT PRN (19:15)
[2017-01-24] MEDS ORDERED: FLEET ENEMA PR PRN (19:15)
[2017-01-24] MEDS ORDERED: BISACODYL 10 MG SUPP PR PRN (19:15)
[2017-01-24] MEDS ORDERED: ISOVUE-370 76% 100ML VIAL (Q9967) As Ordered ONE (19:23)
[2017-01-24 19:38] LABS: INR 0.94
--- NOTE | 2017-01-24 20:02 | HPEPDOC ---
Medical History and Physical Date of Admission Jan 24, 2017 at 18:57 History and Physical PRIMARY CARE PROVIDER: Dr. Xavier Coker ATTENDING: Emily Hopper MD CHIEF COMPLAINT: Left facial swelling HISTORY OF PRESENT ILLNESS: This is a 66-year-old female past history of cerebral palsy, severe mental retardation, seizure disorder, functional quadriplegia, malnutrition who presents with left facial swelling. Patient's recently had 3 dental extractions in the left lower by Dr. Castro 2 days ago. Member of the [facility] at bedside notes that the patient had bleeding from the site on Friday, with increased soreness and left sided swelling that progressed throughout the day today. No fevers or chills were noted. The patient is not fed by mouth and has a GJ tube at baseline. The patient is nonverbal at baseline. The staff at [facility] he had apparently called Dr. Castro who advised them to send the patient to the ER for antibiotics. I have been attempting to contact Dr. Castro, however have not been successful. PAST MEDICAL HISTORY: As per HPI PAST SURGICAL HISTORY: Unknown SOCIAL HISTORY: No tobacco, alcohol, illicit drug use. Severe mental retardation , and lives at [facility] FAMILY HISTORY: Noncontributory ALLERGIES: Please see below. REVIEW OF SYSTEMS: HEENT: Denies sore throat/headache CARDIOVASCULAR: Denies chest pain/palpitations RESPIRATORY: Denies shortness of breath/cough GASTROINTESTINAL: denies nausea/vomiting GENITOURINARY: Denies dysuria/urinary urgency. MUSCULOSKELETAL: Denies myalgias/arthralgias NEUROLOGICAL: Denies any focal weakness HOME MEDICATIONS: Please see below. PHYSICAL EXAMINATION: Vitals: (see below) General: No acute distress, laying comfortably in bed. Non verbal. HEENT: Moist mucous membranes. Neck: No JVD. Swelling and induration of the left submandibular region. Mild tenderness. Airway patent. Cardiac: RRR, No murmurs Pulm: Clear to auscultation b/l. No wheezing, rhonchi Abd: NT/ND + BS. G-J tube. Ext: No edema or cyanosis LABORATORY DATA: See below. IMAGING: CT Neck pending. MICROBIOLOGY: Please see below. ASSESSMENT/PLAN: 1. Left facial swelling likely secondary to underlying dental infection with a possible abscess. Patient is afebrile however has a leukocytosis as well as a CRP of 13.7. Airway is patent, and the patient is able to manage her secretions. She is getting a CT of the neck at this points to determine if abscess formation was noted. I have attempted to contact Dr. Castro multiple times and have been unsuccessful. If an abscess is noted on CAT scan, the patient will need oral surgery consultation. In the meantime, we'll continue clindamycin and monitor for response to treatment. 2. History of seizure disorder- continue home meds 3. History of cervical palsy with quadriplegia 4. History of malnutrition- with GJ tube. On Jevity. 5. Hypothyroidism - on Synthroid 6. Thrombocytopenia - no acute bleeding at this time. Cont to monitor. ? related to underlying infection. DVT prophylaxis - SCDs Patient has been signed out to Dr. Collins will be following the patient. Vital Signs Vital Signs Date Time Temp Pulse Resp B/P (MAP) Pulse Ox O2 Delivery O2 Flow Rate FiO2 01/24/17 16:15 124/73 (90) 01/24/17 16:10 96.0 63 18 94 Room Air Laboratory Data Labs 24H Laboratory Tests 2 01/24/17 16:50: White Blood Count 12.0H, Red Blood Count 3.63L, Hemoglobin 12.1, Hematocrit 35.1L, Mean Corpuscular Volume 96.6H, Mean Corpuscular Hemoglobin 33.2H, Mean Corpuscular Hemoglobin Concent 34.4, Red Cell Distribution Width 13.7, Platelet Count 75L, Neutrophils (%) (Auto) 84.0H, Lymphocytes (%) (Auto) 7.9L, Monocytes (%) (Auto) 4.7, Eosinophils (%) (Auto) 1.8, Basophils (%) (Auto) 0.3, Neutrophils # (Auto) 10.1H, Lymphocytes # (Auto) 0.9L, Monocytes # (Auto) 0.6, Eosinophils # (Auto) 0.2, Basophils # (Auto) 0.0, Large Unclassified Cells % 1.3 , Large Unclassified Cells # 0.2 01/24/17 16:57: Anion Gap 10, Glomerular Filtration Rate > 60.0, Calcium Level 8.3L, Aspartate Amino Transf (AST/SGOT) 58H, Alanine Aminotransferase (ALT/SGPT) 62, Alkaline Phosphatase 124H, Total Bilirubin 0.4, Direct Bilirubin 0.2, C-Reactive Protein , Quantitative 13.70H, Total Protein 6.0L, Albumin 2.6L, Albumin/Globulin Ratio 0.76L, Carbamazepine (Tegretol) Level 11.1H 01/24/17 19:22: Prothrombin Time 12.7, Prothromb Time International Ratio 0.94 CBC/BMP Laboratory Tests 01/24/17 16:50 Red Blood Count 3.63 L, Mean Corpuscular Volume 96.6 H, Mean Corpuscular Hemoglobin 33.2 H, Mean Corpuscular Hemoglobin Concent 34.4, Red Cell Distribution Width 13.7, Neutrophils (%) (Auto) 84.0 H, Lymphocytes (%) (Auto) 7.9 L, Monocytes (%) (Auto) 4.7, Eosinophils (%) (Auto) 1.8, Basophils (%) (Auto ) 0.3, Neutrophils # (Auto) 10.1 H, Lymphocytes # (Auto) 0.9 L, Monocytes # ( Auto) 0.6, Eosinophils # (Auto) 0.2, Basophils # (Auto) 0.0 01/24/17 16:57 Microbiology Microbiology 01/24/17 Blood Culture, Received Pending 01/24/17 Blood Culture, Received Pending Home Medications Scheduled (Aquaphor) 1 Oin Oin, 1 OIN TOP BID APPLY TO FACE AFTER CLEANSING (Jevity 1.5 Garth) 1 Liq Liq, 4 LIQ JT QHS 80CC PER HOUR FOR 12 HOURS (1800 - 0600). FLUSH WITH WATER EVERY 4 HOURS. Baclofen (Baclofen) 20 Mg Tab, 20 MG GT QID CRUSHED Calcium/Vitamin D (Calcium 600+D 600-400 mg-Unit) 1 Tab Tab, 1 TAB GT BID CRUSHED Carbamazepine (Carbamazepine) 100 Mg Chew, 200 MG GT BID CRUSHED: AM AND NOON Carbamazepine (Carbamazepine) 100 Mg Chew, 300 MG GT QHS CRUSHED Dantrolene Sodium (Dantrolene Sodium) 25 Mg Cap, 25 MG GT TID OPEN CAPSULE AND DISSOLVE IN 30CC OF WATER: AM, 1530, HS Levetiracetam (Keppra) 250 Mg Tab, 250 MG GT BID CRUSHED Levothyroxine Sodium (Synthroid) 100 Mcg Tab, 100 MCG GT DAILY CRUSHED Multivitamins *[facility] STOCKED* (Thera M Plus *[facility] STOCKED*) 1 Tab Tab, 1 TAB GT DAILY CRUSHED Polyethylene Glycol (Miralax) 1 Pow Pow, 17 GM GT DAILY DISSOLVE IN 8OZ OF WATER Rosuvastatin Calcium (Crestor) 20 Mg Tab, 20 MG GT QHS CRUSHED Senna (Senna Syrup) 15 Ml Udc, 10 ML GT BID Vitamin D (Drisdol) 50,000 Unit Cap, 50,000 UNIT GT Q2WK EVERY OTHER LOGAN Scheduled PRN (Enema) 1 Leonila Leonila, 1 LEONILA OK ASDIRECTED PRN for CONSTIPATION ON DAY 5 OF NO BM Acetaminophen (Tylenol) 325 Mg Tab, 650 MG GT Q4H PRN for PAIN Bisacodyl (Dulcolax) 10 Mg Sup, 10 MG OK ASDIRECTED PRN for CONSTIPATION ON DAY 4 OF NO BM Milk Of Magnesia (Milk of Magnesia) 1,200 Mg/15 Ml Whitley, 30 ML GT ASDIRECTED PRN for CONSTIPATION ON DAY 3 OF NO BM: MIX WITH 8OZ WARM PRUNE JUICE Allergies Coded Allergies: Quinolones (Verified Adverse Reaction, Severe, SEIZURES, 01/10/17) Valproic Acid (Verified Adverse Reaction, Intermediate, THROMBOCYTOPENIA, 01/10/17) EMILY HOPPER MD Jan 24, 2017 20:02
--- NOTE | 2017-01-24 20:10 | REPUSA ---
CT of the soft tissues are that with contrast Clinical history: possible abscess. Technique: Multiple axial CT images were obtained from the base of the skull to the upper thorax afte r ministration of non-ionic intravenous contrast. Coronal and sagittal reconstructions were also obta ined. Findings: There is a small left-sided pleural effusion. Severe intracranial atrophy and chronic calci fications bilaterally are noted . The pterygopalatine fossa, pterygoid plates and pterygoid muscles a re unremarkable. The mucosa of the naso- and oropharynx appears unremarkable. The hypopharynx and lar ynx show no pathology. The visualized osseous structures are intact. Severe multilevel degenerative d isc disease is noted throughout the cervical spine. The airway is patent. No focal mass is appreciate d. There is no evidence of lymphadenopathy. The thyroid gland appears unremarkable. There is subcutan eous emphysema demonstrating the left maxillary region. No focal soft tissue mass or fluid collection is identified . Impression: 1. Subcutaneous emphysema with mild inflammatory stranding in the left maxillary region. This could r epresent cellulitis in the appropriate clinical setting. No evidence of abscess is identified. 2. No other loculated fluid collection or abscess is noted within the soft tissues of the neck. 3. Left maxillary sinusitis. 4. Severe spondylosis of the spine.
[2017-01-24 20:11] VITALS: BP 135/60
[2017-01-24] MEDS: SENNA SYRUP 15 ML UDC GT SCH ×2 (21:00→22:59)
[2017-01-24] MEDS: carBAMazepine 200 MG TAB GT SCH (22:57)
[2017-01-24] MEDS: ROSUVASTATIN 10 MG TAB (CRESTOR) GT SCH (22:58)
[2017-01-24] MEDS: levETIRAcetam 250MG TABLET (KEPPRA) GT SCH (22:58)
[2017-01-24] MEDS: DANTROLENE 25 MG CAP GT SCH (22:58)
[2017-01-24] MEDS: CALCIUM/VITAMIN D 500 MG TAB GT SCH (22:59)
[2017-01-24] MEDS: BACLOFEN 10 MG TAB GT SCH (22:59)
[2017-01-24] MEDS: CLINDAMYCIN 600 MG in APPROPRIATE DILUENT 1 EA IV SCH (22:59)
[2017-01-24] MEDS: AQUAPHOR **100GM** OINT TOP SCH (23:01)
[2017-01-25] VITALS (7 sets, daily range): BP systolic 108–162; BP diastolic 53–70
[2017-01-25 05:27] LABS: BASO % 0.2 % (0.0-1.0); EOS # 0.3 K/mm3 (0.0-0.50); EOS % 2.7 % (0.0-3.0); LARGE UNSTAINED CELL # 0.2 K/mm3 (0.0-0.4); LARGE UNSTAINED CELL % 1.3 % (0.0-4.0); LYMPH # 1.1 K/mm3 (1.5-4.5); LYMPH % 8.3 % (24.0-44.0); MEAN CORPUSCULAR HEMOGLOBIN 33.1 pg (27.0-33.0); MEAN CORPUSCULAR HGB CONC 34.4 g/dl (32.0-36.5); MEAN CORPUSCULAR VOLUME 96.2 fl (80.0-96.0); MONO # 0.6 K/mm3 (0.0-0.8); MONO % 5.5 % (0.0-5.0); NEUTROPHILS # 9.5 K/mm3 (1.8-7.7); RED CELL DISTRIBUTION WIDTH 13.9 % (11.5-14.5); WHITE BLOOD COUNT 11.6 K/mm3 (4.0-10.0)
[2017-01-25 05:31] LABS: PLATELET COUNT, AUTOMATED 82 k/mm3 (150-450)
[2017-01-25 05:35] LABS: ANION GAP 8 MEQ/L (8-16); BLOOD UREA NITROGEN 9 MG/DL (7-18); CALCIUM LEVEL 8.2 MG/DL (8.8-10.2); CARBON DIOXIDE LEVEL 27 MEQ/L (21-32); CHLORIDE LEVEL 100 MEQ/L (98-107); CREATININE FOR GFR 0.34 MG/DL (0.55-1.02); GLOMERULAR FILTRATION RATE > 60.0 (>45); GLUCOSE, FASTING 93 MG/DL (80-110); POTASSIUM SERUM 3.7 MEQ/L (3.5-5.1); SODIUM LEVEL 135 MEQ/L (136-145)
[2017-01-25 05:52] LABS: ERYTHROCYTE SEDIMENTATION RATE 63 mm/hr (0-30)
[2017-01-25] MEDS: LEVOTHYROXINE 100MCG TABLET (0.1MG) GT SCH (06:02)
[2017-01-25] MEDS: CLINDAMYCIN 600 MG in APPROPRIATE DILUENT 1 EA IV SCH ×3 (06:57→23:50)
[2017-01-25] MEDS: SENNA SYRUP 15 ML UDC GT SCH ×2 (09:00→20:40)
[2017-01-25] MEDS: MIRALAX *UNIT DOSE* 17GM PACKET GT SCH (09:00)
[2017-01-25] MEDS: carBAMazepine 200 MG TAB GT SCH ×3 (09:07→20:39)
[2017-01-25] MEDS: DANTROLENE 25 MG CAP GT SCH ×3 (09:07→20:40)
[2017-01-25] MEDS: CALCIUM/VITAMIN D 500 MG TAB GT SCH ×2 (09:07→20:39)
[2017-01-25] MEDS: levETIRAcetam 250MG TABLET (KEPPRA) GT SCH ×2 (09:09→20:39)
[2017-01-25] MEDS: MULTIVITAMINS/MINERALS THERAP 1 TAB GT SCH (09:09)
[2017-01-25] MEDS: BACLOFEN 10 MG TAB GT SCH ×4 (09:09→20:39)
[2017-01-25] MEDS: AQUAPHOR **100GM** OINT TOP SCH ×2 (09:11→20:41)
[2017-01-25] MEDS: ROSUVASTATIN 10 MG TAB (CRESTOR) GT SCH (20:40)
[2017-01-26 02:00] VITALS: BP 132/62
--- NOTE | 2017-01-26 03:17 | IPNPDOC ---
Subjective Date Seen The patient was seen on 01/25/17. Subjective Chief Complaint/HPI The patient is a 66-year-old female admitted with a reason for visit of Dental Infection,Swelling Of Left Side Of Face. Events since last encounter Nursing voices no complaints today, patient has appeared comfortable. General: Reports: ROS Unobtainable Objective Physical Examination General Exam: Positive: Alert, No Acute Distress, Negative: Cooperative Eye Exam: Positive: EOMI, Negative: Sclera icteric ENT Exam: Positive: Atraumatic, Other ENT (L lower jaw with visible external swelling) Chest Exam: Positive: Clear to auscultation, Normal air movement Heart Exam: Positive: Rate Normal Assessment /Plan Problems (1) Dental infection Status: Acute Problem Text: This is the first time I have evaluated this infection, but nursing feels that it is resolving. Continue current antibiotics. (2) Dysphagia Status: Chronic Problem Text: Nursing is confirming how she receives her tube feedings at [facility]. Plan/VTE VTE Prophylaxis Ordered?: Yes VS, I&O, 24H, Fishbone Vital Signs/I&O Vital Signs Date Time Temp Pulse Resp B/P (MAP) Pulse Ox O2 Delivery O2 Flow Rate FiO2 01/26/17 02:00 97.1 67 18 132/62 (85) 95 01/25/17 20:40 Room Air I&O- Last 24 Hours up to 6 AM 01/26/17 06:00 Intake Total 820 ml Output Total 0 ml Balance 820 ml Laboratory Data 24H LABS Laboratory Tests 2 01/25/17 04:59: White Blood Count 11.6H, Red Blood Count 3.43L, Hemoglobin 11.3L, Hematocrit 33.0L, Mean Corpuscular Volume 96.2H, Mean Corpuscular Hemoglobin 33.1H, Mean Corpuscular Hemoglobin Concent 34.4, Red Cell Distribution Width 13.9, Platelet Count 82L, Neutrophils (%) (Auto) 82.0H, Lymphocytes (%) (Auto) 8.3L, Monocytes (%) (Auto) 5.5H, Eosinophils (%) (Auto) 2.7, Basophils (%) (Auto) 0.2, Neutrophils # (Auto) 9.5H, Lymphocytes # (Auto) 1.1L, Monocytes # (Auto) 0.6, Eosinophils # (Auto) 0.3, Basophils # (Auto) 0.0, Large Unclassified Cells % 1.3 , Large Unclassified Cells # 0.2, Erythrocyte Sedimentation Rate 63H, Anion Gap 8, Glomerular Filtration Rate > 60.0, Blood Urea Nitrogen 9, Creatinine 0.34L, Sodium Level 135L, Potassium Level 3.7, Chloride Level 100, Carbon Dioxide Level 27, Calcium Level 8.2L, Magnesium Level 2.0, C-Reactive Protein, Quantitative 16.30H CBC/BMP Laboratory Tests 01/25/17 04:59 Red Blood Count 3.43 L, Mean Corpuscular Volume 96.2 H, Mean Corpuscular Hemoglobin 33.1 H, Mean Corpuscular Hemoglobin Concent 34.4, Red Cell Distribution Width 13.9, Neutrophils (%) (Auto) 82.0 H, Lymphocytes (%) (Auto) 8.3 L, Monocytes (%) (Auto) 5.5 H, Eosinophils (%) (Auto) 2.7, Basophils (%) ( Auto) 0.2, Neutrophils # (Auto) 9.5 H, Lymphocytes # (Auto) 1.1 L, Monocytes # ( Auto) 0.6, Eosinophils # (Auto) 0.3, Basophils # (Auto) 0.0, Calcium Level 8.2 L Microbiology Microbiology 01/24/17 Blood Culture - Preliminary, Resulted 01/24/17 Blood Culture - Preliminary, Resulted ALBANIA ARANA DO Jan 26, 2017 03:17
[2017-01-26] MEDS: LEVOTHYROXINE 100MCG TABLET (0.1MG) GT SCH (05:53)
[2017-01-26 06:00] VITALS: BP 138/65
[2017-01-26 06:11] LABS: BASO % 0.2 % (0.0-1.0); EOS # 0.3 K/mm3 (0.0-0.50); EOS % 3.7 % (0.0-3.0); LARGE UNSTAINED CELL # 0.2 K/mm3 (0.0-0.4); LARGE UNSTAINED CELL % 2.4 % (0.0-4.0); LYMPH # 1.5 K/mm3 (1.5-4.5); LYMPH % 16.7 % (24.0-44.0); MEAN CORPUSCULAR HEMOGLOBIN 32.9 pg (27.0-33.0); MEAN CORPUSCULAR HGB CONC 34.3 g/dl (32.0-36.5); MEAN CORPUSCULAR VOLUME 95.7 fl (80.0-96.0); MONO # 0.7 K/mm3 (0.0-0.8); MONO % 8.7 % (0.0-5.0); NEUTROPHILS # 5.2 K/mm3 (1.8-7.7); NEUTROPHILS % 68.4 % (36.0-66.0); RED CELL DISTRIBUTION WIDTH 13.7 % (11.5-14.5); WHITE BLOOD COUNT 7.6 K/mm3 (4.0-10.0)
[2017-01-26 06:14] LABS: PLATELET COUNT, AUTOMATED 87 k/mm3 (150-450)
[2017-01-26 06:25] LABS: ANION GAP 6 MEQ/L (8-16); BLOOD UREA NITROGEN 10 MG/DL (7-18); CARBON DIOXIDE LEVEL 27 MEQ/L (21-32); CHLORIDE LEVEL 103 MEQ/L (98-107); CREATININE FOR GFR 0.34 MG/DL (0.55-1.02); GLOMERULAR FILTRATION RATE > 60.0 (>45); GLUCOSE, FASTING 90 MG/DL (80-110); POTASSIUM SERUM 4.1 MEQ/L (3.5-5.1); SODIUM LEVEL 136 MEQ/L (136-145)
[2017-01-26 06:36] LABS: ERYTHROCYTE SEDIMENTATION RATE 66 mm/hr (0-30)
[2017-01-26] MEDS: levETIRAcetam 250MG TABLET (KEPPRA) GT SCH ×2 (09:20→21:35)
[2017-01-26] MEDS: DANTROLENE 25 MG CAP GT SCH ×3 (09:20→21:36)
[2017-01-26] MEDS: carBAMazepine 200 MG TAB GT SCH ×3 (09:20→21:36)
[2017-01-26] MEDS: CLINDAMYCIN 600 MG in APPROPRIATE DILUENT 1 EA IV SCH ×3 (09:20→23:34)
[2017-01-26] MEDS: BACLOFEN 10 MG TAB GT SCH ×4 (09:21→21:36)
[2017-01-26] MEDS: CALCIUM/VITAMIN D 500 MG TAB GT SCH ×2 (09:21→21:36)
[2017-01-26] MEDS: MULTIVITAMINS/MINERALS THERAP 1 TAB GT SCH (09:21)
[2017-01-26] MEDS: AQUAPHOR **100GM** OINT TOP SCH ×2 (09:21→21:37)
[2017-01-26] MEDS: MIRALAX *UNIT DOSE* 17GM PACKET GT SCH (09:21)
[2017-01-26] MEDS: SENNA SYRUP 15 ML UDC GT SCH ×2 (09:22→21:00)
[2017-01-26 10:00] VITALS: BP 135/66
[2017-01-26 14:00] VITALS: BP 149/65
[2017-01-26 18:00] VITALS: BP 116/53
--- NOTE | 2017-01-26 20:09 | IPNPDOC ---
Subjective Date Seen The patient was seen on 01/26/17. Subjective Chief Complaint/HPI The patient is a 66-year-old female admitted with a reason for visit of Dental Infection,Swelling Of Left Side Of Face. Events since last encounter Patient resting quietly in bed. Nursing denies any problems or concerns. Patient is nonverbal. General: Reports: ROS Unobtainable Objective Physical Examination General Exam: Positive: Alert, No Acute Distress, Negative: Cooperative Eye Exam: Positive: EOMI, Negative: Sclera icteric ENT Exam: Positive: Atraumatic, Other ENT (visible swelling externally L lower jaw) Chest Exam: Positive: Clear to auscultation, Normal air movement Heart Exam: Positive: Rate Normal Abdomen Exam: Positive: Normal bowel sounds, Soft, Negative: Tenderness Extremity Exam: Negative: Edema Assessment /Plan Problems (1) Dental infection Problem Text: Swelling seems slightly less today. Continue current antibiotics. (2) Functional quadriplegia Status: Chronic Problem Text: Nursing frequently repositions and is padding her extremities with pillows. (3) Profound mental handicap Status: Chronic Problem Text: Nonverbal, receives care through [facility]. (4) Seizure disorder Status: Chronic Problem Text: Continue home antiepileptics. Seizure precautions ordered. (5) Dysphagia Status: Acute Problem Text: NPO, receiving tube feedings, with aspiration precautions. Plan/VTE VTE Prophylaxis Ordered?: Yes VS, I&O, [facility], [facility] Vital Signs/I&O Vital Signs Date Time Temp Pulse Resp B/P (MAP) Pulse Ox O2 Delivery O2 Flow Rate FiO2 01/26/17 18:00 98.1 72 16 116/53 (74) 96 Room Air I&O- Last 24 Hours up to 6 AM 01/26/17 06:00 Intake Total 2230 ml Output Total 0 ml Balance 2230 ml Laboratory Data 24H LABS Laboratory Tests 2 01/26/17 05:53: White Blood Count 7.6, Red Blood Count 3.33L, Hemoglobin 10.9L, Hematocrit 31.8L , Mean Corpuscular Volume 95.7, Mean Corpuscular Hemoglobin 32.9, Mean Corpuscular Hemoglobin Concent 34.3, Red Cell Distribution Width 13.7, Platelet Count 87L, Neutrophils (%) (Auto) 68.4H, Lymphocytes (%) (Auto) 16.7L, Monocytes (%) (Auto) 8.7H, Eosinophils (%) (Auto) 3.7H, Basophils (%) (Auto) 0.2 , Neutrophils # (Auto) 5.2, Lymphocytes # (Auto) 1.5, Monocytes # (Auto) 0.7, Eosinophils # (Auto) 0.3, Basophils # (Auto) 0.0, Large Unclassified Cells % 2.4 , Large Unclassified Cells # 0.2, Erythrocyte Sedimentation Rate 66H, Anion Gap 6L, Glomerular Filtration Rate > 60.0, Blood Urea Nitrogen 10, Creatinine 0.34L , Sodium Level 136, Potassium Level 4.1, Chloride Level 103, Carbon Dioxide Level 27, Calcium Level 8.0L, Magnesium Level 2.0, C-Reactive Protein, Quantitative 14.00H CBC/BMP Laboratory Tests 01/26/17 05:53 Red Blood Count 3.33 L, Mean Corpuscular Volume 95.7, Mean Corpuscular Hemoglobin 32.9, Mean Corpuscular Hemoglobin Concent 34.3, Red Cell Distribution Width 13.7, Neutrophils (%) (Auto) 68.4 H, Lymphocytes (%) (Auto) 16.7 L, Monocytes (%) (Auto) 8.7 H, Eosinophils (%) (Auto) 3.7 H, Basophils (%) (Auto) 0.2, Neutrophils # (Auto) 5.2, Lymphocytes # (Auto) 1.5, Monocytes # ( Auto) 0.7, Eosinophils # (Auto) 0.3, Basophils # (Auto) 0.0, Calcium Level 8.0 L Microbiology Microbiology 01/24/17 Blood Culture - Preliminary, Resulted 01/24/17 Blood Culture - Preliminary, Resulted ALBANIA ARANA DO Jan 26, 2017 20:09
[2017-01-26] MEDS: ROSUVASTATIN 10 MG TAB (CRESTOR) GT SCH (21:37)
[2017-01-26 22:00] VITALS: BP 163/61
[2017-01-27] MEDS: LEVOTHYROXINE 100MCG TABLET (0.1MG) GT SCH (05:36)
[2017-01-27 05:43] LABS: ADD MANUAL DIFFER YES; MEAN CORPUSCULAR HEMOGLOBIN 32.4 pg (27.0-33.0); MEAN CORPUSCULAR HGB CONC 33.6 g/dl (32.0-36.5); MEAN CORPUSCULAR VOLUME 96.4 fl (80.0-96.0); PLATELET COUNT, AUTOMATED 135 k/mm3 (150-450); RED CELL DISTRIBUTION WIDTH 13.4 % (11.5-14.5); WHITE BLOOD COUNT 9.3 K/mm3 (4.0-10.0)
[2017-01-27 06:00] VITALS: BP 151/65
[2017-01-27 06:05] LABS: ANION GAP 10 MEQ/L (8-16); BLOOD UREA NITROGEN 10 MG/DL (7-18); CALCIUM LEVEL 8.1 MG/DL (8.8-10.2); CARBON DIOXIDE LEVEL 24 MEQ/L (21-32); CHLORIDE LEVEL 105 MEQ/L (98-107); CREATININE FOR GFR 0.41 MG/DL (0.55-1.02); GLOMERULAR FILTRATION RATE > 60.0 (>45); GLUCOSE, FASTING 185 MG/DL (80-110); MAGNESIUM LEVEL 2.1 MG/DL (1.8-2.4); POTASSIUM SERUM 4.3 MEQ/L (3.5-5.1); SODIUM LEVEL 139 MEQ/L (136-145)
[2017-01-27 06:18] LABS: EOSINOPHILS 4 % (0-5)
[2017-01-27] MEDS: CLINDAMYCIN 600 MG in APPROPRIATE DILUENT 1 EA IV SCH (06:30)
[2017-01-27 08:45] VITALS: BP 130/68
[2017-01-27] MEDS: MIRALAX *UNIT DOSE* 17GM PACKET GT SCH (09:00)
[2017-01-27] MEDS: SENNA SYRUP 15 ML UDC GT SCH ×2 (09:00→21:24)
[2017-01-27] MEDS: MULTIVITAMINS/MINERALS THERAP 1 TAB GT SCH (09:36)
[2017-01-27] MEDS: CALCIUM/VITAMIN D 500 MG TAB GT SCH ×2 (09:36→21:21)
[2017-01-27] MEDS: DANTROLENE 25 MG CAP GT SCH ×3 (09:36→21:21)
[2017-01-27] MEDS: levETIRAcetam 250MG TABLET (KEPPRA) GT SCH ×2 (09:36→21:20)
[2017-01-27] MEDS: carBAMazepine 200 MG TAB GT SCH ×3 (09:36→21:19)
[2017-01-27] MEDS: BACLOFEN 10 MG TAB GT SCH ×4 (09:37→21:20)
[2017-01-27] MEDS: AQUAPHOR **100GM** OINT TOP SCH ×2 (09:38→21:22)
[2017-01-27 10:30] VITALS: BP 142/72
--- NOTE | 2017-01-27 10:32 | IPNPDOC ---
Subjective Date Seen The patient was seen on 01/27/17. Subjective Chief Complaint/HPI The patient is a 66-year-old female admitted with a reason for visit of Dental Infection,Swelling Of Left Side Of Face. Events since last encounter Pt non verbal. Nursing without new concerns. General: Reports: ROS Unobtainable Objective Physical Examination General Exam: Positive: Alert, No Acute Distress, Negative: Cooperative Eye Exam: Negative: Sclera icteric ENT Exam: Positive: Atraumatic, Other ENT (L lower jaw with mild/mod swelling) Chest Exam: Positive: Clear to auscultation, Normal air movement Heart Exam: Positive: Rate Normal Abdomen Exam: Positive: Normal bowel sounds, Soft, Negative: Tenderness Extremity Exam: Negative: Edema Assessment /Plan Problems (1) Dental infection Status: Acute Problem Text: D4 IV clinda (changed to po) 01/27 Tm 100.9, WBC 9.3 (9.3), ESR 106 (66), CRP 9 (14) On IV Clind, will change to G tube admin today, if she tolerates this, will plan for d/c in AM. 01/24 CT MF: Subcutaneous emphysema with mild inflammatory stranding in the left maxillary region. This could represent cellulitis in the appropriate clinical setting. No evidence of abscess is identified. (2) Dysphagia Status: Chronic Problem Text: Nursing is confirming how she receives her tube feedings at [facility]. Plan/VTE VTE Prophylaxis Ordered?: Yes VS, I&O, 24H, Fishbone Vital Signs/I&O Vital Signs Date Time Temp Pulse Resp B/P (MAP) Pulse Ox O2 Delivery O2 Flow Rate FiO2 01/27/17 06:00 97.8 76 20 151/65 (93) 96 01/27/17 00:57 Room Air I&O- Last 24 Hours up to 6 AM 01/27/17 05:59 Intake Total 1620 ml Balance 1620 ml Laboratory Data 24H LABS Laboratory Tests 2 01/27/17 05:14: Neutrophils 75, Lymphocytes (Manual) 15L, Monocytes (Manual) 6, Eosinophils ( Manual) 4, Platelet Estimate NORMAL, Red Blood Cell Morphology NORMAL, Anion Gap 10, Glomerular Filtration Rate > 60.0, Blood Urea Nitrogen 10, Creatinine 0.41L, Sodium Level 139, Potassium Level 4.3, Chloride Level 105, Carbon Dioxide Level 24, Calcium Level 8.1L, Magnesium Level 2.1, C-Reactive Protein, Quantitative 9.05H 01/27/17 06:14: Erythrocyte Sedimentation Rate 106H CBC/BMP Laboratory Tests 01/27/17 05:14 Red Blood Count 3.21 L, Mean Corpuscular Volume 96.4 H, Mean Corpuscular Hemoglobin 32.4, Mean Corpuscular Hemoglobin Concent 33.6, Red Cell Distribution Width 13.4, Calcium Level 8.1 L Microbiology Microbiology 01/24/17 Blood Culture - Final, Complete Acinetobacter Radioresistens 01/24/17 Blood Culture - Final, Complete Staphylococcus Haemolyticus HENRY SOTOMAYOR PA-C Jan 27, 2017 10:32 Xavier Coker M.D. Jan 27, 2017 15:43
[2017-01-27 13:47] VITALS: BP 132/63
[2017-01-27] MEDS: CLINDAMYCIN 150 MG CAP PO SCH ×2 (14:44→21:19)
[2017-01-27 18:00] VITALS: BP 135/60
[2017-01-27] MEDS: ROSUVASTATIN 10 MG TAB (CRESTOR) GT SCH (21:19)
[2017-01-27 22:00] VITALS: BP 117/58
[2017-01-28] MEDS: LEVOTHYROXINE 100MCG TABLET (0.1MG) GT SCH (05:54)
[2017-01-28] MEDS: CLINDAMYCIN 150 MG CAP PO SCH ×2 (05:54→13:38)
[2017-01-28 06:00] VITALS: BP 156/82
[2017-01-28 06:07] LABS: BASO % 0.4 % (0.0-1.0); EOS # 0.4 K/mm3 (0.0-0.50); EOS % 4.8 % (0.0-3.0); LARGE UNSTAINED CELL # 0.2 K/mm3 (0.0-0.4); LARGE UNSTAINED CELL % 2.1 % (0.0-4.0); LYMPH # 1.8 K/mm3 (1.5-4.5); LYMPH % 22.7 % (24.0-44.0); MEAN CORPUSCULAR HEMOGLOBIN 32.9 pg (27.0-33.0); MEAN CORPUSCULAR HGB CONC 33.9 g/dl (32.0-36.5); MEAN CORPUSCULAR VOLUME 97.1 fl (80.0-96.0); MONO # 0.5 K/mm3 (0.0-0.8); MONO % 6.6 % (0.0-5.0); NEUTROPHILS # 4.7 K/mm3 (1.8-7.7); NEUTROPHILS % 63.5 % (36.0-66.0); PLATELET COUNT, AUTOMATED 162 k/mm3 (150-450); RED CELL DISTRIBUTION WIDTH 13.5 % (11.5-14.5); WHITE BLOOD COUNT 7.4 K/mm3 (4.0-10.0)
[2017-01-28 06:25] LABS: ANION GAP 8 MEQ/L (8-16); BLOOD UREA NITROGEN 10 MG/DL (7-18); CALCIUM LEVEL 8.6 MG/DL (8.8-10.2); CARBON DIOXIDE LEVEL 27 MEQ/L (21-32); CHLORIDE LEVEL 103 MEQ/L (98-107); CREATININE FOR GFR 0.38 MG/DL (0.55-1.02); GLOMERULAR FILTRATION RATE > 60.0 (>45); GLUCOSE, FASTING 157 MG/DL (80-110); POTASSIUM SERUM 4.3 MEQ/L (3.5-5.1); SODIUM LEVEL 138 MEQ/L (136-145)
[2017-01-28 06:44] LABS: ERYTHROCYTE SEDIMENTATION RATE 90 mm/hr (0-30)
[2017-01-28] MEDS: MIRALAX *UNIT DOSE* 17GM PACKET GT SCH (09:00)
[2017-01-28] MEDS: SENNA SYRUP 15 ML UDC GT SCH (09:00)
[2017-01-28 10:00] VITALS: BP 138/63
[2017-01-28] MEDS: BACLOFEN 10 MG TAB GT SCH ×2 (10:03→13:39)
[2017-01-28] MEDS: carBAMazepine 200 MG TAB GT SCH ×2 (10:03→13:38)
[2017-01-28] MEDS: levETIRAcetam 250MG TABLET (KEPPRA) GT SCH (10:03)
[2017-01-28] MEDS: DANTROLENE 25 MG CAP GT SCH (10:03)
[2017-01-28] MEDS: MULTIVITAMINS/MINERALS THERAP 1 TAB GT SCH (10:03)
[2017-01-28] MEDS: AQUAPHOR **100GM** OINT TOP SCH (10:04)
[2017-01-28] MEDS: CALCIUM/VITAMIN D 500 MG TAB GT SCH (10:04)
[2017-01-28] MEDS ORDERED: CLEO150C PO (10:16)
[2017-01-28 14:00] VITALS: BP 143/63
--- NOTE | 2017-01-29 07:33 | DSES ---
DATE OF ADMISSION: 01/24/2017 DATE OF DISCHARGE: 01/28/2017 Primary care physician is Dr. Xavier Coker. Attending today is Dr. Coker. HISTORY: This is a 66-year-old patient who follows with Dr. Coker in the outpatient setting, who has cerebral palsy, severe mental retardation, functional quadriplegia and a seizure disorder, who presents with left facial swelling. She underwent three dental extractions in the left lower jaw with Dr. Castro 2 days prior to her presentation. [facility] staff noted bleeding from the site on Friday, soreness and swelling. She had not had any documented fevers and presented to the emergency room for further management. She was admitted to the hospital on intravenous (IV) clindamycin. During her hospitalization, she has remained medically stable. White blood cell count was 12,000. It has trended down to 7.4 this morning. Her sedimentation rate was 13.7 peaking at 16.3. She is at 8.97 this morning. Blood cultures; one grew out Staphylococcus hemolyticus, the second grew out acinetobacter radioresistens. She does have repeat blood cultures pending. Her discharge diagnoses include: 1. Dental infection. 2. Cerebral palsy. 3. Seizure disorder. 4. Functional quadriplegia. 5. Hypothyroidism. Discharge medications include: - clindamycin 600 mg every 8 hours for an additional 10 days - acetaminophen 650 mg gastrostomy (G) tube four times a day - Aquaphor topically twice daily - baclofen 20 mg four times daily - bisacodyl 10 mg per rectum daily as needed for constipation - calcium with D twice daily - carbamazepine 200 mg G-tube twice daily, 300 mg before bed - dantrolene 25 mg three times daily - Enema daily as needed for constipation - Jevity 1.5 neymar tube feeds - Keppra 250 mg G-tube twice daily - Synthroid 100 mcg daily - Milk of Magnesia 30 mL daily as needed for constipation - multivitamin one tablet daily - MiraLAX daily - Crestor 20 mg G-tube daily - senna 10 mL G-tube twice daily - vitamin D 50,000 units every other week Discharge plan will be to followup with Dr. Coker. Activity should be as tolerated. Diet is via feeding tube with Jevity 1.5 neymar.
== END 2017-01-28 15:10 | disposition home or self-care (01) | DRG 157 ==
LOC: M ED 16:09 → M ED INP 18:57 → M PCU 20:13 → M MSPAV 01-25 17:04
PROVIDERS: ADMIT Internal Medicine; ATTEND Family Medicine
DX: K04.7 Periapical abscess without sinus (principal); R53.2 Functional quadriplegia; F72 Severe intellectual disabilities; E46 Unspecified protein-calorie malnutrition; G80.9 Cerebral palsy, unspecified; E03.9 Hypothyroidism, unspecified; G40.909 Epilepsy, unspecified, not intractable, without status epilepticus; Z79.899 Other long term (current) drug therapy; Z93.1 Gastrostomy status; B95.7 Other staphylococcus as the cause of diseases classified elsewhere

== ENCOUNTER → 2017-01-29 | Outpatient (REF) | payer MEDICARE, MEDICAID ==
[~2017-01-29] MED LIST changes: +CLEO150C PO; +JEVILIQ10 JT
[2017-01-29 13:53] LABS: BASO % 0.3 % (0.0-1.0); EOS # 0.5 K/mm3 (0.0-0.50); EOS % 4.6 % (0.0-3.0); LARGE UNSTAINED CELL # 0.2 K/mm3 (0.0-0.4); LARGE UNSTAINED CELL % 1.6 % (0.0-4.0); LYMPH # 1.8 K/mm3 (1.5-4.5); MEAN CORPUSCULAR HEMOGLOBIN 33.1 pg (27.0-33.0); MEAN CORPUSCULAR HGB CONC 34.8 g/dl (32.0-36.5); MEAN CORPUSCULAR VOLUME 95.2 fl (80.0-96.0); MONO # 0.5 K/mm3 (0.0-0.8); MONO % 4.7 % (0.0-5.0); NEUTROPHILS # 8.3 K/mm3 (1.8-7.7); NEUTROPHILS % 72.8 % (36.0-66.0); PLATELET COUNT, AUTOMATED 193 k/mm3 (150-450); RED CELL DISTRIBUTION WIDTH 13.2 % (11.5-14.5); WHITE BLOOD COUNT 11.4 K/mm3 (4.0-10.0)
[2017-01-29 14:04] LABS: ANION GAP 8 MEQ/L (8-16); BLOOD UREA NITROGEN 10 MG/DL (7-18); CALCIUM LEVEL 8.8 MG/DL (8.8-10.2); CARBON DIOXIDE LEVEL 26 MEQ/L (21-32); CHLORIDE LEVEL 102 MEQ/L (98-107); CREATININE FOR GFR 0.38 MG/DL (0.55-1.02); GLOMERULAR FILTRATION RATE > 60.0 (>45); GLUCOSE, FASTING 77 MG/DL (80-110); POTASSIUM SERUM 4.5 MEQ/L (3.5-5.1); SODIUM LEVEL 136 MEQ/L (136-145)
== END ==
LOC: M SFHCPLAZ 11:33
PROVIDERS: ATTEND Physician Assistant Medical
DX: L02.415 Cutaneous abscess of right lower limb (principal)
CPT/HCPCS: 80048; 85025; G0463

== ENCOUNTER → 2017-03-06 | Outpatient (CLI) | payer MEDICARE, MEDICAID ==
[2017-03-06 13:35] LABS: BASO % 0.6 % (0.0-1.0); EOS # 0.4 K/mm3 (0.0-0.50); EOS % 6.5 % (0.0-3.0); LARGE UNSTAINED CELL # 0.1 K/mm3 (0.0-0.4); LARGE UNSTAINED CELL % 1.5 % (0.0-4.0); LYMPH # 1.5 K/mm3 (1.5-4.5); MEAN CORPUSCULAR HEMOGLOBIN 31.6 pg (27.0-33.0); MEAN CORPUSCULAR HGB CONC 32.5 g/dl (32.0-36.5); MEAN CORPUSCULAR VOLUME 97.3 fl (80.0-96.0); MONO # 0.3 K/mm3 (0.0-0.8); MONO % 4.6 % (0.0-5.0); NEUTROPHILS # 3.8 K/mm3 (1.8-7.7); NEUTROPHILS % 63.7 % (36.0-66.0); PLATELET COUNT, AUTOMATED 118 k/mm3 (150-450); RED CELL DISTRIBUTION WIDTH 13.5 % (11.5-14.5)
[2017-03-06 13:46] LABS: VITAMIN B12 LEVEL 1136 PG/ML (247-911)
[2017-03-07 04:37] LABS: ALBUMIN 3.6 GM/DL (3.2-5.2); ALKALINE PHOSPHATASE 92 U/L (45-117); ALT/SGPT 41 U/L (12-78); ANION GAP 10 MEQ/L (8-16); AST/SGOT 30 U/L (15-37); BILIRUBIN,TOTAL 0.2 MG/DL (0.2-1.0); BLOOD UREA NITROGEN 17 MG/DL (7-18); CALCIUM LEVEL 8.7 MG/DL (8.8-10.2); CARBON DIOXIDE LEVEL 28 MEQ/L (21-32); CHLORIDE LEVEL 102 MEQ/L (98-107); CREATININE FOR GFR 0.37 MG/DL (0.55-1.02); FERRITIN 260 NG/ML (8-252); FREE T4 1.22 NG/DL (0.76-1.46); GLOMERULAR FILTRATION RATE > 60.0 (>45); GLUCOSE, FASTING 84 MG/DL (80-110); POTASSIUM SERUM 4.5 MEQ/L (3.5-5.1); SODIUM LEVEL 140 MEQ/L (136-145); TOTAL IRON BINDING CAPACITY 289 UG/DL (250-450); TOTAL PROTEIN 7.2 GM/DL (6.4-8.2)
[2017-03-07 05:26] LABS: PERCENT SATURATION 20.8 % (13.2-45.0)
[2017-03-07 05:33] LABS: MAGNESIUM LEVEL 2.4 MG/DL (1.8-2.4)
[2017-03-07 11:33] LABS: PRETREATED FOLATE FOR RBCFOL 13.6 NG/ML
== END ==
LOC: M WUC 08:29
PROVIDERS: ATTEND Family Medicine
DX: D50.9 Iron deficiency anemia, unspecified (principal); E03.9 Hypothyroidism, unspecified

== ENCOUNTER → 2017-05-12 | Outpatient (CLI) | payer MEDICARE, MEDICAID ==
[2017-05-12 09:48] LABS: BASO % 0.3 % (0.0-1.0); EOS # 0.6 10^3/uL (0.0-0.50); EOS % 6.4 % (0.0-3.0); IMMATURE GRANULOCYTE % 0.5 % (0-0); LYMPH # 1.6 10^3/uL (1.5-4.5); LYMPH % 17.5 % (24.0-44.0); MEAN CORPUSCULAR HEMOGLOBIN 30.6 pg (27.0-33.0); MEAN CORPUSCULAR HGB CONC 33.2 g/dl (32.0-36.5); MEAN CORPUSCULAR VOLUME 92.3 fl (80.0-96.0); MONO # 0.5 10^3/uL (0.0-0.8); NEUTROPHILS # 6.1 10^3/uL (1.8-7.7); NEUTROPHILS % 69.3 % (36.0-66.0); PLATELET COUNT, AUTOMATED 138 10^3/uL (150-450); WHITE BLOOD COUNT 8.9 10^3/uL (4.0-10.0)
[2017-05-12 10:25] LABS: ALBUMIN 3.5 GM/DL (3.2-5.2); ALBUMIN/GLOBULIN RATIO 0.92 (1.00-1.93); ALKALINE PHOSPHATASE 85 U/L (45-117); ALT/SGPT 44 U/L (12-78); ANION GAP 6 MEQ/L (8-16); AST/SGOT 27 U/L (7-37); BILIRUBIN,TOTAL 0.2 MG/DL (0.2-1.0); BLOOD UREA NITROGEN 16 MG/DL (7-18); CALCIUM LEVEL 8.7 MG/DL (8.8-10.2); CARBAMAZEPINE (TEGRETOL) LEVEL 11.9 UG/ML (4.0-10.0); CARBON DIOXIDE LEVEL 30 MEQ/L (21-32); CHLORIDE LEVEL 97 MEQ/L (98-107); CREATININE FOR GFR 0.33 MG/DL (0.55-1.02); GLOMERULAR FILTRATION RATE > 60.0 (>45); GLUCOSE, FASTING 84 MG/DL (80-110); POTASSIUM SERUM 4.4 MEQ/L (3.5-5.1); SODIUM LEVEL 133 MEQ/L (136-145); TOTAL PROTEIN 7.3 GM/DL (6.4-8.2)
[2017-05-14 14:18] LABS: VITAMIN D 1,25 DIHYDROXY 25.6 pg/mL (19.9-79.3)
== END ==
LOC: M WUC 08:15
PROVIDERS: ATTEND Family Medicine
DX: E55.9 Vitamin D deficiency, unspecified (principal); G40.909 Epilepsy, unspecified, not intractable, without status epilepticus

== ENCOUNTER 2017-07-05 15:51 | Emergency (ER) | payer MEDICARE, MEDICAID ==
[2017-07-05 16:17] LABS: HEMATOCRIT 37.2 % (36.0-47.0); HEMOGLOBIN 12.4 g/dl (12.0-16.0); MEAN CORPUSCULAR HEMOGLOBIN 30.7 pg (27.0-33.0); MEAN CORPUSCULAR HGB CONC 33.3 g/dl (32.0-36.5); MEAN CORPUSCULAR VOLUME 92.1 fl (80.0-96.0); PLATELET COUNT, AUTOMATED 124 10^3/uL (150-450); RED BLOOD COUNT 4.04 10^6/uL (4.00-5.40); RED CELL DISTRIBUTION WIDTH 13.6 % (11.5-14.5); WHITE BLOOD COUNT 8.7 10^3/uL (4.0-10.0)
[2017-07-05 16:38] LABS: ALBUMIN 3.5 GM/DL (3.2-5.2); ALBUMIN/GLOBULIN RATIO 0.81 (1.00-1.93); ALKALINE PHOSPHATASE 119 U/L (45-117); ALT/SGPT 53 U/L (12-78); ANION GAP 6 MEQ/L (8-16); AST/SGOT 33 U/L (7-37); BILIRUBIN,TOTAL 0.3 MG/DL (0.2-1.0); BLOOD UREA NITROGEN 17 MG/DL (7-18); CALCIUM LEVEL 8.7 MG/DL (8.8-10.2); CARBON DIOXIDE LEVEL 31 MEQ/L (21-32); CHLORIDE LEVEL 102 MEQ/L (98-107); CREATININE FOR GFR 0.42 MG/DL (0.55-1.02); GLOMERULAR FILTRATION RATE > 60.0 (>45); GLUCOSE, FASTING 92 MG/DL (80-110); POTASSIUM SERUM 4.1 MEQ/L (3.5-5.1); SODIUM LEVEL 139 MEQ/L (136-145); TOTAL PROTEIN 7.8 GM/DL (6.4-8.2)
[2017-07-05 17:37] LABS: MAGNESIUM LEVEL 2.2 MG/DL (1.8-2.4)
[2017-07-05 17:45] LABS: CPK CREATINE PHOSPHOKINASE 39 U/L (26-192)
[2017-07-05] MEDS: LORazepam 0.5 MG TAB GT (18:29)
[2017-07-10 00:06] LABS: LEVETIRACETAM (KEPPRA) 6.6 ug/mL (10.0-40.0)
== END 2017-07-05 19:02 | disposition home or self-care (01) ==
LOC: M ED 15:51
DX: R25.2 Cramp and spasm (principal); J32.9 Chronic sinusitis, unspecified; E11.9 Type 2 diabetes mellitus without complications; I10 Essential (primary) hypertension; E03.9 Hypothyroidism, unspecified; G40.909 Epilepsy, unspecified, not intractable, without status epilepticus; F73 Profound intellectual disabilities; Z93.1 Gastrostomy status; Z79.899 Other long term (current) drug therapy; Z88.8 Allergy status to other drugs, medicaments and biological substances
CPT/HCPCS: 70450

== ENCOUNTER → 2017-11-21 | Outpatient (CLI) | payer MEDICARE, MEDICAID ==
[2017-11-21 11:51] LABS: BASO % 0.3 % (0.0-1.0); EOS # 0.3 10^3/uL (0.0-0.50); EOS % 3.2 % (0.0-3.0); HEMATOCRIT 39.4 % (36.0-47.0); HEMOGLOBIN 13.1 g/dl (12.0-15.5); IMMATURE GRANULOCYTE % 0.4 % (0-3.0); LYMPH # 1.4 10^3/uL (1.5-4.5); LYMPH % 13.6 % (24.0-44.0); MEAN CORPUSCULAR HEMOGLOBIN 31.2 pg (27.0-33.0); MEAN CORPUSCULAR HGB CONC 33.2 g/dl (32.0-36.5); MEAN CORPUSCULAR VOLUME 93.8 fl (80.0-96.0); MONO # 0.4 10^3/uL (0.0-0.8); MONO % 4.1 % (0.0-5.0); NEUTROPHILS # 7.8 10^3/uL (1.8-7.7); NEUTROPHILS % 78.4 % (36.0-66.0); PLATELET COUNT, AUTOMATED 117 10^3/uL (150-450); RED CELL DISTRIBUTION WIDTH 13.3 % (11.5-14.5); RETIC HEMOGLOBIN EQUIVALENT 36.3 pg (24-36); RETICULOCYTE # 81.9 10^9/L (17-77)
[2017-11-21 12:17] LABS: TOTAL 25(OH) VITAMIN D 54.3 NG/ML (30.0-100.0)
[2017-11-21 12:18] LABS: ALBUMIN 3.7 GM/DL (3.2-5.2); ALKALINE PHOSPHATASE 124 U/L (45-117); ALT/SGPT 52 U/L (12-78); ANION GAP 8 MEQ/L (8-16); AST/SGOT 34 U/L (7-37); BILIRUBIN,TOTAL 0.2 MG/DL (0.2-1.0); BLOOD UREA NITROGEN 14 MG/DL (7-18); CALCIUM LEVEL 8.4 MG/DL (8.8-10.2); CARBAMAZEPINE (TEGRETOL) LEVEL 7.6 UG/ML (4.0-10.0); CARBON DIOXIDE LEVEL 30 MEQ/L (21-32); CHLORIDE LEVEL 100 MEQ/L (98-107); CREATININE FOR GFR 0.42 MG/DL (0.55-1.30); FERRITIN 215 NG/ML (8-252); GLOMERULAR FILTRATION RATE > 60.0 (>45); GLUCOSE, FASTING 90 MG/DL (70-100); POTASSIUM SERUM 4.3 MEQ/L (3.5-5.1); SODIUM LEVEL 138 MEQ/L (136-145); TOTAL PROTEIN 7.4 GM/DL (6.4-8.2)
[2017-11-22 14:10] LABS: INSULIN LEVEL 15.5 uIU/mL (2.6-24.9)
== END ==
LOC: M WUC 08:52
DX: G40.909 Epilepsy, unspecified, not intractable, without status epilepticus (principal); E55.9 Vitamin D deficiency, unspecified; R73.01 Impaired fasting glucose; D50.9 Iron deficiency anemia, unspecified
CPT/HCPCS: 83525

== ENCOUNTER 2017-11-28 09:40 | Outpatient (CLI) | payer MEDICARE, MEDICAID ==
[2017-11-28] MEDS: ZOLEDRONIC ACID 5 MG in APPROPRIATE DILUENT 1 EA IV (10:40)
== END 2017-11-28 11:20 | disposition home or self-care (01) ==
LOC: M INFU 09:40
DX: M81.0 Age-related osteoporosis without current pathological fracture (principal); Z79.899 Other long term (current) drug therapy; Z88.8 Allergy status to other drugs, medicaments and biological substances
CPT/HCPCS: J3489

== ENCOUNTER → 2018-03-05 | Outpatient (REF) | payer MEDICARE, MEDICAID ==
[2018-03-05 16:12] LABS: BASO % 0.5 % (0.0-1.0); EOS # 0.5 10^3/uL (0.0-0.50); EOS % 5.9 % (0.0-3.0); HEMOGLOBIN 13.9 g/dl (12.0-15.5); IMMATURE GRANULOCYTE % 0.7 % (0-3.0); LYMPH # 2.1 10^3/uL (1.5-4.5); LYMPH % 25.7 % (24.0-44.0); MEAN CORPUSCULAR HEMOGLOBIN 31.6 pg (27.0-33.0); MEAN CORPUSCULAR HGB CONC 33.9 g/dl (32.0-36.5); MEAN CORPUSCULAR VOLUME 93.2 fl (80.0-96.0); MONO # 0.4 10^3/uL (0.0-0.8); MONO % 5.3 % (0.0-5.0); NEUTROPHILS % 61.9 % (36.0-66.0); PLATELET COUNT, AUTOMATED 150 10^3/uL (150-450); RED CELL DISTRIBUTION WIDTH 13.8 % (11.5-14.5); WHITE BLOOD COUNT 8.1 10^3/uL (4.0-10.0)
[2018-03-05 16:37] LABS: ALBUMIN/GLOBULIN RATIO 1.05 (1.00-1.93); ALKALINE PHOSPHATASE 86 U/L (45-117); ALT/SGPT 43 U/L (12-78); ANION GAP 12 MEQ/L (8-16); AST/SGOT 22 U/L (7-37); BILIRUBIN,TOTAL 0.3 MG/DL (0.2-1.0); BLOOD UREA NITROGEN 10 MG/DL (7-18); CALCIUM LEVEL 9.1 MG/DL (8.8-10.2); CARBAMAZEPINE (TEGRETOL) LEVEL 11.6 UG/ML (4.0-10.0); CARBON DIOXIDE LEVEL 27 MEQ/L (21-32); CHLORIDE LEVEL 96 MEQ/L (98-107); CREATININE FOR GFR 0.36 MG/DL (0.55-1.30); FREE T4 1.11 NG/DL (0.76-1.46); GLOMERULAR FILTRATION RATE > 60.0 (>45); GLUCOSE, FASTING 76 MG/DL (70-100); POTASSIUM SERUM 3.9 MEQ/L (3.5-5.1); SODIUM LEVEL 135 MEQ/L (136-145); THYROID STIMULATING HORMONE 0.896 uIU/ML (0.358-3.740); TOTAL PROTEIN 7.8 GM/DL (6.4-8.2)
[2018-03-05 16:46] LABS: VITAMIN B12 LEVEL 1053 PG/ML (247-911)
[2018-03-09 10:51] LABS: LEVETIRACETAM (KEPPRA) 9.9 ug/mL (10.0-40.0)
== END ==
LOC: M SFHCPLAZ 13:22
DX: E03.9 Hypothyroidism, unspecified (principal); D69.6 Thrombocytopenia, unspecified; G40.909 Epilepsy, unspecified, not intractable, without status epilepticus; D50.9 Iron deficiency anemia, unspecified
CPT/HCPCS: 84443

== ENCOUNTER → 2018-03-18 | Outpatient (REF) | payer MEDICARE, MEDICAID | LOC: M SFHCPLAZ 11:40 | DX: E03.9 Hypothyroidism, unspecified (principal); D69.6 Thrombocytopenia, unspecified; G40.909 Epilepsy, unspecified, not intractable, without status epilepticus; D50.9 Iron deficiency anemia, unspecified | CPT/HCPCS: 36415 ==

== ENCOUNTER 2018-05-07 05:07 | Emergency (ER) | payer MEDICARE, MEDICAID | END 2018-05-07 05:51 | disposition home or self-care (01) | LOC: M ED 05:07 | DX: Z43.1 Encounter for attention to gastrostomy (principal); G80.9 Cerebral palsy, unspecified; E11.9 Type 2 diabetes mellitus without complications; Z88.8 Allergy status to other drugs, medicaments and biological substances; Z79.899 Other long term (current) drug therapy | CPT/HCPCS: 99283 ==

== ENCOUNTER → 2018-05-07 | Outpatient (CLI) | payer MEDICARE, MEDICAID | LOC: M WHC 13:07 | DX: M81.0 Age-related osteoporosis without current pathological fracture (principal); M85.851 Other specified disorders of bone density and structure, right thigh; M85.852 Other specified disorders of bone density and structure, left thigh | CPT/HCPCS: 77080 ==

== ENCOUNTER → 2018-06-12 | Outpatient (CLI) | payer MEDICARE, MEDICAID ==
[2018-06-12 13:42] LABS: BASO % 0.5 % (0.0-1.0); EOS # 0.3 10^3/uL (0.0-0.50); EOS % 3.6 % (0.0-3.0); HEMATOCRIT 41.4 % (36.0-47.0); HEMOGLOBIN 13.4 g/dl (12.0-15.5); IMMATURE GRANULOCYTE % 0.2 % (0-3.0); LYMPH # 1.9 10^3/uL (1.5-4.5); LYMPH % 22.2 % (24.0-44.0); MEAN CORPUSCULAR HEMOGLOBIN 31.6 pg (27.0-33.0); MEAN CORPUSCULAR HGB CONC 32.4 g/dl (32.0-36.5); MEAN CORPUSCULAR VOLUME 97.6 fl (80.0-96.0); MONO # 0.4 10^3/uL (0.0-0.8); MONO % 4.7 % (0.0-5.0); NEUTROPHILS # 5.9 10^3/uL (1.8-7.7); NEUTROPHILS % 68.8 % (36.0-66.0); PLATELET COUNT, AUTOMATED 113 10^3/uL (150-450); RED BLOOD COUNT 4.24 10^6/uL (4.00-5.40); RETICULOCYTE # 75.9 10^9/L (17-77); RETICULOCYTE % 1.8 % (0.5-1.5); WHITE BLOOD COUNT 8.6 10^3/uL (4.0-10.0)
[2018-06-12 14:13] LABS: ALKALINE PHOSPHATASE 121 U/L (45-117); ALT/SGPT 51 U/L (12-78); ANION GAP 7 MEQ/L (8-16); AST/SGOT 32 U/L (7-37); BILIRUBIN,TOTAL 0.2 MG/DL (0.2-1.0); BLOOD UREA NITROGEN 15 MG/DL (7-18); C REACTIVE PROTEIN QUANTITATIV 0.64 MG/DL (0.00-0.30); CALCIUM LEVEL 9.7 MG/DL (8.8-10.2); CARBAMAZEPINE (TEGRETOL) LEVEL 7.6 UG/ML (4.0-10.0); CARBON DIOXIDE LEVEL 30 MEQ/L (21-32); CHLORIDE LEVEL 102 MEQ/L (98-107); CHOLESTEROL LEVEL 204 MG/DL (<200); CHOLESTEROL RISK RATIO 2.081 (<5); CPK CREATINE PHOSPHOKINASE 51 U/L (26-192); GLOMERULAR FILTRATION RATE > 60.0 (>45); GLUCOSE, FASTING 92 MG/DL (70-100); HDL CHOLESTEROL 98 MG/DL (>40); LDL CHOLESTEROL 96 MG/DL (<100); NON-HDL-C 106 MG/DL; POTASSIUM SERUM 4.4 MEQ/L (3.5-5.1); SODIUM LEVEL 139 MEQ/L (136-145); TRIGLYCERIDES LEVEL 49 MG/DL (<150)
[2018-06-12 15:16] LABS: TOTAL 25(OH) VITAMIN D 63.4 NG/ML (30.0-100.0)
[2018-06-16 00:07] LABS: LEVETIRACETAM (KEPPRA) 6.5 ug/mL (10.0-40.0)
== END ==
LOC: M WUC 08:47
DX: D69.6 Thrombocytopenia, unspecified (principal); E78.2 Mixed hyperlipidemia; G40.909 Epilepsy, unspecified, not intractable, without status epilepticus; E55.9 Vitamin D deficiency, unspecified
CPT/HCPCS: 82550

== ENCOUNTER → 2018-10-07 | Outpatient (REF) | payer MEDICARE, MEDICAID ==
[~2018-10-07] MED LIST changes: -/BACL20TA; -/BACL20TA OR; -/CARB20TAB; -/CARB20TAB PO; -/CARBXR20T PO; -/LORA10TA PO; -/PANT40TA; +BACL1TAB9 OR; -CARB PO; +CARB1SUS PO; +CARB1TAB20; +CARB1TAB20 PO; +CEFD250S26 GT; -CRES20TA GT; +CRES20TA2 GT; -DRIS50002 GT; +DRIS50003 GT; +GLIM4TAB PO; +LORA-385 PO; +MILK120011 GT; -MILKSUS GT; -NORC1TAB4 PO; +NORC1TAB7 PO; +PROT1TAB2; +TEGR1TAB PO; +TIZA4CAP PO; -TIZA4CAP3 PO; -VITA1CAP40; +VITA50005; +[UNRECOGNIZED DRUG - CODE]; +[UNRECOGNIZED DRUG - CODE] OR; -[UNRECOGNIZED DRUG - OTHER]; -[UNRECOGNIZED DRUG - OTHER] OR
[2018-10-07 16:43] LABS: HEMOGLOBIN A1c 5.5 %
[2018-10-07 17:02] LABS: FREE T4 1.09 NG/DL (0.76-1.46); THYROID STIMULATING HORMONE 2.21 uIU/ML (0.358-3.740)
== END ==
LOC: M SFHCPLAZ 14:48
PROVIDERS: ATTEND Physician Assistant Medical
DX: E11.9 Type 2 diabetes mellitus without complications (principal); E03.9 Hypothyroidism, unspecified
CPT/HCPCS: 36415; 83036; 84439; 84443; G0463

== ENCOUNTER 2018-10-17 17:58 | Emergency (ER) | payer MEDICARE, MEDICAID ==
[~2018-10-17] VITALS: Ht 154.9 cm; Wt 65.9 kg
[~2018-10-17 17:58] MED LIST changes: -CEFD250S26 GT
[2018-10-17 18:17] VITALS: BP 143/70
[2018-10-17] MEDS ORDERED: NS 1,000 ML IV ONE (18:30)
[2018-10-17 18:55] LABS: BASO % 0.2 % (0.0-1.0); EOS % 0.1 % (0.0-3.0); HEMATOCRIT 37.7 % (36.0-47.0); HEMOGLOBIN 12.6 g/dl (12.0-15.5); LYMPH % 5.7 % (24.0-44.0); MEAN CORPUSCULAR HGB CONC 33.4 g/dl (32.0-36.5); MEAN CORPUSCULAR VOLUME 92.9 fl (80.0-96.0); MONO # 1.7 10^3/uL (0.0-0.8); MONO % 9.9 % (0.0-5.0); NEUTROPHILS # 14.6 10^3/uL (1.8-7.7); NEUTROPHILS % 83.3 % (36.0-66.0); PLATELET COUNT, AUTOMATED 131 10^3/uL (150-450); RED BLOOD COUNT 4.06 10^6/uL (4.00-5.40); WHITE BLOOD COUNT 17.5 10^3/uL (4.0-10.0)
[2018-10-17 19:28] LABS: ALBUMIN 3.3 GM/DL (3.2-5.2); ALT/SGPT 33 U/L (12-78); BILIRUBIN,DIRECT 0.1 MG/DL (0.0-0.2); BILIRUBIN,TOTAL 0.5 MG/DL (0.2-1.0); BLOOD UREA NITROGEN 15 MG/DL (7-18); CALCIUM LEVEL 8.6 MG/DL (8.8-10.2); CARBON DIOXIDE LEVEL 29 MEQ/L (21-32); CHLORIDE LEVEL 98 MEQ/L (98-107); CREATININE FOR GFR 0.53 MG/DL (0.55-1.30); GLOMERULAR FILTRATION RATE > 60.0 (>45); GLUCOSE, FASTING 119 MG/DL (70-100); POTASSIUM SERUM 4.1 MEQ/L (3.5-5.1); SODIUM LEVEL 132 MEQ/L (136-145); TOTAL PROTEIN 6.8 GM/DL (6.4-8.2)
[2018-10-17 19:41] LABS: INFLUENZA A AMPLIFICATION NEGATIVE (NEGATIVE); INFLUENZA B AMPLIFICATION NEGATIVE (NEGATIVE)
[2018-10-17] MEDS ORDERED: cefTRIAXone SOD 1 GM in D5W MINI-BAG PLUS 50 ML IV ONE (20:15)
[2018-10-17] MEDS ORDERED: CEFD250S26 GT (20:32)
--- NOTE | 2018-10-18 09:42 | REP ---
REASON: Respiratory infection. COMPARISON: Multiple, the latest 07/27/2016. The technique utilized in obtaining the radiograph has magnified the cardiac silhouette and accentuated the interstitial markings. Cardiomediastinal silhouette and lung hardy are unchanged. No acute patchy parenchymal opacities or pleural effusions have developed. There is no change in the osseous structures. There is what appears to be chronic left shoulder subluxation which needs to be correlated clinically. IMPRESSION: No significant change from the prior exam. No acute cardiopulmonary disease. Electronically Signed by Elan Bailey DO 10/18/2018 01:45 P
== END 2018-10-17 21:29 | disposition home or self-care (01) ==
LOC: EDBD 17:58 → M ED 17:58
DX: E11.9 Type 2 diabetes mellitus without complications (principal); N39.0 Urinary tract infection, site not specified; Z88.1 Allergy status to other antibiotic agents; Z88.8 Allergy status to other drugs, medicaments and biological substances
CPT/HCPCS: 51701; 71045; 80048; 80076; 81001; 83605; 85025; 87040; 87088; 87186; 87502; 94760; 96365; 99284; J0696

== ENCOUNTER 2018-12-01 16:41 | Emergency (ER) | payer MEDICARE, MEDICAID ==
[~2018-12-01] VITALS: Ht 154.9 cm; Wt 73.2 kg
[~2018-12-01 16:41] MED LIST changes: +CEFD250S26 GT
[2018-12-01 16:42] VITALS: BP 173/96
--- NOTE | 2018-12-01 18:48 | REP ---
KUB, ONE VIEW: HISTORY: Partially pulled G tube. COMPARISON: 07/08/2016. The upper abdomen is not seen in the present radiograph. Air is present in small and large intestine. There is minimal dilatation of a segment of the colon. There are no air fluid levels or dilated loops of intestine. An NG tube is present, however, it is incompletely seen in the present examination. Impression: 1. Nonspecific bowel gas pattern.2. The G tube is incompletely seen in the present examination as the upper abdomen is not seen in the present radiograph. A repeat KUB i may be helpful for further evaluation. Electronically Signed by Dean August MD 12/01/2018 06:54 P
[2018-12-01] MEDS ORDERED: GASTROGRAFIN SOLUTION 30ML (Q9963) As Ordered ONE (20:53)
[2018-12-01] MEDS: GASTROGRAFIN SOLUTION 30ML (Q9963) PO SCH ×2 (21:12→21:51)
--- NOTE | 2018-12-01 23:21 | REPVR ---
EXAM: XR Abdomen, 1 View EXAM DATE/TIME: 12/01/2018 9:26 PM CLINICAL HISTORY: 68 years old, female; Screening exam; Other: Jg tube displaced; Additional info: Jg tube displaced, pls look for end TECHNIQUE: Imaging protocol: Frontal supine view of the abdomen/pelvis. Radiologist did not supervised or administere the oral contrast. COMPARISON: CR Abdomen,Flat Plate KUB 12/01/2018 6:11 PM FINDINGS: Limitations: Examination is limited to the left upper quadrant of the abdomen. Tubes, catheters and devices: Percutaneous feeding tube with the tip in the second part of the duodenum. Gastrointestinal tract: There is oral contrast in the duodenum and proximal jejunum. No definite oral contrast leak. There is no no oral contrast in the stomach. Distended stool and gas filled loops of colon are present. Bones/joints: Unremarkable for age. IMPRESSION: 1. Limited evaluation. 2. Percutaneous feeding tube with the tip in the second part of the duodenum. 3. There is oral contrast in the duodenum and proximal jejunum. 4. Distended stool and gas filled loops of colon are present. Similar to the prior study. Electronically signed by: Tess Mccullough On 12/01/2018 23:21:22 PM
== END 2018-12-01 22:35 | disposition home or self-care (01) ==
LOC: M ED 16:41
DX: K94.19 Other complications of enterostomy (principal); K94.29 Other complications of gastrostomy; I10 Essential (primary) hypertension; E78.5 Hyperlipidemia, unspecified; K59.09 Other constipation; G80.9 Cerebral palsy, unspecified; F79 Unspecified intellectual disabilities; K44.9 Diaphragmatic hernia without obstruction or gangrene; Z88.8 Allergy status to other drugs, medicaments and biological substances; Z79.899 Other long term (current) drug therapy

== ENCOUNTER → 2019-01-21 | Outpatient (REF) | payer MEDICARE, MEDICAID ==
[~2019-01-21] MED LIST changes: +AQUAOIN12 TOP; +ATIV1TAB7 PO; +BACT800T5 GT; +CALC600T66 GT; -GLIM4TAB PO; +GLIM4TAB5 PO; +HYOS125TA SL; +JEVILIQ7 GT; +LACT10SO29 GT; +LORA-622 GT; +MAGN400O50 GT; +MUPI2OI TOP; +Morphine Sulfate Oral Conc. SL; +ONDA4TAB6 GT; +RIOMSOL GT; +VITADRO5 GT; +ZETI10TA16 PO; -ZETI10TA30 PO
== END ==
LOC: EEVIPCON 13:29 → M SFHCPLAZ 13:29
PROVIDERS: ATTEND Physician Assistant Medical
DX: A49.02 Methicillin resistant Staphylococcus aureus infection, unspecified site (principal)
CPT/HCPCS: 87070; 87077; 87186; 87205; G0463

== ENCOUNTER 2019-02-12 07:06 | Inpatient (IN) | payer MEDICARE, MEDICAID ==
[~2019-02-12] VITALS: Ht 154.9 cm; Wt 80.1 kg
[~2019-02-12 07:06] MED LIST changes: -AQUAOIN12 TOP; -ATIV1TAB7 PO; -BACT800T5 GT; -CALC600T66 GT; +GLIM4TAB PO; -GLIM4TAB5 PO; -HYOS125TA SL; -JEVILIQ7 GT; -LACT10SO29 GT; -LORA-622 GT; -MAGN400O50 GT; -MUPI2OI TOP; -Morphine Sulfate Oral Conc. SL; -ONDA4TAB6 GT; -RIOMSOL GT; -VITADRO5 GT
[2019-02-12] MEDS ORDERED: RIOMSOL GT ×2 (07:50→15:04)
[2019-02-12] MEDS ORDERED: FLEET OIL RETENTION ENEMA PR ONE (08:00)
--- NOTE | 2019-02-12 08:37 | REP ---
Abdomen series: Five views. History: Small bowel obstruction. Comparison study: December 01, 2018. Findings: Chest x-ray which is apparently done supine demonstrates coarse linear plate-like atelectasis in the left lower lobe distribution. There is some increased density behind the heart on the right side which may reflect atelectasis in the right lower lobe. There is no evidence of free subdiaphragmatic air. Heart is not enlarged. There appears to be chronic dislocation of the left shoulder. Supine and cross-table lateral views of the abdomen are obtained. These show moderate stool in the rectum and ascending colon and splenic flexure segments of the colon. There is gaseous distension of the transverse colon and sigmoid colon segments. There are some air-filled loops of small bowel but there is no evidence of small bowel obstruction or free air. There is evidence of a feeding tube in the upper abdomen. There is a staghorn calculus projecting in the left kidney which measures 2.8 cm in greatest diameter. This is unchanged. Impression: Moderate amount of stool and gas throughout the colon. No evidence of small bowel obstruction or free air. Feeding tube and left-sided staghorn calculus noted. Left lower lobe discoid atelectasis. Increased density over the right heart may be hiatal hernia versus atelectasis in the right lower lobe. Electronically Signed by Snoy Mckay MD 02/12/2019 08:55 A
[2019-02-12] MEDS ORDERED: MILKSUS9 GT (14:36)
[2019-02-12] MEDS ORDERED: MUPI2OI TOP ×2 (14:42→14:43)
[2019-02-12] MEDS ORDERED: BACT800T5 GT (14:42)
[2019-02-12] MEDS ORDERED: ONDA4TAB6 GT (14:42)
[2019-02-12] MEDS ORDERED: FLEET OIL RETENTION ENEMA PR PRN (15:00)
[2019-02-12] MEDS ORDERED: LACTULOSE 20 GM/30 ML SYRUP UD PO ONE (15:00)
[2019-02-12] MEDS ORDERED: KEPP250T5 GT (15:04)
[2019-02-12] MEDS ORDERED: JEVILIQ7 GT (15:04)
[2019-02-12] MEDS ORDERED: VITADRO5 GT (15:04)
[2019-02-12] MEDS ORDERED: AQUAOIN12 TOP (15:04)
[2019-02-12] MEDS ORDERED: LACT10SO29 GT (15:04)
[2019-02-12] MEDS ORDERED: LORA-622 GT (15:04)
[2019-02-12] MEDS ORDERED: CALC600T66 GT (15:04)
--- NOTE | 2019-02-12 15:18 | HPEPDOC ---
General Date of Admission 02/12/19 Date of Service: Feb 12, 2019 Primary Care Physician: Xavier Coker M.D. Chief Complaint The patient is a 68-year-old female admitted with a reason for visit of Abd Distention. Source: [facility] Caregiver/Aid Exam Limitations: Physical impairment, Other (severe mental retardation) Timing/Duration: Other Severity: Other (, unknown) Associated Symptoms: Other (, unknown) History of Present Illness This is 68 years old. [facility] patient possibly medical history of cerebral palsy, severe mental retardation's, functional quadriplegia, status post PEG placement for feeding was brought in with chief complaint of abdominal distention and nausea, vomiting. Patient did not have bowel movements since last few days. In ED, patient was evaluated, had a chest x-ray and flat upright of the abdomen done which shows no SBO but large amount of fecal material and gas in the colon and patient being admitted for severe constipation, which is acute on chronic in nature. History was obtained from [facility] aid and EMS records Home Medications Scheduled (Aquaphor) 1 Oin Oin, 1 OIN TOP BID, (Reported) APPLY TO FACE AFTER CLEANSING (Jevity 1.5 Garth) 1 Liq Liq, 4 LIQ JT QHS, (Reported) 80CC PER HOUR FOR 12 HOURS (1800 - 0600). FLUSH WITH WATER EVERY 4 HOURS. Baclofen (Baclofen) 20 Mg Tab, 20 MG GT QID, (Reported) CRUSHED Calcium/Vitamin D (Calcium 600+D 600-400 mg-Unit) 1 Tab Tab, 1 TAB GT BID, (R eported) CRUSHED Carbamazepine (Carbamazepine) 100 Mg Chew, 200 MG GT TID, (Reported) CRUSHED: AM, NOON, HS Dantrolene Sodium (Dantrolene Sodium) 25 Mg Cap, 25 MG GT TID, (Reported) OPEN CAPSULE AND DISSOLVE IN 30CC OF WATER: AM, 1530, HS Levetiracetam (Keppra) 250 Mg Tab, 250 MG GT BID, (Reported) CRUSHED Levothyroxine Sodium (Levothyroxine Sodium) 100 Mcg Tab, 100 MCG GT DAILY, (Reported) CRUSHED Multivitamins (Thera M Plus Tablet) 1 Tab Tab, 1 TAB GT DAILY, (Reported) CRUSHED Mupirocin (Mupirocin) 22 Gm Oint...g., 1 APLCT TOP DAILY, (Reported) APPLY TO EACH NOSTRIL Mupirocin (Mupirocin) 22 Gm Oint...g., 1 APLCT TOP TID, (Reported) APPLY TO RIGHT THIGH WOUND WITH DRESSING CHANGE Polyethylene Glycol (Miralax) 1 Pow Pow, 17 GM GT DAILY, (Reported) DISSOLVE IN 8OZ OF WATER Rosuvastatin Calcium (Crestor) 20 Mg Tab, 20 MG GT QHS, (Reported) CRUSHED Senna (Senna Syrup) 15 Ml Udc, 10 ML GT BID, (Reported) Sulfamethoxazole/Trimethoprim (Bactrim Ds Tablet) 1 Each Tablet, 1 TAB GT BID, (Reported) [Riomet] 500 mg RADHA, GT BID, (Reported) Scheduled PRN (Enema) 1 Leonila Leonila, 1 LEONILA MT ASDIRECTED PRN for CONSTIPATION, (Reported) ON DAY 5 OF NO BM Acetaminophen (Tylenol) 325 Mg Tab, 650 MG GT Q4H PRN for PAIN, (Reported) Bisacodyl (Dulcolax) 10 Mg Sup, 10 MG MT ASDIRECTED PRN for CONSTIPATION, (Reported) ON DAY 4 OF NO BM Magnesium Hydroxide (Milk of Magnesia) 400 Mg/5 Ml Oral.susp, 30 ML GT Q3RD PRN for CONSTIPATION, (Reported) IF NO BM BY DAY 3 Ondansetron (Ondansetron Odt) 4 Mg Tab.rapdis, 4 MG GT Q8H PRN for NAUSEA OR VOMITING, (Reported) Allergies Coded Allergies: valproic acid (Verified Allergy, Intermediate, thrombocytopenia, 02/12/19) Quinolones (Verified Adverse Reaction, Intermediate, seizures, 02/12/19) Past Medical History Medical History Cerebral palsy, severe mental retardation, functional quadriplegia Surgical History Not known Family History Significant Family History: Other (, unknown) Social History * Smoker: other (, unknown) Alcohol: other (, unknown) Drugs: other (, unknown) A-FIB/CHADSVASC A-FIB History Current/History of A-Fib/PAF?: No Review of Systems Constitutional: Reports: Other (, unable to obtained review of systems secondary to severe mental retardation) Physical Examination General Exam: Positive: Other (, unable to communicate verbally or physically) ENT Exam: Positive: Mucous membr. moist/pink Chest Exam: Positive: Clear to auscultation, Normal air movement Heart Exam: Positive: Rate Normal, Normal S1, Normal S2 Abdomen Exam: Positive: Other (distended. Bowel sounds present. No tenderness) Extremity Exam: Positive: Normal pulses Skin Exam: Positive: Nl turgor and temperature Neuro Exam: Positive: Other (. Unable to do neuro exam) Psych Exam: Positive: Other (at applicable) Vital Signs Vital Signs Date Time Temp Pulse Resp B/P (MAP) Pulse Ox O2 Delivery O2 Flow Rate FiO2 02/12/19 14:51 87 96 02/12/19 14:45 140/72 (94) 02/12/19 11:51 Nasal Cannula 2.0 02/12/19 07:15 98.3 19 Problems (1) Fecal impaction in rectum Status: Acute Problem Text: Admit to MedSurg floor Keep patient nothing by mouth GT feeding Patient did receive 1 treatment of mineral water enema in ED without any success We will try mineralwater enema again , Lactulose 60 mL Y GT 1 Continue all home meds Monitor for BM Saline lock DVT prophylaxis with Lovenox A.m. 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
[2019-02-12] MEDS: ENOXAPARIN 40 MG/0.4 ML SYRINGE (J1650) SC SCH (15:25)
[2019-02-12] MEDS ORDERED: ONDANSETRON 4 MG ORAL DISINTEGRATING TAB (Q0162 PER 1MG) GT PRN (15:45)
[2019-02-12] MEDS ORDERED: BISACODYL 10 MG SUPP PR PRN (15:45)
[2019-02-12 18:40] VITALS: BP 147/74
[2019-02-12] MEDS: carBAMazepine 200 MG TAB GT SCH (21:48)
[2019-02-12] MEDS: SENNA SYRUP 15 ML UDC GT SCH (21:48)
[2019-02-12] MEDS: DANTROLENE 25 MG CAP GT SCH (21:48)
[2019-02-12] MEDS: ROSUVASTATIN 10 MG TAB (CRESTOR) GT SCH (21:49)
[2019-02-12] MEDS: BACLOFEN 10 MG TAB GT SCH (21:50)
[2019-02-12] MEDS: levETIRAcetam 250MG TABLET (KEPPRA) GT SCH (21:50)
[2019-02-12 22:00] VITALS: BP 130/79
[2019-02-13] MEDS: LEVOTHYROXINE 100MCG TABLET (0.1MG) GT SCH (05:33)
[2019-02-13 06:00] VITALS: BP 150/90
[2019-02-13 07:15] LABS: HEMATOCRIT 35.3 % (36.0-47.0); HEMOGLOBIN 12.1 g/dl (12.0-15.5); MEAN CORPUSCULAR HEMOGLOBIN 28.5 pg (27.0-33.0); MEAN CORPUSCULAR HGB CONC 34.3 g/dl (32.0-36.5); MEAN CORPUSCULAR VOLUME 83.3 fl (80.0-96.0); PLATELET COUNT, AUTOMATED 312 10^3/uL (150-450); RED BLOOD COUNT 4.24 10^6/uL (4.00-5.40); WHITE BLOOD COUNT 11.1 10^3/uL (4.0-10.0)
[2019-02-13 07:48] LABS: ALBUMIN 2.5 GM/DL (3.2-5.2); ALT/SGPT 32 U/L (12-78); BILIRUBIN,TOTAL 0.4 MG/DL (0.2-1.0); BLOOD UREA NITROGEN 19 MG/DL (7-18); CALCIUM LEVEL 8.3 MG/DL (8.8-10.2); CARBON DIOXIDE LEVEL 41 MEQ/L (21-32); CHLORIDE LEVEL 78 MEQ/L (98-107); CREATININE FOR GFR 0.57 MG/DL (0.55-1.30); GLOMERULAR FILTRATION RATE > 60.0 (>45); GLUCOSE, FASTING 141 MG/DL (70-100); MAGNESIUM LEVEL 2.2 MG/DL (1.8-2.4); POTASSIUM SERUM 2.5 MEQ/L (3.5-5.1); SODIUM LEVEL 127 MEQ/L (136-145); TOTAL PROTEIN 6.2 GM/DL (6.4-8.2)
[2019-02-13] MEDS ORDERED: POTASSIUM CHLORIDE 10% LIQ 20 MEQ/15 ML UDC PO ONE ×2 (08:00→10:00)
[2019-02-13] MEDS: SENNA SYRUP 15 ML UDC GT SCH ×2 (10:18→22:17)
[2019-02-13] MEDS: LACTULOSE 20 GM/30 ML SYRUP UD GT SCH ×2 (10:18→22:16)
[2019-02-13] MEDS: carBAMazepine 200 MG TAB GT SCH ×3 (10:19→22:16)
[2019-02-13] MEDS: levETIRAcetam 250MG TABLET (KEPPRA) GT SCH ×2 (10:19→22:16)
[2019-02-13] MEDS: DANTROLENE 25 MG CAP GT SCH ×3 (10:20→22:16)
[2019-02-13] MEDS: MULTIVITAMINS/MINERALS THERAP 1 TAB GT SCH (10:20)
[2019-02-13] MEDS: ENOXAPARIN 40 MG/0.4 ML SYRINGE (J1650) SC SCH (10:20)
[2019-02-13] MEDS: BACLOFEN 10 MG TAB GT SCH ×4 (10:20→22:17)
--- NOTE | 2019-02-13 13:33 | IPN ---
DATE: 02/13/2019 Per nursing staff, the patient has not had a bowel movement with her current aggressive bowel care. PHYSICAL EXAMINATION: Vital signs stable. She is unresponsive. Not having met her before, not sure what her baseline is, but I do not think she is currently any different than typically. Lungs clear. Heart regular rhythm. Abdomen distended, bowel sounds present. LABS: White count 11.1, potassium 2.5. IMPRESSION: Fecal impaction. PLAN: Bowel care has been ordered. Nursing staff will keep me appraised of how things are going with this. She just got her bowel care for the morning. An option could be to start some Colchicine. There have been studies of using Colchicine on a scheduled basis in institutionalized patients with a refractory constipation and might have to resort to this. She is on a number of medications including dantrolene and baclofen which can be constipating, but she needs this for her cerebral palsy spasticity.
[2019-02-13 14:00] VITALS: BP 134/63
[2019-02-13 22:00] VITALS: BP 124/68
[2019-02-13] MEDS: ROSUVASTATIN 10 MG TAB (CRESTOR) GT SCH (22:16)
[2019-02-14] MEDS: LEVOTHYROXINE 100MCG TABLET (0.1MG) GT SCH (05:09)
[2019-02-14 06:00] VITALS: BP 123/70
[2019-02-14 06:25] LABS: HEMATOCRIT 38.1 % (36.0-47.0); HEMOGLOBIN 12.6 g/dl (12.0-15.5); MEAN CORPUSCULAR HEMOGLOBIN 28.7 pg (27.0-33.0); MEAN CORPUSCULAR HGB CONC 33.1 g/dl (32.0-36.5); MEAN CORPUSCULAR VOLUME 86.8 fl (80.0-96.0); PLATELET COUNT, AUTOMATED 275 10^3/uL (150-450); RED BLOOD COUNT 4.39 10^6/uL (4.00-5.40); WHITE BLOOD COUNT 10.8 10^3/uL (4.0-10.0)
[2019-02-14 07:05] LABS: BLOOD UREA NITROGEN 19 MG/DL (7-18); CALCIUM LEVEL 8.5 MG/DL (8.8-10.2); CARBON DIOXIDE LEVEL 39 MEQ/L (21-32); CHLORIDE LEVEL 82 MEQ/L (98-107); CREATININE FOR GFR 0.69 MG/DL (0.55-1.30); GLOMERULAR FILTRATION RATE > 60.0 (>45); GLUCOSE, FASTING 146 MG/DL (70-100); POTASSIUM SERUM 2.9 MEQ/L (3.5-5.1); SODIUM LEVEL 130 MEQ/L (136-145)
[2019-02-14] MEDS ORDERED: POTASSIUM CHLORIDE 10% LIQ 20 MEQ/15 ML UDC PO ONE ×2 (08:00→10:00)
[2019-02-14] MEDS: LACTULOSE 20 GM/30 ML SYRUP UD GT SCH ×2 (08:32→20:18)
[2019-02-14] MEDS: ENOXAPARIN 40 MG/0.4 ML SYRINGE (J1650) SC SCH (08:33)
[2019-02-14] MEDS: SENNA SYRUP 15 ML UDC GT SCH ×2 (08:33→20:18)
[2019-02-14] MEDS: levETIRAcetam 250MG TABLET (KEPPRA) GT SCH ×2 (08:33→20:19)
[2019-02-14] MEDS: BACLOFEN 10 MG TAB GT SCH ×4 (08:33→20:19)
[2019-02-14] MEDS: MULTIVITAMINS/MINERALS THERAP 1 TAB GT SCH (08:33)
[2019-02-14] MEDS: carBAMazepine 200 MG TAB GT SCH ×3 (08:33→20:19)
[2019-02-14] MEDS: DANTROLENE 25 MG CAP GT SCH ×3 (08:34→20:18)
--- NOTE | 2019-02-14 13:56 | IPN ---
DATE: 02/14/2019 Nuvia became hypoxemic overnight. Required some supplemental oxygen. The respiratory status seemed stable with nursing staff and she stabilized with low flow oxygen. She still has not had stools despite very aggressive bowel care. PHYSICAL EXAM: Afebrile. Oxygen saturation 95% on 2 liters. Was 84% last night on supplement oxygen. General appearance: Unresponsive. Some upper airway congestion noted. Lungs have few rhonchi. Heart: Regular rhythm. Abdomen: Distended more so than yesterday. Bowel sounds are present. Trace peripheral edema. LABS: White count is stable. Sodium is 130, potassium 2.9. IMPRESSION: 1. Fecal impaction. She has aggressive bowel care. She has not responded to this. If she has no stool by tomorrow, would recommend starting colchicine 0.6 mg twice a day, which studies have shown is beneficial with institutionalized patients with intractable fecal impaction problems. 2. Hypokalemia. Supplemental potassium has been provided. 3. Hyponatremia. 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 I do not think she is symptomatic from this. 4. Hypothyroidism. Will give her a dose of levothyroxine. 5. Hypoxemia. Etiology is unknown. She seems stable. Will get a portable chest x-ray, although I am not sure how useful it is going to be if she cannot cooperate with deep respiration for a reasonable study. We will look for any kind of gross abnormality.
[2019-02-14 14:00] VITALS: BP 126/72
[2019-02-14] MEDS: ROSUVASTATIN 10 MG TAB (CRESTOR) GT SCH (20:19)
[2019-02-14 22:00] VITALS: BP 140/68
[2019-02-15] MEDS: LEVOTHYROXINE 100MCG TABLET (0.1MG) GT SCH (05:47)
[2019-02-15 06:14] LABS: HEMATOCRIT 42.6 % (36.0-47.0); HEMOGLOBIN 13.8 g/dl (12.0-15.5); MEAN CORPUSCULAR HEMOGLOBIN 28.6 pg (27.0-33.0); MEAN CORPUSCULAR HGB CONC 32.4 g/dl (32.0-36.5); MEAN CORPUSCULAR VOLUME 88.2 fl (80.0-96.0); PLATELET COUNT, AUTOMATED 296 10^3/uL (150-450); RED BLOOD COUNT 4.83 10^6/uL (4.00-5.40); WHITE BLOOD COUNT 10.5 10^3/uL (4.0-10.0)
[2019-02-15 06:34] LABS: BLOOD UREA NITROGEN 17 MG/DL (7-18); CALCIUM LEVEL 8.9 MG/DL (8.8-10.2); CARBON DIOXIDE LEVEL 38 MEQ/L (21-32); CHLORIDE LEVEL 87 MEQ/L (98-107); CREATININE FOR GFR 0.65 MG/DL (0.55-1.30); GLOMERULAR FILTRATION RATE > 60.0 (>45); GLUCOSE, FASTING 135 MG/DL (70-100); POTASSIUM SERUM 3.1 MEQ/L (3.5-5.1); SODIUM LEVEL 132 MEQ/L (136-145)
[2019-02-15] MEDS ORDERED: D5W/0.45% SODIUM CHLORIDE 1,000 ML IV SCH (08:30)
[2019-02-15] MEDS ORDERED: POTASSIUM CHLORIDE 10% LIQ 20 MEQ/15 ML UDC PO ONE (08:30)
--- NOTE | 2019-02-15 08:32 | IPNPDOC ---
Subjective Date Seen The patient was seen on 02/15/19. Subjective Chief Complaint/HPI fecal impaction Events since last encounter 1 BM yesterday with ordered bowel regiment. CXR completed due to hypoxia: NAD General: Reports: ROS Unobtainable Objective Physical Examination General Exam: Positive: Other (, unable to communicate verbally or physically) Chest Exam: Positive: Clear to auscultation, Normal air movement Heart Exam: Positive: Rate Normal, Normal S1, Normal S2 Abdomen Exam: Positive: Other (distended. Bowel sounds present. No perceived tenderness) Extremity Exam: Positive: Normal pulses; Negative: Edema Skin Exam: Positive: Nl turgor and temperature Neuro Exam: Positive: Other (. Unable to do neuro exam) Psych Exam: Positive: Other (non-verbal, unabel to follow commands.) Assessment /Plan Problems (1) Fecal impaction in rectum Status: Acute Problem Text: baseline neurogenic bowel 02/15/19: increase senna 5 ml BID to 10 ml BID, bisa 10 supp QD + outpx lubiprost 24 BID (not formulary) Remains NPO. +NS c 40K 75H (2) Hypokalemia Status: Acute Problem Text: slow improvement with replacement via GT. Given another 40 Meq today. 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 Continue home meds (4) Chronic constipation Status: Acute Problem Text: History of chronic anemia, now has acute on chronic constipation Bowel regimen Home meds (5) Seizure disorder Status: Chronic (6) Functional quadriplegia Status: Chronic (7) Profound mental handicap Status: Chronic (8) Diabetes mellitus type 2 in nonobese Status: Chronic Plan/VTE VTE Prophylaxis Ordered?: Yes VS, I&O, 24H, Fishbone Vital Signs/I&O Vital Signs Date Time Temp Pulse Resp B/P (MAP) Pulse Ox O2 Delivery O2 Flow Rate FiO2 02/14/19 22:00 96.3 71 18 140/68 (92) 96 2.0 02/12/19 18:16 Nasal Cannula I&O- Last 24 Hours up to 6 AM 02/15/19 06:00 Intake Total 475 ml Output Total 0 ml Balance 475 ml Laboratory Data 24H LABS Laboratory Tests 2 02/15/19 05:40: Nucleated Red Blood Cells % (auto) 0.0, Anion Gap 7L, Glomerular Filtration Rate > 60.0, Blood Urea Nitrogen 17, Creatinine 0.65, Sodium Level 132L, Potassium Level 3.1L, Chloride Level 87L, Carbon Dioxide Level 38H, Calcium Level 8.9 CBC/BMP Laboratory Tests 02/15/19 05:40 Red Blood Count 4.83, Mean Corpuscular Volume 88.2, Mean Corpuscular Hemoglobin 28.6, Mean Corpuscular Hemoglobin Concent 32.4, Red Cell Distribution Width 15.5 H, Calcium Level 8.9 Martha Jorge Feb 15, 2019 08:32 Xavier Coker M.D. Feb 15, 2019 16:38
[2019-02-15] MEDS: DANTROLENE 25 MG CAP GT SCH ×3 (11:06→20:10)
[2019-02-15] MEDS: ENOXAPARIN 40 MG/0.4 ML SYRINGE (J1650) SC SCH (11:06)
[2019-02-15] MEDS: carBAMazepine 200 MG TAB GT SCH ×3 (11:06→20:10)
[2019-02-15] MEDS: MULTIVITAMINS/MINERALS THERAP 1 TAB GT SCH (11:07)
[2019-02-15] MEDS: SENNA SYRUP 15 ML UDC GT SCH ×2 (11:07→20:08)
[2019-02-15] MEDS: LACTULOSE 20 GM/30 ML SYRUP UD GT SCH ×3 (11:07→20:09)
[2019-02-15] MEDS: levETIRAcetam 250MG TABLET (KEPPRA) GT SCH ×2 (11:07→20:10)
[2019-02-15] MEDS: BACLOFEN 10 MG TAB GT SCH ×4 (11:08→20:10)
--- NOTE | 2019-02-15 11:53 | REP ---
AP PORTABLE CHEST: 02/14/2019. Clinical history: Hypoxemia. Comparison PA chest 02/12/2019, portable chest 10/17/2018, CT 02/28/2016. Findings: Lungs are hypoinflated. The retrocardiac density behind the heart represents the hiatal hernia seen on CT. There is chronic linear fibroatelectatic or fibrotic change in the left base just above the diaphragm, unchanged. Right lung without acute finding. The aorta is tortuous but unchanged. Airway intact. There are degenerative changes in the left shoulder, chronic and moderately severe. Impression: 1. Hypoinflated chest with linear fibroatelectatic change in the left base above the diaphragm. Low level of inflation limits evaluation of the posterior lower lung zones and could obscure effusion or infiltrate/atelectasis. No gross infiltrate visible. 2. Prominent hiatal hernia in the retrocardiac region. 3. Heart size mildly prominent but no venous hypertension or edema. 4. Tortuous aorta unchanged. Degenerative changes and demineralization in the spine and shoulders. Electronically Signed by Michael Hyman MD 02/15/2019 12:17 P
[2019-02-15] MEDS: BISACODYL 10 MG SUPP PR SCH (12:00)
[2019-02-15] MEDS ORDERED: PILL CUTTER 1 EACH XX PRN (13:45)
[2019-02-15 14:00] VITALS: BP 153/75
[2019-02-15] MEDS: KCL 40MEQ IN D5/0.45NS 1000ML 1,000 ML IV SCH (17:10)
[2019-02-15] MEDS: BACTRIM 160MG/800MG DS TAB PO SCH (20:10)
[2019-02-15] MEDS: ROSUVASTATIN 10 MG TAB (CRESTOR) GT SCH (20:10)
[2019-02-15 22:00] VITALS: BP 153/73
[2019-02-16] MEDS: KCL 40MEQ IN D5/0.45NS 1000ML 1,000 ML IV SCH ×2 (05:41→17:49)
[2019-02-16] MEDS: LEVOTHYROXINE 100MCG TABLET (0.1MG) GT SCH (05:41)
[2019-02-16 06:00] VITALS: BP 142/73
[2019-02-16 06:17] LABS: HEMATOCRIT 41.5 % (36.0-47.0); HEMOGLOBIN 13.7 g/dl (12.0-15.5); MEAN CORPUSCULAR HEMOGLOBIN 28.8 pg (27.0-33.0); MEAN CORPUSCULAR VOLUME 87.2 fl (80.0-96.0); PLATELET COUNT, AUTOMATED 311 10^3/uL (150-450); RED BLOOD COUNT 4.76 10^6/uL (4.00-5.40); WHITE BLOOD COUNT 13.2 10^3/uL (4.0-10.0)
[2019-02-16 06:39] LABS: BLOOD UREA NITROGEN 14 MG/DL (7-18); CARBON DIOXIDE LEVEL 32 MEQ/L (21-32); CHLORIDE LEVEL 91 MEQ/L (98-107); CREATININE FOR GFR 0.61 MG/DL (0.55-1.30); GLOMERULAR FILTRATION RATE > 60.0 (>45); GLUCOSE, FASTING 165 MG/DL (70-100); MAGNESIUM LEVEL 2.3 MG/DL (1.8-2.4); POTASSIUM SERUM 3.2 MEQ/L (3.5-5.1); SODIUM LEVEL 130 MEQ/L (136-145)
[2019-02-16] MEDS: DANTROLENE 25 MG CAP GT SCH ×3 (10:11→20:02)
[2019-02-16] MEDS: BACTRIM 160MG/800MG DS TAB PO SCH ×2 (10:11→20:02)
[2019-02-16] MEDS: MULTIVITAMINS/MINERALS THERAP 1 TAB GT SCH (10:11)
[2019-02-16] MEDS: BISACODYL 10 MG SUPP PR SCH (10:11)
[2019-02-16] MEDS: levETIRAcetam 250MG TABLET (KEPPRA) GT SCH ×2 (10:11→20:02)
[2019-02-16] MEDS: carBAMazepine 200 MG TAB GT SCH ×3 (10:12→20:01)
[2019-02-16] MEDS: ENOXAPARIN 40 MG/0.4 ML SYRINGE (J1650) SC SCH (10:12)
[2019-02-16] MEDS: LACTULOSE 20 GM/30 ML SYRUP UD GT SCH ×2 (10:12→20:01)
[2019-02-16] MEDS: BACLOFEN 10 MG TAB GT SCH ×4 (10:12→20:02)
[2019-02-16] MEDS: SENNA SYRUP 15 ML UDC GT SCH ×2 (10:13→20:02)
--- NOTE | 2019-02-16 12:19 | IPNPDOC ---
Subjective Date Seen The patient was seen on 02/16/19. Subjective Chief Complaint/HPI small BM overnight per nursing no vomiting No signs of pain Constitutional: Denies: Chills, Fever Pulmonary: Denies: Dyspnea, Cough Cardiovascular: Denies: Chest Pain, Palpitations Gastrointestinal: Reports: Constipation; Denies: Nausea, Vomiting, Abdominal Pain, Diarrhea Objective Physical Examination General Exam: Positive: Alert, Other (, unable to communicate verbally or physically) Chest Exam: Positive: Clear to auscultation, Normal air movement Heart Exam: Positive: Rate Normal, Normal S1, Normal S2 Abdomen Exam: Positive: Other (distended. Bowel sounds present. No perceived tenderness) Extremity Exam: Positive: Normal pulses; Negative: Edema Skin Exam: Positive: Nl turgor and temperature Neuro Exam: Positive: Other (. Unable to do neuro exam) Psych Exam: Positive: Other (non-verbal, unabel to follow commands.) Assessment /Plan Problems (1) Fecal impaction in rectum Status: Acute Problem Text: 02/16 - Still distended with only small BM Add Miralax Cont Senna, Lactulose and bisa supp baseline neurogenic bowel Remains NPO with IVF hydration - Na+ variable - may need to increase rate K+ improving with potassium in IVF 02/15/19: increase senna 5 ml BID to 10 ml BID, bisa 10 supp QD + outpx lubiprost 24 BID (not formulary) (2) Hypokalemia Status: Acute Problem Text: slow improvement with replacement via GT. Given another 40 Meq today. 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 Continue home meds (4) Chronic constipation Status: Acute Problem Text: History of chronic anemia, now has acute on chronic constipation Bowel regimen Home meds (5) Seizure disorder Status: Chronic (6) Functional quadriplegia Status: Chronic (7) Profound mental handicap Status: Chronic (8) Diabetes mellitus type 2 in nonobese Status: Chronic Plan/VTE VTE Prophylaxis Ordered?: Yes VS, I&O, 24H, Fishbone Vital Signs/I&O Vital Signs Date Time Temp Pulse Resp B/P (MAP) Pulse Ox O2 Delivery O2 Flow Rate FiO2 02/16/19 06:00 98.3 84 18 142/73 (96) 96 8/19/19 22:28 2.0 02/12/19 18:16 Nasal Cannula I&O- Last 24 Hours up to 6 AM 02/16/19 05:59 Intake Total 1200 ml Output Total 0 ml Balance 1200 ml Laboratory Data 24H LABS Laboratory Tests 2 02/16/19 05:55: Nucleated Red Blood Cells % (auto) 0.0, Anion Gap 7L, Glomerular Filtration Rate > 60.0, Blood Urea Nitrogen 14, Creatinine 0.61, Sodium Level 130L, Potassium Level 3.2L, Chloride Level 91L, Carbon Dioxide Level 32, Calcium Level 8.0L, Mag nesium Level 2.3 CBC/BMP Laboratory Tests 02/16/19 05:55 Red Blood Count 4.76, Mean Corpuscular Volume 87.2, Mean Corpuscular Hemoglobin 28.8, Mean Corpuscular Hemoglobin Concent 33.0, Red Cell Distribution Width 15.4 H, Calcium Level 8.0 L GLORIA DORADO PA-C Feb 16, 2019 12:19
[2019-02-16 14:00] VITALS: BP 141/86
[2019-02-16] MEDS: MIRALAX *UNIT DOSE* 17GM PACKET PEG SCH (16:50)
[2019-02-16] MEDS: ROSUVASTATIN 10 MG TAB (CRESTOR) GT SCH (20:01)
[2019-02-16 22:00] VITALS: BP 146/79
[2019-02-17] MEDS: KCL 40MEQ IN D5/0.45NS 1000ML 1,000 ML IV SCH ×3 (05:43→23:10)
[2019-02-17] MEDS: LEVOTHYROXINE 100MCG TABLET (0.1MG) GT SCH (05:44)
[2019-02-17 05:56] LABS: HEMOGLOBIN 12.8 g/dl (12.0-15.5); MEAN CORPUSCULAR HEMOGLOBIN 28.1 pg (27.0-33.0); MEAN CORPUSCULAR HGB CONC 32.8 g/dl (32.0-36.5); MEAN CORPUSCULAR VOLUME 85.7 fl (80.0-96.0); PLATELET COUNT, AUTOMATED 296 10^3/uL (150-450); RED BLOOD COUNT 4.55 10^6/uL (4.00-5.40); WHITE BLOOD COUNT 12.1 10^3/uL (4.0-10.0)
[2019-02-17 06:00] VITALS: BP 128/71
[2019-02-17 06:22] LABS: BLOOD UREA NITROGEN 12 MG/DL (7-18); CALCIUM LEVEL 8.3 MG/DL (8.8-10.2); CARBON DIOXIDE LEVEL 31 MEQ/L (21-32); CHLORIDE LEVEL 94 MEQ/L (98-107); GLOMERULAR FILTRATION RATE > 60.0 (>45); GLUCOSE, FASTING 150 MG/DL (70-100); MAGNESIUM LEVEL 2.3 MG/DL (1.8-2.4); SODIUM LEVEL 130 MEQ/L (136-145)
--- NOTE | 2019-02-17 07:43 | REPVR ---
EXAM: CT Abdomen and Pelvis Without Contrast EXAM DATE/TIME: 02/17/2019 6:41 AM CLINICAL HISTORY: 68 years old, female; Abdominal pain; Generalized; Additional info: Distention TECHNIQUE: Imaging protocol: Computed tomography images of the abdomen and pelvis without contrast. Radiation optimization: All CT scans at this facility use at least one of these dose optimization techniques: automated exposure control; mA and/or kV adjustment per patient size (includes targeted exams where dose is matched to clinical indication); or iterative reconstruction. COMPARISON: CT ABD PELVIS W/O FOL BY WIT 02/28/2016 11:33 AM FINDINGS: Tubes, catheters and devices: GJ tube in position with the tip in the proximal jejunum. Lungs: Minimal left base and mild right lower lobe fibro-atelectatic change. Pleural space: Trace right pleural effusion. Mediastinum: Moderate hiatal hernia with fluid distention of the distal esophagus. Diaphragm: Elevation of the right hemidiaphragm. Liver: Normal. No mass. Gallbladder and bile ducts: Normal. No calcified stones. No ductal dilation. Pancreas: Truncated pancreas at the level of the body. Spleen: Normal. No splenomegaly. Adrenals: Normal. No mass. Kidneys and ureters: Horseshoe kidney with renal calculi including staghorn calculi to left. Stomach and bowel: Mild distention of the rectum with stool and contrast measuring 8.5 cm in its lateral dimension. Appendix: There are no changes of appendicitis. A normal appendix is not seen. Intraperitoneal space: Large volume of peritoneal ascites with a Hounsfield measurement of 10. Vasculature: Normal. No abdominal aortic aneurysm. Lymph nodes: Normal. No enlarged lymph nodes. Bladder: Unremarkable as visualized. Reproductive: Unremarkable as visualized. Bones/joints: No acute fracture. No dislocation. Soft tissues: Unremarkable. IMPRESSION: 1. New trace right pleural effusion with mild right lower lobe and minimal left base fibro-atelectatic change since 02/28/2016. 2. Moderate hiatal hernia which is similar to the prior study with fluid distention of the esophagus which may reflect poor peristaltic clearance or some relative obstruction. 3. Large volume peritoneal ascites which is new since the prior study. 4. GJ tube extending into the proximal jejunum which is new. 5. 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 6. Mild distention of the rectum with stool and contrast which may reflect early impaction but is decreased since the prior study. Electronically signed by: Medardo Soliman On 02/17/2019 07:43:18 AM
--- NOTE | 2019-02-17 08:54 | IPNPDOC ---
Subjective Date Seen The patient was seen on 02/17/19. Subjective Chief Complaint/HPI Per nursing, patient vomited another 100 cc overnight and has consistently had significant liquid GI contents drain from PEG when attempting to pass meds. Only minimal results with bowel care so far Constitutional: Denies: Chills, Fever Pulmonary: Denies: Dyspnea, Cough Cardiovascular: Denies: Chest Pain, Palpitations Gastrointestinal: Reports: Vomiting, Abdominal Pain, Constipation; Denies: Diarrhea Objective Physical Examination General Exam: Positive: Alert, Other (, unable to communicate verbally or physically) Chest Exam: Positive: Clear to auscultation, Normal air movement Heart Exam: Positive: Rate Normal, Normal S1, Normal S2 Abdomen Exam: Positive: BS Hypoactive, Other (Abdomen firm, distended, non- tender, BS not audible. ) Extremity Exam: Positive: Normal pulses; Negative: Edema Skin Exam: Positive: Nl turgor and temperature Neuro Exam: Positive: Other (. Unable to do neuro exam) Psych Exam: Positive: Other (non-verbal, unabel to follow commands.) Assessment /Plan Problems (1) Fecal impaction in rectum Status: Acute Problem Text: 02/17 - Vomited again overnight. Very little results with bowel care and abdomen mor edistended with inaudible BS - CT this am: 1. New trace right pleural effusion with mild right lower lobe and minimal left base fibro-atelectatic change since 02/28/2016. 2. Moderate hiatal hernia which is similar to the prior study with fluid distention of the esophagus which may reflect poor peristaltic clearance or some relative obstruction. 3. Large volume peritoneal ascites which is new since the prior study. 4. GJ tube extending into the proximal jejunum which is new. 5. 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 6. Mild distention of the rectum with stool and contrast which may reflect early impaction but is decreased since the prior study. Put PEG tube to Low suction Increase Bowel care from below with Fleets and suppositories. Consider Surgical cnsult if no results this am 02/16 - Still distended with only small BM Add Miralax Cont Senna, Lactulose and bisa supp baseline neurogenic bowel Remains NPO with IVF hydration - Na+ variable - may need to increase rate K+ improving with potassium in IVF 02/15/19: increase senna 5 ml BID to 10 ml BID, bisa 10 supp QD + outpx lubiprost 24 BID (not formulary) (2) Hypokalemia Status: Resolved Problem Text: slow improvement with replacement via GT. Given another 40 Meq today. 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 Continue home meds (4) Chronic constipation Status: Acute Problem Text: History of chronic anemia, now has acute on chronic constipation Bowel regimen Home meds (5) Seizure disorder Status: Chronic (6) Functional quadriplegia Status: Chronic (7) Profound mental handicap Status: Chronic (8) Diabetes mellitus type 2 in nonobese Status: Chronic Plan/VTE VTE Prophylaxis Ordered?: Yes VS, I&O, 24H, Fishbone Vital Signs/I&O Vital Signs Date Time Temp Pulse Resp B/P (MAP) Pulse Ox O2 Delivery O2 Flow Rate FiO2 02/17/19 06:00 96.9 79 20 128/71 (90) 98 02/15/19 22:28 2.0 02/12/19 18:16 Nasal Cannula I&O- Last 24 Hours up to 6 AM 02/17/19 06:00 Intake Total 1812 ml Output Total 0 ml Balance 1812 ml Laboratory Data 24H LABS Laboratory Tests 2 02/17/19 02:29: Bedside Glucose (Misc Panel) 162H 02/17/19 05:29: Nucleated Red Blood Cells % (auto) 0.0, Anion Gap 5L, Glomerular Filtration Rate > 60.0, Blood Urea Nitrogen 12, Creatinine 0.60, Sodium Level 130L, Potassium Level 4.0#, Chloride Level 94L, Carbon Dioxide Level 31, Calcium Level 8.3L, Magnesium Level 2.3 CBC/BMP Laboratory Tests 02/17/19 05:29 Red Blood Count 4.55, Mean Corpuscular Volume 85.7, Mean Corpuscular Hemoglobin 28.1, Mean Corpuscular Hemoglobin Concent 32.8, Red Cell Distribution Width 15.7 H, Calcium Level 8.3 L GLORIA DORADO PA-C Feb 17, 2019 08:54
[2019-02-17] MEDS ORDERED: FLEET ENEMA PR PRN (09:00)
[2019-02-17] MEDS: BACLOFEN 10 MG TAB GT SCH ×4 (10:19→20:27)
[2019-02-17] MEDS: BACTRIM 160MG/800MG DS TAB PO SCH ×2 (10:19→20:27)
[2019-02-17] MEDS: ENOXAPARIN 40 MG/0.4 ML SYRINGE (J1650) SC SCH (10:19)
[2019-02-17] MEDS: carBAMazepine 200 MG TAB GT SCH ×3 (10:19→20:27)
[2019-02-17] MEDS: levETIRAcetam 250MG TABLET (KEPPRA) GT SCH ×2 (10:19→20:27)
[2019-02-17] MEDS: BISACODYL 10 MG SUPP PR SCH (10:19)
[2019-02-17] MEDS: SENNA SYRUP 15 ML UDC GT SCH ×2 (10:20→20:26)
[2019-02-17] MEDS: LACTULOSE 20 GM/30 ML SYRUP UD GT SCH ×2 (10:20→20:26)
[2019-02-17] MEDS: MULTIVITAMINS/MINERALS THERAP 1 TAB GT SCH (10:20)
[2019-02-17] MEDS: DANTROLENE 25 MG CAP GT SCH ×3 (10:20→20:27)
[2019-02-17] MEDS: MIRALAX *UNIT DOSE* 17GM PACKET PEG SCH (10:21)
[2019-02-17 14:00] VITALS: BP 128/90
[2019-02-17] MEDS: ROSUVASTATIN 10 MG TAB (CRESTOR) GT SCH (20:27)
[2019-02-17 22:00] VITALS: BP 123/87
[2019-02-18] MEDS: LEVOTHYROXINE 100MCG TABLET (0.1MG) GT SCH (05:42)
[2019-02-18 06:00] VITALS: BP 127/89
[2019-02-18 06:03] LABS: HEMATOCRIT 40.1 % (36.0-47.0); HEMOGLOBIN 13.4 g/dl (12.0-15.5); MEAN CORPUSCULAR HEMOGLOBIN 28.6 pg (27.0-33.0); MEAN CORPUSCULAR HGB CONC 33.4 g/dl (32.0-36.5); MEAN CORPUSCULAR VOLUME 85.5 fl (80.0-96.0); PLATELET COUNT, AUTOMATED 358 10^3/uL (150-450); RED BLOOD COUNT 4.69 10^6/uL (4.00-5.40)
[2019-02-18 06:32] LABS: ALBUMIN 2.4 GM/DL (3.2-5.2); ALT/SGPT 30 U/L (12-78); BILIRUBIN,TOTAL 0.3 MG/DL (0.2-1.0); BLOOD UREA NITROGEN 13 MG/DL (7-18); CALCIUM LEVEL 8.3 MG/DL (8.8-10.2); CARBON DIOXIDE LEVEL 28 MEQ/L (21-32); CHLORIDE LEVEL 97 MEQ/L (98-107); CREATININE FOR GFR 0.71 MG/DL (0.55-1.30); GLOMERULAR FILTRATION RATE > 60.0 (>45); GLUCOSE, FASTING 167 MG/DL (70-100); MAGNESIUM LEVEL 2.3 MG/DL (1.8-2.4); POTASSIUM SERUM 4.3 MEQ/L (3.5-5.1); SODIUM LEVEL 131 MEQ/L (136-145); TOTAL PROTEIN 7.3 GM/DL (6.4-8.2)
[2019-02-18] MEDS: ENOXAPARIN 40 MG/0.4 ML SYRINGE (J1650) SC SCH (06:38)
--- NOTE | 2019-02-18 09:10 | IPNPDOC ---
Subjective Date Seen The patient was seen on 02/18/19. Subjective Chief Complaint/HPI No BM. Still with copious PEG drainage to suction Constitutional: Denies: Chills, Fever Pulmonary: Denies: Dyspnea, Cough Gastrointestinal: Reports: Abdominal Pain, Constipation; Denies: Nausea, Vomiting, Diarrhea Objective Physical Examination General Exam: Positive: Alert, Other (, unable to communicate verbally or physically) Chest Exam: Positive: Clear to auscultation, Normal air movement Heart Exam: Positive: Rate Normal, Normal S1, Normal S2 Abdomen Exam: Positive: BS Hypoactive, Other (Abdomen firm, distended, non- tender, BS not audible. ) Extremity Exam: Positive: Normal pulses; Negative: Edema Skin Exam: Positive: Nl turgor and temperature Neuro Exam: Positive: Other (. Unable to do neuro exam) Psych Exam: Positive: Other (non-verbal, unabel to follow commands.) Assessment /Plan Problems (1) Fecal impaction in rectum Status: Acute Problem Text: 02/18 - Still no BM with bowel care. Paracetesisi ordered yesterday to remove large amount of ascites fluid which may be compressing and contributing to obstructive process Large amount of drainage to PEG tube suction - stop all Lactulose and Miralax via PEG for now. Cont bowel care from below Consider Surgical consult 02/17 - Vomited again overnight. Very little results with bowel care and abdomen more distended with inaudible BS - CT this am: 1. New trace right pleural effusion with mild right lower lobe and minimal left base fibro-atelectatic change since 02/28/2016. 2. Moderate hiatal hernia which is similar to the prior study with fluid distention of the esophagus which may reflect poor peristaltic clearance or some relative obstruction. 3. Large volume peritoneal ascites which is new since the prior study. 4. GJ tube extending into the proximal jejunum which is new. 5. 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 6. Mild distention of the rectum with stool and contrast which may reflect early impaction but is decreased since the prior study. Put PEG tube to Low suction Increase Bowel care from below with Fleets and suppositories. Consider Surgical cnsult if no results this am 02/16 - Still distended with only small BM Add Miralax Cont Senna, Lactulose and bisa supp baseline neurogenic bowel Remains NPO with IVF hydration - Na+ variable - may need to increase rate K+ improving with potassium in IVF 02/15/19: increase senna 5 ml BID to 10 ml BID, bisa 10 supp QD + outpx lubiprost 24 BID (not formulary) (2) Ascites Problem Text: Paracentesis ordered yesterday but unable to perform until 2 pm today due to Lovenox give yesterday WBC now 18 - Adjust abx for SBP after tap/cultures collected B/C ordered. (3) Hypokalemia Status: Resolved Problem Text: slow improvement with replacement via GT. Given another 40 Meq today. 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 Continue home meds (5) Chronic constipation Status: Acute Problem Text: History of chronic anemia, now has acute on chronic constipation Bowel regimen Home meds (6) Seizure disorder Status: Chronic (7) Functional quadriplegia Status: Chronic (8) Profound mental handicap Status: Chronic (9) Diabetes mellitus type 2 in nonobese Status: Chronic Plan/VTE VTE Prophylaxis Ordered?: Yes VS, I&O, 24H, [facility] Vital Signs/I&O Vital Signs Date Time Temp Pulse Resp B/P (MAP) Pulse Ox O2 Delivery O2 Flow Rate FiO2 02/18/19 06:00 98.6 103 19 127/89 (102) 93 02/15/19 22:28 2.0 02/12/19 18:16 Nasal Cannula I&O- Last 24 Hours up to 6 AM 02/18/19 06:00 Intake Total 2700 ml Output Total 1300 ml Balance 1400 ml Laboratory Data 24H LABS Laboratory Tests 2 02/18/19 05:44: Nucleated Red Blood Cells % (auto) 0.0, Anion Gap 6L, Glomerular Filtration Rate > 60.0, Blood Urea Nitrogen 13, Creatinine 0.71, Sodium Level 131L, Potassium Level 4.3, Chloride Level 97L, Carbon Dioxide Level 28, Calcium Level 8.3L, Aspartate Amino Transf (AST/SGOT) 28, Alanine Aminotransferase (ALT/SGPT) 30, Alkaline Phosphatase 97, Total Bilirubin 0.3, Total Protein 7.3, Albumin 2.4L, Magnesium Level 2.3, Albumin/Globulin Ratio 0.49L CBC/BMP Laboratory Tests 02/18/19 05:44 Red Blood Count 4.69, Mean Corpuscular Volume 85.5, Mean Corpuscular Hemoglobin 28.6, Mean Corpuscular Hemoglobin Concent 33.4, Red Cell Distribution Width 15.5 H, Calcium Level 8.3 L, Aspartate Amino Transf (AST/SGOT) 28, Alanine Aminotransferase (ALT/SGPT) 30, Alkaline Phosphatase 97, Total Bilirubin 0.3, Total Protein 7.3, Albumin 2.4 L Microbiology Microbiology 02/18/19 Blood Culture, Received Pending 02/18/19 Blood Culture, Received Pending GLORIA DORADO PA-C Feb 18, 2019 09:10
[2019-02-18] MEDS: BACLOFEN 10 MG TAB GT SCH ×4 (09:33→20:33)
[2019-02-18] MEDS: DANTROLENE 25 MG CAP GT SCH ×3 (09:33→20:33)
[2019-02-18] MEDS: SENNA SYRUP 15 ML UDC GT SCH ×2 (09:34→20:32)
[2019-02-18] MEDS: MULTIVITAMINS/MINERALS THERAP 1 TAB GT SCH (09:34)
[2019-02-18] MEDS: BACTRIM 160MG/800MG DS TAB PO SCH ×2 (09:34→20:33)
[2019-02-18] MEDS: KCL 40MEQ IN D5/0.45NS 1000ML 1,000 ML IV SCH ×2 (09:34→21:30)
[2019-02-18] MEDS: carBAMazepine 200 MG TAB GT SCH ×3 (09:34→20:33)
[2019-02-18] MEDS: levETIRAcetam 250MG TABLET (KEPPRA) GT SCH ×2 (09:34→20:33)
[2019-02-18] MEDS ORDERED: BISACODYL ENEMA 10 MG/30 ML PR ONE (13:00)
[2019-02-18 14:07] LABS: SPEC. GRAVITY BODY FLUIDS 1.027 (NOT ESTABLISHED)
[2019-02-18 14:10] LABS: APPEARANCE, BODY FLUID CLOUDY (CLEAR); ASCITES FL COLOR YELLOW (COLORLESS); SOURCE, BODY FLUID ASCITES
[2019-02-18 14:45] VITALS: BP 126/57
[2019-02-18 15:21] LABS: SOURCE, BODY FLUID ALBUMIN ASCITES; SOURCE, BODY FLUID GLUCOSE ASCITES; SOURCE, BODY FLUID TOT PROTEIN ASCITES; TOTAL PROTEIN, BODY FLUID 4.2 G/DL (NOT ESTABLISHED)
--- NOTE | 2019-02-18 15:54 | IPN ---
DATE: 02/18/2019 Nuvia's paracentesis was performed today. There was 4200 mL removed. I reviewed what results were available. She had 508 white cells, of which 14% were polymorphonuclear white cells (PMNs), for an absolute count of approximately 70. This is below the threshold of 250 for empiric treatment for spontaneous bacterial peritonitis; therefore will hold off on antibiotic therapy pending results of the culture.
--- NOTE | 2019-02-18 16:18 | REP ---
Ultrasound-guided paracentesis The procedure was performed by WESLEY Bautista, under the direct supervision of Dr. Mckay. The risks and benefits of the procedure were explained to the patient and informed consent was obtained both verbally and written. Directly prior to the start of the procedure, a formal timeout was completed in the procedure room. Under ultrasound guidance, the largest pocket of fluid in the right flank was localized and skin was marked. The skin was then prepped and draped in a sterile fashion. 10 ml of 1% lidocaine was used as a local anesthetic. Using ultrasound guidance, an 8-Japanese multi side-hole catheter was inserted using trocar technique. 4,250 mL of carlee colored fluid was withdrawn, 200 ml were sent to the lab for further analysis, and the rest was discarded. The patient tolerated the procedure well and there were no immediate complications. After the appropriate monitored convalescence the patient was discharged from the department. Reviewed by WESLEY Whitney 02/18/2019 03:20 P Electronically Signed by Sony Mckay MD 02/18/2019 04:10 P
[2019-02-18] MEDS: ROSUVASTATIN 10 MG TAB (CRESTOR) GT SCH (20:32)
[2019-02-18 22:00] VITALS: BP 130/89
[2019-02-19] MEDS: KCL 40MEQ IN D5/0.45NS 1000ML 1,000 ML IV SCH (05:07)
[2019-02-19] MEDS: LEVOTHYROXINE 100MCG TABLET (0.1MG) GT SCH (05:33)
[2019-02-19 06:00] VITALS: BP 134/89
[2019-02-19 06:41] LABS: HEMOGLOBIN 13.1 g/dl (12.0-15.5); MEAN CORPUSCULAR HEMOGLOBIN 28.7 pg (27.0-33.0); MEAN CORPUSCULAR HGB CONC 32.8 g/dl (32.0-36.5); MEAN CORPUSCULAR VOLUME 87.5 fl (80.0-96.0); PLATELET COUNT, AUTOMATED 285 10^3/uL (150-450); RED BLOOD COUNT 4.57 10^6/uL (4.00-5.40); WHITE BLOOD COUNT 12.4 10^3/uL (4.0-10.0)
[2019-02-19 07:13] LABS: ALT/SGPT 29 U/L (12-78); BILIRUBIN,TOTAL 0.6 MG/DL (0.2-1.0); BLOOD UREA NITROGEN 16 MG/DL (7-18); CALCIUM LEVEL 7.9 MG/DL (8.8-10.2); CARBON DIOXIDE LEVEL 27 MEQ/L (21-32); CHLORIDE LEVEL 99 MEQ/L (98-107); GLOMERULAR FILTRATION RATE > 60.0 (>45); GLUCOSE, FASTING 145 MG/DL (70-100); POTASSIUM SERUM 3.3 MEQ/L (3.5-5.1); SODIUM LEVEL 134 MEQ/L (136-145); TOTAL PROTEIN 6.4 GM/DL (6.4-8.2)
[2019-02-19] MEDS: BISACODYL 10 MG SUPP PR SCH (09:00)
[2019-02-19] MEDS: carBAMazepine 200 MG TAB GT SCH ×3 (09:51→22:17)
[2019-02-19] MEDS: ENOXAPARIN 40 MG/0.4 ML SYRINGE (J1650) SC SCH (09:51)
[2019-02-19] MEDS: DANTROLENE 25 MG CAP GT SCH ×3 (09:51→22:17)
[2019-02-19] MEDS: BACLOFEN 10 MG TAB GT SCH ×4 (09:52→22:16)
[2019-02-19] MEDS: MULTIVITAMINS/MINERALS THERAP 1 TAB GT SCH (09:52)
[2019-02-19] MEDS: levETIRAcetam 250MG TABLET (KEPPRA) GT SCH ×2 (09:52→22:17)
[2019-02-19] MEDS: BACTRIM 160MG/800MG DS TAB PO SCH ×2 (09:52→22:17)
[2019-02-19] MEDS: SENNA SYRUP 15 ML UDC GT SCH ×2 (09:53→22:18)
--- NOTE | 2019-02-19 10:35 | IPNPDOC ---
Text Note Date of Service The patient was seen on 02/19/19. NOTE No acute events overnight. She had over 4 liters out of paracentesis yesterday, and had a couple BMs. No problems with nausea or emesis overnight. Labs are improved. VSSAF NAD abd - soft, much less distended, no rebound or guarding labs - below A) 68y/o female with ileus and ascites that is resolving s/p paracentesis P) try clamping NGT and giving a bottle of mag citrate this am to flush out the rest of the colon. If residuals are low, then she can keep it clampped and start feeds a few hours after. I will relay these instructions to the nurse. Gato Wood DO VS,Sandy, I+O VS, Sandy, I+O Laboratory Tests 02/19/19 05:59 Red Blood Count 4.57, Mean Corpuscular Volume 87.5, Mean Corpuscular Hemoglobin 28.7, Mean Corpuscular Hemoglobin Concent 32.8, Red Cell Distribution Width 15.6 H, Calcium Level 7.9 L, Aspartate Amino Transf (AST/SGOT) 34, Alanine Aminotransferase (ALT/SGPT) 29, Alkaline Phosphatase 89, Total Bilirubin 0.6 #, Total Protein 6.4, Albumin 2.0 L Vital Signs Date Time Temp Pulse Resp B/P (MAP) Pulse Ox O2 Delivery O2 Flow Rate FiO2 02/19/19 06:00 98.0 93 18 134/89 (104) 94 02/18/19 14:27 2.0 I&O- Last 24 Hours up to 6 AM 02/19/19 06:00 Intake Total 600 ml Output Total 300 ml Balance 300 ml ADRIAN WOOD DO Feb 19, 2019 10:35
--- NOTE | 2019-02-19 10:43 | IPNPDOC ---
Subjective Date Seen The patient was seen on 02/19/19. Subjective Chief Complaint/HPI Nurse reports some blood tinge to PEG tube drainage Constitutional: Denies: Chills, Fever Pulmonary: Denies: Dyspnea, Cough Cardiovascular: Denies: Chest Pain Gastrointestinal: Denies: Nausea, Vomiting, Abdominal Pain, Diarrhea Objective Physical Examination General Exam: Positive: Alert, Other (, unable to communicate verbally or physically) Chest Exam: Positive: Clear to auscultation, Normal air movement Heart Exam: Positive: Rate Normal, Normal S1, Normal S2 Abdomen Exam: Positive: BS Hypoactive, Other (Abdomen sofly distended); Negative: Tenderness Extremity Exam: Positive: Normal pulses; Negative: Edema Skin Exam: Positive: Nl turgor and temperature Neuro Exam: Positive: Other (. Unable to do neuro exam) Psych Exam: Positive: Other (non-verbal, unabel to follow commands.) Assessment /Plan Problems (1) Fecal impaction in rectum Status: Acute Problem Text: 02/19 - + Large BMs yesterday Dr. Wood saw patient this am and suggests Mag Citrate x 1 to flush rest of colon Cont to hold PEG feedigns for now Lost IV access so will replace electrolytes via PEG Has some blood tinged PEG drainage - Nurse will communicate this to Surgery (Hgb Stable) 02/18 - Still no BM with bowel care. Paracetesisi ordered yesterday to remove large amount of ascites fluid which may be compressing and contributing to obstructive process Large amount of drainage to PEG tube suction - stop all Lactulose and Miralax via PEG for now. Cont bowel care from below Consider Surgical consult 02/17 - Vomited again overnight. Very little results with bowel care and abdomen more distended with inaudible BS - CT this am: 1. New trace right pleural effusion with mild right lower lobe and minimal left base fibro-atelectatic change since 02/28/2016. 2. Moderate hiatal hernia which is similar to the prior study with fluid distention of the esophagus which may reflect poor peristaltic clearance or some relative obstruction. 3. Large volume peritoneal ascites which is new since the prior study. 4. GJ tube extending into the proximal jejunum which is new. 5. 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 6. Mild distention of the rectum with stool and contrast which may reflect early impaction but is decreased since the prior study. Put PEG tube to Low suction Increase Bowel care from below with Fleets and suppositories. Consider Surgical cnsult if no results this am 02/16 - Still distended with only small BM Add Miralax Cont Senna, Lactulose and bisa supp baseline neurogenic bowel Remains NPO with IVF hydration - Na+ variable - may need to increase rate K+ improving with potassium in IVF 02/15/19: increase senna 5 ml BID to 10 ml BID, bisa 10 supp QD + outpx lubiprost 24 BID (not formulary) (2) Ascites Problem Text: 02/19 - 4 Liters fluid removed in Paracentesis yesterday WBC improved, Afebrile, Fluid does not suggest SBP Results pending (3) Hypokalemia Status: Resolved Problem Text: 02/18 - K back down today with loss of IV access - Give liquid via PEG this am (4) Severe cerebral palsy Status: Acute Problem Text: Patient dependent on assistance with all her ADLs 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 Continue home meds (5) Chronic constipation Status: Acute Problem Text: History of chronic anemia, now has acute on chronic constipation Bowel regimen Home meds (6) Seizure disorder Status: Chronic (7) Functional quadriplegia Status: Chronic (8) Profound mental handicap Status: Chronic (9) Diabetes mellitus type 2 in nonobese Status: Chronic Plan/VTE VTE Prophylaxis Ordered?: Yes VS, I&O, 24H, Fishbone Vital Signs/I&O Vital Signs Date Time Temp Pulse Resp B/P (MAP) Pulse Ox O2 Delivery O2 Flow Rate FiO2 02/19/19 06:00 98.0 93 18 134/89 (104) 94 02/18/19 14:27 2.0 I&O- Last 24 Hours up to 6 AM 02/19/19 06:00 Intake Total 600 ml Output Total 300 ml Balance 300 ml Laboratory Data 24H LABS Laboratory Tests 2 02/18/19 13:54: Body Fluid Source ASCITES, Body Fluid Color YELLOW, Body Fluid Appearance CLOUDY, Body Fluid Specific [place] 1.027, Body Fluid WBC (Auto) 508H, Body Fluid RBC (Auto) 2, Body Fluid Mononuclear Cells % Auto 86.2H, Fluid Polymorphonuclear Cell % Auto 13.8H, Body Fluid Glucose Source ASCITES, Body Fluid Glucose 149, Body Fluid Protein Source ASCITES, Body Fluid Total Protein 4.2, Body Fluid Albumin Source ASCITES, Body Fluid Albumin 2.1 02/19/19 05:59: Nucleated Red Blood Cells % (auto) 0.0, Anion Gap 8, Glomerular Filtration Rate > 60.0, Blood Urea Nitrogen 16, Creatinine 0.60, Sodium Level 134L, Potassium Level 3.3#L, Chloride Level 99, Carbon Dioxide Level 27, Calcium Level 7.9L, Aspartate Amino Transf (AST/SGOT) 34, Alanine Aminotransferase (ALT/SGPT) 29, Alkaline Phosphatase 89, Total Bilirubin 0.6#, Total Protein 6.4, Albumin 2.0L, Albumin/Globulin Ratio 0.45L CBC/BMP Laboratory Tests 02/19/19 05:59 Red Blood Count 4.57, Mean Corpuscular Volume 87.5, Mean Corpuscular Hemoglobin 28.7, Mean Corpuscular Hemoglobin Concent 32.8, Red Cell Distribution Width 15.6 H, Calcium Level 7.9 L, Aspartate Amino Transf (AST/SGOT) 34, Alanine Aminotransferase (ALT/SGPT) 29, Alkaline Phosphatase 89, Total Bilirubin 0.6 #, Total Protein 6.4, Albumin 2.0 L Microbiology Microbiology 02/18/19 Blood Culture - Preliminary, Resulted No growth after 24 hours . All specim... 02/18/19 Blood Culture - Preliminary, Resulted No growth after 24 hours . All specim... 02/18/19 Acid Fast Stain, Received Pending 02/18/19 Mycobacterial Culture, Received Pending 02/18/19 Fungal Smear, Received Pending 02/18/19 Fungal Culture, Received Pending 02/17/19 Gram Stain - Final, Resulted 02/17/19 Body Fluid Culture, Resulted Pending GLORIA DORADO PA-C Feb 19, 2019 10:43
[2019-02-19] MEDS: POTASSIUM CHLORIDE 10% LIQ 20 MEQ/15 ML UDC GT SCH ×2 (10:47→22:17)
[2019-02-19] MEDS ORDERED: MAGNESIUM CITRATE 300 ML BTL PO ONE (11:00)
[2019-02-19 14:00] VITALS: BP 102/50
--- NOTE | 2019-02-19 18:22 | CR ---
DATE OF CONSULTATION: 02/19/2019 REASON FOR CONSULTATION: Ileus versus bowel obstruction. HISTORY OF PRESENT ILLNESS: The patient is a 68-year-old female [facility] ([facility]) patient who has a history of cerebral palsy, quadriplegia. She was brought in with complaints of abdominal distension, nausea, vomiting. She had not had a bowel movement in a few days. X-rays and CT of the abdomen show fecal impaction with a large amount of stool in the abdomen as well as dilated small bowel concerning for a possible obstruction. She also had significant amount of ascites. She is already scheduled for a paracentesis but that has not been completed yet. Due to the concern for possible ileus versus obstruction, I was asked to evaluate her. The patient is nonverbal and is unable to follow any commands, so the rest of the history was obtained from her chart. PAST MEDICAL HISTORY: 1. Cerebral palsy. 2. Mental retardation. 3. Functional quadriplegia. PAST SURGICAL HISTORY: Gastrostomy-jejunostomy (GJ) tube placement. ALLERGIES: VALPROIC ACID, QUINOLONES. MEDICATIONS: Please see medical record. SOCIAL HISTORY: No drug, alcohol or tobacco usage. FAMILY HISTORY: Noncontributory. REVIEW OF SYSTEMS: Pertinent positives and negatives as stated in the history of present illness (HPI). PHYSICAL EXAMINATION: GENERAL: Awake. VITAL SIGNS: Temperature 100.3, pulse 98, respirations 20, blood pressure 127/89, pulse oximetry 92% on room air. HEENT: Pupils equally round and react to light and accommodation. HEART: S1, S2, regular rate and rhythm. LUNGS: Clear auscultation bilaterally. ABDOMEN: Soft, distended, nontender to palpation. EXTREMITIES: No clubbing, cyanosis or edema. LABORATORY DATA: White count was 18, hemoglobin 13.4, platelets 358. Potassium 4.3, creatinine 0.7. IMAGING STUDIES: CT of the abdomen and pelvis from 02/17/2019 shows right pleural effusion with right lower lobe minimal left base fibroatelectic changes, hiatal hernia, large volume peritoneal ascites new from prior study, horseshoe kidney with nonobstructing renal calculi, mild distension of the rectum with stool and contrast which may reflect early impaction. ASSESSMENT AND PLAN: The patient is a 68-year-old quadriplegic, cerebral palsy patient who presents with a fecal impaction, chronic constipation as well as most likely ileus secondary to the ascites. Recommendation at this time is to continue on with the paracentesis, keep the gastrostomy-jejunostomy (GJ) tube, and antibiotics. After the paracentesis is completed since she has been having a few small bowel movements lately, we will attempt to keep her G-tube to drainage and give her a bottle of magnesium citrate down the J-tube to see if it will help to flush out her system. Once that is completed if she tolerates it well and there is minimal residuals and no signs of recurrent obstructions then we can start her back on tube feeds and see if she tolerates those. Thank you for the consultation.
[2019-02-19 22:00] VITALS: BP 104/54
[2019-02-19] MEDS: ROSUVASTATIN 10 MG TAB (CRESTOR) GT SCH (22:16)
[2019-02-20] MEDS: LEVOTHYROXINE 100MCG TABLET (0.1MG) GT SCH (05:31)
[2019-02-20 06:00] VITALS: BP 104/64
[2019-02-20 06:00] LABS: HEMOGLOBIN 13.1 g/dl (12.0-15.5); MEAN CORPUSCULAR HEMOGLOBIN 28.4 pg (27.0-33.0); MEAN CORPUSCULAR VOLUME 88.7 fl (80.0-96.0); PLATELET COUNT, AUTOMATED 299 10^3/uL (150-450); RED BLOOD COUNT 4.62 10^6/uL (4.00-5.40); WHITE BLOOD COUNT 13.8 10^3/uL (4.0-10.0)
[2019-02-20 06:33] LABS: ALBUMIN 1.9 GM/DL (3.2-5.2); ALT/SGPT 40 U/L (12-78); BILIRUBIN,TOTAL 0.5 MG/DL (0.2-1.0); BLOOD UREA NITROGEN 20 MG/DL (7-18); CALCIUM LEVEL 7.7 MG/DL (8.8-10.2); CARBON DIOXIDE LEVEL 29 MEQ/L (21-32); CHLORIDE LEVEL 101 MEQ/L (98-107); CREATININE FOR GFR 0.66 MG/DL (0.55-1.30); GLOMERULAR FILTRATION RATE > 60.0 (>45); GLUCOSE, FASTING 137 MG/DL (70-100); POTASSIUM SERUM 3.8 MEQ/L (3.5-5.1); SODIUM LEVEL 134 MEQ/L (136-145); TOTAL PROTEIN 6.4 GM/DL (6.4-8.2)
[2019-02-20] MEDS: POTASSIUM CHLORIDE 10% LIQ 20 MEQ/15 ML UDC GT SCH ×2 (09:15→21:10)
[2019-02-20] MEDS: BISACODYL 10 MG SUPP PR SCH (09:16)
[2019-02-20] MEDS: DANTROLENE 25 MG CAP GT SCH ×3 (09:16→21:10)
[2019-02-20] MEDS: MULTIVITAMINS/MINERALS THERAP 1 TAB GT SCH (09:16)
[2019-02-20] MEDS: BACLOFEN 10 MG TAB GT SCH ×4 (09:16→21:11)
[2019-02-20] MEDS: levETIRAcetam 250MG TABLET (KEPPRA) GT SCH ×2 (09:16→21:11)
[2019-02-20] MEDS: carBAMazepine 200 MG TAB GT SCH ×3 (09:16→21:10)
[2019-02-20] MEDS: ENOXAPARIN 40 MG/0.4 ML SYRINGE (J1650) SC SCH (09:16)
[2019-02-20] MEDS: SENNA SYRUP 15 ML UDC GT SCH ×2 (09:16→21:09)
[2019-02-20] MEDS: BACTRIM 160MG/800MG DS TAB PO SCH ×2 (09:16→21:10)
--- NOTE | 2019-02-20 10:29 | IPN ---
DATE: 02/20/2019 Nuvia is seen on [address]. She is markedly better since the high-volume paracentesis was performed 2 days ago with 4350 mL fluid removed. 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 Origin is unknown. However, there is no ovarian mass on CT scan of abdomen/pelvis either in 2016 or the one just done during this admission. She had a colonoscopy 2012, had small tubulovillous adenoma. Last mammogram was in 2009. These are difficult to perform due to lack of cooperation with the procedure. PHYSICAL EXAM: VITAL SIGNS: Stable. Afebrile. She is resting comfortably, looks markedly better. LUNGS: Clear. HEART: Regular rate and rhythm. ABDOMEN: Soft. Mildly distended with a small amount of ascites. No peripheral edema. LABS: White count is down to 13.8. Electrolytes unremarkable. IMPRESSION: Mucinous adenocarcinoma with malignant ascites. I think the large amount of ascites was causing the gastrointestinal (GI) symptoms, and they have markedly improved since paracentesis. Friday will have to be a day to get [facility] ([facility]) involved as far as getting consent for hematology/oncology to evaluate her. I am not sure if her performance status is sufficient for treatment. Friday, we will also consult hematology/oncology to direct further workup if necessary. Considering her poor performance status, palliative care would be a viable option.
[2019-02-20 14:00] VITALS: BP 123/57
[2019-02-20] MEDS: ROSUVASTATIN 10 MG TAB (CRESTOR) GT SCH (21:10)
[2019-02-20 22:00] VITALS: BP 116/66
[2019-02-21] MEDS: LEVOTHYROXINE 100MCG TABLET (0.1MG) GT SCH (05:31)
[2019-02-21 06:00] VITALS: BP 114/66
[2019-02-21 06:42] LABS: ALBUMIN 1.9 GM/DL (3.2-5.2); ALT/SGPT 37 U/L (12-78); BILIRUBIN,TOTAL 0.4 MG/DL (0.2-1.0); BLOOD UREA NITROGEN 26 MG/DL (7-18); CALCIUM LEVEL 7.8 MG/DL (8.8-10.2); CARBON DIOXIDE LEVEL 30 MEQ/L (21-32); CHLORIDE LEVEL 100 MEQ/L (98-107); CREATININE FOR GFR 0.76 MG/DL (0.55-1.30); GLOMERULAR FILTRATION RATE > 60.0 (>45); GLUCOSE, FASTING 131 MG/DL (70-100); POTASSIUM SERUM 3.9 MEQ/L (3.5-5.1); SODIUM LEVEL 139 MEQ/L (136-145); TOTAL PROTEIN 6.6 GM/DL (6.4-8.2)
[2019-02-21] MEDS: POTASSIUM CHLORIDE 10% LIQ 20 MEQ/15 ML UDC GT SCH ×2 (08:28→20:07)
[2019-02-21] MEDS: ENOXAPARIN 40 MG/0.4 ML SYRINGE (J1650) SC SCH (08:28)
[2019-02-21] MEDS: SENNA SYRUP 15 ML UDC GT SCH ×2 (08:28→20:07)
[2019-02-21] MEDS: levETIRAcetam 250MG TABLET (KEPPRA) GT SCH ×2 (08:28→20:07)
[2019-02-21] MEDS: MULTIVITAMINS/MINERALS THERAP 1 TAB GT SCH (08:29)
[2019-02-21] MEDS: BISACODYL 10 MG SUPP PR SCH (08:29)
[2019-02-21] MEDS: BACTRIM 160MG/800MG DS TAB PO SCH ×2 (08:29→20:07)
[2019-02-21] MEDS: BACLOFEN 10 MG TAB GT SCH ×4 (08:29→20:07)
[2019-02-21] MEDS: DANTROLENE 25 MG CAP GT SCH ×3 (08:29→20:07)
[2019-02-21] MEDS: carBAMazepine 200 MG TAB GT SCH ×3 (08:29→20:07)
--- NOTE | 2019-02-21 10:52 | IPN ---
DATE OF SERVICE: 02/21/2019 Nuvia's status is unchanged. She looks like she may be developing a little more ascites. PHYSICAL EXAMINATION: Afebrile. Vital signs stable. Mental status us unchanged, unresponsive, uncooperative. Lungs clear. Heart: Regular rhythm. There is a little more distention with ascites. LABS: Albumin is down to 1.9. IMPRESSION: 1. 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 Source is unknown. She had a colonoscopy 2012 and no ovarian mass on CT of the abdomen and pelvis either in 2015 or during this admission in 2019. Last mammogram was 2009 (mammograms not performable due to behavioral issues). Her performance status is stable. I think palliative care would be best, however, she is a [facility] client which brings in all kinds of other issues when it comes to providing palliative care. 2. Tomorrow [facility] Family [facility] (PFS) will have to get deeply involved with the situation. We will have to get whoever is her decision maker on site and make them aware of this. Hematology oncology should be consulted tomorrow to give their opinion as far as further workup and whether she would be a candidate for treatment.
[2019-02-21 14:00] VITALS: BP 111/87
[2019-02-21] MEDS: ROSUVASTATIN 10 MG TAB (CRESTOR) GT SCH (20:06)
[2019-02-21 22:00] VITALS: BP 101/66
[2019-02-22] MEDS: LEVOTHYROXINE 100MCG TABLET (0.1MG) GT SCH (05:25)
[2019-02-22 06:00] VITALS: BP 104/66
--- NOTE | 2019-02-22 09:12 | IPNPDOC ---
Subjective Date Seen The patient was seen on 02/22/19. Subjective Chief Complaint/HPI Patient sleeping when I entered the room. Unable to arose General: Reports: ROS Unobtainable Objective Physical Examination General Exam: Positive: No Acute Distress, Other (, unable to communicate verbally or physically); Negative: Alert Chest Exam: Positive: Clear to auscultation, Normal air movement Heart Exam: Positive: Rate Normal, Normal S1, Normal S2 Abdomen Exam: Positive: BS Hypoactive, Other (Abdomen sofly distended); Negative: Tenderness Extremity Exam: Positive: Normal pulses; Negative: Edema Skin Exam: Positive: Nl turgor and temperature Neuro Exam: Positive: Other (unable to perform neuro) Psych Exam: Positive: Other (non-verbal, unabel to follow commands.) Assessment /Plan Problems (1) Mucinous adenocarcinoma Status: Acute Problem Specific Plan: Consult Specialist Problem Text: 02/22/19: Source is unknown. Oncology consulted (Dr. Brady) Guardian name: Kenan Hannah phone number (cell) [phone]. Emergency contact number (work) [phone]. I called cell phone, there was no answer. I did leave a message for patient to call hospital or my cell phone directly. I also called his work number and he was not in today, return to work later in the week (2) Ascites Response to Treatment: Stable Problem Text: 02/22/19: Pathology positive for malignancy; mucinous adenocarcinoma 02/19 - 4 Liters fluid removed in Paracentesis yesterday WBC improved, Afebrile, Fluid does not suggest SBP Results pending (3) Fecal impaction in rectum Status: Acute Problem Text: 02/22/19:No BM since 02/18/19. Patient has not had tube feedings since 02/11/19. Repeat KUB today for re-eval. 02/19 - + Large BMs yesterday Dr. Wood saw patient this am and suggests Mag Citrate x 1 to flush rest of colon Cont to hold PEG feedigns for now Lost IV access so will replace electrolytes via PEG Has some blood tinged PEG drainage - Nurse will communicate this to Surgery (Hgb Stable) 02/18 - Still no BM with bowel care. Paracetesisi ordered yesterday to remove large amount of ascites fluid which may be compressing and contributing to obstructive process Large amount of drainage to PEG tube suction - stop all Lactulose and Miralax via PEG for now. Cont bowel care from below Consider Surgical consult 02/17 - Vomited again overnight. Very little results with bowel care and abdomen more distended with inaudible BS - CT this am: 1. New trace right pleural effusion with mild right lower lobe and minimal left base fibro-atelectatic change since 02/28/2016. 2. Moderate hiatal hernia which is similar to the prior study with fluid distention of the esophagus which may reflect poor peristaltic clearance or some relative obstruction. 3. Large volume peritoneal ascites which is new since the prior study. 4. GJ tube extending into the proximal jejunum which is new. 5. 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 6. Mild distention of the rectum with stool and contrast which may reflect early impaction but is decreased since the prior study. Put PEG tube to Low suction Increase Bowel care from below with Fleets and suppositories. Consider Surgical cnsult if no results this am 02/16 - Still distended with only small BM Add Miralax Cont Senna, Lactulose and bisa supp baseline neurogenic bowel Remains NPO with IVF hydration - Na+ variable - may need to increase rate K+ improving with potassium in IVF 02/15/19: increase senna 5 ml BID to 10 ml BID, bisa 10 supp QD + outpx lubiprost 24 BID (not formulary) (4) Severe cerebral palsy Status: Acute Problem Text: Patient dependent on assistance with all her ADLs Continue compliance assistant as previously Continue home meds (5) Chronic constipation Status: Acute Problem Text: History of chronic anemia, now has acute on chronic constipation Bowel regimen Home meds (6) Seizure disorder Status: Chronic (7) Functional quadriplegia Status: Chronic (8) Profound mental handicap Status: Chronic (9) Diabetes mellitus type 2 in nonobese Status: Chronic (10) Hypokalemia Status: Resolved Problem Text: 02/18 - K back down today with loss of IV access - Give liquid via PEG this am Plan/VTE VTE Prophylaxis Ordered?: Yes VS, I&O, 24H, Fishbone Vital Signs/I&O Vital Signs Date Time Temp Pulse Resp B/P (MAP) Pulse Ox O2 Delivery O2 Flow Rate FiO2 02/22/19 06:00 100.0 103 16 104/66 (79) 91 02/18/19 14:27 2.0 I&O- Last 24 Hours up to 6 AM 02/22/19 06:00 Intake Total 650 ml Output Total 950 ml Balance -300 ml Laboratory Data Microbiology Microbiology 02/18/19 Blood Culture - Preliminary, Resulted No Growth after 72 hours. All specime... 02/18/19 Blood Culture - Preliminary, Resulted No Growth after 72 hours. All specime... 02/18/19 Acid Fast Stain, Received Pending 02/18/19 Mycobacterial Culture, Received Pending 02/18/19 Fungal Smear, Received Pending 02/18/19 Fungal Culture, Received Pending 02/17/19 Gram Stain - Final, Resulted 02/17/19 Body Fluid Culture - Final, Resulted Attending Note Attending Note reviewed with Dr. Ace. recommends try dulcolax and Fleet's. Clamp suction on NG and follow residuals. Nurses are attempting to restart NG. Attempted to call Guardian, no answer. If Med Onc internal control consultant agrees that treatment would be futile or low probability of success in her situation then we can initiate process with State to authorize MOLST with [employer]/palliative care strategy. LUZMARIA ANDERSEN Feb 22, 2019 09:12 Maxi Loya MD Feb 22, 2019 12:47
[2019-02-22] MEDS: levETIRAcetam 250MG TABLET (KEPPRA) GT SCH ×2 (09:48→20:26)
[2019-02-22] MEDS: BACLOFEN 10 MG TAB GT SCH ×4 (09:48→20:26)
[2019-02-22] MEDS: BISACODYL 10 MG SUPP PR SCH (09:48)
[2019-02-22] MEDS: carBAMazepine 200 MG TAB GT SCH ×3 (09:48→20:26)
[2019-02-22] MEDS: DANTROLENE 25 MG CAP GT SCH ×3 (09:49→20:26)
[2019-02-22] MEDS: SENNA SYRUP 15 ML UDC GT SCH ×2 (09:49→20:27)
[2019-02-22] MEDS: BACTRIM 160MG/800MG DS TAB PO SCH (09:49)
[2019-02-22] MEDS: MULTIVITAMINS/MINERALS THERAP 1 TAB GT SCH (09:49)
[2019-02-22] MEDS: ENOXAPARIN 40 MG/0.4 ML SYRINGE (J1650) SC SCH (09:50)
[2019-02-22] MEDS: POTASSIUM CHLORIDE 10% LIQ 20 MEQ/15 ML UDC GT SCH ×2 (09:50→20:27)
[2019-02-22] MEDS ORDERED: BISACODYL 10 MG SUPP PR PRN (12:45)
[2019-02-22 13:41] LABS: BASO % 0.3 % (0.0-1.0); EOS # 0.1 10^3/uL (0.0-0.50); EOS % 0.9 % (0.0-3.0); HEMATOCRIT 39.7 % (36.0-47.0); HEMOGLOBIN 12.7 g/dl (12.0-15.5); LYMPH # 2.7 10^3/uL (1.5-4.5); LYMPH % 19.5 % (24.0-44.0); MEAN CORPUSCULAR HEMOGLOBIN 27.9 pg (27.0-33.0); MEAN CORPUSCULAR VOLUME 87.3 fl (80.0-96.0); MONO # 1.2 10^3/uL (0.0-0.8); MONO % 8.4 % (0.0-5.0); NEUTROPHILS # 9.6 10^3/uL (1.8-7.7); NEUTROPHILS % 70.2 % (36.0-66.0); PLATELET COUNT, AUTOMATED 404 10^3/uL (150-450); RED BLOOD COUNT 4.55 10^6/uL (4.00-5.40); WHITE BLOOD COUNT 13.7 10^3/uL (4.0-10.0)
[2019-02-22 14:05] LABS: ALBUMIN 2.1 GM/DL (3.2-5.2); ALT/SGPT 36 U/L (12-78); BILIRUBIN,TOTAL 0.4 MG/DL (0.2-1.0); BLOOD UREA NITROGEN 32 MG/DL (7-18); CARBON DIOXIDE LEVEL 30 MEQ/L (21-32); CHLORIDE LEVEL 101 MEQ/L (98-107); CREATININE FOR GFR 0.78 MG/DL (0.55-1.30); GLOMERULAR FILTRATION RATE > 60.0 (>45); GLUCOSE, FASTING 126 MG/DL (70-100); POTASSIUM SERUM 3.9 MEQ/L (3.5-5.1); SODIUM LEVEL 139 MEQ/L (136-145); TOTAL PROTEIN 6.6 GM/DL (6.4-8.2)
[2019-02-22] MEDS ORDERED: FLEET ENEMA PR ONE (14:30)
[2019-02-22] MEDS: NS 1,000 ML IV SCH (15:19)
[2019-02-22] MEDS: ROSUVASTATIN 10 MG TAB (CRESTOR) GT SCH (20:26)
[2019-02-22 22:00] VITALS: BP 107/78
--- NOTE | 2019-02-22 23:57 | REP ---
LIMITED ABDOMINAL ULTRASOUND: Real-time sonographic evaluation of abdomen performed to evaluate for ascites. Mild scattered ascites is seen throughout the abdomen, more so on the left than on the right. Electronically Signed by Hardy Isabel MD 02/23/2019 11:46 P
[2019-02-23 06:00] VITALS: BP 110/70
[2019-02-23 06:05] LABS: BASO % 0.2 % (0.0-1.0); EOS # 0.1 10^3/uL (0.0-0.50); EOS % 0.6 % (0.0-3.0); HEMATOCRIT 40.2 % (36.0-47.0); HEMOGLOBIN 12.6 g/dl (12.0-15.5); LYMPH # 1.7 10^3/uL (1.5-4.5); LYMPH % 11.7 % (24.0-44.0); MEAN CORPUSCULAR HEMOGLOBIN 28.3 pg (27.0-33.0); MEAN CORPUSCULAR HGB CONC 31.3 g/dl (32.0-36.5); MEAN CORPUSCULAR VOLUME 90.1 fl (80.0-96.0); MONO # 0.8 10^3/uL (0.0-0.8); MONO % 5.4 % (0.0-5.0); NEUTROPHILS # 11.5 10^3/uL (1.8-7.7); NEUTROPHILS % 81.3 % (36.0-66.0); PLATELET COUNT, AUTOMATED 355 10^3/uL (150-450); RED BLOOD COUNT 4.46 10^6/uL (4.00-5.40); WHITE BLOOD COUNT 14.1 10^3/uL (4.0-10.0)
[2019-02-23 06:25] LABS: ALT/SGPT 42 U/L (12-78); BILIRUBIN,TOTAL 0.3 MG/DL (0.2-1.0); BLOOD UREA NITROGEN 32 MG/DL (7-18); CALCIUM LEVEL 7.8 MG/DL (8.8-10.2); CARBON DIOXIDE LEVEL 27 MEQ/L (21-32); CHLORIDE LEVEL 105 MEQ/L (98-107); CREATININE FOR GFR 0.73 MG/DL (0.55-1.30); GLOMERULAR FILTRATION RATE > 60.0 (>45); GLUCOSE, FASTING 143 MG/DL (70-100); POTASSIUM SERUM 4.2 MEQ/L (3.5-5.1); SODIUM LEVEL 141 MEQ/L (136-145); TOTAL PROTEIN 6.6 GM/DL (6.4-8.2)
[2019-02-23] MEDS: LEVOTHYROXINE 100MCG TABLET (0.1MG) GT SCH (06:31)
[2019-02-23] MEDS: NS 1,000 ML IV SCH ×2 (06:31→18:01)
--- NOTE | 2019-02-23 08:48 | CR ---
MEDICAL ONCOLOGY INPATIENT CONSULTATION: DATE OF SERVICE: 02/22/2019 DIAGNOSIS: Malignant ascites in a bed bound 68-year-old woman, in the care of [facility]), with severe mental retardation and cerebral palsy. REQUESTING PHYSICIANS: Juan López MD, VILMA Pfeiffer. HISTORY OF PRESENT ILLNESS: At baseline, Nuvia Hannah lives at [facility], has a history of cerebral palsy, severe mental retardation, functional quadriplegia, previous percutaneous endoscopic gastrostomy (PEG) placement, admitted on 02/12/2019 due to progressive abdominal distension, nausea and vomiting. She had apparently not had bowel movements for several days. Imaging here including CT imaging shows new large abdominal ascites. Paracentesis 02/18/2019 yielded a positive fluid cytology with cell block positive for numerous single malignant cells with signet ring morphology positive for intracytoplasmic mucin consistent with metastatic mucinous adenocarcinoma. 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 The imaging was noncontrast abdomen and pelvis CT on the showing new trace right pleural effusion, moderate hiatal hernia unchanged, large volume peritoneal ascites new versus 2016. In addition, the patient has horseshoe kidney with normal renal function. There is some mild distension of the rectum with stool and oral contrast. At the bedside, the patient opens her eyes on palpation of her abdomen, does not speak, does not grimace with deep palpation or grimace to rebound palpation. PAST MEDICAL HISTORY: Cerebral palsy, severe mental retardation, functional quadriplegia, PEG placement. PAST SURGICAL HISTORY: PEG placement. CURRENT MEDICATIONS: Reviewed. SOCIAL HISTORY: Lives at [facility]. Has a nephew and healthcare proxy named Bipin Hannah, . Nonsmoker. No alcohol. REVIEW OF SYSTEMS: Not obtainable. PHYSICAL EXAMINATION: Vital signs: Blood pressure 104/66, heart rate 103, respiratory 16, O2 sat 91%, temperature 100. Respiratory: Coarse clear breath sounds bilateral upper anterior lung hardy. Cardiac: S1, S2, regular rate and rhythm. Abdomen is softly protruded, nontender, though the level of subjective discomfort is difficult to assess. No rebound tenderness but the patient quickly opens her eyes to abdominal exam without grimacing. Extremities: 2-3 + pitting edema appearing to be chronic. LABORATORY DATA: WBC 13 (leukocytosis since September), hemoglobin 12.7, hematocrit 40, platelets 404. Differential 70% neutrophils. Renal function is normal with GFR greater than 60. Electrolytes unremarkable. Liver functions unremarkable. Albumin 2.1. IMPRESSION: 68-year-old functionally, bed bound woman with severe mental retardation, cerebral palsy, reported history of methicillin-resistant Staphylococcus aureus (MRSA) positive staph infection in the last year now with malignant peritoneal ascites positive on cell block after paracentesis for intracytoplasmic mucin with signet ring morphology. The differential diagnosis includes a GI malignancy such as a mucinous adenocarcinoma of appendix, a gastric primary gastric cancer could appear this way; a primary ovarian malignancy could also present this way. This patient, presenting with malignant abdominal ascites has at least stage III if not stage IV disease plus advanced adenocarcinoma. The primary is uncertain making management challenging. In a patient with poor performance status such as this, treatment with chemotherapy would be not only challenging of questionable clinical value. Though the patient horseshoe kidney, her GFR is normal and perhaps low dose IV contrast imaging would be more helpful in sorting out a primary source and extent of disease. RECOMMENDATIONS: 1. CT chest, abdomen, and pelvis with IV contrast if possible. 2. Obtain CA-125, CA19-9 to help sort out primary source. 3. I will contact the patient's legal guardian Bipin Hannah to discuss my clinical impression, which is of advanced adenocarcinoma likely a GI or origin, and likely with very poor prognosis. If an advance GI tumor 6 months prognosis is extremely poor without treatment, similarly with an advanced ovarian tumor unless treated but in this case chemotherapy would be very difficult to give in the setting where the patient is unable to communicate either to give consent or to reflect subjective experience and side effects. Particularly in the case of chemotherapy, the risk of peripheral neuropathy could be something for which no good objective quantification could be made and cause harm to the patient on a long-term basis. My initial overall impression is that the patient would likely benefit most from hospice care. Consideration should be given to a peritoneal PleurX to offload fluid to minimize symptoms. cc: TERI Prakash MD
[2019-02-23] MEDS: SENNA SYRUP 15 ML UDC GT SCH ×2 (09:49→20:45)
[2019-02-23] MEDS: DANTROLENE 25 MG CAP GT SCH ×3 (09:50→20:46)
[2019-02-23] MEDS: ENOXAPARIN 40 MG/0.4 ML SYRINGE (J1650) SC SCH (09:50)
[2019-02-23] MEDS: POTASSIUM CHLORIDE 10% LIQ 20 MEQ/15 ML UDC GT SCH (09:50)
[2019-02-23] MEDS: MULTIVITAMINS/MINERALS THERAP 1 TAB GT SCH (09:51)
[2019-02-23] MEDS: carBAMazepine 200 MG TAB GT SCH ×3 (09:51→20:46)
[2019-02-23] MEDS: BACLOFEN 10 MG TAB GT SCH ×4 (09:51→20:45)
[2019-02-23] MEDS: levETIRAcetam 250MG TABLET (KEPPRA) GT SCH ×2 (09:51→20:46)
[2019-02-23] MEDS: BISACODYL 10 MG SUPP PR SCH (09:51)
--- NOTE | 2019-02-23 12:17 | REP ---
Supine abdomen two views: Comparisons are the abdomen/pelvis CT of 02/17/2019 and the supine abdomen 02/12/2019. The The bowel gas pattern is normal. There is a J tube, unchanged. On the comparison CT there is a horseshoe kidney. There is a staghorn calculus in the upper pole of the left renal moiety and a staghorn calculus in the lower pole of the left renal moiety. This is unchanged. There is lumbar scoliosis convex right. Electronically Signed by Hardy Mora MD 02/22/2019 12:34 P
[2019-02-23] MEDS ORDERED: MORPHINE 10MG/0.5ML ORAL CONCENTRATE SOLUTION U/D SL PRN (13:30)
[2019-02-23] MEDS ORDERED: ACETAMINOPHEN 650 MG SUPP PR PRN (13:30)
[2019-02-23] MEDS ORDERED: ACETAMINOPHEN TAB 650MG DOSE (2X325MG) PO PRN (13:30)
[2019-02-23] MEDS ORDERED: LORazepam 1 MG TAB PO PRN (13:30)
[2019-02-23] MEDS ORDERED: FLEET ENEMA PR PRN (13:30)
[2019-02-23] MEDS ORDERED: SCOPOLAMINE 1MG TRANSDERMAL PATCH TOP PRN (13:30)
--- NOTE | 2019-02-23 13:48 | IPN ---
DATE: 02/23/2019 Nuvia [facility]. She was unresponsive. Her ascites seems to be slowly reaccumulating on exam. I spent a lot of time today working through end of life decision making with two of Nuvia's guardians. One is Bipin Hannah who is her nephew, , his cell number, is his work number. I also spoke with Chely Headleyews at [phone]. They are in agreement with decision making so I will summarize both conversations. They understand Nuvia has adenocarcinoma with malignant abdominal ascites, origin is unknown, probably gastrointestinal (no ovarian abnormality seen on imaging). They understand she has a very poor performance status and would be unlikely to respond to any attempts at active treatment. They also understand that abdominal ascites, when it was at large volume intense, caused Nuvia to have intra-abdominal pressure that led to constipation, reflux with an aspiration event and shortness of breath from compromising diaphragm movement. They were both in agreement that they want to pursue comfort measures with end of life care. They understand that this involves withdrawing active treatment for her aspiration pneumonia so we are discontinuing antibiotic therapy. They do not want her kept alive on IV fluids or tube feedings either (the tube feedings, if continued, would likely lead to recurrent aspiration anyway as the abdominal pressure increases on her stomach). They would like her treatment all directed towards relief of symptoms. Towards that end, I am continuing her anticonvulsants, her Tegretol and her Keppra, as well as her dantrolene to prevent muscles spasms. We will be discontinuing deep vein thrombosis (DVT) prophylaxis, hormone replacement, potassium replacement and her Crestor. Life expectancy is limited. They were asking for consideration of hospice care. I will defer to patient and family services (PFS) on this as it is my understanding that [facility] can handle end of life care in the patient's residence. ADDENDUM: It is implied that I want to explicitly state that both parties mentioned above understand that the patient requires do not resuscitate status to be on comfort measures and they agree to the patient being on DO NOT RESUSCITATE status.
[2019-02-23 14:00] VITALS: BP 121/65
[2019-02-23 22:00] VITALS: BP 118/72
[2019-02-24 06:00] VITALS: BP 121/77
[2019-02-24 06:06] LABS: BASO % 0.3 % (0.0-1.0); EOS # 0.2 10^3/uL (0.0-0.50); EOS % 1.4 % (0.0-3.0); HEMATOCRIT 38.6 % (36.0-47.0); HEMOGLOBIN 11.7 g/dl (12.0-15.5); LYMPH # 2.1 10^3/uL (1.5-4.5); LYMPH % 15.2 % (24.0-44.0); MEAN CORPUSCULAR HEMOGLOBIN 27.5 pg (27.0-33.0); MEAN CORPUSCULAR HGB CONC 30.3 g/dl (32.0-36.5); MEAN CORPUSCULAR VOLUME 90.6 fl (80.0-96.0); MONO # 0.8 10^3/uL (0.0-0.8); MONO % 5.8 % (0.0-5.0); NEUTROPHILS # 10.7 10^3/uL (1.8-7.7); NEUTROPHILS % 76.4 % (36.0-66.0); PLATELET COUNT, AUTOMATED 349 10^3/uL (150-450); RED BLOOD COUNT 4.26 10^6/uL (4.00-5.40); WHITE BLOOD COUNT 13.9 10^3/uL (4.0-10.0)
[2019-02-24 06:43] LABS: ALBUMIN 1.8 GM/DL (3.2-5.2); ALT/SGPT 36 U/L (12-78); BILIRUBIN,TOTAL 0.4 MG/DL (0.2-1.0); BLOOD UREA NITROGEN 29 MG/DL (7-18); CALCIUM LEVEL 7.7 MG/DL (8.8-10.2); CARBON DIOXIDE LEVEL 24 MEQ/L (21-32); CHLORIDE LEVEL 110 MEQ/L (98-107); CREATININE FOR GFR 0.55 MG/DL (0.55-1.30); GLOMERULAR FILTRATION RATE > 60.0 (>45); GLUCOSE, FASTING 117 MG/DL (70-100); POTASSIUM SERUM 3.9 MEQ/L (3.5-5.1); SODIUM LEVEL 143 MEQ/L (136-145); TOTAL PROTEIN 6.2 GM/DL (6.4-8.2)
[2019-02-24] MEDS: SENNA SYRUP 15 ML UDC GT SCH ×2 (09:00→20:00)
[2019-02-24] MEDS: BISACODYL 10 MG SUPP PR SCH ×2 (09:00→10:22)
[2019-02-24] MEDS: DANTROLENE 25 MG CAP GT SCH ×3 (10:21→20:00)
[2019-02-24] MEDS: levETIRAcetam 250MG TABLET (KEPPRA) GT SCH ×2 (10:21→20:00)
[2019-02-24] MEDS: BACLOFEN 10 MG TAB GT SCH ×4 (10:21→20:00)
[2019-02-24] MEDS: carBAMazepine 200 MG TAB GT SCH ×3 (10:21→20:00)
[2019-02-24] MEDS: NS 1,000 ML IV SCH (10:22)
[2019-02-24] MEDS: MULTIVITAMINS/MINERALS THERAP 1 TAB GT SCH (10:22)
[2019-02-24 14:00] VITALS: BP 126/69
[2019-02-24 22:00] VITALS: BP 127/71
[2019-02-25] MEDS: NS 1,000 ML IV SCH (01:00)
[2019-02-25 06:00] VITALS: BP 129/73
[2019-02-25] MEDS ORDERED: SCOPOLAMINE 1MG TRANSDERMAL PATCH TOP PRN (07:00)
[2019-02-25] MEDS ORDERED: LORazepam 1 MG TAB PO PRN ×2 (07:00→13:15)
[2019-02-25] MEDS ORDERED: MORPHINE 10MG/0.5ML ORAL CONCENTRATE SOLUTION U/D SL PRN ×2 (07:00→13:00)
[2019-02-25] MEDS: BISACODYL 10 MG SUPP PR SCH ×2 (09:00→09:32)
[2019-02-25] MEDS: SENNA SYRUP 15 ML UDC GT SCH (09:32)
[2019-02-25] MEDS: levETIRAcetam 250MG TABLET (KEPPRA) GT SCH (09:33)
[2019-02-25] MEDS: MULTIVITAMINS/MINERALS THERAP 1 TAB GT SCH (09:33)
[2019-02-25] MEDS: BACLOFEN 10 MG TAB GT SCH ×2 (09:33→13:47)
[2019-02-25] MEDS: carBAMazepine 200 MG TAB GT SCH (09:33)
[2019-02-25] MEDS: DANTROLENE 25 MG CAP GT SCH (09:33)
[2019-02-25] MEDS ORDERED: HYOSCYAMINE SULFATE 0.125 MG SUBL TABLET SL SCH (13:00)
[2019-02-25] MEDS ORDERED: Morphine Sulfate Oral Conc. SL (13:06)
[2019-02-25] MEDS ORDERED: ATIV1TAB7 PO (13:06)
[2019-02-25] MEDS ORDERED: HYOS125TA SL (13:06)
--- NOTE | 2019-02-25 13:43 | DSES ---
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 SECONDARY DIAGNOSES: 1. Intractable constipation secondary to cancer. 2. Aspiration pneumonia with recurrent reflux secondary to tense ascites causing increased abdominal pressure. 3. Severe cerebral palsy. 4. Severe mental retardation. 5. Suspected dementia. 6. Protein calorie malnutrition. PROCEDURES: Paracentesis on 02/18/2019. HISTORY: Nuvia Hannah is a [facility] ([facility]) client admitted with intractable constipation. HOSPITAL COURSE: The patient was admitted to a medical bed. She initially had bowel therapy and she did not respond to this. She had increased abdominal distention. I did a CT scan of the abdomen and pelvis on 02/17/2019 that showed large volume ascites, new from a CT done a few years ago. I ordered a paracentesis. This was performed. Culture was negative. Pathology unfortunately returned showing metastatic mucinous adenocarcinoma. Consultation was obtained from hematology/oncology. They did not feel the patient was a candidate for anything other than palliative care. We went through all the paperwork that is involved with putting a disabled person on appropriate palliative care but eventually we got to that point and she received the palliative care that she needed. She is being discharged today. DISCHARGE MEDICATIONS: Discharge medications are for palliation only. She is on: - hyoscyamine 0.125 mcg sublingual every 4 hours as needed for terminal secretions - Ativan 0.5 mg every 4 hours as needed for anxiety - morphine sulfate concentrate 5 mg every 2 hours as needed for severe pain Otherwise, she will stay on: - Baclofen 20 mg three times a day - carbamazepine 200 mg three times a day - dantrolene 25 mg three times a day - Keppra 250 mg at night and 500 mg in the morning - milk of magnesia as needed - Aquaphor as needed - enema as needed - Dulcolax 10 mg per rectum as needed Her prognosis is poor. Life expectancy is only a matter of weeks. She has a terminal untreatable condition. I spoke with nursing staff and asked them to communicate to [facility] that we are discontinuing tube feedings as in the hospital she aspirated when she was tube fed. The abdominal carcinomatosis is causing pressure on the intraabdominal contents, including in the stomach, which causes her to reflux tube feedings up into her throat and she aspirated on them. I think that it is more compassionate to withhold these than subject her to repeated aspiration.
== END 2019-02-25 15:10 | disposition home or self-care (01) | DRG 374 ==
LOC: M ED 07:06 → M ED INP 14:50 → M MSPAV 18:36
PROVIDERS: ADMIT Internal Medicine; ATTEND Family Medicine
PROC: 0W9G3ZX Drainage of Peritoneal Cavity, Percutaneous Approach, Diagnostic (ICD-10-PCS; principal; 2019-02-18 14:00)
DX: C76.2 Malignant neoplasm of abdomen (principal); J69.0 Pneumonitis due to inhalation of food and vomit; R53.2 Functional quadriplegia; F73 Profound intellectual disabilities; E22.2 Syndrome of inappropriate secretion of antidiuretic hormone; R18.0 Malignant ascites; E46 Unspecified protein-calorie malnutrition; G80.1 Spastic diplegic cerebral palsy; K56.41 Fecal impaction; F03.90 Unspecified dementia, unspecified severity, without behavioral disturbance, psychotic disturbance, mood disturbance, and anxiety; K59.09 Other constipation; R09.02 Hypoxemia; E87.6 Hypokalemia; E11.9 Type 2 diabetes mellitus without complications; E03.9 Hypothyroidism, unspecified; Z93.1 Gastrostomy status; Z79.899 Other long term (current) drug therapy; Z88.8 Allergy status to other drugs, medicaments and biological substances; Z88.1 Allergy status to other antibiotic agents